=== PATIENT | female | born 1935 | race Caucasian/White ===

== ENCOUNTER 2017-10-25 18:38 | Inpatient (IN) | payer MEDICARE ==
[2017-10-25] MEDS: IV NORMAL SALINE 1000ML BAG 1,000 ML IV ×2 (20:31→23:59)
[2017-10-25 20:47] LABS: BASO % 0 % (0-3); EOS % 0 % (0-3); HEMATOCRIT 36.1 % (36.0-47.0); HEMOGLOBIN 12.2 g/dL (12.0-15.5); LYMPH # 0.7 x10^3/uL (1.0-4.8); LYMPH % 8 % (24-48); MEAN CORPUSCULAR HEMOGLOBIN 30 pg (25-35); MEAN CORPUSCULAR HGB CONC 34 g/dL (31-37); MEAN CORPUSCULAR VOLUME 89 fL (79-100); MONO # 0.4 x10^3/uL (0.0-1.1); MONO % 5 % (0-9); NEUT # 7.1 x10^3uL (1.8-7.7); NEUT % 87 % (31-73); PLATELET COUNT 450 x10^3/uL (140-400); RED BLOOD COUNT 4.04 x10^6/uL (3.50-5.40); RED CELL DISTRIBUTION WIDTH 13.5 % (11.5-14.5); WHITE BLOOD COUNT 8.1 x10^3/uL (4.0-11.0)
[2017-10-25 21:03] LABS: ANION GAP 15 (6-14); BLOOD UREA NITROGEN 102 mg/dL (7-20); BUN/CREATININE RATIO 30 (6-20); CALCIUM 10.3 mg/dL (8.5-10.1); CARBON DIOXIDE 15 mmol/L (21-32); CHLORIDE 96 mmol/L (98-107); CREATININE 3.4 mg/dL (0.6-1.0); GFR 12.9; GLUCOSE 165 mg/dL (70-99); POTASSIUM 5.7 mmol/L (3.5-5.1); SODIUM 126 mmol/L (136-145)
[2017-10-25 21:05] LABS: ADD MAN DIFF? YES
[2017-10-25 21:06] LABS: LACTIC ACID 2.3 mmol/L (0.4-2.0)
[2017-10-25 21:10] LABS: NT-PRO BNP 2060 pg/mL (0-449)
[2017-10-25 21:12] LABS: FREE T4 0.72 ng/dL (0.76-1.46)
[2017-10-25 21:12] LABS: THYROID STIM HORMONE (TSH) 2.183 uIU/mL (0.358-3.74)
[2017-10-25 21:13] LABS: TROPONINI < 0.017 ng/mL (0.000-0.055)
[2017-10-25 21:13] LABS: ALBUMIN 3.2 g/dL (3.4-5.0); ALBUMIN/GLOBULIN RATIO 0.6 (1.0-1.7); ALK PHOS 95 U/L (46-116); ALT (SGPT) 30 U/L (14-59); AST (SGOT) 12 U/L (15-37); MAGNESIUM 1.8 mg/dL (1.8-2.4); TOTAL BILIRUBIN 0.4 mg/dL (0.2-1.0); TOTAL PROTEIN 8.3 g/dL (6.4-8.2)
[2017-10-25 22:12] LABS: % BANDS 3 % (0-9); % LYMPHS 11 % (24-48); % METAS 1 % (0-0); % SEGS 85 % (35-66); PLT ESTIMATE ADEQUATE (ADEQUATE)
[2017-10-25 22:14] LABS: BILIRUBIN,URINE NEGATIVE (NEG); CLARITY,URINE TURBID; COLOR,URINE YELLOW; GLUCOSE,URINE NEGATIVE (NEG); NITRITE,URINE NEGATIVE (NEG); PH,URINE 5.5; PROTEIN,URINE 30 mg/dL (NEG-TRACE); UROBILINOGEN,URINE 0.2 mg/dL (0.2 mg/dL)
[2017-10-25] MEDS: cefTRIAXone IV Push 1 GM VIAL. IVP (22:25)
[2017-10-25 22:32] LABS: BACTERIA,URINE FEW /HPF (0-FEW); RBC,URINE 0 /HPF (0-2); SQUAMOUS EPITHELIAL CELL,UR OCC /LPF; WBC,URINE TNTC /HPF (0-4)
[2017-10-26 05:52] LABS: ADD MAN DIFF? NO
[2017-10-26 05:56] LABS: BASO % 0 % (0-3); EOS % 0 % (0-3); HEMATOCRIT 32.4 % (36.0-47.0); HEMOGLOBIN 11.2 g/dL (12.0-15.5); LYMPH # 1.6 x10^3/uL (1.0-4.8); LYMPH % 17 % (24-48); MEAN CORPUSCULAR HEMOGLOBIN 31 pg (25-35); MEAN CORPUSCULAR HGB CONC 35 g/dL (31-37); MEAN CORPUSCULAR VOLUME 89 fL (79-100); MONO % 11 % (0-9); NEUT # 6.8 x10^3uL (1.8-7.7); NEUT % 72 % (31-73); PLATELET COUNT 370 x10^3/uL (140-400); RED BLOOD COUNT 3.65 x10^6/uL (3.50-5.40); RED CELL DISTRIBUTION WIDTH 13.8 % (11.5-14.5); WHITE BLOOD COUNT 9.5 x10^3/uL (4.0-11.0)
[2017-10-26 06:18] LABS: ANION GAP 13 (6-14); BLOOD UREA NITROGEN 92 mg/dL (7-20); BUN/CREATININE RATIO 34 (6-20); CALCIUM 9.8 mg/dL (8.5-10.1); CARBON DIOXIDE 15 mmol/L (21-32); CHLORIDE 104 mmol/L (98-107); CREATININE 2.7 mg/dL (0.6-1.0); GFR 16.9; GLUCOSE 95 mg/dL (70-99); POTASSIUM 5.3 mmol/L (3.5-5.1); SODIUM 132 mmol/L (136-145)
[2017-10-26 06:23] LABS: ALBUMIN 2.9 g/dL (3.4-5.0); ALBUMIN/GLOBULIN RATIO 0.6 (1.0-1.7); ALK PHOS 84 U/L (46-116); ALT (SGPT) 27 U/L (14-59); AST (SGOT) 16 U/L (15-37); TOTAL BILIRUBIN 0.3 mg/dL (0.2-1.0); TOTAL PROTEIN 7.4 g/dL (6.4-8.2)
[2017-10-26] MEDS: IV NORMAL SALINE 1000ML BAG 1,000 ML IV ×3 (08:50→17:29)
[2017-10-26] MEDS: HEPARIN PF for SUB-Q USE 5,000 UNIT/0.5 ML VIAL. SQ ×2 (08:52→21:29)
[2017-10-26] MEDS: LACTOBACILLUS RHAMNOSUS GG 1 CAPSULE. PO (21:23)
[2017-10-26] MEDS: TAMSULOSIN 0.4 MG CAP.ER.24H. PO (21:23)
[2017-10-26] MEDS: cefTRIAXone IV Push 1 GM VIAL. IVP (23:08)
[2017-10-27] MEDS: HYDROcodone/APAP 5/325MG 1 TAB TABLET PO (03:42)
[2017-10-27] MEDS: LACTOBACILLUS RHAMNOSUS GG 1 CAPSULE. PO ×2 (08:54→21:57)
[2017-10-27] MEDS: HEPARIN PF for SUB-Q USE 5,000 UNIT/0.5 ML VIAL. SQ ×2 (08:58→22:08)
[2017-10-27] MEDS: TAMSULOSIN 0.4 MG CAP.ER.24H. PO (21:57)
[2017-10-27] MEDS: cefTRIAXone IV Push 1 GM VIAL. IVP (23:04)
[2017-10-28 06:21] LABS: ADD MAN DIFF? NO
[2017-10-28 06:44] LABS: ANION GAP 13 (6-14); BLOOD UREA NITROGEN 51 mg/dL (7-20); CALCIUM 10.1 mg/dL (8.5-10.1); CARBON DIOXIDE 18 mmol/L (21-32); CHLORIDE 112 mmol/L (98-107); CREATININE 1.8 mg/dL (0.6-1.0); GFR 26.9; GLUCOSE 102 mg/dL (70-99); POTASSIUM 4.7 mmol/L (3.5-5.1); SODIUM 143 mmol/L (136-145)
[2017-10-28 07:00] LABS: LACTIC ACID 0.8 mmol/L (0.4-2.0)
[2017-10-28 07:10] LABS: BASO % 0 % (0-3); EOS # 0.1 x10^3/uL (0.0-0.7); EOS % 1 % (0-3); HEMATOCRIT 31.1 % (36.0-47.0); HEMOGLOBIN 10.6 g/dL (12.0-15.5); LYMPH % 27 % (24-48); MEAN CORPUSCULAR HEMOGLOBIN 31 pg (25-35); MEAN CORPUSCULAR HGB CONC 34 g/dL (31-37); MEAN CORPUSCULAR VOLUME 89 fL (79-100); MONO # 0.7 x10^3/uL (0.0-1.1); MONO % 9 % (0-9); NEUT # 4.6 x10^3uL (1.8-7.7); NEUT % 63 % (31-73); PLATELET COUNT 272 x10^3/uL (140-400); RED BLOOD COUNT 3.48 x10^6/uL (3.50-5.40); RED CELL DISTRIBUTION WIDTH 14.3 % (11.5-14.5); WHITE BLOOD COUNT 7.3 x10^3/uL (4.0-11.0)
[2017-10-28] MEDS: LACTOBACILLUS RHAMNOSUS GG 1 CAPSULE. PO ×2 (08:44→21:38)
[2017-10-28] MEDS: HEPARIN PF for SUB-Q USE 5,000 UNIT/0.5 ML VIAL. SQ ×2 (08:52→21:42)
[2017-10-28] MEDS: TAMSULOSIN 0.4 MG CAP.ER.24H. PO (21:38)
[2017-10-28] MEDS: cefTRIAXone IV Push 1 GM VIAL. IVP (22:53)
[2017-10-28] MEDS: HYDROcodone/APAP 5/325MG 1 TAB TABLET PO (22:59)
[2017-10-29 05:06] LABS: ADD MAN DIFF? NO
[2017-10-29 05:25] LABS: BASO % 0 % (0-3); EOS # 0.1 x10^3/uL (0.0-0.7); EOS % 2 % (0-3); HEMATOCRIT 30.6 % (36.0-47.0); HEMOGLOBIN 10.3 g/dL (12.0-15.5); LYMPH # 2.3 x10^3/uL (1.0-4.8); LYMPH % 35 % (24-48); MEAN CORPUSCULAR HEMOGLOBIN 30 pg (25-35); MEAN CORPUSCULAR HGB CONC 34 g/dL (31-37); MEAN CORPUSCULAR VOLUME 90 fL (79-100); MONO # 0.6 x10^3/uL (0.0-1.1); MONO % 9 % (0-9); NEUT # 3.5 x10^3uL (1.8-7.7); NEUT % 53 % (31-73); PLATELET COUNT 243 x10^3/uL (140-400); RED BLOOD COUNT 3.41 x10^6/uL (3.50-5.40); RED CELL DISTRIBUTION WIDTH 14.3 % (11.5-14.5); WHITE BLOOD COUNT 6.6 x10^3/uL (4.0-11.0)
[2017-10-29 05:56] LABS: ALBUMIN 2.7 g/dL (3.4-5.0); ALBUMIN/GLOBULIN RATIO 0.7 (1.0-1.7); ALK PHOS 65 U/L (46-116); ALT (SGPT) 23 U/L (14-59); ANION GAP 14 (6-14); AST (SGOT) 10 U/L (15-37); BLOOD UREA NITROGEN 44 mg/dL (7-20); BUN/CREATININE RATIO 26 (6-20); CARBON DIOXIDE 17 mmol/L (21-32); CHLORIDE 109 mmol/L (98-107); CREATININE 1.7 mg/dL (0.6-1.0); GFR 28.8; GLUCOSE 102 mg/dL (70-99); POTASSIUM 4.1 mmol/L (3.5-5.1); SODIUM 140 mmol/L (136-145); TOTAL BILIRUBIN 0.4 mg/dL (0.2-1.0); TOTAL PROTEIN 6.7 g/dL (6.4-8.2)
[2017-10-29 07:18] LABS: SEDIMENTATION RATE 53 (0-25)
[2017-10-29] MEDS: LACTOBACILLUS RHAMNOSUS GG 1 CAPSULE. PO ×2 (10:26→20:53)
[2017-10-29] MEDS: HEPARIN PF for SUB-Q USE 5,000 UNIT/0.5 ML VIAL. SQ ×2 (10:26→20:54)
[2017-10-29] MEDS: TAMSULOSIN 0.4 MG CAP.ER.24H. PO (20:53)
[2017-10-29] MEDS: HYDROcodone/APAP 5/325MG 1 TAB TABLET PO (20:56)
[2017-10-29] MEDS: cefTRIAXone IV Push 1 GM VIAL. IVP (22:26)
[2017-10-30 04:38] LABS: ADD MAN DIFF? NO
[2017-10-30 04:45] LABS: BASO % 0 % (0-3); EOS # 0.2 x10^3/uL (0.0-0.7); EOS % 3 % (0-3); HEMATOCRIT 29.6 % (36.0-47.0); LYMPH # 2.2 x10^3/uL (1.0-4.8); LYMPH % 31 % (24-48); MEAN CORPUSCULAR HEMOGLOBIN 30 pg (25-35); MEAN CORPUSCULAR HGB CONC 34 g/dL (31-37); MEAN CORPUSCULAR VOLUME 90 fL (79-100); MONO # 0.7 x10^3/uL (0.0-1.1); MONO % 9 % (0-9); NEUT # 4.1 x10^3uL (1.8-7.7); NEUT % 57 % (31-73); PLATELET COUNT 227 x10^3/uL (140-400); RED BLOOD COUNT 3.31 x10^6/uL (3.50-5.40); RED CELL DISTRIBUTION WIDTH 14.2 % (11.5-14.5); WHITE BLOOD COUNT 7.2 x10^3/uL (4.0-11.0)
[2017-10-30 05:27] LABS: ALBUMIN 2.7 g/dL (3.4-5.0); ALBUMIN/GLOBULIN RATIO 0.6 (1.0-1.7); ALK PHOS 62 U/L (46-116); ALT (SGPT) 24 U/L (14-59); ANION GAP 13 (6-14); AST (SGOT) 13 U/L (15-37); BLOOD UREA NITROGEN 39 mg/dL (7-20); BUN/CREATININE RATIO 23 (6-20); CARBON DIOXIDE 17 mmol/L (21-32); CHLORIDE 108 mmol/L (98-107); CREATININE 1.7 mg/dL (0.6-1.0); GFR 28.8; GLUCOSE 88 mg/dL (70-99); SODIUM 138 mmol/L (136-145); TOTAL BILIRUBIN 0.3 mg/dL (0.2-1.0)
[2017-10-30] MEDS: LACTOBACILLUS RHAMNOSUS GG 1 CAPSULE. PO ×2 (09:36→21:08)
[2017-10-30] MEDS: HEPARIN PF for SUB-Q USE 5,000 UNIT/0.5 ML VIAL. SQ ×2 (09:42→21:13)
[2017-10-30] MEDS: SENNOSIDES/DOCUSATE 8.6/50MG TABLET. PO (10:31)
[2017-10-30] MEDS: HYDROcodone/APAP 5/325MG 1 TAB TABLET PO (21:08)
[2017-10-30] MEDS: TAMSULOSIN 0.4 MG CAP.ER.24H. PO (21:08)
[2017-10-30] MEDS: cefTRIAXone IV Push 1 GM VIAL. IVP (23:19)
[2017-10-31 07:05] LABS: ADD MAN DIFF? NO
[2017-10-31 07:17] LABS: BASO # 0.1 x10^3/uL (0.0-0.2); BASO % 1 % (0-3); EOS # 0.2 x10^3/uL (0.0-0.7); EOS % 4 % (0-3); HEMATOCRIT 29.3 % (36.0-47.0); LYMPH # 2.3 x10^3/uL (1.0-4.8); LYMPH % 43 % (24-48); MEAN CORPUSCULAR HEMOGLOBIN 31 pg (25-35); MEAN CORPUSCULAR HGB CONC 34 g/dL (31-37); MEAN CORPUSCULAR VOLUME 91 fL (79-100); MONO # 0.5 x10^3/uL (0.0-1.1); MONO % 9 % (0-9); NEUT # 2.3 x10^3uL (1.8-7.7); NEUT % 44 % (31-73); PLATELET COUNT 206 x10^3/uL (140-400); RED BLOOD COUNT 3.21 x10^6/uL (3.50-5.40); RED CELL DISTRIBUTION WIDTH 14.6 % (11.5-14.5); WHITE BLOOD COUNT 5.4 x10^3/uL (4.0-11.0)
[2017-10-31 07:42] LABS: ANION GAP 12 (6-14); BLOOD UREA NITROGEN 38 mg/dL (7-20); CALCIUM 9.5 mg/dL (8.5-10.1); CARBON DIOXIDE 19 mmol/L (21-32); CHLORIDE 107 mmol/L (98-107); CREATININE 1.9 mg/dL (0.6-1.0); GFR 25.3; GLUCOSE 80 mg/dL (70-99); POTASSIUM 4.2 mmol/L (3.5-5.1); SODIUM 138 mmol/L (136-145)
[2017-10-31] MEDS: LACTOBACILLUS RHAMNOSUS GG 1 CAPSULE. PO ×2 (09:53→20:17)
[2017-10-31] MEDS: HYDROcodone/APAP 5/325MG 1 TAB TABLET PO (09:54)
[2017-10-31] MEDS: HEPARIN PF for SUB-Q USE 5,000 UNIT/0.5 ML VIAL. SQ ×2 (09:57→20:21)
[2017-10-31] MEDS: TAMSULOSIN 0.4 MG CAP.ER.24H. PO (20:17)
[2017-11-01 05:04] LABS: ADD MAN DIFF? NO
[2017-11-01 05:13] LABS: BASO # 0.1 x10^3/uL (0.0-0.2); BASO % 1 % (0-3); EOS # 0.2 x10^3/uL (0.0-0.7); EOS % 3 % (0-3); HEMATOCRIT 29.5 % (36.0-47.0); HEMOGLOBIN 10.1 g/dL (12.0-15.5); LYMPH % 36 % (24-48); MEAN CORPUSCULAR HEMOGLOBIN 31 pg (25-35); MEAN CORPUSCULAR HGB CONC 34 g/dL (31-37); MEAN CORPUSCULAR VOLUME 91 fL (79-100); MONO # 0.5 x10^3/uL (0.0-1.1); MONO % 8 % (0-9); NEUT # 2.9 x10^3uL (1.8-7.7); NEUT % 52 % (31-73); PLATELET COUNT 197 x10^3/uL (140-400); RED BLOOD COUNT 3.26 x10^6/uL (3.50-5.40); RED CELL DISTRIBUTION WIDTH 14.9 % (11.5-14.5); WHITE BLOOD COUNT 5.7 x10^3/uL (4.0-11.0)
[2017-11-01 05:25] LABS: ANION GAP 11 (6-14); BLOOD UREA NITROGEN 36 mg/dL (7-20); CALCIUM 10.1 mg/dL (8.5-10.1); CARBON DIOXIDE 18 mmol/L (21-32); CHLORIDE 108 mmol/L (98-107); CREATININE 1.7 mg/dL (0.6-1.0); GFR 28.8; GLUCOSE 84 mg/dL (70-99); MAGNESIUM 1.6 mg/dL (1.8-2.4); POTASSIUM 4.1 mmol/L (3.5-5.1); SODIUM 137 mmol/L (136-145)
[2017-11-01] MEDS: LACTOBACILLUS RHAMNOSUS GG 1 CAPSULE. PO ×2 (08:15→20:53)
[2017-11-01] MEDS: HEPARIN PF for SUB-Q USE 5,000 UNIT/0.5 ML VIAL. SQ ×2 (08:15→20:53)
[2017-11-01] MEDS: HYDROcodone/APAP 5/325MG 1 TAB TABLET PO ×2 (08:19→21:04)
[2017-11-01] MEDS ORDERED: MORPHINE SULFATE 4 MG/ML DISP.SYRIN. IV (13:00)
[2017-11-01] MEDS ORDERED: ACETAMINOPHEN 325 MG TABLET. PO (13:00)
[2017-11-01] MEDS ORDERED: ONDANSETRON PF 4 MG/2 ML VIAL. IV (13:00)
[2017-11-01] MEDS ORDERED: DOCUSATE SODIUM 100 MG CAPSULE. PO (13:00)
[2017-11-01] MEDS ORDERED: hydrALAZINE 20 MG/ML VIAL. IVP (13:00)
[2017-11-01] MEDS: TAMSULOSIN 0.4 MG CAP.ER.24H. PO (20:53)
[2017-11-02 05:31] LABS: ADD MAN DIFF? NO
[2017-11-02] MEDS: SENNOSIDES/DOCUSATE 8.6/50MG TABLET. PO (05:46)
[2017-11-02 05:50] LABS: BASO % 1 % (0-3); EOS # 0.2 x10^3/uL (0.0-0.7); EOS % 3 % (0-3); HEMATOCRIT 29.6 % (36.0-47.0); LYMPH % 37 % (24-48); MEAN CORPUSCULAR HEMOGLOBIN 31 pg (25-35); MEAN CORPUSCULAR HGB CONC 34 g/dL (31-37); MEAN CORPUSCULAR VOLUME 90 fL (79-100); MONO # 0.5 x10^3/uL (0.0-1.1); MONO % 9 % (0-9); NEUT # 2.6 x10^3uL (1.8-7.7); NEUT % 50 % (31-73); PLATELET COUNT 180 x10^3/uL (140-400); RED BLOOD COUNT 3.27 x10^6/uL (3.50-5.40); RED CELL DISTRIBUTION WIDTH 14.9 % (11.5-14.5); WHITE BLOOD COUNT 5.3 x10^3/uL (4.0-11.0)
[2017-11-02 06:06] LABS: ANION GAP 12 (6-14); BLOOD UREA NITROGEN 30 mg/dL (7-20); CALCIUM 10.3 mg/dL (8.5-10.1); CARBON DIOXIDE 19 mmol/L (21-32); CHLORIDE 107 mmol/L (98-107); CREATININE 1.6 mg/dL (0.6-1.0); GFR 30.9; GLUCOSE 75 mg/dL (70-99); POTASSIUM 4.1 mmol/L (3.5-5.1); SODIUM 138 mmol/L (136-145)
[2017-11-02] MEDS ORDERED: LIDOCAINE 1% PF 2 ML VIAL. ID (07:00)
[2017-11-02] MEDS ORDERED: PROCHLORPERAZINE 10 MG/2 ML VIAL. IV (07:00)
[2017-11-02] MEDS ORDERED: ONDANSETRON PF 4 MG/2 ML VIAL. IV (07:00)
[2017-11-02] MEDS ORDERED: fentaNYL PF VIAL 100 MCG/2 ML VIAL IV (07:00)
[2017-11-02] MEDS ORDERED: MORPHINE SULFATE 4 MG/ML DISP.SYRIN. IV (07:00)
[2017-11-02] MEDS: HEPARIN PF for SUB-Q USE 5,000 UNIT/0.5 ML VIAL. SQ ×2 (07:24→20:46)
[2017-11-02] MEDS: LACTOBACILLUS RHAMNOSUS GG 1 CAPSULE. PO ×2 (09:00→20:46)
[2017-11-02] MEDS ORDERED: LIDOCAINE 2% JELLY 6ML IN APPLICATOR. (11:43)
[2017-11-02] MEDS ORDERED: PROPOFOL 20 ML IV (12:58)
[2017-11-02] MEDS ORDERED: DEXAMETHASONE SOD PHOS 20 MG/5 ML VIAL. (12:58)
[2017-11-02] MEDS ORDERED: ONDANSETRON PF 4 MG/2 ML VIAL. (12:58)
[2017-11-02] MEDS ORDERED: LIDOCAINE 2% PF Vial for OR 5 ML VIAL. (12:58)
[2017-11-02] MEDS: IV RINGERS,LACTATED 1000ML 1,000 ML IV (13:18)
[2017-11-02] MEDS ORDERED: ePHEDrine PF IN SALINE 50 MG/5 ML DISP.SYRIN IV (14:22)
[2017-11-02] MEDS ORDERED: fentaNYL PF VIAL 100 MCG/2 ML VIAL ×2 (14:30→15:31)
[2017-11-02] MEDS: METHYLENE BLUE 1% 10 ML VIAL. (14:48)
[2017-11-02] MEDS: IOHEXOL 300 MG/ML 100ML VIAL. (14:55)
[2017-11-02] MEDS ORDERED: SEVOFLURANE 61 TO 120 MINUTES. IH (15:06)
[2017-11-02 15:29] LABS: POC GLUCOSE 114 mg/dL (70-99)
[2017-11-02] MEDS: fentaNYL PF VIAL 100 MCG/2 ML VIAL IV (15:36)
[2017-11-02] MEDS: IV NORMAL SALINE 1000ML BAG 1,000 ML IV (16:47)
[2017-11-02 17:38] LABS: INR 1.2 (0.8-1.1); PARTIAL THROMBOPLASTIN TIME 32 SEC (24-38)
[2017-11-02] MEDS: traMADol 50 MG TABLET PO (17:38)
[2017-11-02] MEDS: TAMSULOSIN 0.4 MG CAP.ER.24H. PO (20:46)
[2017-11-02] MEDS: HYDROcodone/APAP 5/325MG 1 TAB TABLET PO (20:46)
[2017-11-03 04:47] LABS: ADD MAN DIFF? NO
[2017-11-03 04:54] LABS: BASO % 0 % (0-3); EOS % 0 % (0-3); HEMATOCRIT 30.1 % (36.0-47.0); HEMOGLOBIN 10.1 g/dL (12.0-15.5); LYMPH # 0.8 x10^3/uL (1.0-4.8); LYMPH % 13 % (24-48); MEAN CORPUSCULAR HEMOGLOBIN 31 pg (25-35); MEAN CORPUSCULAR HGB CONC 34 g/dL (31-37); MEAN CORPUSCULAR VOLUME 91 fL (79-100); MONO # 0.2 x10^3/uL (0.0-1.1); MONO % 3 % (0-9); NEUT # 4.9 x10^3uL (1.8-7.7); NEUT % 84 % (31-73); PLATELET COUNT 173 x10^3/uL (140-400); RED CELL DISTRIBUTION WIDTH 14.8 % (11.5-14.5); WHITE BLOOD COUNT 5.8 x10^3/uL (4.0-11.0)
[2017-11-03] MEDS: IV NORMAL SALINE 1000ML BAG 1,000 ML IV ×2 (05:03→16:00)
[2017-11-03 05:22] LABS: ANION GAP 14 (6-14); BLOOD UREA NITROGEN 28 mg/dL (7-20); CARBON DIOXIDE 18 mmol/L (21-32); CHLORIDE 106 mmol/L (98-107); CREATININE 1.7 mg/dL (0.6-1.0); GFR 28.8; GLUCOSE 103 mg/dL (70-99); SODIUM 138 mmol/L (136-145)
[2017-11-03] MEDS: LACTOBACILLUS RHAMNOSUS GG 1 CAPSULE. PO ×2 (07:44→21:00)
[2017-11-03] MEDS: HEPARIN PF for SUB-Q USE 5,000 UNIT/0.5 ML VIAL. SQ ×2 (07:44→21:05)
[2017-11-03] MEDS ORDERED: MIDAZOLAM HCL/PF 2 MG/2 ML VIAL. (09:21)
[2017-11-03] MEDS ORDERED: fentaNYL PF VIAL 100 MCG/2 ML VIAL (09:21)
[2017-11-03] MEDS ORDERED: LIDOCAINE WITH 8.4% SOD BICARB 3 ML DISP.SYRIN. ×2 (09:23→09:31)
[2017-11-03] MEDS ORDERED: IOHEXOL 300 MG/ML 100ML VIAL. (09:23)
[2017-11-03] MEDS: IOHEXOL 300 MG/ML 100ML VIAL. IART (10:11)
[2017-11-03] MEDS: fentaNYL PF VIAL 100 MCG/2 ML VIAL IV (10:17)
[2017-11-03] MEDS: LIDOCAINE WITH 8.4% SOD BICARB 3 ML DISP.SYRIN. IJ (10:17)
[2017-11-03] MEDS: MIDAZOLAM HCL/PF 2 MG/2 ML VIAL. IV (10:18)
[2017-11-03] MEDS ORDERED: MORPHINE SULFATE 2 MG/ML DISP.SYRIN. IV (15:29)
[2017-11-03] MEDS: TAMSULOSIN 0.4 MG CAP.ER.24H. PO (21:00)
[2017-11-03] MEDS: HYDROcodone/APAP 5/325MG 1 TAB TABLET PO (23:16)
[2017-11-04] MEDS: IV NORMAL SALINE 1000ML BAG 1,000 ML IV (05:54)
[2017-11-04] MEDS: HYDROcodone/APAP 5/325MG 1 TAB TABLET PO (05:59)
[2017-11-04] MEDS: LACTOBACILLUS RHAMNOSUS GG 1 CAPSULE. PO (08:31)
[2017-11-04] MEDS: HEPARIN PF for SUB-Q USE 5,000 UNIT/0.5 ML VIAL. SQ (08:33)
[2017-11-04] MEDS: SENNOSIDES/DOCUSATE 8.6/50MG TABLET. PO (08:45)
[2017-11-04 10:11] LABS: ANION GAP 9 (6-14); BLOOD UREA NITROGEN 26 mg/dL (7-20); BUN/CREATININE RATIO 16 (6-20); CARBON DIOXIDE 22 mmol/L (21-32); CHLORIDE 111 mmol/L (98-107); CREATININE 1.6 mg/dL (0.6-1.0); GFR 30.9; GLUCOSE 76 mg/dL (70-99); POTASSIUM 4.1 mmol/L (3.5-5.1); SODIUM 142 mmol/L (136-145)
[2017-11-04 10:16] LABS: ALBUMIN 2.3 g/dL (3.4-5.0); ALBUMIN/GLOBULIN RATIO 0.7 (1.0-1.7); ALK PHOS 48 U/L (46-116); ALT (SGPT) 13 U/L (14-59); AST (SGOT) 11 U/L (15-37); TOTAL BILIRUBIN 0.3 mg/dL (0.2-1.0); TOTAL PROTEIN 5.4 g/dL (6.4-8.2)
== END 2017-11-04 17:10 | disposition home health service (06) | DRG 682 ==
LOC: ER 18:38 → 5 SOUTH 21:50
PROC: BT1F1ZZ Fluoroscopy of Left Kidney, Ureter and Bladder using Low Osmolar Contrast (ICD-10-PCS; principal; 2017-11-02 14:00)
PROC: 0T778DZ Dilation of Left Ureter with Intraluminal Device, Via Natural or Artificial Opening Endoscopic (ICD-10-PCS; 2017-11-02 14:00)
DX: N17.0 Acute kidney failure with tubular necrosis (principal); G93.41 Metabolic encephalopathy; E87.1 Hypo-osmolality and hyponatremia; E87.2 Acidosis; N13.2 Hydronephrosis with renal and ureteral calculous obstruction; E03.9 Hypothyroidism, unspecified; E78.00 Pure hypercholesterolemia, unspecified; E78.5 Hyperlipidemia, unspecified; E86.0 Dehydration; E87.5 Hyperkalemia; I12.9 Hypertensive chronic kidney disease with stage 1 through stage 4 chronic kidney disease, or unspecified chronic kidney disease; K21.9 Gastro-esophageal reflux disease without esophagitis; K57.90 Diverticulosis of intestine, part unspecified, without perforation or abscess without bleeding; M48.061 Spinal stenosis, lumbar region without neurogenic claudication; M51.36 Other intervertebral disc degeneration, lumbar region; N18.3 Chronic kidney disease, stage 3 (moderate); N21.0 Calculus in bladder; N30.91 Cystitis, unspecified with hematuria; M19.90 Unspecified osteoarthritis, unspecified site; E83.52 Hypercalcemia; Q63.2 Ectopic kidney; Z87.442 Personal history of urinary calculi; Z87.891 Personal history of nicotine dependence
CPT/HCPCS: 36415; 50432; 71045; 74176; 76700; 76937; 80048; 80053; 81001; 82962; 83605; 83735; 83880; 84439; 84443; 84484; 85007; 85025; 85610; 85651; 85730; 87086; 87186; 93005; 96360; 97110-GO; 97116-GP; 97162-GP; 97166-GO; 97530-GP; 97535-GO; 99152; 99153; 99285; 99285-25; C1769; C1892; C1894; J0690; J0696; J1100; J2250; J2405; J2704; J3010; J7030; J7120; Q9967; Q9968

== ENCOUNTER 2017-12-14 07:17 | Outpatient (CLI) | payer MEDICARE ==
[2017-12-14 07:47] LABS: ADD MAN DIFF? NO
[2017-12-14 07:50] LABS: BASO % 0 % (0-3); EOS % 1 % (0-3); HEMATOCRIT 33.7 % (36.0-47.0); HEMOGLOBIN 11.1 g/dL (12.0-15.5); LYMPH # 1.5 x10^3/uL (1.0-4.8); LYMPH % 26 % (24-48); MEAN CORPUSCULAR HEMOGLOBIN 30 pg (25-35); MEAN CORPUSCULAR HGB CONC 33 g/dL (31-37); MEAN CORPUSCULAR VOLUME 89 fL (79-100); MONO # 0.5 x10^3/uL (0.0-1.1); MONO % 9 % (0-9); NEUT # 3.8 x10^3uL (1.8-7.7); NEUT % 64 % (31-73); PLATELET COUNT 264 x10^3/uL (140-400); RED BLOOD COUNT 3.78 x10^6/uL (3.50-5.40); RED CELL DISTRIBUTION WIDTH 15.1 % (11.5-14.5); WHITE BLOOD COUNT 5.9 x10^3/uL (4.0-11.0)
[2017-12-14 08:00] LABS: INR 1.2 (0.8-1.1); PARTIAL THROMBOPLASTIN TIME 32 SEC (24-38); PROTHROMBIN TIME PATIENT 14.9 SEC (11.7-14.0)
[2017-12-14 08:03] LABS: ANION GAP 15 (6-14); BLOOD UREA NITROGEN 23 mg/dL (7-20); CALCIUM 10.3 mg/dL (8.5-10.1); CARBON DIOXIDE 23 mmol/L (21-32); CHLORIDE 103 mmol/L (98-107); CREATININE 2.2 mg/dL (0.6-1.0); GFR 21.4; GLUCOSE 114 mg/dL (70-99); POTASSIUM 3.9 mmol/L (3.5-5.1); SODIUM 141 mmol/L (136-145)
[2017-12-14] MEDS ORDERED: IOHEXOL 300 MG/ML 100ML VIAL. (08:05)
[2017-12-14] MEDS ORDERED: LIDOCAINE WITH 8.4% SOD BICARB 3 ML DISP.SYRIN. (08:05)
[2017-12-14] MEDS ORDERED: MIDAZOLAM HCL/PF 2 MG/2 ML VIAL. (08:27)
[2017-12-14] MEDS ORDERED: fentaNYL PF VIAL 100 MCG/2 ML VIAL (08:28)
[2017-12-14] MEDS: MIDAZOLAM HCL/PF 2 MG/2 ML VIAL. IV (08:30)
[2017-12-14] MEDS: fentaNYL PF VIAL 100 MCG/2 ML VIAL IV (08:30)
[2017-12-14] MEDS: LIDOCAINE WITH 8.4% SOD BICARB 3 ML DISP.SYRIN. IJ (08:30)
[2017-12-14] MEDS: IOHEXOL 300 MG/ML 100ML VIAL. IART (08:30)
== END 2017-12-14 12:00 | disposition home or self-care (01) ==
LOC: INTRAD 07:17
DX: Z46.6 Encounter for fitting and adjustment of urinary device (principal); N20.1 Calculus of ureter; N13.8 Other obstructive and reflux uropathy; K21.9 Gastro-esophageal reflux disease without esophagitis; E78.00 Pure hypercholesterolemia, unspecified; I12.9 Hypertensive chronic kidney disease with stage 1 through stage 4 chronic kidney disease, or unspecified chronic kidney disease; E11.22 Type 2 diabetes mellitus with diabetic chronic kidney disease; N18.3 Chronic kidney disease, stage 3 (moderate); M19.90 Unspecified osteoarthritis, unspecified site; E03.9 Hypothyroidism, unspecified; Z87.442 Personal history of urinary calculi; Z87.891 Personal history of nicotine dependence; Z79.899 Other long term (current) drug therapy; Z79.01 Long term (current) use of anticoagulants; Z79.84 Long term (current) use of oral hypoglycemic drugs
CPT/HCPCS: 36415; 50693; 80048; 85025; 85610; 85730; 99152; 99153; C1713; C1729; C1769; C1894; J0690; J2250; J3010; Q9967

== ENCOUNTER 2018-02-01 07:33 | Inpatient (IN) | payer MEDICARE ==
[~2018-02-01] VITALS: Ht 160 cm; Wt 58.1 kg
[~2018-02-01 07:33] MED LIST: DOXY100T9 PO; LEVO100T5 PO; LISI-130 PO; LOVA40TA2 PO; OMEP40CA5 PO; PRED20TA PO; TRAM50TA PO
[2018-02-01] MEDS ORDERED: IV NORMAL SALINE 1000ML BAG 1,000 ML IV ONE ×2 (08:00→09:45)
[2018-02-01 08:24] LABS: BASO # 0.1 x10^3/uL (0.0-0.2); BASO % 0 % (0-3); EOS % 0 % (0-3); LYMPH # 1.6 x10^3/uL (1.0-4.8); LYMPH % 9 % (24-48); MEAN CORPUSCULAR HEMOGLOBIN 29 pg (25-35); MEAN CORPUSCULAR HGB CONC 33 g/dL (31-37); MEAN CORPUSCULAR VOLUME 87 fL (79-100); MONO # 0.8 x10^3/uL (0.0-1.1); MONO % 4 % (0-9); NEUT # 16.1 x10^3uL (1.8-7.7); NEUT % 87 % (31-73); PLATELET COUNT 238 x10^3/uL (140-400); RED CELL DISTRIBUTION WIDTH 17.3 % (11.5-14.5); WHITE BLOOD COUNT 18.6 x10^3/uL (4.0-11.0)
--- NOTE | 2018-02-01 08:30 | RAD ---
Portable chest, 02/01/2018: HISTORY: Fever, altered mental status Comparison is made to a study from 10/25/2017. The heart size and pulmonary vascularity are normal. There is calcific plaquing of the aorta. No pulmonary infiltrate is seen. There is minimal basilar scarring. There is no evidence of pleural fluid. IMPRESSION: No acute cardiopulmonary abnormality is detected. Electronically signed by: Jhonny Monterroso MD (02/01/2018 8:27 AM) [facility]
[2018-02-01 08:36] LABS: PROTHROMBIN TIME PATIENT 14.4 SEC (11.7-14.0)
[2018-02-01 08:45] LABS: CREATININE 5.2 mg/dL (0.6-1.0); GFR 7.9; POTASSIUM 3.8 mmol/L (3.5-5.1)
--- NOTE | 2018-02-01 08:50 | RAD ---
CT ABDOMEN PELVIS WO CONTRAST Indication: Nephrolithiasis. Back pain. Altered mental status. Evaluate stone location. Stent. Exposure: One or more of the following individualized dose reduction techniques were utilized for this examination: 1. Automated exposure control 2. Adjustment of the mA and/or kV according to patient size 3. Use of iterative reconstruction technique. Comparison: October 26, 2017 Contrast: No intravenous contrast given. No oral contrast per request. Evaluation of solid viscera, bowel and vasculature is compromised by the noncontrast technique. Lower thorax: Coronary artery calcifications. Mild pericardial fluid or thickening appears similar. Mild markings scattered through both lung bases are prior study, likely mild atelectasis. No dense consolidation small subpleural nodule, series 2, image 18, measures 5 mm in size, appears similar to the prior exam. Liver: Evaluation is compromised by artifact due to the patient's arms. No definite abnormality. Spleen: Unremarkable Pancreas: Unremarkable Adrenals: Left adrenal gland is slightly thickened or nodular, unchanged. No discrete mass. Kidneys: Left kidney is again seen to be atrophic. Urinary tracts: Previously seen left hydronephrosis has improved. There is air within the left renal collecting system, may be due to the patient's stent or recent small calculus identified left renal pelvis, measures 2 mm. Mild variable dilatation or wall thickening of the left ureter with mild surrounding stranding. No evidence of left ureteric calculus. No evidence of right hydronephrosis, or right renal or ureteric calculus. Gallbladder: No calcified stone Aorta: Densely calcified, ectatic and tortuous. Dense calcifications at the the superior mesenteric mesenteric artery and celiac trunk. Lymph nodes: No significant enlargement GI tract: Stomach is distended, mostly with fluid density. No bowel obstruction. Colonic diverticulosis without evidence of acute colitis. Appendix is normal. Reproductive organs:No evidence of mass. Urinary bladder: Numerous small calcifications or calculi along its dependent aspect. Moderate air, presumably due to recent instrumentation. There may be mild wall thickening. Peritoneum: No evidence of pneumoperitoneum. No free fluid. Abdominal wall: Unremarkable Spine: Degenerative spondylosis. Appearance and alignment appear similar to previous exam. Bones: No acute displaced fracture is identified. IMPRESSION: 1. Left hydronephrosis has resolved. Only a small 2 mm calculus now identified within the left renal pelvis. Air within the left ureter and collecting system, and urinary bladder, likely due to recent instrumentation. Mild stranding in the fat around the left ureter, likely the result of recent instrumentation or mild ureteritis. 2. Previously seen right hydronephrosis has resolved. 3. Multiple, at least 6, small calculi are identified within the urinary bladder measuring up to 3 mm in size. 4. Small 5 mm subpleural nodule in the right lung base is stable. 5. Mild nodular or irregular thickening of the left adrenal gland is stable. Electronically signed by: Rolo Keller MD (02/01/2018 8:47 AM) [facility]
[2018-02-01 08:52] LABS: ALBUMIN 3.9 g/dL (3.4-5.0); ALBUMIN/GLOBULIN RATIO 0.8 (1.0-1.7); TOTAL BILIRUBIN 0.5 mg/dL (0.2-1.0); TOTAL PROTEIN 8.8 g/dL (6.4-8.2)
--- NOTE | 2018-02-01 09:20 | RAD ---
CT of the head without contrast, 02/01/2018: HISTORY: Altered mental status There is moderate cerebral atrophy. The ventricles are within normal limits in size. There is no shift of the midline structures. There is no evidence of acute intracranial hemorrhage or mass effect. IMPRESSION: No acute intracranial abnormality is detected. Electronically signed by: Jhonny Monterroso MD (02/01/2018 9:17 AM) [facility]
[2018-02-01 09:35] LABS: BILIRUBIN,URINE MODERATE (NEG); CLARITY,URINE TURBID; COLOR,URINE AMBER; NITRITE,URINE NEGATIVE (NEG); PH,URINE 5.5; PROTEIN,URINE 100 mg/dL (NEG-TRACE); UROBILINOGEN,URINE 0.2 mg/dL (0.2 mg/dL)
[2018-02-01 09:43] LABS: BACTERIA,URINE MANY /HPF (0-FEW); RBC,URINE 20-40 /HPF (0-2); SQUAMOUS EPITHELIAL CELL,UR MANY /LPF; WBC,URINE TNTC /HPF (0-4)
[2018-02-01] MEDS ORDERED: VANCOMYCIN PER PHARMACY MC PRN (09:45)
[2018-02-01] MEDS ORDERED: VANCOMYCIN 1.75 GM in IV NORMAL SALINE 500ML BAG 500 ML IV ONE (10:00)
--- NOTE | 2018-02-01 10:20 | PHYS DOC ---
Past Medical History Past Medical History: GERD, High Cholesterol, Hypertension, Hypothyroid Past Surgical History: No Surgical History Alcohol Use: None Drug Use: None Adult General Chief Complaint Chief Complaint: ALTERED MENTAL STATUS HPI HPI Patient is a 83 year old female presenting with altered mental status is at 5 days of gradual decline not eating as much weaker than normal today she slumped over in the chair daughter thought she was having a stroke and she seemed to perk up however she's been vomiting a lot and just not feeling well. She does have a history of a urinary tract infection as well as a ureteral stent placement. Ureteral stent was removed several weeks ago she just had antibiotics prescribed for her for UTI but she has been unable to take them because she has been vomiting Review of Systems Review of Systems Limited by altered mental status Current Medications Current Medications Current Medications Medications (Trade) Dose Ordered Sig/Juliocesar Start Time Stop Time Status Last Admin Dose Admin Ceftriaxone Sodium 50 ml @ 100 mls/hr 1X ONCE 02/01/18 08:00 02/01/18 08:29 DC 02/01/18 09:35 100 MLS/HR Sodium Chloride 1,000 ml @ 1,000 mls/hr 1X ONCE 02/01/18 09:45 02/01/18 10:44 Vancomycin HCl (Vanco Per Pharmacy) 1 each PRN DAILY PRN 02/01/18 09:45 UNV Vancomycin HCl 1.75 gm/Sodium Chloride 500 ml @ 250 mls/hr 1X ONCE 02/01/18 10:00 02/01/18 11:59 Allergies Allergies Allergies Coded Allergies Type Severity Reaction Last Updated Verified No Known Drug Allergies 11/02/17 No Physical Exam Physical Exam Constitutional: Well developed, well nourished, mild distress HENT: Normocephalic, atraumatic, bilateral external ears normal, oropharynx moist, no oral exudates, nose normal. [] Eyes: PERRLA, EOMI, conjunctiva normal, no discharge. [] Neck: Normal range of motion, no tenderness, supple, no stridor. [] Cardiovascular:Heart rate regular rhythm, no murmur [] Lungs & Thorax: Bilateral breath sounds clear to auscultation [] Abdomen: Bowel sounds normal, soft, no tenderness, no masses, no pulsatile masses. [] Skin: Warm, dry, no erythema, no rash. [] Back: No tenderness, no CVA tenderness. [] Extremities: No tenderness, no cyanosis, no clubbing, ROM intact, no edema. [] Neurologic: Alert and oriented X 2, sleepy but arousable and does follow commands., normal motor function, normal sensory function, no focal deficits noted. [] Psychologic: Affect normal, judgement normal, mood normal. [] Current Patient Data Vital Signs Vital Signs Date Time Temp Pulse Resp B/P (MAP) Pulse Ox O2 Delivery O2 Flow Rate FiO2 02/01/18 09:31 90 20 96 02/01/18 07:48 122/63 (82) Room Air Lab Values Laboratory Tests Test 02/01/18 08:10 02/01/18 09:25 White Blood Count 18.6 x10^3/uL (4.0-11.0) H Red Blood Count 5.20 x10^6/uL (3.50-5.40) Hemoglobin 15.0 g/dL (12.0-15.5) Hematocrit 45.0 % (36.0-47.0) Mean Corpuscular Volume 87 fL (79-100) Mean Corpuscular Hemoglobin 29 pg (25-35) Mean Corpuscular Hemoglobin Concent 33 g/dL (31-37) Red Cell Distribution Width 17.3 % (11.5-14.5) H Platelet Count 238 x10^3/uL (140-400) Neutrophils (%) (Auto) 87 % (31-73) H Lymphocytes (%) (Auto) 9 % (24-48) L Monocytes (%) (Auto) 4 % (0-9) Eosinophils (%) (Auto) 0 % (0-3) Basophils (%) (Auto) 0 % (0-3) Neutrophils # (Auto) 16.1 x10^3uL (1.8-7.7) H Lymphocytes # (Auto) 1.6 x10^3/uL (1.0-4.8) Monocytes # (Auto) 0.8 x10^3/uL (0.0-1.1) Eosinophils # (Auto) 0.0 x10^3/uL (0.0-0.7) Basophils # (Auto) 0.1 x10^3/uL (0.0-0.2) Platelet Estimate Pending Prothrombin Time 14.4 SEC (11.7-14.0) H Prothrombin Time INR 1.2 (0.8-1.1) H Sodium Level 134 mmol/L (136-145) L Potassium Level 3.8 mmol/L (3.5-5.1) Chloride Level 94 mmol/L (98-107) L Carbon Dioxide Level 23 mmol/L (21-32) Anion Gap 17 (6-14) H Blood Urea Nitrogen 74 mg/dL (7-20) H Creatinine 5.2 mg/dL (0.6-1.0) H Estimated GFR (Cockcroft-Gault) 7.9 BUN/Creatinine Ratio 14 (6-20) Glucose Level 213 mg/dL (70-99) H Lactic Acid Level 3.3 mmol/L (0.4-2.0) H Calcium Level 12.0 mg/dL (8.5-10.1) *H Total Bilirubin 0.5 mg/dL (0.2-1.0) Aspartate Amino Transferase (AST) 15 U/L (15-37) Alanine Aminotransferase (ALT) 14 U/L (14-59) Alkaline Phosphatase 75 U/L (46-116) Troponin I Quantitative < 0.017 ng/mL (0.000-0.055) Total Protein 8.8 g/dL (6.4-8.2) H Albumin 3.9 g/dL (3.4-5.0) Albumin/Globulin Ratio 0.8 (1.0-1.7) L Ethyl Alcohol Level < 10 mg/dL (0-10) Urine Collection Type U cath Urine Color Estefania Urine Clarity Turbid Urine pH 5.5 Urine Specific [place] 1.015 Urine Protein 100 mg/dL (NEG-TRACE) Urine Glucose (UA) 100 mg/dL (NEG) Urine Ketones (Stick) Trace mg/dL (NEG) Urine Blood Large (NEG) Urine Nitrite Negative (NEG) Urine Bilirubin Moderate (NEG) Urine Urobilinogen Dipstick 0.2 mg/dL (0.2 mg/dL) Urine Leukocyte Esterase Large (NEG) Urine RBC 20-40 /HPF (0-2) Urine WBC Tntc /HPF (0-4) Urine Squamous Epithelial Cells Many /LPF Urine Bacteria Many /HPF (0-FEW) Urine Mucus Marked /LPF Laboratory Tests 02/01/18 08:10 Laboratory Tests 02/01/18 08:10 EKG EKG [] Interpretation Time: EKG does show a rate of 122 it is probably sinus tach it is somewhat irregular but the baseline is poor. There are ST depressions laterally concerning for ischemia Radiology/Procedures Radiology/Procedures [] Impressions: 1. Left hydronephrosis has resolved. Only a small 2 mm calculus now identified within the left renal pelvis. Air within the left ureter and collecting system, and urinary bladder, likely due to recent instrumentation. Mild stranding in the fat around the left ureter, likely the result of recent instrumentation or mild ureteritis. 2. Previously seen right hydronephrosis has resolved. 3. Multiple, at least 6, small calculi are identified within the urinary bladder measuring up to 3 mm in size. 4. Small 5 mm subpleural nodule in the right lung base is stable. 5. Mild nodular or irregular thickening of the left adrenal gland is stable. Electronically signed by: Rolo Keller MD (02/01/2018 8:47 AM) [facility] Comparison is made to a study from 10/25/2017. The heart size and pulmonary vascularity are normal. There is calcific plaquing of the aorta. No pulmonary infiltrate is seen. There is minimal basilar scarring. There is no evidence of pleural fluid. IMPRESSION: No acute cardiopulmonary abnormality is detected. Electronically signed by: Jhonny Monterroso MD (02/01/2018 8:27 AM) [facility] DICTATED and SIGNED BY: JHONNY MONTERROSO MD DATE: 02/01/18 0826 Course & Med Decision Making Course & Med Decision Making Pertinent Labs and Imaging studies reviewed. (See chart for details) 83-year-old female presenting with altered mental status found to have UTI as well as renal failure noted the abnormal EKG this is likely strain in the setting of sepsis lactic acid was elevated but troponin was negative the patient will have IV fluids and I have ordered for repeat lactic acid later. Initially give ceftriaxone and then once I saw the urine culture result from that on vancomycin due to enterococcus Head CT was done due to the initial history that the patient slumped over in the chair however this was negative acute patient had a nonfocal neuro exam. Abdominal pelvis CT was done due to the recent ureteral stent manipulation but it was negative acute noted the multiple findings as above. There is no obstructing stone. Admit to Dr. MARCI Coughlin Disclaimer Madyson Disclaimer This electronic medical record was generated, in whole or in part, using a voice recognition dictation system. Departure Departure Impression: Primary Impression: Urinary tract infection Disposition: ADMITTED INPATIENT Admitting Physician: Xie. Conway Condition: STABLE Referrals: IMTIAZ LIEBERMAN MD (PCP) MALU HANDY MD Feb 01, 2018 10:20
[2018-02-01 10:45] LABS: % BANDS 14 % (0-9); % LYMPHS 6 % (24-48); % MONOS 5 % (0-10); % SEGS 75 % (35-66); PLT ESTIMATE ADEQUATE (ADEQUATE)
[2018-02-01 10:46] LABS: ANISOCYTOSIS SLIGHT; OVALOCYTES FEW
--- NOTE | 2018-02-01 11:24 | EKG ---
[facility] [address] [place] [address] Test Date: 2018-02-01 Test Time: 08:45:08 Pat Name: CÉSAR MERA Department: Room: 556 1 Gender: F [employer]: : [id number] Requested By: MALU HANDY Order Number: [id number] Reading MD: Dc Álvarez MD Measurements Intervals [place] Rate: 122 P: PA: QRS: -41 QRSD: 84 T: 106 QT: 300 QTc: 429 Interpretive Statements SUSPECT GLOBAL ISCHEMIA SINUS RHYTHM WITH PAC'S Electronically Signed On 02-02-2018 8:54:17 CDT by Dc Álvarez MD
--- NOTE | 2018-02-01 14:29 | PDOC1 ---
History and Physical Date of Admission Date of Admission 02/01/18 Identification/Chief Complaint Chief Complaint fever, weakness Source Source: Chart review, Patient History of Present Illness History of Present Illness HPI HPI Patient is a 83 year old female presenting with altered mental status is at 5 days of gradual decline. pt is very chilly when seen in ER, not willing to talk to me for details. most history got from ERP and nurse. pt had a kidney stent which was removed 5ds ago, was prescribed abx but only took 1 time. She has been feeling generalized weakness, low po intake, fever, chills. N/V. in ER, was found high wbc, dirty UA, tachycardia, JESSICA. CT : 1. Left hydronephrosis has resolved. Only a small 2 mm calculus now identified within the left renal pelvis. Air within the left ureter and collecting system, and urinary bladder, likely due to recent instrumentation. Mild stranding in the fat around the left ureter, likely the result of recent instrumentation or mild ureteritis. 2. Previously seen right hydronephrosis has resolved. 3. Multiple, at least 6, small calculi are identified within the urinary bladder measuring up to 3 mm in size. 4. Small 5 mm subpleural nodule in the right lung base is stable. 5. Mild nodular or irregular thickening of the left adrenal gland is stable. Past Medical History Cardiovascular: HTN, Hyperlipidemia Pulmonary: No pertinent hx Renal/: Other Endocrine: Hypothyroidism Past Surgical History Past Surgical History: No pertinent history Family History Family History: Hypertension Social History Smoke: No ALCOHOL: none Drugs: None Current Problem List Problem List Problems Medical Problems: (1) Urinary tract infection Status: Acute Current Medications Current Medications Current Medications Medications (Trade) Dose Ordered Sig/Juliocesar Start Time Stop Time Status Last Admin Dose Admin Ceftriaxone Sodium 50 ml @ 100 mls/hr 1X ONCE 02/01/18 08:00 02/01/18 08:29 DC 02/01/18 09:35 100 MLS/HR Sodium Chloride 1,000 ml @ 1,000 mls/hr 1X ONCE 02/01/18 09:45 02/01/18 10:44 DC 02/01/18 10:21 1,000 MLS/HR Vancomycin HCl (Vanco Per Pharmacy) 1 each PRN DAILY PRN 02/01/18 09:45 Vancomycin HCl 1.75 gm/Sodium Chloride 500 ml @ 250 mls/hr 1X ONCE 02/01/18 10:00 02/01/18 11:59 DC 02/01/18 10:21 250 MLS/HR Allergies Allergies Allergies Coded Allergies Type Severity Reaction Last Updated Verified No Known Drug Allergies 11/02/17 No ROS Review of System CONSTITUTIONAL: No fever or chills EYES: No recent changes SKIN: No rash or itching CARDIOVASCULAR: No chest pain, syncope, palpitations, or edema RESPIRATORY: No SOB or cough GASTROINTESTINAL: No nausea, vomiting or abdominal pain NEUROLOGICAL: No headaches or weakness ENDOCRINE: No cold or heat intolerance GENITOURINARY: No urgency or frequency of urination MUSCULOSKELETAL: No back pain or joint pain LYMPHATICS: No enlarged lymph nodes PSYCHIATRIC: No anxiety or depression Physical Exam Physical Exam GEN.: No apparent distress. Alert and oriented. HEENT: Head is normocephalic, atraumatic NECK: Supple. LUNGS: Clear to auscultation. HEART: RRR, S1, S2 present. Peripheral pulses intact ABDOMEN: Soft, nontender. Positive bowel sounds. EXTREMITIES: Without any cyanosis. NEUROLOGIC: Normal speech, normal tone PSYCHIATRIC: Normal affect, normal mood. SKIN: No ulcerations Vitals Vitals Vital Signs Date Time Temp Pulse Resp B/P (MAP) Pulse Ox O2 Delivery O2 Flow Rate FiO2 02/01/18 11:10 82 20 97 02/01/18 07:48 122/63 (82) Room Air Labs Labs Laboratory Tests Test 02/01/18 08:10 02/01/18 09:25 02/01/18 12:20 White Blood Count 18.6 x10^3/uL (4.0-11.0) Red Blood Count 5.20 x10^6/uL (3.50-5.40) Hemoglobin 15.0 g/dL (12.0-15.5) Hematocrit 45.0 % (36.0-47.0) Mean Corpuscular Volume 87 fL (79-100) Mean Corpuscular Hemoglobin 29 pg (25-35) Mean Corpuscular Hemoglobin Concent 33 g/dL (31-37) Red Cell Distribution Width 17.3 % (11.5-14.5) Platelet Count 238 x10^3/uL (140-400) Neutrophils (%) (Auto) 87 % (31-73) Lymphocytes (%) (Auto) 9 % (24-48) Monocytes (%) (Auto) 4 % (0-9) Eosinophils (%) (Auto) 0 % (0-3) Basophils (%) (Auto) 0 % (0-3) Neutrophils # (Auto) 16.1 x10^3uL (1.8-7.7) Lymphocytes # (Auto) 1.6 x10^3/uL (1.0-4.8) Monocytes # (Auto) 0.8 x10^3/uL (0.0-1.1) Eosinophils # (Auto) 0.0 x10^3/uL (0.0-0.7) Basophils # (Auto) 0.1 x10^3/uL (0.0-0.2) Segmented Neutrophils % 75 % (35-66) Band Neutrophils % 14 % (0-9) Lymphocytes % 6 % (24-48) Monocytes % 5 % (0-10) Platelet Estimate Adequate (ADEQUATE) Large Platelets Few Anisocytosis Slight Ovalocytes Few Prothrombin Time 14.4 SEC (11.7-14.0) Prothromb Time International Ratio 1.2 (0.8-1.1) Sodium Level 134 mmol/L (136-145) Potassium Level 3.8 mmol/L (3.5-5.1) Chloride Level 94 mmol/L (98-107) Carbon Dioxide Level 23 mmol/L (21-32) Anion Gap 17 (6-14) Blood Urea Nitrogen 74 mg/dL (7-20) Creatinine 5.2 mg/dL (0.6-1.0) Estimated GFR (Cockcroft-Gault) 7.9 BUN/Creatinine Ratio 14 (6-20) Glucose Level 213 mg/dL (70-99) Lactic Acid Level 3.3 mmol/L (0.4-2.0) 1.1 mmol/L (0.4-2.0) Calcium Level 12.0 mg/dL (8.5-10.1) Total Bilirubin 0.5 mg/dL (0.2-1.0) Aspartate Amino Transf (AST/SGOT) 15 U/L (15-37) Alanine Aminotransferase (ALT/SGPT) 14 U/L (14-59) Alkaline Phosphatase 75 U/L (46-116) Troponin I Quantitative < 0.017 ng/mL (0.000-0.055) Total Protein 8.8 g/dL (6.4-8.2) Albumin 3.9 g/dL (3.4-5.0) Albumin/Globulin Ratio 0.8 (1.0-1.7) Ethyl Alcohol Level < 10 mg/dL (0-10) Urine Collection Type U cath Urine Color Estefania Urine Clarity Turbid Urine pH 5.5 Urine Specific [place] 1.015 Urine Protein 100 mg/dL (NEG-TRACE) Urine Glucose (UA) 100 mg/dL (NEG) Urine Ketones (Stick) Trace mg/dL (NEG) Urine Blood Large (NEG) Urine Nitrite Negative (NEG) Urine Bilirubin Moderate (NEG) Urine Urobilinogen Dipstick 0.2 mg/dL (0.2 mg/dL) Urine Leukocyte Esterase Large (NEG) Urine RBC 20-40 /HPF (0-2) Urine WBC Tntc /HPF (0-4) Urine Squamous Epithelial Cells Many /LPF Urine Bacteria Many /HPF (0-FEW) Urine Mucus Marked /LPF Laboratory Tests Test 02/01/18 08:10 02/01/18 09:25 02/01/18 12:20 White Blood Count 18.6 x10^3/uL (4.0-11.0) Red Blood Count 5.20 x10^6/uL (3.50-5.40) Hemoglobin 15.0 g/dL (12.0-15.5) Hematocrit 45.0 % (36.0-47.0) Mean Corpuscular Volume 87 fL (79-100) Mean Corpuscular Hemoglobin 29 pg (25-35) Mean Corpuscular Hemoglobin Concent 33 g/dL (31-37) Red Cell Distribution Width 17.3 % (11.5-14.5) Platelet Count 238 x10^3/uL (140-400) Neutrophils (%) (Auto) 87 % (31-73) Lymphocytes (%) (Auto) 9 % (24-48) Monocytes (%) (Auto) 4 % (0-9) Eosinophils (%) (Auto) 0 % (0-3) Basophils (%) (Auto) 0 % (0-3) Neutrophils # (Auto) 16.1 x10^3uL (1.8-7.7) Lymphocytes # (Auto) 1.6 x10^3/uL (1.0-4.8) Monocytes # (Auto) 0.8 x10^3/uL (0.0-1.1) Eosinophils # (Auto) 0.0 x10^3/uL (0.0-0.7) Basophils # (Auto) 0.1 x10^3/uL (0.0-0.2) Segmented Neutrophils % 75 % (35-66) Band Neutrophils % 14 % (0-9) Lymphocytes % 6 % (24-48) Monocytes % 5 % (0-10) Platelet Estimate Adequate (ADEQUATE) Large Platelets Few Anisocytosis Slight Ovalocytes Few Prothrombin Time 14.4 SEC (11.7-14.0) Prothromb Time International Ratio 1.2 (0.8-1.1) Sodium Level 134 mmol/L (136-145) Potassium Level 3.8 mmol/L (3.5-5.1) Chloride Level 94 mmol/L (98-107) Carbon Dioxide Level 23 mmol/L (21-32) Anion Gap 17 (6-14) Blood Urea Nitrogen 74 mg/dL (7-20) Creatinine 5.2 mg/dL (0.6-1.0) Estimated GFR (Cockcroft-Gault) 7.9 BUN/Creatinine Ratio 14 (6-20) Glucose Level 213 mg/dL (70-99) Lactic Acid Level 3.3 mmol/L (0.4-2.0) 1.1 mmol/L (0.4-2.0) Calcium Level 12.0 mg/dL (8.5-10.1) Total Bilirubin 0.5 mg/dL (0.2-1.0) Aspartate Amino Transf (AST/SGOT) 15 U/L (15-37) Alanine Aminotransferase (ALT/SGPT) 14 U/L (14-59) Alkaline Phosphatase 75 U/L (46-116) Troponin I Quantitative < 0.017 ng/mL (0.000-0.055) Total Protein 8.8 g/dL (6.4-8.2) Albumin 3.9 g/dL (3.4-5.0) Albumin/Globulin Ratio 0.8 (1.0-1.7) Ethyl Alcohol Level < 10 mg/dL (0-10) Urine Collection Type U cath Urine Color Estefania Urine Clarity Turbid Urine pH 5.5 Urine Specific [place] 1.015 Urine Protein 100 mg/dL (NEG-TRACE) Urine Glucose (UA) 100 mg/dL (NEG) Urine Ketones (Stick) Trace mg/dL (NEG) Urine Blood Large (NEG) Urine Nitrite Negative (NEG) Urine Bilirubin Moderate (NEG) Urine Urobilinogen Dipstick 0.2 mg/dL (0.2 mg/dL) Urine Leukocyte Esterase Large (NEG) Urine RBC 20-40 /HPF (0-2) Urine WBC Tntc /HPF (0-4) Urine Squamous Epithelial Cells Many /LPF Urine Bacteria Many /HPF (0-FEW) Urine Mucus Marked /LPF VTE Prophylaxis Ordered VTE Prophylaxis Devices: Yes VTE Pharmacological Prophylaxi: Yes Assessment/Plan Assessment/Plan UTI sepsis JESSICA, vasomotor likely htn hld gerd hypothyroidism recent kidney stent removal plan: renal, ID consult add carla corbin, fu with ucx, bcx got 2L ivf bolus in ER, cont iv NS 100cc/h hold lisinopril not sure why on prednisone, will double check with pt, cont home meds for now renal diet labs daily gi, dvt ppx PTOT JOSE COVARRUBIAS MD Feb 01, 2018 14:29
[2018-02-01] MEDS ORDERED: MORPHINE SULFATE 2 MG/ML VIAL. IV PRN (14:30)
[2018-02-01] MEDS ORDERED: ACETAMINOPHEN 325 MG TABLET. PO PRN (14:30)
[2018-02-01] MEDS ORDERED: DOCUSATE SODIUM 100 MG CAPSULE. PO PRN (14:30)
[2018-02-01] MEDS ORDERED: PIP/TAZO PER PHARMACY MC PRN (14:30)
[2018-02-01] MEDS ORDERED: traMADol 50 MG TABLET PO PRN (14:30)
[2018-02-01 15:00] VITALS: BP 124/64
[2018-02-01] MEDS: IV NORMAL SALINE 1000ML BAG 1,000 ML IV SCH (15:44)
[2018-02-01] MEDS: PANTOPRAZOLE 40 MG TABLET.DR. PO SCH (15:45)
[2018-02-01] MEDS: PIPERACILLIN/TAZOBACTAM 2.25 GM in IV NORMAL SALINE 50ML 50 ML IV SCH ×2 (15:45→21:10)
[2018-02-01] MEDS: predniSONE 10 MG TABLET PO SCH (15:45)
[2018-02-01] MEDS: LEVOTHYROXINE 100 MCG TABLET PO SCH (15:45)
--- NOTE | 2018-02-01 16:04 | PDOC2 ---
CONSULT Date of Consult Date of Consult DATE: 02/01/18 TIME: 15:55 Reason for Consult Reason for Consult: JESSICA Source Source: Chart review History of Present Illness Reason for Visit: Patient is a 83 year old female presenting with altered mental status is at 5 days of gradual decline. Unable to obtain details from pt . Hx Obtained from Chart review She had a kidney stent was removed 5ds ago, was prescribed abx but only took 1 time. She has been feeling generalized weakness, low po intake, fever, chills. N/V. Grand-daughter at bedside- reports that last Hospitalization stent was placed but no follow up made for Removal of stent. Pt went to [facility] recently for Stent removal as she developed infection She has been Urinating at home but Poor PO intake in ER, was found high wbc, UA cw UTI , tachycardia, JESSICA. Recd IV fluids Past Medical History Cardiovascular: HTN, Hyperlipidemia Pulmonary: No pertinent hx Musculoskeletal: Osteoarthritis Renal/: Other Endocrine: Hypothyroidism Past Surgical History Past Surgical History: No pertinent history Family History Family History: Hypertension Social History No ALCOHOL: none Drugs: None Current Problem List Problem List Problems Medical Problems: (1) Urinary tract infection Status: Acute Current Medications Current Medications Current Medications Sodium Chloride 1,000 ml @ 1,000 mls/hr 1X ONCE IV Last administered on at 09:35; Start 02/01/18 at 08:00; Stop 02/01/18 at 08:59; Status DC Ceftriaxone Sodium 50 ml @ 100 mls/hr 1X ONCE IV Last administered on at 09:35; Start 02/01/18 at 08:00; Stop 02/01/18 at 08:29; Status DC Vancomycin HCl (Vanco Per Pharmacy) 1 each PRN DAILY PRN MC SEE COMMENTS Last administered on 02/01/18at 15:33; Start 02/01/18 at 09:45 Sodium Chloride 1,000 ml @ 1,000 mls/hr 1X ONCE IV Last administered on at 10:21; Start 02/01/18 at 09:45; Stop 02/01/18 at 10:44; Status DC Vancomycin HCl 1.75 gm/Sodium Chloride 500 ml @ 250 mls/hr 1X ONCE IV Last administered on 02/01/18at 10:21; Start 02/01/18 at 10:00; Stop 02/01/18 at 11:59; Status DC Levothyroxine Sodium (Synthroid) 100 mcg DAILY07 PO Last administered on at 15:45; Start 02/01/18 at 15:00 Prednisone (Prednisone) 10 mg DAILY PO Last administered on 02/01/18at 15:45; Start 02/01/18 at 15:00 Atorvastatin Calcium (Lipitor) 10 mg QHS PO ; Start 02/01/18 at 21:00 Pantoprazole Sodium (Protonix) 40 mg DAILYAC PO Last administered on 02/01/18at 15:45; Start 02/01/18 at 15:00 Acetaminophen (Tylenol) 650 mg PRN Q6HRS PRN PO FEVER/HEADACHE; Start 02/01/18 at 14:30 Ondansetron HCl (Zofran) 4 mg PRN Q6HRS PRN IV NAUSEA/VOMITING 1ST CHOICE; Start 02/01/18 at 14:30 Morphine Sulfate (Morphine Sulfate) 2 mg PRN Q2HR PRN IV MODERATE TO SEVERE PAIN; Start 02/01/18 at 14:30 Tramadol HCl (Ultram) 50 mg PRN Q6HRS PRN PO MILD TO MODERATE PAIN; Start at 14:30 Docusate Sodium (Colace) 100 mg PRN DAILY PRN PO HARD STOOLS; Start 02/01/18 at 14:30 Piperacillin Sod/ Tazobactam Sod 3.375 gm/Sodium Chloride 50 ml @ 100 mls/hr Q6HRS IV ; Start 02/01/18 at 18:00; Status UNV Piperacillin Sod/ Tazobactam Sod (Zosyn Per Pharmacy) 1 each PRN DAILY PRN MC SEE COMMENTS; Start 02/01/18 at 14:30 Sodium Chloride 1,000 ml @ 100 mls/hr Q10H IV Last administered on 02/01/18at 15 :44; Start 02/01/18 at 14:30 Heparin Sodium (Porcine) (Heparin Sq) 5,000 unit Q8HRS SQ ; Start 02/01/18 at 22: 00 Piperacillin Sod/ Tazobactam Sod 2.25 gm/Sodium Chloride 50 ml @ 100 mls/hr Q8HRS IV Last administered on 02/01/18at 15:45; Start 02/01/18 at 15:00 Lactobacillus Rhamnosus (Culturelle) 1 cap BID PO ; Start 02/01/18 at 21:00 Active Scripts Active Reported Omeprazole 40 Mg Capsule. 1 Cap PO DAILY Prednisone 20 Mg Tablet 10 Mg PO DAILY Lisinopril 40 Mg Tablet 1 Tab PO DAILY Levothyroxine Sodium 100 Mcg Tablet 1 Tab PO DAILY Lovastatin 40 Mg Tablet 40 Mg PO HS Tramadol Hcl 50 Mg Tablet 50 Mg PO PRN Q6-8HRS PRN Allergies Allergies: Coded Allergies: No Known Drug Allergies (Unverified , 11/02/17) ROS Review of System As per HPI Physical Exam Physical Exam GEN.: No distress. HEENT: OM Dry NECK: Supple. LUNGS: Clear to auscultation. HEART: RRR, S1, S2 present. ABDOMEN: Soft, nontender. Positive bowel sounds. EXTREMITIES: Without any cyanosis. 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 Baseline) Lt hydronephrosis - september 2017 Consulted Uro due to left hydro - s/p stent left renal pelvis US in september - Bilateral pelviectasis. Question large echogenic calculus in the left renal pelvis. Hypercalcemia- Likely due to dehydration UTI/Sepsis- as per primary Discussed with Grand daughter at bedside Labs Labs Laboratory Tests Test 02/01/18 08:10 02/01/18 09:25 02/01/18 12:20 White Blood Count 18.6 x10^3/uL (4.0-11.0) Red Blood Count 5.20 x10^6/uL (3.50-5.40) Hemoglobin 15.0 g/dL (12.0-15.5) Hematocrit 45.0 % (36.0-47.0) Mean Corpuscular Volume 87 fL (79-100) Mean Corpuscular Hemoglobin 29 pg (25-35) Mean Corpuscular Hemoglobin Concent 33 g/dL (31-37) Red Cell Distribution Width 17.3 % (11.5-14.5) Platelet Count 238 x10^3/uL (140-400) Neutrophils (%) (Auto) 87 % (31-73) Lymphocytes (%) (Auto) 9 % (24-48) Monocytes (%) (Auto) 4 % (0-9) Eosinophils (%) (Auto) 0 % (0-3) Basophils (%) (Auto) 0 % (0-3) Neutrophils # (Auto) 16.1 x10^3uL (1.8-7.7) Lymphocytes # (Auto) 1.6 x10^3/uL (1.0-4.8) Monocytes # (Auto) 0.8 x10^3/uL (0.0-1.1) Eosinophils # (Auto) 0.0 x10^3/uL (0.0-0.7) Basophils # (Auto) 0.1 x10^3/uL (0.0-0.2) Segmented Neutrophils % 75 % (35-66) Band Neutrophils % 14 % (0-9) Lymphocytes % 6 % (24-48) Monocytes % 5 % (0-10) Platelet Estimate Adequate (ADEQUATE) Large Platelets Few Anisocytosis Slight Ovalocytes Few Prothrombin Time 14.4 SEC (11.7-14.0) Prothromb Time International Ratio 1.2 (0.8-1.1) Sodium Level 134 mmol/L (136-145) Potassium Level 3.8 mmol/L (3.5-5.1) Chloride Level 94 mmol/L (98-107) Carbon Dioxide Level 23 mmol/L (21-32) Anion Gap 17 (6-14) Blood Urea Nitrogen 74 mg/dL (7-20) Creatinine 5.2 mg/dL (0.6-1.0) Estimated GFR (Cockcroft-Gault) 7.9 BUN/Creatinine Ratio 14 (6-20) Glucose Level 213 mg/dL (70-99) Lactic Acid Level 3.3 mmol/L (0.4-2.0) 1.1 mmol/L (0.4-2.0) Calcium Level 12.0 mg/dL (8.5-10.1) Total Bilirubin 0.5 mg/dL (0.2-1.0) Aspartate Amino Transf (AST/SGOT) 15 U/L (15-37) Alanine Aminotransferase (ALT/SGPT) 14 U/L (14-59) Alkaline Phosphatase 75 U/L (46-116) Troponin I Quantitative < 0.017 ng/mL (0.000-0.055) Total Protein 8.8 g/dL (6.4-8.2) Albumin 3.9 g/dL (3.4-5.0) Albumin/Globulin Ratio 0.8 (1.0-1.7) Ethyl Alcohol Level < 10 mg/dL (0-10) Urine Collection Type U cath Urine Color Estefania Urine Clarity Turbid Urine pH 5.5 Urine Specific [place] 1.015 Urine Protein 100 mg/dL (NEG-TRACE) Urine Glucose (UA) 100 mg/dL (NEG) Urine Ketones (Stick) Trace mg/dL (NEG) Urine Blood Large (NEG) Urine Nitrite Negative (NEG) Urine Bilirubin Moderate (NEG) Urine Urobilinogen Dipstick 0.2 mg/dL (0.2 mg/dL) Urine Leukocyte Esterase Large (NEG) Urine RBC 20-40 /HPF (0-2) Urine WBC Tntc /HPF (0-4) Urine Squamous Epithelial Cells Many /LPF Urine Bacteria Many /HPF (0-FEW) Urine Mucus Marked /LPF Laboratory Tests Test 02/01/18 08:10 02/01/18 09:25 02/01/18 12:20 White Blood Count 18.6 x10^3/uL (4.0-11.0) Red Blood Count 5.20 x10^6/uL (3.50-5.40) Hemoglobin 15.0 g/dL (12.0-15.5) Hematocrit 45.0 % (36.0-47.0) Mean Corpuscular Volume 87 fL (79-100) Mean Corpuscular Hemoglobin 29 pg (25-35) Mean Corpuscular Hemoglobin Concent 33 g/dL (31-37) Red Cell Distribution Width 17.3 % (11.5-14.5) Platelet Count 238 x10^3/uL (140-400) Neutrophils (%) (Auto) 87 % (31-73) Lymphocytes (%) (Auto) 9 % (24-48) Monocytes (%) (Auto) 4 % (0-9) Eosinophils (%) (Auto) 0 % (0-3) Basophils (%) (Auto) 0 % (0-3) Neutrophils # (Auto) 16.1 x10^3uL (1.8-7.7) Lymphocytes # (Auto) 1.6 x10^3/uL (1.0-4.8) Monocytes # (Auto) 0.8 x10^3/uL (0.0-1.1) Eosinophils # (Auto) 0.0 x10^3/uL (0.0-0.7) Basophils # (Auto) 0.1 x10^3/uL (0.0-0.2) Segmented Neutrophils % 75 % (35-66) Band Neutrophils % 14 % (0-9) Lymphocytes % 6 % (24-48) Monocytes % 5 % (0-10) Platelet Estimate Adequate (ADEQUATE) Large Platelets Few Anisocytosis Slight Ovalocytes Few Prothrombin Time 14.4 SEC (11.7-14.0) Prothromb Time International Ratio 1.2 (0.8-1.1) Sodium Level 134 mmol/L (136-145) Potassium Level 3.8 mmol/L (3.5-5.1) Chloride Level 94 mmol/L (98-107) Carbon Dioxide Level 23 mmol/L (21-32) Anion Gap 17 (6-14) Blood Urea Nitrogen 74 mg/dL (7-20) Creatinine 5.2 mg/dL (0.6-1.0) Estimated GFR (Cockcroft-Gault) 7.9 BUN/Creatinine Ratio 14 (6-20) Glucose Level 213 mg/dL (70-99) Lactic Acid Level 3.3 mmol/L (0.4-2.0) 1.1 mmol/L (0.4-2.0) Calcium Level 12.0 mg/dL (8.5-10.1) Total Bilirubin 0.5 mg/dL (0.2-1.0) Aspartate Amino Transf (AST/SGOT) 15 U/L (15-37) Alanine Aminotransferase (ALT/SGPT) 14 U/L (14-59) Alkaline Phosphatase 75 U/L (46-116) Troponin I Quantitative < 0.017 ng/mL (0.000-0.055) Total Protein 8.8 g/dL (6.4-8.2) Albumin 3.9 g/dL (3.4-5.0) Albumin/Globulin Ratio 0.8 (1.0-1.7) Ethyl Alcohol Level < 10 mg/dL (0-10) Urine Collection Type U cath Urine Color Estefania Urine Clarity Turbid Urine pH 5.5 Urine Specific [place] 1.015 Urine Protein 100 mg/dL (NEG-TRACE) Urine Glucose (UA) 100 mg/dL (NEG) Urine Ketones (Stick) Trace mg/dL (NEG) Urine Blood Large (NEG) Urine Nitrite Negative (NEG) Urine Bilirubin Moderate (NEG) Urine Urobilinogen Dipstick 0.2 mg/dL (0.2 mg/dL) Urine Leukocyte Esterase Large (NEG) Urine RBC 20-40 /HPF (0-2) Urine WBC Tntc /HPF (0-4) Urine Squamous Epithelial Cells Many /LPF Urine Bacteria Many /HPF (0-FEW) Urine Mucus Marked /LPF Review All relevant outside records, renal labs, imaging studies, telemetry/EKG's were reviewed. Images Images CT scan Adrenals: Left adrenal gland is slightly thickened or nodular, unchanged. No discrete mass. Kidneys: Left kidney is again seen to be atrophic. Urinary tracts: Previously seen left hydronephrosis has improved. There is air within the left renal collecting system, may be due to the patient's stent or recent small calculus identified left renal pelvis, measures 2 mm. Mild variable dilatation or wall thickening of the left ureter with mild surrounding stranding. No evidence of left ureteric calculus. No evidence of right hydronephrosis, or right renal or ureteric calculus. ISMAEL CHISHOLM MD Feb 01, 2018 16:04
[2018-02-01] MEDS ORDERED: PIPERACILLIN/TAZOBACTAM 3.375 GM in IV NORMAL SALINE 50ML 50 ML IV SCH (18:00)
[2018-02-01 19:00] VITALS: BP 120/66
[2018-02-01] MEDS: LACTOBACILLUS RHAMNOSUS GG 1 CAPSULE. PO SCH (21:00)
[2018-02-01] MEDS: ATORVASTATIN CALCIUM 10 MG TABLET. PO SCH (21:00)
[2018-02-01] MEDS: HEPARIN PF for SUB-Q USE 5,000 UNIT/0.5 ML VIAL. SQ SCH (21:13)
[2018-02-01 23:00] VITALS: BP 132/73
[2018-02-02] MEDS: IV NORMAL SALINE 1000ML BAG 1,000 ML IV SCH ×3 (00:30→15:59)
[2018-02-02 03:00] VITALS: BP 139/85
[2018-02-02] MEDS: PIPERACILLIN/TAZOBACTAM 2.25 GM in IV NORMAL SALINE 50ML 50 ML IV SCH ×3 (05:43→21:51)
[2018-02-02] MEDS: HEPARIN PF for SUB-Q USE 5,000 UNIT/0.5 ML VIAL. SQ SCH ×3 (05:47→22:06)
[2018-02-02] MEDS: LEVOTHYROXINE 100 MCG TABLET PO SCH (05:47)
[2018-02-02 06:05] LABS: BASO % 0 % (0-3); EOS % 0 % (0-3); HEMATOCRIT 35.3 % (36.0-47.0); HEMOGLOBIN 11.7 g/dL (12.0-15.5); LYMPH # 1.2 x10^3/uL (1.0-4.8); LYMPH % 8 % (24-48); MEAN CORPUSCULAR HEMOGLOBIN 29 pg (25-35); MEAN CORPUSCULAR HGB CONC 33 g/dL (31-37); MEAN CORPUSCULAR VOLUME 88 fL (79-100); MONO # 0.7 x10^3/uL (0.0-1.1); MONO % 5 % (0-9); NEUT % 87 % (31-73); PLATELET COUNT 141 x10^3/uL (140-400); RED BLOOD COUNT 4.02 x10^6/uL (3.50-5.40); RED CELL DISTRIBUTION WIDTH 17.7 % (11.5-14.5); WHITE BLOOD COUNT 14.8 x10^3/uL (4.0-11.0)
[2018-02-02 06:19] LABS: CALCIUM 10.2 mg/dL (8.5-10.1); GFR 10.7; POTASSIUM 3.5 mmol/L (3.5-5.1)
[2018-02-02 07:20] VITALS: BP 139/82
[2018-02-02] MEDS: PANTOPRAZOLE 40 MG TABLET.DR. PO SCH (07:48)
--- NOTE | 2018-02-02 08:22 | PDOC ---
Infectious Disease Note Vital Sign Vital Signs Vital Signs Date Time Temp Pulse Resp B/P (MAP) Pulse Ox O2 Delivery O2 Flow Rate FiO2 02/02/18 03:00 98.2 83 18 139/85 (103) 98 Room Air 98.2 Labs Lab Laboratory Tests Test 02/01/18 09:25 02/01/18 12:20 02/02/18 04:05 Urine Collection Type U cath Urine Color Estefania Urine Clarity Turbid Urine pH 5.5 Urine Specific [place] 1.015 Urine Protein 100 mg/dL (NEG-TRACE) Urine Glucose (UA) 100 mg/dL (NEG) Urine Ketones (Stick) Trace mg/dL (NEG) Urine Blood Large (NEG) Urine Nitrite Negative (NEG) Urine Bilirubin Moderate (NEG) Urine Urobilinogen Dipstick 0.2 mg/dL (0.2 mg/dL) Urine Leukocyte Esterase Large (NEG) Urine RBC 20-40 /HPF (0-2) Urine WBC Tntc /HPF (0-4) Urine Squamous Epithelial Cells Many /LPF Urine Bacteria Many /HPF (0-FEW) Urine Mucus Marked /LPF Lactic Acid Level 1.1 mmol/L (0.4-2.0) White Blood Count 14.8 x10^3/uL (4.0-11.0) Red Blood Count 4.02 x10^6/uL (3.50-5.40) Hemoglobin 11.7 g/dL (12.0-15.5) Hematocrit 35.3 % (36.0-47.0) Mean Corpuscular Volume 88 fL (79-100) Mean Corpuscular Hemoglobin 29 pg (25-35) Mean Corpuscular Hemoglobin Concent 33 g/dL (31-37) Red Cell Distribution Width 17.7 % (11.5-14.5) Platelet Count 141 x10^3/uL (140-400) Neutrophils (%) (Auto) 87 % (31-73) Lymphocytes (%) (Auto) 8 % (24-48) Monocytes (%) (Auto) 5 % (0-9) Eosinophils (%) (Auto) 0 % (0-3) Basophils (%) (Auto) 0 % (0-3) Neutrophils # (Auto) 13.0 x10^3uL (1.8-7.7) Lymphocytes # (Auto) 1.2 x10^3/uL (1.0-4.8) Monocytes # (Auto) 0.7 x10^3/uL (0.0-1.1) Eosinophils # (Auto) 0.0 x10^3/uL (0.0-0.7) Basophils # (Auto) 0.0 x10^3/uL (0.0-0.2) Sodium Level 142 mmol/L (136-145) Potassium Level 3.5 mmol/L (3.5-5.1) Chloride Level 108 mmol/L (98-107) Carbon Dioxide Level 19 mmol/L (21-32) Anion Gap 15 (6-14) Blood Urea Nitrogen 67 mg/dL (7-20) Creatinine 4.0 mg/dL (0.6-1.0) Estimated GFR (Cockcroft-Gault) 10.7 Glucose Level 100 mg/dL (70-99) Calcium Level 10.2 mg/dL (8.5-10.1) Micro Microbiology 02/01/18 Blood Culture - Preliminary, Resulted NO GROWTH AFTER 1 DAY Objective Assessment ? sepsis - POA s/p rocephin/Zosyn/vanc Leukocytosis - on Prednisone JESSICA UTI h/o Enterococcus PCN sen in October 25 Constipation Plan Plan of Care Cont zosyn d/c Vanc with JESSICA Add zyvox F/u labs and cults thank you # [phone] KAHLIL JORGE MD Feb 02, 2018 08:22
[2018-02-02] MEDS: LINEZOLID 600 MG TABLET PO SCH ×2 (09:21→21:54)
[2018-02-02] MEDS: predniSONE 10 MG TABLET PO SCH (09:21)
[2018-02-02] MEDS: LACTOBACILLUS RHAMNOSUS GG 1 CAPSULE. PO SCH ×2 (09:21→21:54)
[2018-02-02 10:40] VITALS: BP 175/75
--- NOTE | 2018-02-02 11:33 | PDOC ---
PROGRESS NOTES Chief Complaint Chief Complaint pt is very chilly when seen in ER, not willing to talk to me for details. most history got from ERP and nurse. pt had a kidney stent which was removed 5ds ago, was prescribed abx but only took 1 time. She has been feeling generalized weakness, low po intake, fever, chills. N/V. in ER, was found high wbc, dirty UA, tachycardia, JESSICA. History of Present Illness History of Present Illness Assessment/Plan Assessment/Plan UTI sepsis JESSICA, vasomotor htn hld gerd hypothyroidism recent kidney stent removal left hydro - s/p stent left renal pelvis plan: renal, ID consult add vanco, zosyn, fu with ucx, bcx 2L ivf bolus in ER, cont iv NS 100cc/h hold lisinopril cont home meds for now renal diet labs daily gi, dvt ppx PTOT Vitals Vitals Vital Signs Date Time Temp Pulse Resp B/P (MAP) Pulse Ox O2 Delivery O2 Flow Rate FiO2 02/02/18 10:40 97.9 67 18 175/75 (108) 97 Room Air 97.9 Physical Exam General: Alert, Oriented X3, Cooperative, mild distress Heart: Regular rate Lungs: Clear Abdomen: Normal bowel sounds, Soft Extremities: No clubbing, No cyanosis Skin: No significant lesion Labs LABS Laboratory Tests Test 02/01/18 12:20 02/02/18 04:05 02/02/18 08:18 Lactic Acid Level 1.1 mmol/L (0.4-2.0) White Blood Count 14.8 x10^3/uL (4.0-11.0) Red Blood Count 4.02 x10^6/uL (3.50-5.40) Hemoglobin 11.7 g/dL (12.0-15.5) Hematocrit 35.3 % (36.0-47.0) Mean Corpuscular Volume 88 fL (79-100) Mean Corpuscular Hemoglobin 29 pg (25-35) Mean Corpuscular Hemoglobin Concent 33 g/dL (31-37) Red Cell Distribution Width 17.7 % (11.5-14.5) Platelet Count 141 x10^3/uL (140-400) Neutrophils (%) (Auto) 87 % (31-73) Lymphocytes (%) (Auto) 8 % (24-48) Monocytes (%) (Auto) 5 % (0-9) Eosinophils (%) (Auto) 0 % (0-3) Basophils (%) (Auto) 0 % (0-3) Neutrophils # (Auto) 13.0 x10^3uL (1.8-7.7) Lymphocytes # (Auto) 1.2 x10^3/uL (1.0-4.8) Monocytes # (Auto) 0.7 x10^3/uL (0.0-1.1) Eosinophils # (Auto) 0.0 x10^3/uL (0.0-0.7) Basophils # (Auto) 0.0 x10^3/uL (0.0-0.2) Sodium Level 142 mmol/L (136-145) Potassium Level 3.5 mmol/L (3.5-5.1) Chloride Level 108 mmol/L (98-107) Carbon Dioxide Level 19 mmol/L (21-32) Anion Gap 15 (6-14) Blood Urea Nitrogen 67 mg/dL (7-20) Creatinine 4.0 mg/dL (0.6-1.0) Estimated GFR (Cockcroft-Gault) 10.7 Glucose Level 100 mg/dL (70-99) Calcium Level 10.2 mg/dL (8.5-10.1) Glucose (Fingerstick) 99 mg/dL (70-99) Assessment and Plan Assessmemt and Plan Problems Medical Problems: (1) Urinary tract infection Status: Acute Comment Review of Relevant I have reviewed the following items harry (where applicable) has been applied. Labs Laboratory Tests Test 02/01/18 08:10 02/01/18 09:25 02/01/18 12:20 02/02/18 04:05 White Blood Count 18.6 x10^3/uL (4.0-11.0) 14.8 x10^3/uL (4.0-11.0) Red Blood Count 5.20 x10^6/uL (3.50-5.40) 4.02 x10^6/uL (3.50-5.40) Hemoglobin 15.0 g/dL (12.0-15.5) 11.7 g/dL (12.0-15.5) Hematocrit 45.0 % (36.0-47.0) 35.3 % (36.0-47.0) Mean Corpuscular Volume 87 fL (79-100) 88 fL (79-100) Mean Corpuscular Hemoglobin 29 pg (25-35) 29 pg (25-35) Mean Corpuscular Hemoglobin Concent 33 g/dL (31-37) 33 g/dL (31-37) Red Cell Distribution Width 17.3 % (11.5-14.5) 17.7 % (11.5-14.5) Platelet Count 238 x10^3/uL (140-400) 141 x10^3/uL (140-400) Neutrophils (%) (Auto) 87 % (31-73) 87 % (31-73) Lymphocytes (%) (Auto) 9 % (24-48) 8 % (24-48) Monocytes (%) (Auto) 4 % (0-9) 5 % (0-9) Eosinophils (%) (Auto) 0 % (0-3) 0 % (0-3) Basophils (%) (Auto) 0 % (0-3) 0 % (0-3) Neutrophils # (Auto) 16.1 x10^3uL (1.8-7.7) 13.0 x10^3uL (1.8-7.7) Lymphocytes # (Auto) 1.6 x10^3/uL (1.0-4.8) 1.2 x10^3/uL (1.0-4.8) Monocytes # (Auto) 0.8 x10^3/uL (0.0-1.1) 0.7 x10^3/uL (0.0-1.1) Eosinophils # (Auto) 0.0 x10^3/uL (0.0-0.7) 0.0 x10^3/uL (0.0-0.7) Basophils # (Auto) 0.1 x10^3/uL (0.0-0.2) 0.0 x10^3/uL (0.0-0.2) Segmented Neutrophils % 75 % (35-66) Band Neutrophils % 14 % (0-9) Lymphocytes % 6 % (24-48) Monocytes % 5 % (0-10) Platelet Estimate Adequate (ADEQUATE) Large Platelets Few Anisocytosis Slight Ovalocytes Few Prothrombin Time 14.4 SEC (11.7-14.0) Prothromb Time International Ratio 1.2 (0.8-1.1) Sodium Level 134 mmol/L (136-145) 142 mmol/L (136-145) Potassium Level 3.8 mmol/L (3.5-5.1) 3.5 mmol/L (3.5-5.1) Chloride Level 94 mmol/L (98-107) 108 mmol/L (98-107) Carbon Dioxide Level 23 mmol/L (21-32) 19 mmol/L (21-32) Anion Gap 17 (6-14) 15 (6-14) Blood Urea Nitrogen 74 mg/dL (7-20) 67 mg/dL (7-20) Creatinine 5.2 mg/dL (0.6-1.0) 4.0 mg/dL (0.6-1.0) Estimated GFR (Cockcroft-Gault) 7.9 10.7 BUN/Creatinine Ratio 14 (6-20) Glucose Level 213 mg/dL (70-99) 100 mg/dL (70-99) Lactic Acid Level 3.3 mmol/L (0.4-2.0) 1.1 mmol/L (0.4-2.0) Calcium Level 12.0 mg/dL (8.5-10.1) 10.2 mg/dL (8.5-10.1) Total Bilirubin 0.5 mg/dL (0.2-1.0) Aspartate Amino Transf (AST/SGOT) 15 U/L (15-37) Alanine Aminotransferase (ALT/SGPT) 14 U/L (14-59) Alkaline Phosphatase 75 U/L (46-116) Troponin I Quantitative < 0.017 ng/mL (0.000-0.055) Total Protein 8.8 g/dL (6.4-8.2) Albumin 3.9 g/dL (3.4-5.0) Albumin/Globulin Ratio 0.8 (1.0-1.7) Ethyl Alcohol Level < 10 mg/dL (0-10) Urine Collection Type U cath Urine Color Estefania Urine Clarity Turbid Urine pH 5.5 Urine Specific [place] 1.015 Urine Protein 100 mg/dL (NEG-TRACE) Urine Glucose (UA) 100 mg/dL (NEG) Urine Ketones (Stick) Trace mg/dL (NEG) Urine Blood Large (NEG) Urine Nitrite Negative (NEG) Urine Bilirubin Moderate (NEG) Urine Urobilinogen Dipstick 0.2 mg/dL (0.2 mg/dL) Urine Leukocyte Esterase Large (NEG) Urine RBC 20-40 /HPF (0-2) Urine WBC Tntc /HPF (0-4) Urine Squamous Epithelial Cells Many /LPF Urine Bacteria Many /HPF (0-FEW) Urine Mucus Marked /LPF Test 02/02/18 08:18 Glucose (Fingerstick) 99 mg/dL (70-99) Laboratory Tests Test 02/01/18 12:20 02/02/18 04:05 02/02/18 08:18 Lactic Acid Level 1.1 mmol/L (0.4-2.0) White Blood Count 14.8 x10^3/uL (4.0-11.0) Red Blood Count 4.02 x10^6/uL (3.50-5.40) Hemoglobin 11.7 g/dL (12.0-15.5) Hematocrit 35.3 % (36.0-47.0) Mean Corpuscular Volume 88 fL (79-100) Mean Corpuscular Hemoglobin 29 pg (25-35) Mean Corpuscular Hemoglobin Concent 33 g/dL (31-37) Red Cell Distribution Width 17.7 % (11.5-14.5) Platelet Count 141 x10^3/uL (140-400) Neutrophils (%) (Auto) 87 % (31-73) Lymphocytes (%) (Auto) 8 % (24-48) Monocytes (%) (Auto) 5 % (0-9) Eosinophils (%) (Auto) 0 % (0-3) Basophils (%) (Auto) 0 % (0-3) Neutrophils # (Auto) 13.0 x10^3uL (1.8-7.7) Lymphocytes # (Auto) 1.2 x10^3/uL (1.0-4.8) Monocytes # (Auto) 0.7 x10^3/uL (0.0-1.1) Eosinophils # (Auto) 0.0 x10^3/uL (0.0-0.7) Basophils # (Auto) 0.0 x10^3/uL (0.0-0.2) Sodium Level 142 mmol/L (136-145) Potassium Level 3.5 mmol/L (3.5-5.1) Chloride Level 108 mmol/L (98-107) Carbon Dioxide Level 19 mmol/L (21-32) Anion Gap 15 (6-14) Blood Urea Nitrogen 67 mg/dL (7-20) Creatinine 4.0 mg/dL (0.6-1.0) Estimated GFR (Cockcroft-Gault) 10.7 Glucose Level 100 mg/dL (70-99) Calcium Level 10.2 mg/dL (8.5-10.1) Glucose (Fingerstick) 99 mg/dL (70-99) Microbiology 02/01/18 Blood Culture - Preliminary, Resulted NO GROWTH AFTER 1 DAY Medications Current Medications Sodium Chloride 1,000 ml @ 1,000 mls/hr 1X ONCE IV Last administered on 09:35; Start 02/01/18 at 08:00; Stop 02/01/18 at 08:59; Status DC Ceftriaxone Sodium 50 ml @ 100 mls/hr 1X ONCE IV Last administered on at 09:35; Start 02/01/18 at 08:00; Stop 02/01/18 at 08:29; Status DC Vancomycin HCl (Vanco Per Pharmacy) 1 each PRN DAILY PRN MC SEE COMMENTS Last administered on 02/01/18at 15:33; Start 02/01/18 at 09:45; Stop 02/02/18 at 08:23; Status DC Sodium Chloride 1,000 ml @ 1,000 mls/hr 1X ONCE IV Last administered on at 10:21; Start 02/01/18 at 09:45; Stop 02/01/18 at 10:44; Status DC Vancomycin HCl 1.75 gm/Sodium Chloride 500 ml @ 250 mls/hr 1X ONCE IV Last administered on 02/01/18at 10:21; Start 02/01/18 at 10:00; Stop 02/01/18 at 11:59; Status DC Levothyroxine Sodium (Synthroid) 100 mcg DAILY07 PO Last administered on at 05:47; Start 02/01/18 at 15:00 Prednisone (Prednisone) 10 mg DAILY PO Last administered on 02/02/18at 09:21; Start 02/01/18 at 15:00 Atorvastatin Calcium (Lipitor) 10 mg QHS PO ; Start 02/01/18 at 21:00 Pantoprazole Sodium (Protonix) 40 mg DAILYAC PO Last administered on 02/02/18at 07:48; Start 02/01/18 at 15:00 Acetaminophen (Tylenol) 650 mg PRN Q6HRS PRN PO FEVER/HEADACHE; Start 02/01/18 at 14:30 Ondansetron HCl (Zofran) 4 mg PRN Q6HRS PRN IV NAUSEA/VOMITING 1ST CHOICE; Start 02/01/18 at 14:30 Morphine Sulfate (Morphine Sulfate) 2 mg PRN Q2HR PRN IV MODERATE TO SEVERE PAIN; Start 02/01/18 at 14:30 Tramadol HCl (Ultram) 50 mg PRN Q6HRS PRN PO MILD TO MODERATE PAIN; Start at 14:30; Stop 02/02/18 at 08:23; Status DC Docusate Sodium (Colace) 100 mg PRN DAILY PRN PO HARD STOOLS; Start 02/01/18 at 14:30 Piperacillin Sod/ Tazobactam Sod 3.375 gm/Sodium Chloride 50 ml @ 100 mls/hr Q6HRS IV ; Start 02/01/18 at 18:00; Status UNV Piperacillin Sod/ Tazobactam Sod (Zosyn Per Pharmacy) 1 each PRN DAILY PRN MC SEE COMMENTS; Start 02/01/18 at 14:30 Sodium Chloride 1,000 ml @ 100 mls/hr Q10H IV Last administered on 02/02/18at 05 :43; Start 02/01/18 at 14:30 Heparin Sodium (Porcine) (Heparin Sq) 5,000 unit Q8HRS SQ Last administered on 02/02/18at 05:47; Start 02/01/18 at 22:00 Piperacillin Sod/ Tazobactam Sod 2.25 gm/Sodium Chloride 50 ml @ 100 mls/hr Q8HRS IV Last administered on 02/02/18at 05:43; Start 02/01/18 at 15:00 Lactobacillus Rhamnosus (Culturelle) 1 cap BID PO Last administered on at 09:21; Start 02/01/18 at 21:00 Linezolid (Zyvox) 600 mg BID PO Last administered on 02/02/18at 09:21; Start 02/02 at 09:00 Active Scripts Active Reported Omeprazole 40 Mg Capsule.dr 1 Cap PO DAILY Prednisone 20 Mg Tablet 10 Mg PO DAILY Lisinopril 40 Mg Tablet 1 Tab PO DAILY Levothyroxine Sodium 100 Mcg Tablet 1 Tab PO DAILY Lovastatin 40 Mg Tablet 40 Mg PO HS Tramadol Hcl 50 Mg Tablet 50 Mg PO PRN Q6-8HRS PRN Vitals/I & O Vital Sign - Last 24 Hours 02/01/18 02/01/18 02/01/18 02/02/18 15:00 19:00 23:00 03:00 Temp 98.3 97.9 98.5 98.2 98.3 97.9 98.5 98.2 Pulse 72 79 76 83 Resp B/P (MAP) 124/64 (84) 120/66 (84) 132/73 (92) 139/85 (103) Pulse Ox 93 95 93 98 O2 Delivery Room Air Room Air 02/02/18 02/02/18 07:20 10:40 Temp 98.4 97.9 98.4 97.9 Pulse 67 67 Resp B/P (MAP) 139/82 (101) 175/75 (108) Pulse Ox 94 97 O2 Delivery Room Air Room Air Intake and Output 02/01/18 02/01/18 02/02/18 15:00 23:00 07:00 Intake Total 1050 ml 100 ml Output Total 0 ml Balance 1050 ml 100 ml Nutrition Consultation Dietary Evaluation: Recommendations by RD: Increase Calorie Intake, Protein supplementation Comments: Offer Nepro supplements Expected Outcomes/Goals: to meet > 50% est nutr needs Malnutrition Findings: Body Fat Depletion (Non Severe: Mild Depletion Weight Status: Appropriate ANDREWS MARLOW MD Feb 02, 2018 11:32
[2018-02-02 14:35] VITALS: BP 164/77
--- NOTE | 2018-02-02 14:52 | PDOC ---
SUBJECTIVE ROS Pt reports she is feeling better , states has good UOP, she is Incontinent Daughter feels she is not eating well OBJECTIVE Vital Signs Vital Signs Date Time Temp Pulse Resp B/P (MAP) Pulse Ox O2 Delivery O2 Flow Rate FiO2 02/02/18 14:35 98.1 66 18 164/77 (106) 92 Room Air 98.1 I & 0 Intake and Output 02/02/18 07:00 Intake Total 1150 ml Output Total 0 ml Balance 1150 ml Intake Oral 100 ml IV Total 1050 ml Output Urine Total 0 ml # Voids 3 PHYSICAL EXAM Physical Exam GEN.: No distress. HEENT: OM Dry NECK: Supple. LUNGS: Clear to auscultation. HEART: RRR, S1, S2 present. ABDOMEN: Soft, nontender. Positive bowel sounds. EXTREMITIES: Without any cyanosis. 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 Baseline) Lt hydronephrosis - september 2017 Consulted Uro due to left hydro - s/p stent left renal pelvis US in september - Bilateral pelviectasis. Question large echogenic calculus in the left renal pelvis. Hypercalcemia- Likely due to dehydration Improved UTI/Sepsis- as per primary Discussed with Pt and daughter at bedside COMMENT/RELEVANT DATA Meds Current Medications Medications (Trade) Dose Ordered Sig/Juliocesar Start Time Stop Time Status Last Admin Dose Admin Acetaminophen (Tylenol) 650 mg PRN Q6HRS PRN 02/01/18 14:30 Atorvastatin Calcium (Lipitor) 10 mg QHS 02/01/18 21:00 Ceftriaxone Sodium 50 ml @ 100 mls/hr 1X ONCE 02/01/18 08:00 02/01/18 08:29 DC 02/01/18 09:35 100 MLS/HR Docusate Sodium (Colace) 100 mg PRN DAILY PRN 02/01/18 14:30 Heparin Sodium (Porcine) (Heparin Sq) 5,000 unit Q8HRS 02/01/18 22:00 02/02/18 13:51 5,000 UNIT Lactobacillus Rhamnosus (Culturelle) 1 cap BID 02/01/18 21:00 9/6/18 09:21 1 CAP Levothyroxine Sodium (Synthroid) 100 mcg DAILY07 02/01/18 15:00 02/02/18 05:47 100 MCG Linezolid (Zyvox) 600 mg BID 02/02/18 09:00 02/02/18 09:21 600 MG Morphine Sulfate (Morphine Sulfate) 2 mg PRN Q2HR PRN 02/01/18 14:30 Ondansetron HCl (Zofran) 4 mg PRN Q6HRS PRN 02/01/18 14:30 Pantoprazole Sodium (Protonix) 40 mg DAILYAC 02/01/18 15:00 02/02/18 07:48 40 MG Piperacillin Sod/ Tazobactam Sod (Zosyn Per Pharmacy) 1 each PRN DAILY PRN 02/01/18 14:30 Piperacillin Sod/ Tazobactam Sod 2.25 gm/Sodium Chloride 50 ml @ 100 mls/hr Q8HRS 02/01/18 15:00 02/02/18 13:50 100 MLS/HR Piperacillin Sod/ Tazobactam Sod 3.375 gm/Sodium Chloride 50 ml @ 100 mls/hr Q6HRS 02/01/18 18:00 UNV Prednisone (Prednisone) 10 mg DAILY 02/01/18 15:00 02/02/18 09:21 10 MG Sodium Chloride 1,000 ml @ 100 mls/hr Q10H 02/01/18 14:30 02/02/18 05:43 100 MLS/HR Tramadol HCl (Ultram) 50 mg PRN Q6HRS PRN 02/01/18 14:30 02/02/18 08:23 DC Vancomycin HCl (Vanco Per Pharmacy) 1 each PRN DAILY PRN 02/01/18 09:45 02/02/18 08:23 DC 02/01/18 15:33 1 EACH Vancomycin HCl 1.75 gm/Sodium Chloride 500 ml @ 250 mls/hr 1X ONCE 02/01/18 10:00 02/01/18 11:59 DC 02/01/18 10:21 250 MLS/HR Lab Laboratory Tests Test 02/02/18 04:05 02/02/18 08:18 White Blood Count 14.8 x10^3/uL (4.0-11.0) Red Blood Count 4.02 x10^6/uL (3.50-5.40) Hemoglobin 11.7 g/dL (12.0-15.5) Hematocrit 35.3 % (36.0-47.0) Mean Corpuscular Volume 88 fL (79-100) Mean Corpuscular Hemoglobin 29 pg (25-35) Mean Corpuscular Hemoglobin Concent 33 g/dL (31-37) Red Cell Distribution Width 17.7 % (11.5-14.5) Platelet Count 141 x10^3/uL (140-400) Neutrophils (%) (Auto) 87 % (31-73) Lymphocytes (%) (Auto) 8 % (24-48) Monocytes (%) (Auto) 5 % (0-9) Eosinophils (%) (Auto) 0 % (0-3) Basophils (%) (Auto) 0 % (0-3) Neutrophils # (Auto) 13.0 x10^3uL (1.8-7.7) Lymphocytes # (Auto) 1.2 x10^3/uL (1.0-4.8) Monocytes # (Auto) 0.7 x10^3/uL (0.0-1.1) Eosinophils # (Auto) 0.0 x10^3/uL (0.0-0.7) Basophils # (Auto) 0.0 x10^3/uL (0.0-0.2) Sodium Level 142 mmol/L (136-145) Potassium Level 3.5 mmol/L (3.5-5.1) Chloride Level 108 mmol/L (98-107) Carbon Dioxide Level 19 mmol/L (21-32) Anion Gap 15 (6-14) Blood Urea Nitrogen 67 mg/dL (7-20) Creatinine 4.0 mg/dL (0.6-1.0) Estimated GFR (Cockcroft-Gault) 10.7 Glucose Level 100 mg/dL (70-99) Calcium Level 10.2 mg/dL (8.5-10.1) Glucose (Fingerstick) 99 mg/dL (70-99) Results All relevant outside records, renal labs, imaging studies, telemetry/EKG's were reviewed. ISMAEL CHISHOLM MD Feb 02, 2018 14:52
[2018-02-02 19:00] VITALS: BP 137/70
--- NOTE | 2018-02-02 20:56 | CONS ---
DATE OF CONSULTATION: 02/02/2018 LOCATION: The patient's room is 556. REQUESTING PHYSICIAN: Dr. Pierson. REASON FOR CONSULTATION: Sepsis. HISTORY OF PRESENT ILLNESS: The patient is a pleasant 83-year-old female; however, she is not a very good historian. She has a complicated history of left hydronephrosis and nephrolithiasis and stones and dilated renal pelvis and underwent a percutaneous nephrostomy tube placement as well as stents back in October and on 12/14/2017, she had replacement of the left nephrostomy, but at some point, she had had her nephrostomies removed and had stents placed and according to one note, she had a kidney stent that was removed about 6 days ago, but an another note states that it was removed several weeks ago. Either way, she developed decline in mental status and decreased oral intake, and was brought to the Emergency Room on 02/01/2018. Had a white count of 18.6 and was found to have a creatinine of 5.2 with a previous creatinine of 2.2. Urine was concerning for potential urinary tract infection, although she had many squamous epithelial cells. Chest x-ray was obtained, showed no acute cardiopulmonary abnormality. Abdomen CT and pelvis showed left hydronephrosis has resolved, right hydronephrosis had resolved, 6 small calculi in the urinary bladder. CT scan of her head showed no acute intracranial problems. She was placed on vancomycin and Zosyn, and cultures were obtained. Currently, the patient is sitting upright in bed. She is complaining of some constipation and some abdominal discomfort. Still has decreased appetite. No gross fevers or chills or sweats, but she feels weak, although better than when she came in. No gross shortness of air. Denies any problems passing her urine. PAST MEDICAL HISTORY: Positive for previous urinary tract infection with penicillin-sensitive Enterococcus back in September 2017. She has a history of chronic kidney disease, hypertension, hyperlipidemia, osteoarthritis, hypothyroidism, hydronephrosis with obstructive uropathy. PAST SURGICAL HISTORY: Positive for the nephrostomy tubes as mentioned previously. REVIEW OF SYSTEMS: Otherwise negative. ALLERGIES: No known drug allergies. SOCIAL HISTORY: No tobacco, no alcohol. FAMILY HISTORY: Positive for hyperlipidemia. CURRENT MEDICATIONS: Included vancomycin, Zosyn, Lipitor, Colace, heparin, Lactobacillus, Synthroid, Protonix, prednisone and Ultram. PHYSICAL EXAMINATION: VITAL SIGNS: She has been afebrile since arrival. Current temperature is 98.4, pulse 67, respiratory rate 18, blood pressure 129/82, satting 94% on room air. CONSTITUTIONAL: She is alert. She is cooperative. She does appear to be a little weak, but she is in no acute distress. SKIN: Normal conjunctivae. HEENT: Oral cavity, pharynx had some Glucerna in it, but there are no gross lesions that I can see. NECK: Supple, no JVD. LUNGS: Clear to auscultation. HEART: S1, S2. ABDOMEN: Mildly distended, there is no guarding, there is no rebound. There is a little anterior lower discomfort. EXTREMITIES: No clubbing, cyanosis or gross edema. SKIN: Warm to touch without generalized signs of rash. NEUROLOGIC: She is pleasant, but tired. LABORATORY DATA: White count 14.8, hemoglobin 11.7, platelets 141, neutrophils of 87. She had 14% bands on arrival. Creatinine was 5.2, today is 4, glucose of 100. She had normal troponins, normal liver function study tests. Urinalysis again concerning for urinary tract infection. Cultures are pending. Blood cultures are pending. IMPRESSION: 1. Questionable sepsis present on admission, status post dose of Rocephin, Zosyn and vancomycin. 2. Leukocytosis, but currently on prednisone. 3. Acute kidney injury. 4. History of urinary tract infection with Enterococcus, penicillin sensitive back in September. 5. Constipation. RECOMMENDATIONS: We will continue the Zosyn, discontinue the vancomycin with acute kidney injury. We will add Zyvox. Follow up labs and cultures. Thank you for allowing me to participate in the patient's care. Should you have any further questions, please do not hesitate to contact me. KAHLIL JORGE MD DR: GILLES/jesus JOB#: [id number] / [id number]
[2018-02-02] MEDS: ATORVASTATIN CALCIUM 10 MG TABLET. PO SCH (21:54)
[2018-02-02 23:00] VITALS: BP 165/68
[2018-02-03] VITALS (7 sets, daily range): BP systolic 123–177; BP diastolic 42–78
[2018-02-03] MEDS: IV NORMAL SALINE 1000ML BAG 1,000 ML IV SCH (03:08)
[2018-02-03] MEDS: PIPERACILLIN/TAZOBACTAM 2.25 GM in IV NORMAL SALINE 50ML 50 ML IV SCH ×3 (05:50→21:21)
[2018-02-03] MEDS: LEVOTHYROXINE 100 MCG TABLET PO SCH (05:52)
[2018-02-03] MEDS: HEPARIN PF for SUB-Q USE 5,000 UNIT/0.5 ML VIAL. SQ SCH ×3 (05:59→21:22)
[2018-02-03 06:29] LABS: BASO % 0 % (0-3); EOS % 0 % (0-3); HEMATOCRIT 30.5 % (36.0-47.0); HEMOGLOBIN 10.1 g/dL (12.0-15.5); LYMPH # 1.2 x10^3/uL (1.0-4.8); LYMPH % 10 % (24-48); MEAN CORPUSCULAR HEMOGLOBIN 29 pg (25-35); MEAN CORPUSCULAR HGB CONC 33 g/dL (31-37); MEAN CORPUSCULAR VOLUME 87 fL (79-100); MONO # 0.6 x10^3/uL (0.0-1.1); MONO % 5 % (0-9); NEUT # 10.5 x10^3uL (1.8-7.7); NEUT % 86 % (31-73); PLATELET COUNT 114 x10^3/uL (140-400); RED BLOOD COUNT 3.52 x10^6/uL (3.50-5.40); RED CELL DISTRIBUTION WIDTH 17.2 % (11.5-14.5); WHITE BLOOD COUNT 12.3 x10^3/uL (4.0-11.0)
[2018-02-03 07:02] LABS: CALCIUM 9.7 mg/dL (8.5-10.1); CREATININE 2.6 mg/dL (0.6-1.0); GFR 17.6; POTASSIUM 3.1 mmol/L (3.5-5.1)
[2018-02-03] MEDS: PANTOPRAZOLE 40 MG TABLET.DR. PO SCH (09:16)
[2018-02-03] MEDS: predniSONE 10 MG TABLET PO SCH (09:16)
[2018-02-03] MEDS: LINEZOLID 600 MG TABLET PO SCH ×2 (09:16→21:21)
[2018-02-03] MEDS: LACTOBACILLUS RHAMNOSUS GG 1 CAPSULE. PO SCH ×2 (09:16→21:21)
--- NOTE | 2018-02-03 09:28 | PDOC ---
Infectious Disease Note Subjective Subjective Feels better. Still not much of appetite No F/C/S/N/V/SOA/Rash Feels constipated ROS ROS o/w neg Vital Sign Vital Signs Vital Signs Date Time Temp Pulse Resp B/P (MAP) Pulse Ox O2 Delivery O2 Flow Rate FiO2 02/03/18 07:00 98.1 55 16 160/68 (98) 97 Room Air 98.1 Physical Exam PHYSICAL EXAM CONSTITUTIONAL: She is alert. She is cooperative. She does appear better and in no acute distress. SKIN: Normal conjunctivae. HEENT: Oral cavity, pharynx - there are no gross lesions that I can see. NECK: Supple, no JVD. LUNGS: Clear to auscultation. HEART: S1, S2. ABDOMEN: Mildly distended, there is no guarding, there is no rebound. EXTREMITIES: No clubbing, cyanosis or gross edema. SKIN: Warm to touch without generalized signs of rash. NEUROLOGIC: She is pleasant, but tired. Labs Lab Laboratory Tests Test 02/03/18 05:30 White Blood Count 12.3 x10^3/uL (4.0-11.0) Red Blood Count 3.52 x10^6/uL (3.50-5.40) Hemoglobin 10.1 g/dL (12.0-15.5) Hematocrit 30.5 % (36.0-47.0) Mean Corpuscular Volume 87 fL (79-100) Mean Corpuscular Hemoglobin 29 pg (25-35) Mean Corpuscular Hemoglobin Concent 33 g/dL (31-37) Red Cell Distribution Width 17.2 % (11.5-14.5) Platelet Count 114 x10^3/uL (140-400) Neutrophils (%) (Auto) 86 % (31-73) Lymphocytes (%) (Auto) 10 % (24-48) Monocytes (%) (Auto) 5 % (0-9) Eosinophils (%) (Auto) 0 % (0-3) Basophils (%) (Auto) 0 % (0-3) Neutrophils # (Auto) 10.5 x10^3uL (1.8-7.7) Lymphocytes # (Auto) 1.2 x10^3/uL (1.0-4.8) Monocytes # (Auto) 0.6 x10^3/uL (0.0-1.1) Eosinophils # (Auto) 0.0 x10^3/uL (0.0-0.7) Basophils # (Auto) 0.0 x10^3/uL (0.0-0.2) Sodium Level 147 mmol/L (136-145) Potassium Level 3.1 mmol/L (3.5-5.1) Chloride Level 112 mmol/L (98-107) Carbon Dioxide Level 18 mmol/L (21-32) Anion Gap 17 (6-14) Blood Urea Nitrogen 45 mg/dL (7-20) Creatinine 2.6 mg/dL (0.6-1.0) Estimated GFR (Cockcroft-Gault) 17.6 Glucose Level 96 mg/dL (70-99) Calcium Level 9.7 mg/dL (8.5-10.1) Micro Microbiology 02/01/18 Blood Culture - Preliminary, Resulted NO GROWTH AFTER 1 DAY Objective Assessment ? sepsis - POA s/p rocephin times one/Zosyn/vanc now off Vanc and on Zyvox - better Leukocytosis - on Prednisone JESSICA - better UTI h/o Enterococcus PCN sen in October 25 Constipation Plan Plan of Care Cont zosyn/zyvox F/u labs and cults KAHLIL JORGE MD Feb 03, 2018 09:28
[2018-02-03] MEDS: ONDANSETRON PF 4 MG/2 ML VIAL. IV PRN (09:30)
[2018-02-03] MEDS ORDERED: POTASSIUM CHLORIDE 20 MEQ TABLET.ER. PO ONE (10:00)
--- NOTE | 2018-02-03 10:17 | PDOC ---
SUBJECTIVE ROS Pt reports she is feeling better she is Incontinent Not eating as per RN, Mild nausea this am OBJECTIVE Vital Signs Vital Signs Date Time Temp Pulse Resp B/P (MAP) Pulse Ox O2 Delivery O2 Flow Rate FiO2 02/03/18 07:00 98.1 55 16 160/68 (98) 97 Room Air 98.1 I & 0 Intake and Output 02/03/18 07:00 Intake Total 1110 ml Balance 1110 ml Intake Oral 60 ml IV Total 1050 ml # Voids 9 PHYSICAL EXAM Physical Exam GEN.: No distress. HEENT: OM Dry NECK: Supple. LUNGS: Clear to auscultation. HEART: RRR, S1, S2 present. ABDOMEN: Soft, nontender. Positive bowel sounds. EXTREMITIES: Without any cyanosis. 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 Baseline) Lt hydronephrosis - september 2017 Consulted Uro due to left hydro - s/p stent left renal pelvis US in september - Bilateral pelviectasis. Question large echogenic calculus in the left renal pelvis. Hypercalcemia- Likely due to dehydration Improved UTI/Sepsis- as per primary Discussed with Pt and RN COMMENT/RELEVANT DATA Meds Current Medications Medications (Trade) Dose Ordered Sig/Juliocesar Start Time Stop Time Status Last Admin Dose Admin Acetaminophen (Tylenol) 650 mg PRN Q6HRS PRN 02/01/18 14:30 Atorvastatin Calcium (Lipitor) 10 mg QHS 02/01/18 21:00 02/02/18 21:54 10 MG Ceftriaxone Sodium 50 ml @ 100 mls/hr 1X ONCE 02/01/18 08:00 02/01/18 08:29 DC 02/01/18 09:35 100 MLS/HR Docusate Sodium (Colace) 100 mg PRN DAILY PRN 02/01/18 14:30 Heparin Sodium (Porcine) (Heparin Sq) 5,000 unit Q8HRS 02/01/18 22:00 02/03/18 05:59 5,000 UNIT Lactobacillus Rhamnosus (Culturelle) 1 cap BID 02/01/18 21:00 02/03/18 09:16 1 CAP Levothyroxine Sodium (Synthroid) 100 mcg DAILY07 02/01/18 15:00 02/03/18 05:52 100 MCG Linezolid (Zyvox) 600 mg BID 02/02/18 09:00 02/03/18 09:16 600 MG Morphine Sulfate (Morphine Sulfate) 2 mg PRN Q2HR PRN 02/01/18 14:30 Ondansetron HCl (Zofran) 4 mg PRN Q6HRS PRN 02/01/18 14:30 02/03/18 09:30 4 MG Pantoprazole Sodium (Protonix) 40 mg DAILYAC 02/01/18 15:00 02/03/18 09:16 40 MG Piperacillin Sod/ Tazobactam Sod (Zosyn Per Pharmacy) 1 each PRN DAILY PRN 02/01/18 14:30 Piperacillin Sod/ Tazobactam Sod 2.25 gm/Sodium Chloride 50 ml @ 100 mls/hr Q8HRS 02/01/18 15:00 02/03/18 05:50 100 MLS/HR Piperacillin Sod/ Tazobactam Sod 3.375 gm/Sodium Chloride 50 ml @ 100 mls/hr Q6HRS 02/01/18 18:00 UNV Potassium Chloride (Klor-Con) 40 meq 1X ONCE 02/03/18 10:00 02/03/18 10:01 Prednisone (Prednisone) 10 mg DAILY 02/01/18 15:00 02/03/18 09:16 10 MG Sodium Chloride 1,000 ml @ 100 mls/hr Q10H 02/01/18 14:30 02/03/18 03:08 100 MLS/HR Tramadol HCl (Ultram) 50 mg PRN Q6HRS PRN 02/01/18 14:30 02/02/18 08:23 DC Vancomycin HCl (Vanco Per Pharmacy) 1 each PRN DAILY PRN 02/01/18 09:45 02/02/18 08:23 DC 02/01/18 15:33 1 EACH Vancomycin HCl 1.75 gm/Sodium Chloride 500 ml @ 250 mls/hr 1X ONCE 02/01/18 10:00 02/01/18 11:59 DC 02/01/18 10:21 250 MLS/HR Lab Laboratory Tests Test 02/03/18 05:30 White Blood Count 12.3 x10^3/uL (4.0-11.0) Red Blood Count 3.52 x10^6/uL (3.50-5.40) Hemoglobin 10.1 g/dL (12.0-15.5) Hematocrit 30.5 % (36.0-47.0) Mean Corpuscular Volume 87 fL (79-100) Mean Corpuscular Hemoglobin 29 pg (25-35) Mean Corpuscular Hemoglobin Concent 33 g/dL (31-37) Red Cell Distribution Width 17.2 % (11.5-14.5) Platelet Count 114 x10^3/uL (140-400) Neutrophils (%) (Auto) 86 % (31-73) Lymphocytes (%) (Auto) 10 % (24-48) Monocytes (%) (Auto) 5 % (0-9) Eosinophils (%) (Auto) 0 % (0-3) Basophils (%) (Auto) 0 % (0-3) Neutrophils # (Auto) 10.5 x10^3uL (1.8-7.7) Lymphocytes # (Auto) 1.2 x10^3/uL (1.0-4.8) Monocytes # (Auto) 0.6 x10^3/uL (0.0-1.1) Eosinophils # (Auto) 0.0 x10^3/uL (0.0-0.7) Basophils # (Auto) 0.0 x10^3/uL (0.0-0.2) Sodium Level 147 mmol/L (136-145) Potassium Level 3.1 mmol/L (3.5-5.1) Chloride Level 112 mmol/L (98-107) Carbon Dioxide Level 18 mmol/L (21-32) Anion Gap 17 (6-14) Blood Urea Nitrogen 45 mg/dL (7-20) Creatinine 2.6 mg/dL (0.6-1.0) Estimated GFR (Cockcroft-Gault) 17.6 Glucose Level 96 mg/dL (70-99) Calcium Level 9.7 mg/dL (8.5-10.1) Results All relevant outside records, renal labs, imaging studies, telemetry/EKG's were reviewed. ISMAEL CHISHOLM MD Feb 03, 2018 10:17
--- NOTE | 2018-02-03 12:09 | PDOC ---
PROGRESS NOTES Chief Complaint Chief Complaint UTI sepsis JESSICA, vasomotor, ATN htn hld gerd hypothyroidism h/o left hydro - s/p stent left renal pelvis and removal hypokalemia plan: renal, ID consulted cont zyvox and zosyn, fu with ucx, bcx switch IVF to k + d5+ 1/2 NS 100cc/h hold lisinopril cont home meds for now renal diet labs daily gi, dvt ppx replete k PTOT not sure why pt is on prednisone, pt has no idea, will try to talk to family, cont for now chronic low po intake History of Present Illness History of Present Illness ROS: no fever, chills, sob or chest pain feels ok, but very weak, chronic low po intake cr 2.6 from 5 Vitals Vitals Vital Signs Date Time Temp Pulse Resp B/P (MAP) Pulse Ox O2 Delivery O2 Flow Rate FiO2 02/03/18 11:00 97.7 63 16 146/78 (100) 96 Room Air 97.7 Physical Exam Physical Exam CONSTITUTIONAL: She is alert. She is cooperative. She does appear better and in no acute distress. SKIN: Normal conjunctivae. HEENT: Oral cavity, pharynx - there are no gross lesions that I can see. NECK: Supple, no JVD. LUNGS: Clear to auscultation. HEART: S1, S2. ABDOMEN: Mildly distended, there is no guarding, there is no rebound. EXTREMITIES: No clubbing, cyanosis or gross edema. SKIN: Warm to touch without generalized signs of rash. NEUROLOGIC: She is pleasant, but tired. General: Alert, Oriented X3, Cooperative, mild distress Heart: Regular rate Lungs: Clear Abdomen: Normal bowel sounds, Soft Extremities: No clubbing, No cyanosis Skin: No significant lesion Labs LABS Laboratory Tests Test 02/03/18 05:30 White Blood Count 12.3 x10^3/uL (4.0-11.0) Red Blood Count 3.52 x10^6/uL (3.50-5.40) Hemoglobin 10.1 g/dL (12.0-15.5) Hematocrit 30.5 % (36.0-47.0) Mean Corpuscular Volume 87 fL (79-100) Mean Corpuscular Hemoglobin 29 pg (25-35) Mean Corpuscular Hemoglobin Concent 33 g/dL (31-37) Red Cell Distribution Width 17.2 % (11.5-14.5) Platelet Count 114 x10^3/uL (140-400) Neutrophils (%) (Auto) 86 % (31-73) Lymphocytes (%) (Auto) 10 % (24-48) Monocytes (%) (Auto) 5 % (0-9) Eosinophils (%) (Auto) 0 % (0-3) Basophils (%) (Auto) 0 % (0-3) Neutrophils # (Auto) 10.5 x10^3uL (1.8-7.7) Lymphocytes # (Auto) 1.2 x10^3/uL (1.0-4.8) Monocytes # (Auto) 0.6 x10^3/uL (0.0-1.1) Eosinophils # (Auto) 0.0 x10^3/uL (0.0-0.7) Basophils # (Auto) 0.0 x10^3/uL (0.0-0.2) Sodium Level 147 mmol/L (136-145) Potassium Level 3.1 mmol/L (3.5-5.1) Chloride Level 112 mmol/L (98-107) Carbon Dioxide Level 18 mmol/L (21-32) Anion Gap 17 (6-14) Blood Urea Nitrogen 45 mg/dL (7-20) Creatinine 2.6 mg/dL (0.6-1.0) Estimated GFR (Cockcroft-Gault) 17.6 Glucose Level 96 mg/dL (70-99) Calcium Level 9.7 mg/dL (8.5-10.1) Assessment and Plan Assessmemt and Plan Problems Medical Problems: (1) Urinary tract infection Status: Acute Comment Review of Relevant I have reviewed the following items harry (where applicable) has been applied. Labs Laboratory Tests Test 02/01/18 12:20 02/02/18 04:05 02/02/18 08:18 02/03/18 05:30 Lactic Acid Level 1.1 mmol/L (0.4-2.0) White Blood Count 14.8 x10^3/uL (4.0-11.0) 12.3 x10^3/uL (4.0-11.0) Red Blood Count 4.02 x10^6/uL (3.50-5.40) 3.52 x10^6/uL (3.50-5.40) Hemoglobin 11.7 g/dL (12.0-15.5) 10.1 g/dL (12.0-15.5) Hematocrit 35.3 % (36.0-47.0) 30.5 % (36.0-47.0) Mean Corpuscular Volume 88 fL (79-100) 87 fL (79-100) Mean Corpuscular Hemoglobin 29 pg (25-35) 29 pg (25-35) Mean Corpuscular Hemoglobin Concent 33 g/dL (31-37) 33 g/dL (31-37) Red Cell Distribution Width 17.7 % (11.5-14.5) 17.2 % (11.5-14.5) Platelet Count 141 x10^3/uL (140-400) 114 x10^3/uL (140-400) Neutrophils (%) (Auto) 87 % (31-73) 86 % (31-73) Lymphocytes (%) (Auto) 8 % (24-48) 10 % (24-48) Monocytes (%) (Auto) 5 % (0-9) 5 % (0-9) Eosinophils (%) (Auto) 0 % (0-3) 0 % (0-3) Basophils (%) (Auto) 0 % (0-3) 0 % (0-3) Neutrophils # (Auto) 13.0 x10^3uL (1.8-7.7) 10.5 x10^3uL (1.8-7.7) Lymphocytes # (Auto) 1.2 x10^3/uL (1.0-4.8) 1.2 x10^3/uL (1.0-4.8) Monocytes # (Auto) 0.7 x10^3/uL (0.0-1.1) 0.6 x10^3/uL (0.0-1.1) Eosinophils # (Auto) 0.0 x10^3/uL (0.0-0.7) 0.0 x10^3/uL (0.0-0.7) Basophils # (Auto) 0.0 x10^3/uL (0.0-0.2) 0.0 x10^3/uL (0.0-0.2) Sodium Level 142 mmol/L (136-145) 147 mmol/L (136-145) Potassium Level 3.5 mmol/L (3.5-5.1) 3.1 mmol/L (3.5-5.1) Chloride Level 108 mmol/L (98-107) 112 mmol/L (98-107) Carbon Dioxide Level 19 mmol/L (21-32) 18 mmol/L (21-32) Anion Gap 15 (6-14) 17 (6-14) Blood Urea Nitrogen 67 mg/dL (7-20) 45 mg/dL (7-20) Creatinine 4.0 mg/dL (0.6-1.0) 2.6 mg/dL (0.6-1.0) Estimated GFR (Cockcroft-Gault) 10.7 17.6 Glucose Level 100 mg/dL (70-99) 96 mg/dL (70-99) Calcium Level 10.2 mg/dL (8.5-10.1) 9.7 mg/dL (8.5-10.1) Glucose (Fingerstick) 99 mg/dL (70-99) Laboratory Tests Test 02/03/18 05:30 White Blood Count 12.3 x10^3/uL (4.0-11.0) Red Blood Count 3.52 x10^6/uL (3.50-5.40) Hemoglobin 10.1 g/dL (12.0-15.5) Hematocrit 30.5 % (36.0-47.0) Mean Corpuscular Volume 87 fL (79-100) Mean Corpuscular Hemoglobin 29 pg (25-35) Mean Corpuscular Hemoglobin Concent 33 g/dL (31-37) Red Cell Distribution Width 17.2 % (11.5-14.5) Platelet Count 114 x10^3/uL (140-400) Neutrophils (%) (Auto) 86 % (31-73) Lymphocytes (%) (Auto) 10 % (24-48) Monocytes (%) (Auto) 5 % (0-9) Eosinophils (%) (Auto) 0 % (0-3) Basophils (%) (Auto) 0 % (0-3) Neutrophils # (Auto) 10.5 x10^3uL (1.8-7.7) Lymphocytes # (Auto) 1.2 x10^3/uL (1.0-4.8) Monocytes # (Auto) 0.6 x10^3/uL (0.0-1.1) Eosinophils # (Auto) 0.0 x10^3/uL (0.0-0.7) Basophils # (Auto) 0.0 x10^3/uL (0.0-0.2) Sodium Level 147 mmol/L (136-145) Potassium Level 3.1 mmol/L (3.5-5.1) Chloride Level 112 mmol/L (98-107) Carbon Dioxide Level 18 mmol/L (21-32) Anion Gap 17 (6-14) Blood Urea Nitrogen 45 mg/dL (7-20) Creatinine 2.6 mg/dL (0.6-1.0) Estimated GFR (Cockcroft-Gault) 17.6 Glucose Level 96 mg/dL (70-99) Calcium Level 9.7 mg/dL (8.5-10.1) Microbiology 02/01/18 Blood Culture - Preliminary, Resulted NO GROWTH AFTER 2 DAYS Medications Current Medications Sodium Chloride 1,000 ml @ 1,000 mls/hr 1X ONCE IV Last administered on at 09:35; Start 02/01/18 at 08:00; Stop 02/01/18 at 08:59; Status DC Ceftriaxone Sodium 50 ml @ 100 mls/hr 1X ONCE IV Last administered on at 09:35; Start 02/01/18 at 08:00; Stop 02/01/18 at 08:29; Status DC Vancomycin HCl (Vanco Per Pharmacy) 1 each PRN DAILY PRN MC SEE COMMENTS Last administered on 02/01/18at 15:33; Start 02/01/18 at 09:45; Stop 02/02/18 at 08:23; Status DC Sodium Chloride 1,000 ml @ 1,000 mls/hr 1X ONCE IV Last administered on at 10:21; Start 02/01/18 at 09:45; Stop 02/01/18 at 10:44; Status DC Vancomycin HCl 1.75 gm/Sodium Chloride 500 ml @ 250 mls/hr 1X ONCE IV Last administered on 02/01/18at 10:21; Start 02/01/18 at 10:00; Stop 02/01/18 at 11:59; Status DC Levothyroxine Sodium (Synthroid) 100 mcg DAILY07 PO Last administered on at 05:52; Start 02/01/18 at 15:00 Prednisone (Prednisone) 10 mg DAILY PO Last administered on 02/03/18at 09:16; Start 02/01/18 at 15:00 Atorvastatin Calcium (Lipitor) 10 mg QHS PO Last administered on 02/02/18at 21:54 ; Start 02/01/18 at 21:00 Pantoprazole Sodium (Protonix) 40 mg DAILYAC PO Last administered on 02/03/18at 09:16; Start 02/01/18 at 15:00 Acetaminophen (Tylenol) 650 mg PRN Q6HRS PRN PO FEVER/HEADACHE; Start 02/01/18 at 14:30 Ondansetron HCl (Zofran) 4 mg PRN Q6HRS PRN IV NAUSEA/VOMITING 1ST CHOICE Last administered on 02/03/18at 09:30; Start 02/01/18 at 14:30 Morphine Sulfate (Morphine Sulfate) 2 mg PRN Q2HR PRN IV MODERATE TO SEVERE PAIN; Start 02/01/18 at 14:30 Tramadol HCl (Ultram) 50 mg PRN Q6HRS PRN PO MILD TO MODERATE PAIN; Start at 14:30; Stop 02/02/18 at 08:23; Status DC Docusate Sodium (Colace) 100 mg PRN DAILY PRN PO HARD STOOLS; Start 02/01/18 at 14:30 Piperacillin Sod/ Tazobactam Sod 3.375 gm/Sodium Chloride 50 ml @ 100 mls/hr Q6HRS IV ; Start 02/01/18 at 18:00; Status UNV Piperacillin Sod/ Tazobactam Sod (Zosyn Per Pharmacy) 1 each PRN DAILY PRN MC SEE COMMENTS; Start 02/01/18 at 14:30 Sodium Chloride 1,000 ml @ 100 mls/hr Q10H IV Last administered on 02/03/18at 03 :08; Start 02/01/18 at 14:30; Stop 02/03/18 at 10:15; Status DC Heparin Sodium (Porcine) (Heparin Sq) 5,000 unit Q8HRS SQ Last administered on 02/03/18at 05:59; Start 02/01/18 at 22:00 Piperacillin Sod/ Tazobactam Sod 2.25 gm/Sodium Chloride 50 ml @ 100 mls/hr Q8HRS IV Last administered on 02/03/18at 05:50; Start 02/01/18 at 15:00 Lactobacillus Rhamnosus (Culturelle) 1 cap BID PO Last administered on at 09:16; Start 02/01/18 at 21:00 Linezolid (Zyvox) 600 mg BID PO Last administered on 02/03/18at 09:16; Start 02/02 at 09:00 Potassium Chloride (Klor-Con) 40 meq 1X ONCE PO ; Start 02/03/18 at 10:00; Stop 02/03/18 at 10:37; Status DC Potassium Chloride/Dextrose/ Sod Cl 1,000 ml @ 100 mls/hr Q10H IV ; Start at 10:15 Active Scripts Active Reported Omeprazole 40 Mg Capsule.dr 1 Cap PO DAILY Prednisone 20 Mg Tablet 10 Mg PO DAILY Lisinopril 40 Mg Tablet 1 Tab PO DAILY Levothyroxine Sodium 100 Mcg Tablet 1 Tab PO DAILY Lovastatin 40 Mg Tablet 40 Mg PO HS Tramadol Hcl 50 Mg Tablet 50 Mg PO PRN Q6-8HRS PRN Vitals/I & O Vital Sign - Last 24 Hours 02/02/18 02/02/18 02/02/18 02/03/18 14:35 19:00 23:00 03:00 Temp 98.1 98.3 98.1 98.1 98.1 98.3 98.1 98.1 Pulse 66 56 65 61 Resp 18 18 18 18 B/P (MAP) 164/77 (106) 137/70 (92) 165/68 (100) 154/73 (100) Pulse Ox 92 95 94 97 O2 Delivery Room Air 02/03/18 02/03/18 07:00 11:00 Temp 98.1 97.7 98.1 97.7 Pulse 55 63 Resp 16 16 B/P (MAP) 160/68 (98) 146/78 (100) Pulse Ox 97 96 O2 Delivery Room Air Room Air Intake and Output 02/02/18 02/02/18 02/03/18 15:00 23:00 07:00 Intake Total 110 ml 1000 ml Balance 110 ml 1000 ml Nutrition Consultation Dietary Evaluation: Recommendations by RD: Increase Calorie Intake, Protein supplementation Comments: Offer Nepro supplements Expected Outcomes/Goals: to meet > 50% est nutr needs Malnutrition Findings: Body Fat Depletion (Non Severe: Mild Depletion Weight Status: Appropriate JOSE COVARRUBIAS MD Feb 03, 2018 12:09
[2018-02-03] MEDS: POTASSIUM CL 20MEQ D5-0.45NACL 1,000 ML IV SCH ×2 (12:25→21:25)
[2018-02-03] MEDS: ATORVASTATIN CALCIUM 10 MG TABLET. PO SCH (21:21)
[2018-02-04 03:59] VITALS: BP 162/74
[2018-02-04 04:56] LABS: BASO % 0 % (0-3); EOS % 0 % (0-3); HEMOGLOBIN 9.7 g/dL (12.0-15.5); LYMPH # 1.3 x10^3/uL (1.0-4.8); LYMPH % 12 % (24-48); MEAN CORPUSCULAR HEMOGLOBIN 29 pg (25-35); MEAN CORPUSCULAR HGB CONC 34 g/dL (31-37); MEAN CORPUSCULAR VOLUME 87 fL (79-100); MONO # 0.5 x10^3/uL (0.0-1.1); MONO % 4 % (0-9); NEUT # 9.4 x10^3uL (1.8-7.7); NEUT % 84 % (31-73); PLATELET COUNT 106 x10^3/uL (140-400); RED BLOOD COUNT 3.34 x10^6/uL (3.50-5.40); RED CELL DISTRIBUTION WIDTH 17.5 % (11.5-14.5); WHITE BLOOD COUNT 11.2 x10^3/uL (4.0-11.0)
[2018-02-04 05:05] LABS: CALCIUM 9.7 mg/dL (8.5-10.1); GFR 23.8; POTASSIUM 3.2 mmol/L (3.5-5.1)
[2018-02-04] MEDS: PIPERACILLIN/TAZOBACTAM 2.25 GM in IV NORMAL SALINE 50ML 50 ML IV SCH ×3 (05:50→21:11)
[2018-02-04] MEDS: POTASSIUM CL 20MEQ D5-0.45NACL 1,000 ML IV SCH ×3 (05:51→21:11)
[2018-02-04] MEDS: LEVOTHYROXINE 100 MCG TABLET PO SCH (05:52)
[2018-02-04] MEDS: HEPARIN PF for SUB-Q USE 5,000 UNIT/0.5 ML VIAL. SQ SCH ×3 (05:55→21:17)
[2018-02-04 07:43] VITALS: BP 159/66
--- NOTE | 2018-02-04 08:01 | PDOC ---
Infectious Disease Note Subjective Subjective Feels better. Appetite is better No F/C/S/N/V/SOA/Rash Feels constipated ROS ROS o/w neg Vital Sign Vital Signs Vital Signs Date Time Temp Pulse Resp B/P (MAP) Pulse Ox O2 Delivery O2 Flow Rate FiO2 02/04/18 07:43 98.4 54 159/66 (97) 96 Room Air 98.4 02/04/18 03:59 18 02/03/18 19:59 2.0 Physical Exam PHYSICAL EXAM CONSTITUTIONAL: She is alert. She is cooperative. She does appear better and in no acute distress. SKIN: Normal conjunctivae. HEENT: Oral cavity, pharynx - there are no gross lesions that I can see. NECK: Supple, no JVD. LUNGS: Clear to auscultation. HEART: S1, S2. ABDOMEN: Mildly distended, there is no guarding, there is no rebound. EXTREMITIES: No clubbing, cyanosis or gross edema. SKIN: Warm to touch without generalized signs of rash. NEUROLOGIC: She is pleasant, but tired. Labs Lab Laboratory Tests Test 02/04/18 03:45 White Blood Count 11.2 x10^3/uL (4.0-11.0) Red Blood Count 3.34 x10^6/uL (3.50-5.40) Hemoglobin 9.7 g/dL (12.0-15.5) Hematocrit 29.0 % (36.0-47.0) Mean Corpuscular Volume 87 fL (79-100) Mean Corpuscular Hemoglobin 29 pg (25-35) Mean Corpuscular Hemoglobin Concent 34 g/dL (31-37) Red Cell Distribution Width 17.5 % (11.5-14.5) Platelet Count 106 x10^3/uL (140-400) Neutrophils (%) (Auto) 84 % (31-73) Lymphocytes (%) (Auto) 12 % (24-48) Monocytes (%) (Auto) 4 % (0-9) Eosinophils (%) (Auto) 0 % (0-3) Basophils (%) (Auto) 0 % (0-3) Neutrophils # (Auto) 9.4 x10^3uL (1.8-7.7) Lymphocytes # (Auto) 1.3 x10^3/uL (1.0-4.8) Monocytes # (Auto) 0.5 x10^3/uL (0.0-1.1) Eosinophils # (Auto) 0.0 x10^3/uL (0.0-0.7) Basophils # (Auto) 0.0 x10^3/uL (0.0-0.2) Sodium Level 143 mmol/L (136-145) Potassium Level 3.2 mmol/L (3.5-5.1) Chloride Level 111 mmol/L (98-107) Carbon Dioxide Level 21 mmol/L (21-32) Anion Gap 11 (6-14) Blood Urea Nitrogen 30 mg/dL (7-20) Creatinine 2.0 mg/dL (0.6-1.0) Estimated GFR (Cockcroft-Gault) 23.8 Glucose Level 175 mg/dL (70-99) Calcium Level 9.7 mg/dL (8.5-10.1) Micro Microbiology 02/01/18 Blood Culture - Preliminary, Resulted NO GROWTH AFTER 1 DAY Objective Assessment ? sepsis - POA s/p rocephin times one/Zosyn/vanc now off Vanc and on Zyvox - better Leukocytosis - on Prednisone JESSICA - better UTI h/o Enterococcus PCN sen in October 25 Constipation Plan Plan of Care Cont zosyn/zyvox F/u labs and cults KAHLIL JORGE MD Feb 04, 2018 08:01
[2018-02-04] MEDS: PANTOPRAZOLE 40 MG TABLET.DR. PO SCH (08:02)
[2018-02-04] MEDS: predniSONE 10 MG TABLET PO SCH (08:02)
[2018-02-04] MEDS: LINEZOLID 600 MG TABLET PO SCH ×2 (08:02→21:12)
[2018-02-04] MEDS: LACTOBACILLUS RHAMNOSUS GG 1 CAPSULE. PO SCH ×2 (08:02→21:12)
--- NOTE | 2018-02-04 10:23 | PDOC ---
Renal-Progress Notes Subjective Notes Notes NONE History of Present Illness Hx of present illness BETTER Vitals Vitals Vital Signs Date Time Temp Pulse Resp B/P (MAP) Pulse Ox O2 Delivery O2 Flow Rate FiO2 02/04/18 08:00 Room Air 02/04/18 07:43 98.4 54 159/66 (97) 96 98.4 02/04/18 03:59 18 02/03/18 19:59 2.0 Weight Weight [ ] I.O. Intake and Output Intake and Output 02/04/18 07:00 Intake Total 1270 ml Balance 1270 ml Intake Oral 420 ml IV Total 850 ml # Voids 7 # Bowel Movements 2 Labs Labs Laboratory Tests Test 02/04/18 03:45 White Blood Count 11.2 x10^3/uL (4.0-11.0) Red Blood Count 3.34 x10^6/uL (3.50-5.40) Hemoglobin 9.7 g/dL (12.0-15.5) Hematocrit 29.0 % (36.0-47.0) Mean Corpuscular Volume 87 fL (79-100) Mean Corpuscular Hemoglobin 29 pg (25-35) Mean Corpuscular Hemoglobin Concent 34 g/dL (31-37) Red Cell Distribution Width 17.5 % (11.5-14.5) Platelet Count 106 x10^3/uL (140-400) Neutrophils (%) (Auto) 84 % (31-73) Lymphocytes (%) (Auto) 12 % (24-48) Monocytes (%) (Auto) 4 % (0-9) Eosinophils (%) (Auto) 0 % (0-3) Basophils (%) (Auto) 0 % (0-3) Neutrophils # (Auto) 9.4 x10^3uL (1.8-7.7) Lymphocytes # (Auto) 1.3 x10^3/uL (1.0-4.8) Monocytes # (Auto) 0.5 x10^3/uL (0.0-1.1) Eosinophils # (Auto) 0.0 x10^3/uL (0.0-0.7) Basophils # (Auto) 0.0 x10^3/uL (0.0-0.2) Sodium Level 143 mmol/L (136-145) Potassium Level 3.2 mmol/L (3.5-5.1) Chloride Level 111 mmol/L (98-107) Carbon Dioxide Level 21 mmol/L (21-32) Anion Gap 11 (6-14) Blood Urea Nitrogen 30 mg/dL (7-20) Creatinine 2.0 mg/dL (0.6-1.0) Estimated GFR (Cockcroft-Gault) 23.8 Glucose Level 175 mg/dL (70-99) Calcium Level 9.7 mg/dL (8.5-10.1) Micro Micro Microbiology 02/01/18 Blood Culture - Preliminary, Resulted NO GROWTH AFTER 3 DAYS 02/01/18 Urine Culture - Preliminary, Resulted 02/01/18 Urine Culture Result 1 (BERNABE) - Preliminary, Resulted Review of Systems Constitutional: yes: no symptom reported Ears/Nose/Throat: Yes: no symptom reported Eyes: Yes: no symptom reported Cardiovascular: Yes no symptom reported Gastrointestional: Yes: no symptom reported Genitourinary: Yes: no symptom reported Musculoskeletal: Yes: no symptom reported Skin: Yes no symptom reported Psychiatric/Neurological: Yes: no symptom reported Endocrine: Yes: no symptom reported Hematologic/Lymphatic: Yes: no symptom reported Physical Exam General Appearance: no apparent distress Respiratory: bilateral CTA Heart: S1S2, RRR Abdomen: soft, bowel sounds present Genitourinary: bladder flat Extremities: pulses present, atrophy Neurology: alert Assessment Assessment IMP JESSICA-BETTER WITH CR DOWN FROM 5.2 TO 2.0 CKD STAGE 3 WITH CR IN THE 1.6-2.0 RANGE HYPERCALCEMIA-RESOLVED DEHYDRATION LOW K PLAN CONT WITH IVF'S WITH K SUPPLEMENTS LABS IN AM WILL FOLLOW MELECIO VENTURA MD Feb 04, 2018 10:22
[2018-02-04] MEDS: POTASSIUM CHLORIDE 20 MEQ TABLET.ER. PO ONE ×2 (11:00→11:39)
[2018-02-04 11:54] VITALS: BP 162/76
--- NOTE | 2018-02-04 13:16 | PDOC ---
PROGRESS NOTES Chief Complaint Chief Complaint UTI sepsis JESSICA, vasomotor, ATN htn hld gerd hypothyroidism h/o left hydro - s/p stent left renal pelvis and removal hypokalemia generalized weakness failure to thrive plan: renal, ID consulted cont zyvox and zosyn, fu with ucx, bcx switch IVF to k + d5+ 1/2 NS 100cc/h hold lisinopril cont home meds for now renal diet labs daily gi, dvt ppx replete k PTOT not sure why pt is on prednisone, pt has no idea, will try to talk to family, cont for now chronic low po intake, encourage pt to eat SW for snf History of Present Illness History of Present Illness ROS: no fever, chills, sob or chest pain feels ok, but very weak, in bed always chronic low po intake cr 2.0 from 5 Vitals Vitals Vital Signs Date Time Temp Pulse Resp B/P (MAP) Pulse Ox O2 Delivery O2 Flow Rate FiO2 02/04/18 11:54 98.1 55 18 162/76 (104) 94 Room Air 98.1 02/03/18 19:59 2.0 Physical Exam Physical Exam CONSTITUTIONAL: She is alert. She is cooperative. She does appear better and in no acute distress. SKIN: Normal conjunctivae. HEENT: Oral cavity, pharynx - there are no gross lesions that I can see. NECK: Supple, no JVD. LUNGS: Clear to auscultation. HEART: S1, S2. ABDOMEN: Mildly distended, there is no guarding, there is no rebound. EXTREMITIES: No clubbing, cyanosis or gross edema. SKIN: Warm to touch without generalized signs of rash. NEUROLOGIC: She is pleasant, but tired. General: Alert, Oriented X3, Cooperative, mild distress Heart: Regular rate Lungs: Clear Abdomen: Normal bowel sounds, Soft Extremities: No clubbing, No cyanosis Skin: No significant lesion Labs LABS Laboratory Tests Test 02/04/18 03:45 White Blood Count 11.2 x10^3/uL (4.0-11.0) Red Blood Count 3.34 x10^6/uL (3.50-5.40) Hemoglobin 9.7 g/dL (12.0-15.5) Hematocrit 29.0 % (36.0-47.0) Mean Corpuscular Volume 87 fL (79-100) Mean Corpuscular Hemoglobin 29 pg (25-35) Mean Corpuscular Hemoglobin Concent 34 g/dL (31-37) Red Cell Distribution Width 17.5 % (11.5-14.5) Platelet Count 106 x10^3/uL (140-400) Neutrophils (%) (Auto) 84 % (31-73) Lymphocytes (%) (Auto) 12 % (24-48) Monocytes (%) (Auto) 4 % (0-9) Eosinophils (%) (Auto) 0 % (0-3) Basophils (%) (Auto) 0 % (0-3) Neutrophils # (Auto) 9.4 x10^3uL (1.8-7.7) Lymphocytes # (Auto) 1.3 x10^3/uL (1.0-4.8) Monocytes # (Auto) 0.5 x10^3/uL (0.0-1.1) Eosinophils # (Auto) 0.0 x10^3/uL (0.0-0.7) Basophils # (Auto) 0.0 x10^3/uL (0.0-0.2) Sodium Level 143 mmol/L (136-145) Potassium Level 3.2 mmol/L (3.5-5.1) Chloride Level 111 mmol/L (98-107) Carbon Dioxide Level 21 mmol/L (21-32) Anion Gap 11 (6-14) Blood Urea Nitrogen 30 mg/dL (7-20) Creatinine 2.0 mg/dL (0.6-1.0) Estimated GFR (Cockcroft-Gault) 23.8 Glucose Level 175 mg/dL (70-99) Calcium Level 9.7 mg/dL (8.5-10.1) Assessment and Plan Assessmemt and Plan Problems Medical Problems: (1) Urinary tract infection Status: Acute Comment Review of Relevant I have reviewed the following items harry (where applicable) has been applied. Labs Laboratory Tests Test 02/03/18 05:30 02/04/18 03:45 White Blood Count 12.3 x10^3/uL (4.0-11.0) 11.2 x10^3/uL (4.0-11.0) Red Blood Count 3.52 x10^6/uL (3.50-5.40) 3.34 x10^6/uL (3.50-5.40) Hemoglobin 10.1 g/dL (12.0-15.5) 9.7 g/dL (12.0-15.5) Hematocrit 30.5 % (36.0-47.0) 29.0 % (36.0-47.0) Mean Corpuscular Volume 87 fL (79-100) 87 fL (79-100) Mean Corpuscular Hemoglobin 29 pg (25-35) 29 pg (25-35) Mean Corpuscular Hemoglobin Concent 33 g/dL (31-37) 34 g/dL (31-37) Red Cell Distribution Width 17.2 % (11.5-14.5) 17.5 % (11.5-14.5) Platelet Count 114 x10^3/uL (140-400) 106 x10^3/uL (140-400) Neutrophils (%) (Auto) 86 % (31-73) 84 % (31-73) Lymphocytes (%) (Auto) 10 % (24-48) 12 % (24-48) Monocytes (%) (Auto) 5 % (0-9) 4 % (0-9) Eosinophils (%) (Auto) 0 % (0-3) 0 % (0-3) Basophils (%) (Auto) 0 % (0-3) 0 % (0-3) Neutrophils # (Auto) 10.5 x10^3uL (1.8-7.7) 9.4 x10^3uL (1.8-7.7) Lymphocytes # (Auto) 1.2 x10^3/uL (1.0-4.8) 1.3 x10^3/uL (1.0-4.8) Monocytes # (Auto) 0.6 x10^3/uL (0.0-1.1) 0.5 x10^3/uL (0.0-1.1) Eosinophils # (Auto) 0.0 x10^3/uL (0.0-0.7) 0.0 x10^3/uL (0.0-0.7) Basophils # (Auto) 0.0 x10^3/uL (0.0-0.2) 0.0 x10^3/uL (0.0-0.2) Sodium Level 147 mmol/L (136-145) 143 mmol/L (136-145) Potassium Level 3.1 mmol/L (3.5-5.1) 3.2 mmol/L (3.5-5.1) Chloride Level 112 mmol/L (98-107) 111 mmol/L (98-107) Carbon Dioxide Level 18 mmol/L (21-32) 21 mmol/L (21-32) Anion Gap 17 (6-14) 11 (6-14) Blood Urea Nitrogen 45 mg/dL (7-20) 30 mg/dL (7-20) Creatinine 2.6 mg/dL (0.6-1.0) 2.0 mg/dL (0.6-1.0) Estimated GFR (Cockcroft-Gault) 17.6 23.8 Glucose Level 96 mg/dL (70-99) 175 mg/dL (70-99) Calcium Level 9.7 mg/dL (8.5-10.1) 9.7 mg/dL (8.5-10.1) Laboratory Tests Test 02/04/18 03:45 White Blood Count 11.2 x10^3/uL (4.0-11.0) Red Blood Count 3.34 x10^6/uL (3.50-5.40) Hemoglobin 9.7 g/dL (12.0-15.5) Hematocrit 29.0 % (36.0-47.0) Mean Corpuscular Volume 87 fL (79-100) Mean Corpuscular Hemoglobin 29 pg (25-35) Mean Corpuscular Hemoglobin Concent 34 g/dL (31-37) Red Cell Distribution Width 17.5 % (11.5-14.5) Platelet Count 106 x10^3/uL (140-400) Neutrophils (%) (Auto) 84 % (31-73) Lymphocytes (%) (Auto) 12 % (24-48) Monocytes (%) (Auto) 4 % (0-9) Eosinophils (%) (Auto) 0 % (0-3) Basophils (%) (Auto) 0 % (0-3) Neutrophils # (Auto) 9.4 x10^3uL (1.8-7.7) Lymphocytes # (Auto) 1.3 x10^3/uL (1.0-4.8) Monocytes # (Auto) 0.5 x10^3/uL (0.0-1.1) Eosinophils # (Auto) 0.0 x10^3/uL (0.0-0.7) Basophils # (Auto) 0.0 x10^3/uL (0.0-0.2) Sodium Level 143 mmol/L (136-145) Potassium Level 3.2 mmol/L (3.5-5.1) Chloride Level 111 mmol/L (98-107) Carbon Dioxide Level 21 mmol/L (21-32) Anion Gap 11 (6-14) Blood Urea Nitrogen 30 mg/dL (7-20) Creatinine 2.0 mg/dL (0.6-1.0) Estimated GFR (Cockcroft-Gault) 23.8 Glucose Level 175 mg/dL (70-99) Calcium Level 9.7 mg/dL (8.5-10.1) Microbiology 02/01/18 Blood Culture - Preliminary, Resulted NO GROWTH AFTER 3 DAYS 02/01/18 Urine Culture - Preliminary, Resulted 02/01/18 Urine Culture Result 1 (BERNABE) - Preliminary, Resulted Medications Current Medications Sodium Chloride 1,000 ml @ 1,000 mls/hr 1X ONCE IV Last administered on at 09:35; Start 02/01/18 at 08:00; Stop 02/01/18 at 08:59; Status DC Ceftriaxone Sodium 50 ml @ 100 mls/hr 1X ONCE IV Last administered on at 09:35; Start 02/01/18 at 08:00; Stop 02/01/18 at 08:29; Status DC Vancomycin HCl (Vanco Per Pharmacy) 1 each PRN DAILY PRN MC SEE COMMENTS Last administered on 02/01/18at 15:33; Start 02/01/18 at 09:45; Stop 02/02/18 at 08:23; Status DC Sodium Chloride 1,000 ml @ 1,000 mls/hr 1X ONCE IV Last administered on at 10:21; Start 02/01/18 at 09:45; Stop 02/01/18 at 10:44; Status DC Vancomycin HCl 1.75 gm/Sodium Chloride 500 ml @ 250 mls/hr 1X ONCE IV Last administered on 02/01/18at 10:21; Start 02/01/18 at 10:00; Stop 02/01/18 at 11:59; Status DC Levothyroxine Sodium (Synthroid) 100 mcg DAILY07 PO Last administered on 05:52; Start 02/01/18 at 15:00 Prednisone (Prednisone) 10 mg DAILY PO Last administered on 02/04/18 08:02; Start 02/01/18 at 15:00 Atorvastatin Calcium (Lipitor) 10 mg QHS PO Last administered on 02/03/18at 21:21 ; Start 02/01/18 at 21:00 Pantoprazole Sodium (Protonix) 40 mg DAILYAC PO Last administered on 02/04/18 08:02; Start 02/01/18 at 15:00 Acetaminophen (Tylenol) 650 mg PRN Q6HRS PRN PO FEVER/HEADACHE; Start 02/01/18 at 14:30 Ondansetron HCl (Zofran) 4 mg PRN Q6HRS PRN IV NAUSEA/VOMITING 1ST CHOICE Last administered on 02/03/18at 09:30; Start 02/01/18 at 14:30 Morphine Sulfate (Morphine Sulfate) 2 mg PRN Q2HR PRN IV MODERATE TO SEVERE PAIN; Start 02/01/18 at 14:30 Tramadol HCl (Ultram) 50 mg PRN Q6HRS PRN PO MILD TO MODERATE PAIN; Start at 14:30; Stop 02/02/18 at 08:23; Status DC Docusate Sodium (Colace) 100 mg PRN DAILY PRN PO HARD STOOLS; Start 02/01/18 at 14:30 Piperacillin Sod/ Tazobactam Sod 3.375 gm/Sodium Chloride 50 ml @ 100 mls/hr Q6HRS IV ; Start 02/01/18 at 18:00; Status UNV Piperacillin Sod/ Tazobactam Sod (Zosyn Per Pharmacy) 1 each PRN DAILY PRN MC SEE COMMENTS; Start 02/01/18 at 14:30 Sodium Chloride 1,000 ml @ 100 mls/hr Q10H IV Last administered on 02/03/18at 03 :08; Start 02/01/18 at 14:30; Stop 02/03/18 at 10:15; Status DC Heparin Sodium (Porcine) (Heparin Sq) 5,000 unit Q8HRS SQ Last administered on 02/04/18 05:55; Start 02/01/18 at 22:00 Piperacillin Sod/ Tazobactam Sod 2.25 gm/Sodium Chloride 50 ml @ 100 mls/hr Q8HRS IV Last administered on 02/04/18at 05:50; Start 02/01/18 at 15:00 Lactobacillus Rhamnosus (Culturelle) 1 cap BID PO Last administered on at 08:02; Start 02/01/18 at 21:00 Linezolid (Zyvox) 600 mg BID PO Last administered on 02/04/18at 08:02; Start 02/02 at 09:00 Potassium Chloride (Klor-Con) 40 meq 1X ONCE PO Last administered on 02/03/18at 12:24; Start 02/03/18 at 10:00; Stop 02/03/18 at 10:37; Status DC Potassium Chloride/Dextrose/ Sod Cl 1,000 ml @ 100 mls/hr Q10H IV Last administered on 02/04/18at 05:51; Start 02/03/18 at 10:15 Potassium Chloride (Klor-Con) 40 meq 1X ONCE PO Last administered on 02/04/18at 11:39; Start 02/04/18 at 11:00; Stop 02/04/18 at 11:01; Status DC Active Scripts Active Reported Omeprazole 40 Mg Capsule.dr 1 Cap PO DAILY Prednisone 20 Mg Tablet 10 Mg PO DAILY Lisinopril 40 Mg Tablet 1 Tab PO DAILY Levothyroxine Sodium 100 Mcg Tablet 1 Tab PO DAILY Lovastatin 40 Mg Tablet 40 Mg PO HS Tramadol Hcl 50 Mg Tablet 50 Mg PO PRN Q6-8HRS PRN Vitals/I & O Vital Sign - Last 24 Hours 02/03/18 02/03/18 02/03/18 02/03/18 15:00 19:19 19:59 23:06 Temp 97.8 97.9 97.9 99.1 97.8 97.9 97.9 99.1 Pulse 62 66 55 65 Resp 16 18 17 17 B/P (MAP) 177/78 (111) 145/66 (92) 123/42 (69) 143/63 (89) Pulse Ox 96 95 97 94 O2 Delivery Room Air Room Air Nasal Cannula Room Air O2 Flow Rate 2.0 02/04/18 02/04/18 02/04/18 9/8/18 03:59 07:43 08:00 11:54 Temp 97.5 98.4 98.1 97.5 98.4 98.1 Pulse 59 54 55 Resp 18 18 B/P (MAP) 162/74 (103) 159/66 (97) 162/76 (104) Pulse Ox 95 96 94 O2 Delivery Room Air Room Air Room Air Room Air Intake and Output 02/03/18 02/03/18 02/04/18 15:00 23:00 07:00 Intake Total 700 ml 520 ml 50 ml Balance 700 ml 520 ml 50 ml Nutrition Consultation Dietary Evaluation: Recommendations by RD: Increase Calorie Intake, Protein supplementation Comments: Offer Nepro supplements Expected Outcomes/Goals: to meet > 50% est nutr needs Malnutrition Findings: Body Fat Depletion (Non Severe: Mild Depletion Weight Status: Appropriate JOSE COVARRUBIAS MD Feb 04, 2018 13:16
[2018-02-04 15:50] VITALS: BP 146/72
[2018-02-04 19:59] VITALS: BP 149/72
[2018-02-04] MEDS: ATORVASTATIN CALCIUM 10 MG TABLET. PO SCH (21:12)
[2018-02-04 23:25] VITALS: BP 170/81
[2018-02-05 03:59] VITALS: BP 137/74
[2018-02-05 05:02] LABS: BASO % 0 % (0-3); EOS % 0 % (0-3); HEMOGLOBIN 9.1 g/dL (12.0-15.5); LYMPH # 1.6 x10^3/uL (1.0-4.8); LYMPH % 20 % (24-48); MEAN CORPUSCULAR HEMOGLOBIN 29 pg (25-35); MEAN CORPUSCULAR HGB CONC 34 g/dL (31-37); MEAN CORPUSCULAR VOLUME 87 fL (79-100); MONO # 0.3 x10^3/uL (0.0-1.1); MONO % 4 % (0-9); NEUT # 6.2 x10^3uL (1.8-7.7); NEUT % 76 % (31-73); PLATELET COUNT 91 x10^3/uL (140-400); RED BLOOD COUNT 3.11 x10^6/uL (3.50-5.40); WHITE BLOOD COUNT 8.2 x10^3/uL (4.0-11.0)
[2018-02-05 05:32] LABS: CALCIUM 8.6 mg/dL (8.5-10.1); CREATININE 1.7 mg/dL (0.6-1.0); GFR 28.7; POTASSIUM 3.4 mmol/L (3.5-5.1)
[2018-02-05 05:40] LABS: PHOSPHORUS 0.9 mg/dL (2.6-4.7)
[2018-02-05] MEDS: LEVOTHYROXINE 100 MCG TABLET PO SCH (06:04)
[2018-02-05] MEDS: PIPERACILLIN/TAZOBACTAM 2.25 GM in IV NORMAL SALINE 50ML 50 ML IV SCH ×3 (06:04→20:59)
[2018-02-05] MEDS: HEPARIN PF for SUB-Q USE 5,000 UNIT/0.5 ML VIAL. SQ SCH ×3 (06:10→21:03)
[2018-02-05 07:00] VITALS: BP 170/71
[2018-02-05] MEDS: PANTOPRAZOLE 40 MG TABLET.DR. PO SCH ×2 (07:30→08:15)
[2018-02-05] MEDS: LACTOBACILLUS RHAMNOSUS GG 1 CAPSULE. PO SCH ×3 (08:15→20:59)
[2018-02-05] MEDS: LINEZOLID 600 MG TABLET PO SCH (08:15)
[2018-02-05] MEDS: predniSONE 10 MG TABLET PO SCH (09:00)
--- NOTE | 2018-02-05 10:58 | PDOC ---
Renal-Progress Notes Subjective Notes Notes NONE History of Present Illness Hx of present illness STABLE Vitals Vitals Vital Signs Date Time Temp Pulse Resp B/P (MAP) Pulse Ox O2 Delivery O2 Flow Rate FiO2 02/05/18 07:57 Room Air 02/05/18 07:00 99.0 51 18 170/71 (104) 95 99.0 Weight Weight [ ] I.O. Intake and Output Intake and Output 02/05/18 07:00 Intake Total 1420 ml Balance 1420 ml Intake Oral 120 ml IV Total 1300 ml # Voids 5 # Bowel Movements 1 Labs Labs Laboratory Tests Test 02/05/18 04:10 White Blood Count 8.2 x10^3/uL (4.0-11.0) Red Blood Count 3.11 x10^6/uL (3.50-5.40) Hemoglobin 9.1 g/dL (12.0-15.5) Hematocrit 27.0 % (36.0-47.0) Mean Corpuscular Volume 87 fL (79-100) Mean Corpuscular Hemoglobin 29 pg (25-35) Mean Corpuscular Hemoglobin Concent 34 g/dL (31-37) Red Cell Distribution Width 17.0 % (11.5-14.5) Platelet Count 91 x10^3/uL (140-400) Neutrophils (%) (Auto) 76 % (31-73) Lymphocytes (%) (Auto) 20 % (24-48) Monocytes (%) (Auto) 4 % (0-9) Eosinophils (%) (Auto) 0 % (0-3) Basophils (%) (Auto) 0 % (0-3) Neutrophils # (Auto) 6.2 x10^3uL (1.8-7.7) Lymphocytes # (Auto) 1.6 x10^3/uL (1.0-4.8) Monocytes # (Auto) 0.3 x10^3/uL (0.0-1.1) Eosinophils # (Auto) 0.0 x10^3/uL (0.0-0.7) Basophils # (Auto) 0.0 x10^3/uL (0.0-0.2) Sodium Level 141 mmol/L (136-145) Potassium Level 3.4 mmol/L (3.5-5.1) Chloride Level 109 mmol/L (98-107) Carbon Dioxide Level 19 mmol/L (21-32) Anion Gap 13 (6-14) Blood Urea Nitrogen 19 mg/dL (7-20) Creatinine 1.7 mg/dL (0.6-1.0) Estimated GFR (Cockcroft-Gault) 28.7 Glucose Level 111 mg/dL (70-99) Calcium Level 8.6 mg/dL (8.5-10.1) Phosphorus Level 0.9 mg/dL (2.6-4.7) Magnesium Level 1.0 mg/dL (1.8-2.4) Micro Micro Microbiology 02/01/18 Blood Culture - Preliminary, Resulted NO GROWTH AFTER 4 DAYS 02/01/18 Urine Culture - Final, Complete 02/01/18 Urine Culture Result 1 (BERNABE) - Final, Complete 02/01/18 Antimicrobic Susceptibility - Final, Complete Review of Systems Constitutional: yes: no symptom reported Ears/Nose/Throat: Yes: no symptom reported Eyes: Yes: no symptom reported Cardiovascular: Yes no symptom reported Gastrointestional: Yes: no symptom reported Genitourinary: Yes: no symptom reported Musculoskeletal: Yes: no symptom reported Skin: Yes no symptom reported Psychiatric/Neurological: Yes: no symptom reported Endocrine: Yes: no symptom reported Hematologic/Lymphatic: Yes: no symptom reported Physical Exam General Appearance: no apparent distress Respiratory: bilateral CTA Heart: S1S2, RRR Abdomen: soft, bowel sounds present Genitourinary: bladder flat Extremities: pulses present, atrophy Neurology: alert Assessment Assessment IMP JESSICA-BETTER WITH CR DOWN FROM 5.2 TO 2.7 CKD STAGE 3 WITH CR IN THE 1.6-2.0 RANGE HYPERCALCEMIA-RESOLVED DEHYDRATION LOW K, MG AND PO4 PLAN CONT WITH IVF'S WITH K SUPPLEMENTS REPLACE MG AND PO4 LABS IN AM WILL FOLLOW MELECIO VENTURA MD Feb 05, 2018 10:58
[2018-02-05 11:00] VITALS: BP 187/70
[2018-02-05] MEDS: POTASSIUM PHOSPHATE DIBASIC 13.6 MMOL in IV DEXTROSE 5% 100ML 100 ML IV SCH ×2 (11:13→13:40)
[2018-02-05] MEDS ORDERED: MAGNESIUM SULFATE 2GM 50 ML IV ONE (11:30)
[2018-02-05] MEDS ORDERED: POTASSIUM PHOSPHATE DIBASIC 10 MMOL in IV DEXTROSE 5% 100ML 100 ML IV SCH (11:45)
[2018-02-05] MEDS ORDERED: LABETALOL 20 MG/4 ML DISP.SYRIN. IVP PRN (11:45)
[2018-02-05] MEDS ORDERED: MAGNESIUM SULFATE 4GM 100 ML IV ONE (11:45)
--- NOTE | 2018-02-05 12:03 | PDOC ---
Infectious Disease Note Subjective Subjective Feeling alright 3 BM last 24 hours No fevers ROS ROS per HPI otherwise neg Vital Sign Vital Signs Vital Signs Date Time Temp Pulse Resp B/P (MAP) Pulse Ox O2 Delivery O2 Flow Rate FiO2 02/05/18 07:57 Room Air 02/05/18 07:00 99.0 51 18 170/71 (104) 95 99.0 Physical Exam PHYSICAL EXAM GENERAL: sleeping HEENT: Oral cavity clear LUNGS: Clear to auscultation. HEART: S1, S2. ABDOMEN: Mildly distended, soft, NT EXTREMITIES: No clubbing, cyanosis or gross edema. SKIN: Warm to touch without generalized signs of rash. NEUROLOGIC: Arouses easily to name, nods to questions appropriately PIV Labs Lab Laboratory Tests Test 02/05/18 04:10 White Blood Count 8.2 x10^3/uL (4.0-11.0) Red Blood Count 3.11 x10^6/uL (3.50-5.40) Hemoglobin 9.1 g/dL (12.0-15.5) Hematocrit 27.0 % (36.0-47.0) Mean Corpuscular Volume 87 fL (79-100) Mean Corpuscular Hemoglobin 29 pg (25-35) Mean Corpuscular Hemoglobin Concent 34 g/dL (31-37) Red Cell Distribution Width 17.0 % (11.5-14.5) Platelet Count 91 x10^3/uL (140-400) Neutrophils (%) (Auto) 76 % (31-73) Lymphocytes (%) (Auto) 20 % (24-48) Monocytes (%) (Auto) 4 % (0-9) Eosinophils (%) (Auto) 0 % (0-3) Basophils (%) (Auto) 0 % (0-3) Neutrophils # (Auto) 6.2 x10^3uL (1.8-7.7) Lymphocytes # (Auto) 1.6 x10^3/uL (1.0-4.8) Monocytes # (Auto) 0.3 x10^3/uL (0.0-1.1) Eosinophils # (Auto) 0.0 x10^3/uL (0.0-0.7) Basophils # (Auto) 0.0 x10^3/uL (0.0-0.2) Sodium Level 141 mmol/L (136-145) Potassium Level 3.4 mmol/L (3.5-5.1) Chloride Level 109 mmol/L (98-107) Carbon Dioxide Level 19 mmol/L (21-32) Anion Gap 13 (6-14) Blood Urea Nitrogen 19 mg/dL (7-20) Creatinine 1.7 mg/dL (0.6-1.0) Estimated GFR (Cockcroft-Gault) 28.7 Glucose Level 111 mg/dL (70-99) Calcium Level 8.6 mg/dL (8.5-10.1) Phosphorus Level 0.9 mg/dL (2.6-4.7) Magnesium Level 1.0 mg/dL (1.8-2.4) Micro Microbiology 02/01/18 Blood Culture - Preliminary, Resulted NO GROWTH AFTER 4 DAYS 02/01. URINE CULTURE RES 1 Final Escherichia coli Antibiotic RSLT#1 Amoxicillin/Clavulanic Acid S =8 Ampicillin R>=32 Cefepime S<=0.12 Ceftriaxone S<=0.25 Cefuroxime S =4 Ciprofloxacin R>=4 Ertapenem S<=0.12 Gentamicin S<=1 Imipenem S<=0.25 Levofloxacin R>=8 Meropenem S<=0.25 Nitrofurantoin S<=16 Piperacillin/Tazobactam S<=4 Tetracycline S<=1 Tobramycin S<=1 Trimethoprim/Sulfa S<=20 Objective Assessment ? sepsis - POA s/p Rocephin times one/Zosyn/vanc now off Vanc and on Zyvox - better Leukocytosis - on Prednisone JESSICA - better UTI with E. coli (R amp, quinolones) from 02/01 - h/o Enterococcus PCN sen in October 25 Constipation + BM x 3 Thrombocytopenia Plan Plan of Care D/c Zyvox Cont Zosyn for now Monitor platelets Supportive care D/w family Attending Co-Sign Attending Co-Sign The patient was seen and interviewed as well as examined at the bedside. The chart was reviewed. The case was discussed. Agree with the plan of care. BRITNI WALKER APRN Feb 05, 2018 12:03 KAHLIL JORGE MD Feb 05, 2018 15:01
[2018-02-05] MEDS: POTASSIUM CL 20MEQ D5-0.45NACL 1,000 ML IV SCH ×2 (12:15→21:00)
[2018-02-05] MEDS: amLODIPine BESYLATE 5 MG TABLET PO SCH (12:28)
--- NOTE | 2018-02-05 14:19 | PDOC ---
PROGRESS NOTES Chief Complaint Chief Complaint UTI sepsis JESSICA, vasomotor, ATN htn hld gerd hypothyroidism h/o left hydro - s/p stent left renal pelvis and removal hypokalemia generalized weakness failure to thrive hypomagnesemia hypophosphatemia plan: renal, ID consulted cont zyvox and zosyn, fu with ucx + Ecoli, fu with id if could narrow down abx , bcx neg so far switch IVF to k + d5+ 1/2 NS 100cc/h as per renal, replete mag, josette hold lisinopril, add amlodipine cont home meds for now renal diet labs daily gi, dvt ppx replete k PTOT not sure why pt is on prednisone, pt has no idea,, dc. chronic low po intake, encourage pt to eat, but pt just would not eat, also refuse po meds. SW for snf PAT consult , since pt always wont eat and cannot tell me why, stilL FC History of Present Illness History of Present Illness ROS: no fever, chills, sob or chest pain feels ok, but very weak, in bed always chronic low po intake cr 2.0 from 5 low mag, low k, low josette high BP pt refuse eat and po meds Vitals Vitals Vital Signs Date Time Temp Pulse Resp B/P (MAP) Pulse Ox O2 Delivery O2 Flow Rate FiO2 02/05/18 12:28 50 187/70 02/05/18 11:00 97.7 18 96 Room Air 97.7 Physical Exam Physical Exam GENERAL: sleeping HEENT: Oral cavity clear LUNGS: Clear to auscultation. HEART: S1, S2. ABDOMEN: Mildly distended, soft, NT EXTREMITIES: No clubbing, cyanosis or gross edema. SKIN: Warm to touch without generalized signs of rash. NEUROLOGIC: Arouses easily to name, nods to questions appropriately PIV General: Alert, Oriented X3, Cooperative, mild distress Heart: Regular rate Lungs: Clear Abdomen: Normal bowel sounds, Soft Extremities: No clubbing, No cyanosis Skin: No significant lesion Labs LABS Laboratory Tests Test 02/05/18 04:10 White Blood Count 8.2 x10^3/uL (4.0-11.0) Red Blood Count 3.11 x10^6/uL (3.50-5.40) Hemoglobin 9.1 g/dL (12.0-15.5) Hematocrit 27.0 % (36.0-47.0) Mean Corpuscular Volume 87 fL (79-100) Mean Corpuscular Hemoglobin 29 pg (25-35) Mean Corpuscular Hemoglobin Concent 34 g/dL (31-37) Red Cell Distribution Width 17.0 % (11.5-14.5) Platelet Count 91 x10^3/uL (140-400) Neutrophils (%) (Auto) 76 % (31-73) Lymphocytes (%) (Auto) 20 % (24-48) Monocytes (%) (Auto) 4 % (0-9) Eosinophils (%) (Auto) 0 % (0-3) Basophils (%) (Auto) 0 % (0-3) Neutrophils # (Auto) 6.2 x10^3uL (1.8-7.7) Lymphocytes # (Auto) 1.6 x10^3/uL (1.0-4.8) Monocytes # (Auto) 0.3 x10^3/uL (0.0-1.1) Eosinophils # (Auto) 0.0 x10^3/uL (0.0-0.7) Basophils # (Auto) 0.0 x10^3/uL (0.0-0.2) Sodium Level 141 mmol/L (136-145) Potassium Level 3.4 mmol/L (3.5-5.1) Chloride Level 109 mmol/L (98-107) Carbon Dioxide Level 19 mmol/L (21-32) Anion Gap 13 (6-14) Blood Urea Nitrogen 19 mg/dL (7-20) Creatinine 1.7 mg/dL (0.6-1.0) Estimated GFR (Cockcroft-Gault) 28.7 Glucose Level 111 mg/dL (70-99) Calcium Level 8.6 mg/dL (8.5-10.1) Phosphorus Level 0.9 mg/dL (2.6-4.7) Magnesium Level 1.0 mg/dL (1.8-2.4) Thyroid Stimulating Hormone (TSH) 0.613 uIU/mL (0.358-3.74) Assessment and Plan Assessmemt and Plan Problems Medical Problems: (1) Urinary tract infection Status: Acute Comment Review of Relevant I have reviewed the following items harry (where applicable) has been applied. Labs Laboratory Tests Test 02/04/18 03:45 02/05/18 04:10 White Blood Count 11.2 x10^3/uL (4.0-11.0) 8.2 x10^3/uL (4.0-11.0) Red Blood Count 3.34 x10^6/uL (3.50-5.40) 3.11 x10^6/uL (3.50-5.40) Hemoglobin 9.7 g/dL (12.0-15.5) 9.1 g/dL (12.0-15.5) Hematocrit 29.0 % (36.0-47.0) 27.0 % (36.0-47.0) Mean Corpuscular Volume 87 fL (79-100) 87 fL (79-100) Mean Corpuscular Hemoglobin 29 pg (25-35) 29 pg (25-35) Mean Corpuscular Hemoglobin Concent 34 g/dL (31-37) 34 g/dL (31-37) Red Cell Distribution Width 17.5 % (11.5-14.5) 17.0 % (11.5-14.5) Platelet Count 106 x10^3/uL (140-400) 91 x10^3/uL (140-400) Neutrophils (%) (Auto) 84 % (31-73) 76 % (31-73) Lymphocytes (%) (Auto) 12 % (24-48) 20 % (24-48) Monocytes (%) (Auto) 4 % (0-9) 4 % (0-9) Eosinophils (%) (Auto) 0 % (0-3) 0 % (0-3) Basophils (%) (Auto) 0 % (0-3) 0 % (0-3) Neutrophils # (Auto) 9.4 x10^3uL (1.8-7.7) 6.2 x10^3uL (1.8-7.7) Lymphocytes # (Auto) 1.3 x10^3/uL (1.0-4.8) 1.6 x10^3/uL (1.0-4.8) Monocytes # (Auto) 0.5 x10^3/uL (0.0-1.1) 0.3 x10^3/uL (0.0-1.1) Eosinophils # (Auto) 0.0 x10^3/uL (0.0-0.7) 0.0 x10^3/uL (0.0-0.7) Basophils # (Auto) 0.0 x10^3/uL (0.0-0.2) 0.0 x10^3/uL (0.0-0.2) Sodium Level 143 mmol/L (136-145) 141 mmol/L (136-145) Potassium Level 3.2 mmol/L (3.5-5.1) 3.4 mmol/L (3.5-5.1) Chloride Level 111 mmol/L (98-107) 109 mmol/L (98-107) Carbon Dioxide Level 21 mmol/L (21-32) 19 mmol/L (21-32) Anion Gap 11 (6-14) 13 (6-14) Blood Urea Nitrogen 30 mg/dL (7-20) 19 mg/dL (7-20) Creatinine 2.0 mg/dL (0.6-1.0) 1.7 mg/dL (0.6-1.0) Estimated GFR (Cockcroft-Gault) 23.8 28.7 Glucose Level 175 mg/dL (70-99) 111 mg/dL (70-99) Calcium Level 9.7 mg/dL (8.5-10.1) 8.6 mg/dL (8.5-10.1) Phosphorus Level 0.9 mg/dL (2.6-4.7) Magnesium Level 1.0 mg/dL (1.8-2.4) Thyroid Stimulating Hormone (TSH) 0.613 uIU/mL (0.358-3.74) Laboratory Tests Test 02/05/18 04:10 White Blood Count 8.2 x10^3/uL (4.0-11.0) Red Blood Count 3.11 x10^6/uL (3.50-5.40) Hemoglobin 9.1 g/dL (12.0-15.5) Hematocrit 27.0 % (36.0-47.0) Mean Corpuscular Volume 87 fL (79-100) Mean Corpuscular Hemoglobin 29 pg (25-35) Mean Corpuscular Hemoglobin Concent 34 g/dL (31-37) Red Cell Distribution Width 17.0 % (11.5-14.5) Platelet Count 91 x10^3/uL (140-400) Neutrophils (%) (Auto) 76 % (31-73) Lymphocytes (%) (Auto) 20 % (24-48) Monocytes (%) (Auto) 4 % (0-9) Eosinophils (%) (Auto) 0 % (0-3) Basophils (%) (Auto) 0 % (0-3) Neutrophils # (Auto) 6.2 x10^3uL (1.8-7.7) Lymphocytes # (Auto) 1.6 x10^3/uL (1.0-4.8) Monocytes # (Auto) 0.3 x10^3/uL (0.0-1.1) Eosinophils # (Auto) 0.0 x10^3/uL (0.0-0.7) Basophils # (Auto) 0.0 x10^3/uL (0.0-0.2) Sodium Level 141 mmol/L (136-145) Potassium Level 3.4 mmol/L (3.5-5.1) Chloride Level 109 mmol/L (98-107) Carbon Dioxide Level 19 mmol/L (21-32) Anion Gap 13 (6-14) Blood Urea Nitrogen 19 mg/dL (7-20) Creatinine 1.7 mg/dL (0.6-1.0) Estimated GFR (Cockcroft-Gault) 28.7 Glucose Level 111 mg/dL (70-99) Calcium Level 8.6 mg/dL (8.5-10.1) Phosphorus Level 0.9 mg/dL (2.6-4.7) Magnesium Level 1.0 mg/dL (1.8-2.4) Thyroid Stimulating Hormone (TSH) 0.613 uIU/mL (0.358-3.74) Microbiology 02/01/18 Blood Culture - Preliminary, Resulted NO GROWTH AFTER 4 DAYS 02/01/18 Urine Culture - Final, Complete 02/01/18 Urine Culture Result 1 (BERNABE) - Final, Complete 02/01/18 Antimicrobic Susceptibility - Final, Complete Medications Current Medications Sodium Chloride 1,000 ml @ 1,000 mls/hr 1X ONCE IV Last administered on at 09:35; Start 02/01/18 at 08:00; Stop 02/01/18 at 08:59; Status DC Ceftriaxone Sodium 50 ml @ 100 mls/hr 1X ONCE IV Last administered on at 09:35; Start 02/01/18 at 08:00; Stop 02/01/18 at 08:29; Status DC Vancomycin HCl (Vanco Per Pharmacy) 1 each PRN DAILY PRN MC SEE COMMENTS Last administered on 02/01/18at 15:33; Start 02/01/18 at 09:45; Stop 02/02/18 at 08:23; Status DC Sodium Chloride 1,000 ml @ 1,000 mls/hr 1X ONCE IV Last administered on at 10:21; Start 02/01/18 at 09:45; Stop 02/01/18 at 10:44; Status DC Vancomycin HCl 1.75 gm/Sodium Chloride 500 ml @ 250 mls/hr 1X ONCE IV Last administered on 02/01/18at 10:21; Start 02/01/18 at 10:00; Stop 02/01/18 at 11:59; Status DC Levothyroxine Sodium (Synthroid) 100 mcg DAILY07 PO Last administered on at 06:04; Start 02/01/18 at 15:00 Prednisone (Prednisone) 10 mg DAILY PO Last administered on 02/04/18at 08:02; Start 02/01/18 at 15:00; Stop 02/05/18 at 11:35; Status DC Atorvastatin Calcium (Lipitor) 10 mg QHS PO Last administered on 02/04/18at 21:12 ; Start 02/01/18 at 21:00 Pantoprazole Sodium (Protonix) 40 mg DAILYAC PO Last administered on 02/04/18at 08:02; Start 02/01/18 at 15:00 Acetaminophen (Tylenol) 650 mg PRN Q6HRS PRN PO FEVER/HEADACHE; Start 02/01/18 at 14:30 Ondansetron HCl (Zofran) 4 mg PRN Q6HRS PRN IV NAUSEA/VOMITING 1ST CHOICE Last administered on 02/03/18at 09:30; Start 02/01/18 at 14:30 Morphine Sulfate (Morphine Sulfate) 2 mg PRN Q2HR PRN IV MODERATE TO SEVERE PAIN; Start 02/01/18 at 14:30 Tramadol HCl (Ultram) 50 mg PRN Q6HRS PRN PO MILD TO MODERATE PAIN; Start at 14:30; Stop 02/02/18 at 08:23; Status DC Docusate Sodium (Colace) 100 mg PRN DAILY PRN PO HARD STOOLS; Start 02/01/18 at 14:30 Piperacillin Sod/ Tazobactam Sod 3.375 gm/Sodium Chloride 50 ml @ 100 mls/hr Q6HRS IV ; Start 02/01/18 at 18:00; Status UNV Piperacillin Sod/ Tazobactam Sod (Zosyn Per Pharmacy) 1 each PRN DAILY PRN MC SEE COMMENTS; Start 02/01/18 at 14:30 Sodium Chloride 1,000 ml @ 100 mls/hr Q10H IV Last administered on 02/03/18at 03 :08; Start 02/01/18 at 14:30; Stop 02/03/18 at 10:15; Status DC Heparin Sodium (Porcine) (Heparin Sq) 5,000 unit Q8HRS SQ Last administered on 02/05/18at 06:10; Start 02/01/18 at 22:00 Piperacillin Sod/ Tazobactam Sod 2.25 gm/Sodium Chloride 50 ml @ 100 mls/hr Q8HRS IV Last administered on 02/05/18at 06:04; Start 02/01/18 at 15:00 Lactobacillus Rhamnosus (Culturelle) 1 cap BID PO Last administered on at 21:12; Start 02/01/18 at 21:00 Linezolid (Zyvox) 600 mg BID PO Last administered on 02/05/18at 08:15; Start 02/02 at 09:00 Potassium Chloride (Klor-Con) 40 meq 1X ONCE PO Last administered on 02/03/18at 12:24; Start 02/03/18 at 10:00; Stop 02/03/18 at 10:37; Status DC Potassium Chloride/Dextrose/ Sod Cl 1,000 ml @ 100 mls/hr Q10H IV Last administered on 02/04/18at 21:11; Start 02/03/18 at 10:15 Potassium Chloride (Klor-Con) 40 meq 1X ONCE PO ; Start 02/04/18 at 11:00; Stop 02/04/18 at 11:01; Status DC Potassium Phosphate 13.6 mmol/Dextrose 104.5333 ml @ 52.267 m... Q2H IV Last administered on 02/05/18at 13:40; Start 02/05/18 at 11:30; Stop 02/05/18 at 15:29 Magnesium Sulfate 50 ml @ 25 mls/hr 1X ONCE IV ; Start 02/05/18 at 11:30; Stop 02/05/18 at 13:29; Status DC Magnesium Sulfate/ Dextrose 100 ml @ 25 mls/hr 1X ONCE IV ; Start 02/05/18 at 11:45; Stop 02/05/18 at 15:44; Status UNV Potassium Phosphate 10 mmol/ Dextrose 103.3333 ml @ 51.667 m... Q2H IV ; Start 02/05/18 at 11:45; Stop 02/05/18 at 15:44; Status UNV Labetalol HCl (Normodyne Iv Push) 20 mg PRN Q2HR PRN IVP HYPERTENSION, SEE COMMENTS; Start 02/05/18 at 11:45 Amlodipine Besylate (Norvasc) 5 mg DAILY PO Last administered on 02/05/18at 12:28 ; Start 02/05/18 at 12:00 Active Scripts Active Reported Omeprazole 40 Mg Capsule.dr 1 Cap PO DAILY Prednisone 20 Mg Tablet 10 Mg PO DAILY Lisinopril 40 Mg Tablet 1 Tab PO DAILY Levothyroxine Sodium 100 Mcg Tablet 1 Tab PO DAILY Lovastatin 40 Mg Tablet 40 Mg PO HS Tramadol Hcl 50 Mg Tablet 50 Mg PO PRN Q6-8HRS PRN Vitals/I & O Vital Sign - Last 24 Hours 02/04/18 02/04/18 02/04/18 02/05/18 15:50 19:59 23:25 03:59 Temp 98.1 98.1 98.2 98.1 98.1 98.1 98.2 98.1 Pulse 52 52 52 49 Resp 18 16 16 17 B/P (MAP) 146/72 (96) 149/72 (97) 170/81 (110) 137/74 (95) Pulse Ox 94 95 95 96 O2 Delivery Room Air Room Air Room Air Room Air 02/05/18 02/05/18 02/05/18 02/05/18 07:00 07:57 11:00 12:28 Temp 99.0 97.7 99.0 97.7 Pulse 51 50 50 Resp 18 18 B/P (MAP) 170/71 (104) 187/70 (109) 187/70 Pulse Ox 95 96 O2 Delivery Room Air Room Air Room Air Intake and Output 02/04/18 02/04/18 02/05/18 15:00 23:00 07:00 Intake Total 1200 ml 50 ml 170 ml Balance 1200 ml 50 ml 170 ml Nutrition Consultation Dietary Evaluation: Recommendations by RD: Increase Calorie Intake, Protein supplementation Comments: Offer Nepro supplements Expected Outcomes/Goals: to meet > 50% est nutr needs Malnutrition Findings: Body Fat Depletion (Non Severe: Mild Depletion Weight Status: Appropriate JOSE COVARRUBIAS MD Feb 05, 2018 14:19
[2018-02-05 15:00] VITALS: BP 153/61
[2018-02-05 19:00] VITALS: BP 117/58
[2018-02-05] MEDS: ATORVASTATIN CALCIUM 10 MG TABLET. PO SCH (20:59)
[2018-02-05 23:00] VITALS: BP 126/63
[2018-02-06] MEDS: PIPERACILLIN/TAZOBACTAM 2.25 GM in IV NORMAL SALINE 50ML 50 ML IV SCH ×2 (02:39→07:43)
[2018-02-06 03:00] VITALS: BP 158/68
[2018-02-06] MEDS: LEVOTHYROXINE 100 MCG TABLET PO SCH (05:32)
[2018-02-06] MEDS: HEPARIN PF for SUB-Q USE 5,000 UNIT/0.5 ML VIAL. SQ SCH ×3 (05:42→21:20)
[2018-02-06 07:00] VITALS: BP 166/72
[2018-02-06 07:03] LABS: CALCIUM 8.3 mg/dL (8.5-10.1); CREATININE 1.5 mg/dL (0.6-1.0); GFR 33.2; MAGNESIUM 1.2 mg/dL (1.8-2.4); PHOSPHORUS 1.7 mg/dL (2.6-4.7); POTASSIUM 3.4 mmol/L (3.5-5.1)
[2018-02-06] MEDS: PANTOPRAZOLE 40 MG TABLET.DR. PO SCH (07:43)
[2018-02-06] MEDS: LACTOBACILLUS RHAMNOSUS GG 1 CAPSULE. PO SCH ×2 (09:09→20:18)
[2018-02-06] MEDS: amLODIPine BESYLATE 5 MG TABLET PO SCH (09:10)
[2018-02-06] MEDS ORDERED: ACETAMINOPHEN/CODEINE 300/30MG TABLET. PO PRN (09:15)
[2018-02-06] MEDS ORDERED: ACETAMINOPHEN 500 MG TABLET PO PRN (09:15)
[2018-02-06] MEDS ORDERED: ENALAPRILAT 1.25 MG/ML VIAL. IVP PRN (09:15)
--- NOTE | 2018-02-06 09:53 | PDOC ---
Infectious Disease Note Subjective Subjective feeling ok, wants to go home, though not eating ROS ROS no n/v/d/sob Vital Sign Vital Signs Vital Signs Date Time Temp Pulse Resp B/P (MAP) Pulse Ox O2 Delivery O2 Flow Rate FiO2 02/06/18 09:10 52 166/72 02/06/18 07:00 98.0 18 97 Room Air 98.0 Physical Exam PHYSICAL EXAM GENERAL: sleeping HEENT: Oral cavity clear LUNGS: Clear to auscultation. HEART: S1, S2. ABDOMEN: Mildly distended, soft, NT EXTREMITIES: No clubbing, cyanosis or gross edema. SKIN: Warm to touch without generalized signs of rash. NEUROLOGIC: Arouses easily to name, nods to questions appropriately PIV Labs Lab Laboratory Tests Test 02/06/18 06:01 Sodium Level 139 mmol/L (136-145) Potassium Level 3.4 mmol/L (3.5-5.1) Chloride Level 107 mmol/L (98-107) Carbon Dioxide Level 19 mmol/L (21-32) Anion Gap 13 (6-14) Blood Urea Nitrogen 13 mg/dL (7-20) Creatinine 1.5 mg/dL (0.6-1.0) Estimated GFR (Cockcroft-Gault) 33.2 Glucose Level 106 mg/dL (70-99) Calcium Level 8.3 mg/dL (8.5-10.1) Phosphorus Level 1.7 mg/dL (2.6-4.7) Magnesium Level 1.2 mg/dL (1.8-2.4) Micro urine e coli bc neg Objective Assessment ? sepsis - POA Leukocytosis - on Prednisone JESSICA - better UTI with E. coli (R amp, quinolones) from 02/01 - h/o Enterococcus PCN sen in October 25 Constipation + BM x 3 Thrombocytopenia Failure to thrive Plan Plan of Care change antibiotics to po vantin pt/ot DARREN SOSA MD Feb 06, 2018 09:52
--- NOTE | 2018-02-06 10:55 | PDOC ---
Renal-Progress Notes Subjective Notes Notes NONE History of Present Illness Hx of present illness STABLE Vitals Vitals Vital Signs Date Time Temp Pulse Resp B/P (MAP) Pulse Ox O2 Delivery O2 Flow Rate FiO2 02/06/18 09:10 52 166/72 02/06/18 07:00 98.0 18 97 Room Air 98.0 Weight Weight [ ] I.O. Intake and Output Intake and Output 02/06/18 07:00 Intake Total 2600 ml Balance 2600 ml Intake Oral 100 ml IV Total 2500 ml # Voids 7 # Bowel Movements 3 Labs Labs Laboratory Tests Test 02/06/18 06:01 Sodium Level 139 mmol/L (136-145) Potassium Level 3.4 mmol/L (3.5-5.1) Chloride Level 107 mmol/L (98-107) Carbon Dioxide Level 19 mmol/L (21-32) Anion Gap 13 (6-14) Blood Urea Nitrogen 13 mg/dL (7-20) Creatinine 1.5 mg/dL (0.6-1.0) Estimated GFR (Cockcroft-Gault) 33.2 Glucose Level 106 mg/dL (70-99) Calcium Level 8.3 mg/dL (8.5-10.1) Phosphorus Level 1.7 mg/dL (2.6-4.7) Magnesium Level 1.2 mg/dL (1.8-2.4) Micro Micro Microbiology 02/01/18 Blood Culture - Final, Complete NO GROWTH AFTER 5 DAYS 02/01/18 Urine Culture - Final, Complete 02/01/18 Urine Culture Result 1 (BERNABE) - Final, Complete 02/01/18 Antimicrobic Susceptibility - Final, Complete Review of Systems Constitutional: yes: no symptom reported Ears/Nose/Throat: Yes: no symptom reported Eyes: Yes: no symptom reported Cardiovascular: Yes no symptom reported Gastrointestional: Yes: no symptom reported Genitourinary: Yes: no symptom reported Musculoskeletal: Yes: no symptom reported Skin: Yes no symptom reported Psychiatric/Neurological: Yes: no symptom reported Endocrine: Yes: no symptom reported Hematologic/Lymphatic: Yes: no symptom reported Physical Exam General Appearance: no apparent distress Respiratory: bilateral CTA Heart: S1S2, RRR Abdomen: soft, bowel sounds present Genitourinary: bladder flat Extremities: pulses present, atrophy Neurology: alert Assessment Assessment IMP JESSICA-BETTER WITH CR DOWN FROM 5.2 TO 1.5 CKD STAGE 3 WITH CR IN THE 1.6-2.0 RANGE HYPERCALCEMIA-RESOLVED DEHYDRATION LOW K, MG AND PO4 PLAN CONT WITH IVF'S WITH K SUPPLEMENTS REPLACE MG AND PO4 LABS IN AM WILL FOLLOW MELECIO VENTURA MD Feb 06, 2018 10:55
[2018-02-06 11:00] VITALS: BP 132/66
--- NOTE | 2018-02-06 11:03 | PDOC ---
PROGRESS NOTES Chief Complaint Chief Complaint UTI sepsis JESSICA, vasomotor, ATN htn hld gerd hypothyroidism h/o left hydro - s/p stent left renal pelvis and removal hypokalemia generalized weakness failure to thrive hypomagnesemia hypophosphatemia History of Present Illness History of Present Illness Poor oral intake Blood pressure on the high side Some changes on IV fluids were done yesterday over the weekend by renal Meyer still in place with adequate urine output PAT consulted by colleague Creatinine continues to improve 1.5 today from 1.7 from 4 on admit But staff/RN concerns about seemingly no gusto in life Still full code on file Plan: Avoid nephrotoxins Continue IVF Maintain Meyer Enalapril for the blood pressure excursions Palliative care consult Need to address goals of care and CODE STATUS ROS: no fever, chills, sob or chest pain feels ok, but very weak, in bed always chronic low po intake pt refuse eat and po meds Vitals Vitals Vital Signs Date Time Temp Pulse Resp B/P (MAP) Pulse Ox O2 Delivery O2 Flow Rate FiO2 02/06/18 09:10 52 166/72 02/06/18 07:00 98.0 18 97 Room Air 98.0 Physical Exam Physical Exam GENERAL: sleeping HEENT: Oral cavity clear LUNGS: Clear to auscultation. HEART: S1, S2. ABDOMEN: Mildly distended, soft, NT EXTREMITIES: No clubbing, cyanosis or gross edema. SKIN: Warm to touch without generalized signs of rash. NEUROLOGIC: Arouses easily to name, nods to questions appropriately PIV General: Alert, Oriented X3, Cooperative, mild distress Heart: Regular rate Lungs: Clear Abdomen: Normal bowel sounds, Soft Extremities: No clubbing, No cyanosis Skin: No significant lesion Labs LABS Laboratory Tests Test 02/06/18 06:01 Sodium Level 139 mmol/L (136-145) Potassium Level 3.4 mmol/L (3.5-5.1) Chloride Level 107 mmol/L (98-107) Carbon Dioxide Level 19 mmol/L (21-32) Anion Gap 13 (6-14) Blood Urea Nitrogen 13 mg/dL (7-20) Creatinine 1.5 mg/dL (0.6-1.0) Estimated GFR (Cockcroft-Gault) 33.2 Glucose Level 106 mg/dL (70-99) Calcium Level 8.3 mg/dL (8.5-10.1) Phosphorus Level 1.7 mg/dL (2.6-4.7) Magnesium Level 1.2 mg/dL (1.8-2.4) Review of Systems Review of Systems limited ROS Assessment and Plan Assessmemt and Plan Problems Medical Problems: (1) Urinary tract infection Status: Acute Comment Review of Relevant I have reviewed the following items harry (where applicable) has been applied. Labs Laboratory Tests Test 02/05/18 04:10 02/06/18 06:01 White Blood Count 8.2 x10^3/uL (4.0-11.0) Red Blood Count 3.11 x10^6/uL (3.50-5.40) Hemoglobin 9.1 g/dL (12.0-15.5) Hematocrit 27.0 % (36.0-47.0) Mean Corpuscular Volume 87 fL (79-100) Mean Corpuscular Hemoglobin 29 pg (25-35) Mean Corpuscular Hemoglobin Concent 34 g/dL (31-37) Red Cell Distribution Width 17.0 % (11.5-14.5) Platelet Count 91 x10^3/uL (140-400) Neutrophils (%) (Auto) 76 % (31-73) Lymphocytes (%) (Auto) 20 % (24-48) Monocytes (%) (Auto) 4 % (0-9) Eosinophils (%) (Auto) 0 % (0-3) Basophils (%) (Auto) 0 % (0-3) Neutrophils # (Auto) 6.2 x10^3uL (1.8-7.7) Lymphocytes # (Auto) 1.6 x10^3/uL (1.0-4.8) Monocytes # (Auto) 0.3 x10^3/uL (0.0-1.1) Eosinophils # (Auto) 0.0 x10^3/uL (0.0-0.7) Basophils # (Auto) 0.0 x10^3/uL (0.0-0.2) Sodium Level 141 mmol/L (136-145) 139 mmol/L (136-145) Potassium Level 3.4 mmol/L (3.5-5.1) 3.4 mmol/L (3.5-5.1) Chloride Level 109 mmol/L (98-107) 107 mmol/L (98-107) Carbon Dioxide Level 19 mmol/L (21-32) 19 mmol/L (21-32) Anion Gap 13 (6-14) 13 (6-14) Blood Urea Nitrogen 19 mg/dL (7-20) 13 mg/dL (7-20) Creatinine 1.7 mg/dL (0.6-1.0) 1.5 mg/dL (0.6-1.0) Estimated GFR (Cockcroft-Gault) 28.7 33.2 Glucose Level 111 mg/dL (70-99) 106 mg/dL (70-99) Calcium Level 8.6 mg/dL (8.5-10.1) 8.3 mg/dL (8.5-10.1) Phosphorus Level 0.9 mg/dL (2.6-4.7) 1.7 mg/dL (2.6-4.7) Magnesium Level 1.0 mg/dL (1.8-2.4) 1.2 mg/dL (1.8-2.4) Thyroid Stimulating Hormone (TSH) 0.613 uIU/mL (0.358-3.74) Laboratory Tests Test 02/06/18 06:01 Sodium Level 139 mmol/L (136-145) Potassium Level 3.4 mmol/L (3.5-5.1) Chloride Level 107 mmol/L (98-107) Carbon Dioxide Level 19 mmol/L (21-32) Anion Gap 13 (6-14) Blood Urea Nitrogen 13 mg/dL (7-20) Creatinine 1.5 mg/dL (0.6-1.0) Estimated GFR (Cockcroft-Gault) 33.2 Glucose Level 106 mg/dL (70-99) Calcium Level 8.3 mg/dL (8.5-10.1) Phosphorus Level 1.7 mg/dL (2.6-4.7) Magnesium Level 1.2 mg/dL (1.8-2.4) Microbiology 02/01/18 Blood Culture - Final, Complete NO GROWTH AFTER 5 DAYS 02/01/18 Urine Culture - Final, Complete 02/01/18 Urine Culture Result 1 (BERNABE) - Final, Complete 02/01/18 Antimicrobic Susceptibility - Final, Complete Medications Current Medications Sodium Chloride 1,000 ml @ 1,000 mls/hr 1X ONCE IV Last administered on 09:35; Start 02/01/18 at 08:00; Stop 02/01/18 at 08:59; Status DC Ceftriaxone Sodium 50 ml @ 100 mls/hr 1X ONCE IV Last administered on at 09:35; Start 02/01/18 at 08:00; Stop 02/01/18 at 08:29; Status DC Vancomycin HCl (Vanco Per Pharmacy) 1 each PRN DAILY PRN MC SEE COMMENTS Last administered on 02/01/18at 15:33; Start 02/01/18 at 09:45; Stop 02/02/18 at 08:23; Status DC Sodium Chloride 1,000 ml @ 1,000 mls/hr 1X ONCE IV Last administered on 10:21; Start 02/01/18 at 09:45; Stop 02/01/18 at 10:44; Status DC Vancomycin HCl 1.75 gm/Sodium Chloride 500 ml @ 250 mls/hr 1X ONCE IV Last administered on 02/01/18at 10:21; Start 02/01/18 at 10:00; Stop 02/01/18 at 11:59; Status DC Levothyroxine Sodium (Synthroid) 100 mcg DAILY07 PO Last administered on at 05:32; Start 02/01/18 at 15:00 Prednisone (Prednisone) 10 mg DAILY PO Last administered on 02/04/18 08:02; Start 02/01/18 at 15:00; Stop 02/05/18 at 11:35; Status DC Atorvastatin Calcium (Lipitor) 10 mg QHS PO Last administered on 02/05/18at 20:59 ; Start 02/01/18 at 21:00 Pantoprazole Sodium (Protonix) 40 mg DAILYAC PO Last administered on 02/06/18 07:43; Start 02/01/18 at 15:00 Acetaminophen (Tylenol) 650 mg PRN Q6HRS PRN PO FEVER/HEADACHE; Start 02/01/18 at 14:30 Ondansetron HCl (Zofran) 4 mg PRN Q6HRS PRN IV NAUSEA/VOMITING 1ST CHOICE Last administered on 02/03/18at 09:30; Start 02/01/18 at 14:30 Morphine Sulfate (Morphine Sulfate) 2 mg PRN Q2HR PRN IV MODERATE TO SEVERE PAIN; Start 02/01/18 at 14:30 Tramadol HCl (Ultram) 50 mg PRN Q6HRS PRN PO MILD TO MODERATE PAIN; Start at 14:30; Stop 02/02/18 at 08:23; Status DC Docusate Sodium (Colace) 100 mg PRN DAILY PRN PO HARD STOOLS; Start 02/01/18 at 14:30 Piperacillin Sod/ Tazobactam Sod 3.375 gm/Sodium Chloride 50 ml @ 100 mls/hr Q6HRS IV ; Start 02/01/18 at 18:00; Status UNV Piperacillin Sod/ Tazobactam Sod (Zosyn Per Pharmacy) 1 each PRN DAILY PRN MC SEE COMMENTS; Start 02/01/18 at 14:30; Stop 02/06/18 at 09:54; Status DC Sodium Chloride 1,000 ml @ 100 mls/hr Q10H IV Last administered on 02/03/18at 03 :08; Start 02/01/18 at 14:30; Stop 02/03/18 at 10:15; Status DC Heparin Sodium (Porcine) (Heparin Sq) 5,000 unit Q8HRS SQ Last administered on 02/06/18at 05:42; Start 02/01/18 at 22:00 Piperacillin Sod/ Tazobactam Sod 2.25 gm/Sodium Chloride 50 ml @ 100 mls/hr Q8HRS IV Last administered on 02/05/18at 14:36; Start 02/01/18 at 15:00; Stop 02/05 at 16:27; Status DC Lactobacillus Rhamnosus (Culturelle) 1 cap BID PO Last administered on at 09:09; Start 02/01/18 at 21:00 Linezolid (Zyvox) 600 mg BID PO Last administered on 02/05/18at 08:15; Start 02/02 at 09:00; Stop 02/05/18 at 15:01; Status DC Potassium Chloride (Klor-Con) 40 meq 1X ONCE PO Last administered on 02/03/18at 12:24; Start 02/03/18 at 10:00; Stop 02/03/18 at 10:37; Status DC Potassium Chloride/Dextrose/ Sod Cl 1,000 ml @ 100 mls/hr Q10H IV Last administered on 02/05/18at 21:00; Start 02/03/18 at 10:15 Potassium Chloride (Klor-Con) 40 meq 1X ONCE PO ; Start 02/04/18 at 11:00; Stop 02/04/18 at 11:01; Status DC Potassium Phosphate 13.6 mmol/Dextrose 104.5333 ml @ 52.267 m... Q2H IV Last administered on 02/05/18at 13:40; Start 02/05/18 at 11:30; Stop 02/05/18 at 15:29; Status DC Magnesium Sulfate 50 ml @ 25 mls/hr 1X ONCE IV Last administered on 02/05/18at 16:54; Start 02/05/18 at 11:30; Stop 02/05/18 at 13:29; Status DC Magnesium Sulfate/ Dextrose 100 ml @ 25 mls/hr 1X ONCE IV ; Start 02/05/18 at 11:45; Stop 02/05/18 at 15:44; Status UNV Potassium Phosphate 10 mmol/ Dextrose 103.3333 ml @ 51.667 m... Q2H IV ; Start 02/05/18 at 11:45; Stop 02/05/18 at 15:44; Status UNV Labetalol HCl (Normodyne Iv Push) 20 mg PRN Q2HR PRN IVP HYPERTENSION, SEE COMMENTS; Start 02/05/18 at 11:45 Amlodipine Besylate (Norvasc) 5 mg DAILY PO Last administered on 02/06/18at 09: 10; Start 02/05/18 at 12:00 Piperacillin Sod/ Tazobactam Sod 2.25 gm/Sodium Chloride 50 ml @ 100 mls/hr Q6H IV Last administered on 02/06/18at 07:43; Start 02/05/18 at 20:00; Stop 02/06 at 09:54; Status DC Enalaprilat (Vasotec Inj) 1.25 mg PRN Q6HRS PRN IVP HYPERTENSION, SEE COMMENTS ; Start 02/06/18 at 09:15 Acetaminophen (Tylenol) 500 mg PRN Q6HRS PRN PO HEADACHE/ TEMP; Start 02/06/18 at 09:15 Acetaminophen/ Codeine Phosphate (Tylenol #3) 1 tab PRN Q6HRS PRN PO PAIN MILD ; Start 02/06/18 at 09:15 Cefpodoxime Proxetil (Vantin) 100 mg BID PO ; Start 02/06/18 at 21:00 Potassium Phosphate 13.6 mmol/Dextrose 104.5333 ml @ 52.267 m... Q2H IV ; Start 02/06/18 at 11:00; Stop 02/06/18 at 14:59; Status UNV Magnesium Sulfate 50 ml @ 25 mls/hr 1X ONCE IV ; Start 02/06/18 at 11:00; Stop 02/06/18 at 12:59; Status UNV Active Scripts Active Reported Omeprazole 40 Mg Capsule.dr 1 Cap PO DAILY Prednisone 20 Mg Tablet 10 Mg PO DAILY Lisinopril 40 Mg Tablet 1 Tab PO DAILY Levothyroxine Sodium 100 Mcg Tablet 1 Tab PO DAILY Lovastatin 40 Mg Tablet 40 Mg PO HS Tramadol Hcl 50 Mg Tablet 50 Mg PO PRN Q6-8HRS PRN Vitals/I & O Vital Sign - Last 24 Hours 02/05/18 02/05/18 02/05/18 02/05/18 12:28 15:00 19:00 23:00 Temp 97.9 97.0 97.7 97.9 97.0 97.7 Pulse 50 52 53 55 Resp 18 16 18 B/P (MAP) 187/70 153/61 (91) 117/58 (77) 126/63 (84) Pulse Ox 95 95 96 O2 Delivery Room Air Room Air Room Air 02/06/18 02/06/18 02/06/18 03:00 07:00 09:10 Temp 98.0 98.0 98.0 98.0 Pulse 50 52 52 Resp 14 18 B/P (MAP) 158/68 (98) 166/72 (103) 166/72 Pulse Ox 96 97 O2 Delivery Room Air Room Air Intake and Output 02/05/18 02/05/18 02/06/18 15:00 23:00 07:00 Intake Total 1200 ml 150 ml 1250 ml Balance 1200 ml 150 ml 1250 ml Nutrition Consultation Dietary Evaluation: Recommendations by RD: Increase Calorie Intake, Protein supplementation Comments: Offer Nepro supplements Expected Outcomes/Goals: to meet > 50% est nutr needs Malnutrition Findings: Body Fat Depletion (Non Severe: Mild Depletion Weight Status: Appropriate ROBIN MUNOZ MD Feb 06, 2018 11:03
[2018-02-06] MEDS: POTASSIUM CL 20MEQ D5-0.45NACL 1,000 ML IV SCH ×2 (11:09→21:19)
[2018-02-06] MEDS ORDERED: MAGNESIUM SULFATE 2GM 50 ML IV ONE (11:30)
[2018-02-06] MEDS: POTASSIUM PHOSPHATE DIBASIC 13.6 MMOL in IV DEXTROSE 5% 100ML 100 ML IV SCH ×2 (14:14→16:11)
--- NOTE | 2018-02-06 14:53 | PDOC2 ---
PALLIATIVE CARE Palliative Care Note Palliative Care Consult requested by Dr. Pierson to address goals of care Medical Assessment per medical record.; JESSICA, UTI, Sepsis, HTN, GERD, Patient awake. Understands she has UTI. States she does not feel her thinking is very good anymore. States she has no appetite, stays in bed most of the time. She is ready to go home, Lives with daughter. Enjoys watching TV and going out for rides. Patient states she has 1 child. 5 Grandchildren. Just "doesn't feel like she has a reason to keep going" Answered "yes" to feeling depressed. Received permission to call daughter to arrange family meeting. Attempted to call daughter. Message to return call. Discussed Code Status: She would want to have more conversation about this when her daughter comes. Will continue to try to reach daughter. ANAMARIA JAMES Feb 06, 2018 14:53
[2018-02-06 15:00] VITALS: BP 123/63
[2018-02-06 19:00] VITALS: BP 137/70
[2018-02-06] MEDS: ATORVASTATIN CALCIUM 10 MG TABLET. PO SCH (20:18)
[2018-02-06] MEDS: CEFPODOXIME PROXETIL 100 MG TABLET. PO SCH (20:18)
[2018-02-06 23:00] VITALS: BP 154/71
[2018-02-07 03:00] VITALS: BP 152/68
[2018-02-07] MEDS: HEPARIN PF for SUB-Q USE 5,000 UNIT/0.5 ML VIAL. SQ SCH ×3 (06:00→22:00)
[2018-02-07 07:00] VITALS: BP 164/69
[2018-02-07 08:33] LABS: CALCIUM 8.2 mg/dL (8.5-10.1); CREATININE 1.2 mg/dL (0.6-1.0); GFR 42.9; MAGNESIUM 1.4 mg/dL (1.8-2.4); PHOSPHORUS 1.9 mg/dL (2.6-4.7); POTASSIUM 3.6 mmol/L (3.5-5.1)
[2018-02-07] MEDS: PANTOPRAZOLE 40 MG TABLET.DR. PO SCH (08:58)
[2018-02-07] MEDS: CEFPODOXIME PROXETIL 100 MG TABLET. PO SCH ×2 (08:58→21:05)
[2018-02-07] MEDS: amLODIPine BESYLATE 5 MG TABLET PO SCH (08:59)
[2018-02-07] MEDS: LACTOBACILLUS RHAMNOSUS GG 1 CAPSULE. PO SCH ×2 (08:59→21:05)
[2018-02-07] MEDS: LEVOTHYROXINE 100 MCG TABLET PO SCH (08:59)
[2018-02-07] MEDS: POTASSIUM CL 20MEQ D5-0.45NACL 1,000 ML IV SCH ×2 (09:01→18:17)
[2018-02-07] MEDS: ONDANSETRON PF 4 MG/2 ML VIAL. IV PRN (09:18)
--- NOTE | 2018-02-07 11:12 | PDOC ---
Renal-Progress Notes Subjective Notes Notes NONE History of Present Illness Hx of present illness STABLE Vitals Vitals Vital Signs Date Time Temp Pulse Resp B/P (MAP) Pulse Ox O2 Delivery O2 Flow Rate FiO2 02/07/18 08:59 60 164/69 02/07/18 07:00 98.4 20 99 Room Air 98.4 Weight Weight [ ] I.O. Intake and Output Intake and Output 02/07/18 07:00 Intake Total 1109.0666 ml Balance 1109.0666 ml Intake Oral 0 ml IV Total 1109.0666 ml # Voids 4 # Bowel Movements 5 Labs Labs Laboratory Tests Test 02/07/18 07:00 Sodium Level 137 mmol/L (136-145) Potassium Level 3.6 mmol/L (3.5-5.1) Chloride Level 103 mmol/L (98-107) Carbon Dioxide Level 22 mmol/L (21-32) Anion Gap 12 (6-14) Blood Urea Nitrogen 7 mg/dL (7-20) Creatinine 1.2 mg/dL (0.6-1.0) Estimated GFR (Cockcroft-Gault) 42.9 Glucose Level 108 mg/dL (70-99) Calcium Level 8.2 mg/dL (8.5-10.1) Phosphorus Level 1.9 mg/dL (2.6-4.7) Magnesium Level 1.4 mg/dL (1.8-2.4) Micro Micro Microbiology 02/01/18 Blood Culture - Final, Complete NO GROWTH AFTER 5 DAYS 02/01/18 Urine Culture - Final, Complete 02/01/18 Urine Culture Result 1 (BERNABE) - Final, Complete 02/01/18 Antimicrobic Susceptibility - Final, Complete Review of Systems Constitutional: yes: no symptom reported Ears/Nose/Throat: Yes: no symptom reported Eyes: Yes: no symptom reported Cardiovascular: Yes no symptom reported Gastrointestional: Yes: no symptom reported Genitourinary: Yes: no symptom reported Musculoskeletal: Yes: no symptom reported Skin: Yes no symptom reported Psychiatric/Neurological: Yes: no symptom reported Endocrine: Yes: no symptom reported Hematologic/Lymphatic: Yes: no symptom reported Physical Exam General Appearance: no apparent distress Respiratory: bilateral CTA Heart: S1S2, RRR Abdomen: soft, bowel sounds present Genitourinary: bladder flat Extremities: pulses present, atrophy Neurology: alert Assessment Assessment IMP JESSICA-RESOLVED CKD STAGE 3 WITH CR IN THE 1.6-2.0 RANGE HYPERCALCEMIA-RESOLVED DEHYDRATION LOW K, MG AND PO4 PLAN CONT WITH IVF'S WITH K SUPPLEMENTS REPLACE MG AND PO4 LABS IN AM WILL FOLLOW MELECIO VENTURA MD Feb 07, 2018 11:12
[2018-02-07] MEDS ORDERED: MAGNESIUM SULFATE 2GM 50 ML IV ONE (11:15)
[2018-02-07 11:27] VITALS: BP 116/78
--- NOTE | 2018-02-07 11:29 | PDOC ---
Infectious Disease Note Subjective Subjective feeling ok, wants to go home, ROS ROS no n/v/d/ Vital Sign Vital Signs Vital Signs Date Time Temp Pulse Resp B/P (MAP) Pulse Ox O2 Delivery O2 Flow Rate FiO2 02/07/18 08:59 60 164/69 02/07/18 07:00 98.4 20 99 Room Air 98.4 Physical Exam PHYSICAL EXAM GENERAL: sleeping HEENT: Oral cavity clear LUNGS: Clear to auscultation. HEART: S1, S2. ABDOMEN: Mildly distended, soft, NT EXTREMITIES: No clubbing, cyanosis or gross edema. SKIN: Warm to touch without generalized signs of rash. NEUROLOGIC: Arouses easily to name, nods to questions appropriately PIV Labs Lab Laboratory Tests Test 02/07/18 07:00 Sodium Level 137 mmol/L (136-145) Potassium Level 3.6 mmol/L (3.5-5.1) Chloride Level 103 mmol/L (98-107) Carbon Dioxide Level 22 mmol/L (21-32) Anion Gap 12 (6-14) Blood Urea Nitrogen 7 mg/dL (7-20) Creatinine 1.2 mg/dL (0.6-1.0) Estimated GFR (Cockcroft-Gault) 42.9 Glucose Level 108 mg/dL (70-99) Calcium Level 8.2 mg/dL (8.5-10.1) Phosphorus Level 1.9 mg/dL (2.6-4.7) Magnesium Level 1.4 mg/dL (1.8-2.4) Micro urine e coli bc neg Objective Assessment ? sepsis - POA Leukocytosis - on Prednisone JESSICA - better UTI with E. coli (R amp, quinolones) from 02/01 - h/o Enterococcus PCN sen in October 25 Constipation + BM x 3 Thrombocytopenia Failure to thrive Plan Plan of Care po adalgisatin pt/ot DARREN SOSA MD Feb 07, 2018 11:29
[2018-02-07] MEDS: POTASSIUM PHOSPHATE DIBASIC 13.6 MMOL in IV DEXTROSE 5% 100ML 100 ML IV SCH ×2 (12:17→14:42)
--- NOTE | 2018-02-07 13:04 | PDOC ---
PROGRESS NOTES Chief Complaint Chief Complaint e coli UTI sepsis JESSICA, vasomotor, ATN htn, controlled hld gerd hypothyroidism h/o left hydro - s/p stent left renal pelvis and removal hypokalemia generalized weakness failure to thrive hypomagnesemia, corrected hypophosphatemia corrected History of Present Illness History of Present Illness Nauseated today By mouth intake remains minimal Palliative I did involve yesterday, for family meeting Full code still on chart-family is getting together and thinking or addressing that Cleared from ID to go home, shifted to by mouth Vantin Urine culture out- resistant to some sensitive to some URINE CULTURE RES 1 Final Escherichia coli Greater than 100,000 colony forming units per mL Cefazolin <=4 ug/mL Cefazolin with an BERNABE <=16 predicts susceptibility to the oral agents cefaclor, cefdinir, cefpodoxime, cefprozil, cefuroxime, cephalexin, and loracarbef when used for therapy of uncomplicated urinary tract infections due to E. coli, Klebsiella pneumoniae, and Proteus mirabilis. ANTIMICROBIAL SUSCEPTIBILITY Final Comment S = Susceptible; I = Intermediate; R = Resistant P = Positive; N = Negative MICS are expressed in micrograms per mL Antibiotic RSLT#1 RSLT#2 RSLT#3 RSLT#4 Amoxicillin/Clavulanic Acid S =8 Ampicillin R>=32 Cefepime S<=0.12 Ceftriaxone S<=0.25 Cefuroxime S =4 Ciprofloxacin R>=4 Ertapenem S<=0.12 Gentamicin S<=1 Imipenem S<=0.25 Levofloxacin R>=8 Meropenem S<=0.25 Nitrofurantoin S<=16 Piperacillin/Tazobactam S<=4 Tetracycline S<=1 Tobramycin S<=1 Trimethoprim/Sulfa S<=20 Performed at: DA - [facility] [address], [place], [place] [id number] plan: By mouth Vantin on discharg Awaiting family meet to address goals of care and CODE STATUS By mouth intake remains nail Supportive meds Vitals Vitals Vital Signs Date Time Temp Pulse Resp B/P (MAP) Pulse Ox O2 Delivery O2 Flow Rate FiO2 02/07/18 11:27 99.1 67 20 116/78 (91) 97 Room Air 99.1 Physical Exam Physical Exam GENERAL: sleeping HEENT: Oral cavity clear LUNGS: Clear to auscultation. HEART: S1, S2. ABDOMEN: Mildly distended, soft, NT EXTREMITIES: No clubbing, cyanosis or gross edema. SKIN: Warm to touch without generalized signs of rash. NEUROLOGIC: Arouses easily to name, nods to questions appropriately PIV General: Alert, Oriented X3, Cooperative, mild distress Heart: Regular rate Lungs: Clear Abdomen: Normal bowel sounds, Soft Extremities: No clubbing, No cyanosis Skin: No significant lesion Labs LABS Laboratory Tests Test 02/07/18 07:00 Sodium Level 137 mmol/L (136-145) Potassium Level 3.6 mmol/L (3.5-5.1) Chloride Level 103 mmol/L (98-107) Carbon Dioxide Level 22 mmol/L (21-32) Anion Gap 12 (6-14) Blood Urea Nitrogen 7 mg/dL (7-20) Creatinine 1.2 mg/dL (0.6-1.0) Estimated GFR (Cockcroft-Gault) 42.9 Glucose Level 108 mg/dL (70-99) Calcium Level 8.2 mg/dL (8.5-10.1) Phosphorus Level 1.9 mg/dL (2.6-4.7) Magnesium Level 1.4 mg/dL (1.8-2.4) Review of Systems Review of Systems Nauseated, weak the rest of ROS 14 point negative Assessment and Plan Assessmemt and Plan Problems Medical Problems: (1) Urinary tract infection Status: Acute Comment Review of Relevant I have reviewed the following items harry (where applicable) has been applied. Labs Laboratory Tests Test 02/06/18 06:01 02/07/18 07:00 Sodium Level 139 mmol/L (136-145) 137 mmol/L (136-145) Potassium Level 3.4 mmol/L (3.5-5.1) 3.6 mmol/L (3.5-5.1) Chloride Level 107 mmol/L (98-107) 103 mmol/L (98-107) Carbon Dioxide Level 19 mmol/L (21-32) 22 mmol/L (21-32) Anion Gap 13 (6-14) 12 (6-14) Blood Urea Nitrogen 13 mg/dL (7-20) 7 mg/dL (7-20) Creatinine 1.5 mg/dL (0.6-1.0) 1.2 mg/dL (0.6-1.0) Estimated GFR (Cockcroft-Gault) 33.2 42.9 Glucose Level 106 mg/dL (70-99) 108 mg/dL (70-99) Calcium Level 8.3 mg/dL (8.5-10.1) 8.2 mg/dL (8.5-10.1) Phosphorus Level 1.7 mg/dL (2.6-4.7) 1.9 mg/dL (2.6-4.7) Magnesium Level 1.2 mg/dL (1.8-2.4) 1.4 mg/dL (1.8-2.4) Laboratory Tests Test 02/07/18 07:00 Sodium Level 137 mmol/L (136-145) Potassium Level 3.6 mmol/L (3.5-5.1) Chloride Level 103 mmol/L (98-107) Carbon Dioxide Level 22 mmol/L (21-32) Anion Gap 12 (6-14) Blood Urea Nitrogen 7 mg/dL (7-20) Creatinine 1.2 mg/dL (0.6-1.0) Estimated GFR (Cockcroft-Gault) 42.9 Glucose Level 108 mg/dL (70-99) Calcium Level 8.2 mg/dL (8.5-10.1) Phosphorus Level 1.9 mg/dL (2.6-4.7) Magnesium Level 1.4 mg/dL (1.8-2.4) Microbiology 02/01/18 Blood Culture - Final, Complete NO GROWTH AFTER 5 DAYS 02/01/18 Urine Culture - Final, Complete 02/01/18 Urine Culture Result 1 (BERNABE) - Final, Complete 02/01/18 Antimicrobic Susceptibility - Final, Complete Medications Current Medications Sodium Chloride 1,000 ml @ 1,000 mls/hr 1X ONCE IV Last administered on at 09:35; Start 02/01/18 at 08:00; Stop 02/01/18 at 08:59; Status DC Ceftriaxone Sodium 50 ml @ 100 mls/hr 1X ONCE IV Last administered on at 09:35; Start 02/01/18 at 08:00; Stop 02/01/18 at 08:29; Status DC Vancomycin HCl (Vanco Per Pharmacy) 1 each PRN DAILY PRN MC SEE COMMENTS Last administered on 02/01/18at 15:33; Start 02/01/18 at 09:45; Stop 02/02/18 at 08:23; Status DC Sodium Chloride 1,000 ml @ 1,000 mls/hr 1X ONCE IV Last administered on at 10:21; Start 02/01/18 at 09:45; Stop 02/01/18 at 10:44; Status DC Vancomycin HCl 1.75 gm/Sodium Chloride 500 ml @ 250 mls/hr 1X ONCE IV Last administered on 02/01/18at 10:21; Start 02/01/18 at 10:00; Stop 02/01/18 at 11:59; Status DC Levothyroxine Sodium (Synthroid) 100 mcg DAILY07 PO Last administered on at 08:59; Start 02/01/18 at 15:00 Prednisone (Prednisone) 10 mg DAILY PO Last administered on 02/04/18at 08:02; Start 02/01/18 at 15:00; Stop 02/05/18 at 11:35; Status DC Atorvastatin Calcium (Lipitor) 10 mg QHS PO Last administered on 02/06/18at 20: 18; Start 02/01/18 at 21:00 Pantoprazole Sodium (Protonix) 40 mg DAILYAC PO Last administered on 02/07/18at 08:58; Start 02/01/18 at 15:00 Acetaminophen (Tylenol) 650 mg PRN Q6HRS PRN PO FEVER/HEADACHE Last administered on 02/07/18at 08:58; Start 02/01/18 at 14:30 Ondansetron HCl (Zofran) 4 mg PRN Q6HRS PRN IV NAUSEA/VOMITING 1ST CHOICE Last administered on 02/07/18at 09:18; Start 02/01/18 at 14:30 Morphine Sulfate (Morphine Sulfate) 2 mg PRN Q2HR PRN IV MODERATE TO SEVERE PAIN; Start 02/01/18 at 14:30 Tramadol HCl (Ultram) 50 mg PRN Q6HRS PRN PO MILD TO MODERATE PAIN; Start at 14:30; Stop 02/02/18 at 08:23; Status DC Docusate Sodium (Colace) 100 mg PRN DAILY PRN PO HARD STOOLS; Start 02/01/18 at 14:30 Piperacillin Sod/ Tazobactam Sod 3.375 gm/Sodium Chloride 50 ml @ 100 mls/hr Q6HRS IV ; Start 02/01/18 at 18:00; Status UNV Piperacillin Sod/ Tazobactam Sod (Zosyn Per Pharmacy) 1 each PRN DAILY PRN MC SEE COMMENTS; Start 02/01/18 at 14:30; Stop 02/06/18 at 09:54; Status DC Sodium Chloride 1,000 ml @ 100 mls/hr Q10H IV Last administered on 02/03/18at 03 :08; Start 02/01/18 at 14:30; Stop 02/03/18 at 10:15; Status DC Heparin Sodium (Porcine) (Heparin Sq) 5,000 unit Q8HRS SQ Last administered on 02/06/18at 14:15; Start 02/01/18 at 22:00 Piperacillin Sod/ Tazobactam Sod 2.25 gm/Sodium Chloride 50 ml @ 100 mls/hr Q8HRS IV Last administered on 02/05/18at 14:36; Start 02/01/18 at 15:00; Stop 02/05 at 16:27; Status DC Lactobacillus Rhamnosus (Culturelle) 1 cap BID PO Last administered on at 08:59; Start 02/01/18 at 21:00 Linezolid (Zyvox) 600 mg BID PO Last administered on 02/05/18at 08:15; Start 02/02 at 09:00; Stop 02/05/18 at 15:01; Status DC Potassium Chloride (Klor-Con) 40 meq 1X ONCE PO Last administered on 02/03/18at 12:24; Start 02/03/18 at 10:00; Stop 02/03/18 at 10:37; Status DC Potassium Chloride/Dextrose/ Sod Cl 1,000 ml @ 100 mls/hr Q10H IV Last administered on 02/07/18at 09:01; Start 02/03/18 at 10:15 Potassium Chloride (Klor-Con) 40 meq 1X ONCE PO ; Start 02/04/18 at 11:00; Stop 02/04/18 at 11:01; Status DC Potassium Phosphate 13.6 mmol/Dextrose 104.5333 ml @ 52.267 m... Q2H IV Last administered on 02/05/18at 13:40; Start 02/05/18 at 11:30; Stop 02/05/18 at 15:29; Status DC Magnesium Sulfate 50 ml @ 25 mls/hr 1X ONCE IV Last administered on 02/05/18at 16:54; Start 02/05/18 at 11:30; Stop 02/05/18 at 13:29; Status DC Magnesium Sulfate/ Dextrose 100 ml @ 25 mls/hr 1X ONCE IV ; Start 02/05/18 at 11:45; Stop 02/05/18 at 15:44; Status UNV Potassium Phosphate 10 mmol/ Dextrose 103.3333 ml @ 51.667 m... Q2H IV ; Start 02/05/18 at 11:45; Stop 02/05/18 at 15:44; Status UNV Labetalol HCl (Normodyne Iv Push) 20 mg PRN Q2HR PRN IVP HYPERTENSION, SEE COMMENTS; Start 02/05/18 at 11:45 Amlodipine Besylate (Norvasc) 5 mg DAILY PO Last administered on 02/07/18at 08: 59; Start 02/05/18 at 12:00 Piperacillin Sod/ Tazobactam Sod 2.25 gm/Sodium Chloride 50 ml @ 100 mls/hr Q6H IV Last administered on 02/06/18at 07:43; Start 02/05/18 at 20:00; Stop 02/06 at 09:54; Status DC Enalaprilat (Vasotec Inj) 1.25 mg PRN Q6HRS PRN IVP HYPERTENSION, SEE COMMENTS ; Start 02/06/18 at 09:15 Acetaminophen (Tylenol) 500 mg PRN Q6HRS PRN PO HEADACHE/ TEMP; Start 02/06/18 at 09:15 Acetaminophen/ Codeine Phosphate (Tylenol #3) 1 tab PRN Q6HRS PRN PO PAIN MILD ; Start 02/06/18 at 09:15 Cefpodoxime Proxetil (Vantin) 100 mg BID PO Last administered on 02/07/18at 08: 58; Start 02/06/18 at 21:00 Potassium Phosphate 13.6 mmol/Dextrose 104.5333 ml @ 52.267 m... Q2H IV Last administered on 02/06/18at 16:11; Start 02/06/18 at 11:30; Stop 02/06/18 at 15:29 ; Status DC Magnesium Sulfate 50 ml @ 25 mls/hr 1X ONCE IV Last administered on 02/06/18at 11:36; Start 02/06/18 at 11:30; Stop 02/06/18 at 13:29; Status DC Magnesium Sulfate 50 ml @ 25 mls/hr 1X ONCE IV Last administered on 02/07/18at 12:16; Start 02/07/18 at 11:15; Stop 02/07/18 at 13:14 Potassium Phosphate 13.6 mmol/Dextrose 104.5333 ml @ 52.267 m... Q2H IV Last administered on 02/07/18at 12:17; Start 02/07/18 at 12:00; Stop 02/07/18 at 15:59 Active Scripts Active Reported Omeprazole 40 Mg Capsule. 1 Cap PO DAILY Prednisone 20 Mg Tablet 10 Mg PO DAILY Lisinopril 40 Mg Tablet 1 Tab PO DAILY Levothyroxine Sodium 100 Mcg Tablet 1 Tab PO DAILY Lovastatin 40 Mg Tablet 40 Mg PO HS Tramadol Hcl 50 Mg Tablet 50 Mg PO PRN Q6-8HRS PRN Vitals/I & O Vital Sign - Last 24 Hours 02/06/18 02/06/18 02/06/18 02/06/18 15:00 19:00 20:00 23:00 Temp 98.9 97.9 98.3 98.9 97.9 98.3 Pulse 56 63 60 Resp 18 17 15 B/P (MAP) 123/63 (83) 137/70 (92) 154/71 (98) Pulse Ox 96 97 97 O2 Delivery Room Air Room Air Room Air Room Air 02/07/18 02/07/18 02/07/18 02/07/18 03:00 07:00 08:00 08:59 Temp 97.9 98.4 97.9 98.4 Pulse 59 94 60 Resp 16 20 B/P (MAP) 152/68 (96) 164/69 (100) 164/69 Pulse Ox 96 99 O2 Delivery Room Air Room Air Room Air 02/07/18 11:27 Temp 99.1 99.1 Pulse 67 Resp 20 B/P (MAP) 116/78 (91) Pulse Ox 97 O2 Delivery Room Air Intake and Output 02/06/18 02/06/18 02/07/18 15:00 23:00 07:00 Intake Total 900 ml 209.0666 ml Balance 900 ml 209.0666 ml Nutrition Consultation Dietary Evaluation: Recommendations by RD: Increase Calorie Intake, Protein supplementation Comments: Offer Nepro supplements, continue renal diet consider PPN Expected Outcomes/Goals: to meet > 50% est nutr needs via po intake - not met, goal ongoing Malnutrition Findings: Body Fat Depletion (Non Severe: Mild Depletion Weight Status: Appropriate ROBIN MUNOZ MD Feb 07, 2018 13:03
[2018-02-07 15:00] VITALS: BP 114/48
--- NOTE | 2018-02-07 15:51 | PDOC2 ---
PALLIATIVE CARE Palliative Care Note Palliative Care Patient c/o nausea this am. Zofran given Minimal po intake. States she is not hungry. Spoke with daughter Johanna. Unable to come to family meeting today. Reviewed medical condition. UTI, poor po intake, States her mother was not eating 3 days prior to admission. Has struggled with depression in the past. Not sure if she has taken medication for it. States he mother is not always "thinking clearly" Discussed discharge plan with patient and daughter. Both in agreement that patient should come home with HH. Discussed Code Status. Daughter would like to talk with more family before making a decision. Will continue to try to assist patient and family with goals and code status. ANAMARIA JAMES Feb 07, 2018 15:51
[2018-02-07 19:00] VITALS: BP 147/65
[2018-02-07] MEDS: ATORVASTATIN CALCIUM 10 MG TABLET. PO SCH (21:05)
[2018-02-07 22:36] VITALS: BP 141/63
[2018-02-08] MEDS: POTASSIUM CL 20MEQ D5-0.45NACL 1,000 ML IV SCH ×2 (00:15→06:22)
[2018-02-08] MEDS: ONDANSETRON PF 4 MG/2 ML VIAL. IV PRN ×2 (02:15→08:17)
[2018-02-08 02:39] VITALS: BP 156/79
[2018-02-08 05:32] LABS: CREATININE 1.2 mg/dL (0.6-1.0); GFR 42.9; MAGNESIUM 1.7 mg/dL (1.8-2.4); PHOSPHORUS 3.4 mg/dL (2.6-4.7); POTASSIUM 4.1 mmol/L (3.5-5.1)
[2018-02-08] MEDS: HEPARIN PF for SUB-Q USE 5,000 UNIT/0.5 ML VIAL. SQ SCH ×2 (06:00→14:23)
[2018-02-08] MEDS: LEVOTHYROXINE 100 MCG TABLET PO SCH (06:22)
[2018-02-08 07:00] VITALS: BP 178/94
[2018-02-08] MEDS: amLODIPine BESYLATE 5 MG TABLET PO SCH (09:00)
[2018-02-08] MEDS ORDERED: CITALOPRAM 10 MG TABLET. PO SCH (09:00)
[2018-02-08 09:22] VITALS: BP 168/68
[2018-02-08] MEDS ORDERED: cloNIDine HCL 0.1 MG TABLET PO PRN (09:30)
[2018-02-08] MEDS: CEFPODOXIME PROXETIL 100 MG TABLET. PO SCH (09:57)
[2018-02-08] MEDS: LACTOBACILLUS RHAMNOSUS GG 1 CAPSULE. PO SCH (09:58)
[2018-02-08] MEDS: PANTOPRAZOLE 40 MG TABLET.DR. PO SCH (09:58)
--- NOTE | 2018-02-08 10:18 | PDOC ---
Infectious Disease Note Subjective Subjective feeling ok, wants to go home, ROS ROS did have nausea and vomited once Vital Sign Vital Signs Vital Signs Date Time Temp Pulse Resp B/P (MAP) Pulse Ox O2 Delivery O2 Flow Rate FiO2 02/08/18 09:22 168/68 (101) 02/08/18 08:54 82 02/08/18 07:50 Room Air 02/08/18 07:00 97.5 20 96 97.5 Physical Exam PHYSICAL EXAM GENERAL: sleeping HEENT: Oral cavity clear LUNGS: Clear to auscultation. HEART: S1, S2. ABDOMEN: Mildly distended, soft, NT EXTREMITIES: No clubbing, cyanosis or gross edema. SKIN: Warm to touch without generalized signs of rash. NEUROLOGIC: Arouses easily to name, nods to questions appropriately PIV Labs Lab Laboratory Tests Test 02/08/18 03:45 Sodium Level 132 mmol/L (136-145) Potassium Level 4.1 mmol/L (3.5-5.1) Chloride Level 101 mmol/L (98-107) Carbon Dioxide Level 19 mmol/L (21-32) Anion Gap 12 (6-14) Blood Urea Nitrogen 5 mg/dL (7-20) Creatinine 1.2 mg/dL (0.6-1.0) Estimated GFR (Cockcroft-Gault) 42.9 Glucose Level 102 mg/dL (70-99) Calcium Level 8.0 mg/dL (8.5-10.1) Phosphorus Level 3.4 mg/dL (2.6-4.7) Magnesium Level 1.7 mg/dL (1.8-2.4) Micro urine e coli bc neg Objective Assessment ? sepsis - POA Leukocytosis - on Prednisone JESSICA - better UTI with E. coli (R amp, quinolones) from 02/01 - h/o Enterococcus PCN sen in October 25 Constipation + BM x 3 Thrombocytopenia Failure to thrive Plan Plan of Care po lauri d/c pt/ot d/w Dr Carlos rhodes d/c DARREN SOSA MD Feb 08, 2018 10:18
[2018-02-08] MEDS ORDERED: AMLO5TAB7 PO (10:47)
[2018-02-08] MEDS ORDERED: CITA10TA8 PO (10:47)
--- NOTE | 2018-02-08 10:51 | PDOC3 ---
Discharge Summary Visit Information Date of Admission: Feb 01, 2018 Date of Discharge: Feb 08, 2018 Admitting Diagnosis Comment: e coli UTI sepsis JESSICA, vasomotor, ATN htn, controlled hld gerd hypothyroidism h/o left hydro - s/p stent left renal pelvis and removal hypokalemia generalized weakness failure to thrive hypomagnesemia, corrected hypophosphatemia corrected Final Diagnosis Problems Medical Problems: (1) Urinary tract infection Status: Acute Brief Hospital Course Allergies Allergies Coded Allergies Type Severity Reaction Last Updated Verified No Known Drug Allergies 11/02/17 No Vital Signs Vital Signs Date Time Temp Pulse Resp B/P (MAP) Pulse Ox O2 Delivery O2 Flow Rate FiO2 02/08/18 09:22 168/68 (101) 02/08/18 08:54 82 02/08/18 07:50 Room Air 02/08/18 07:00 97.5 20 96 97.5 Lab Results Laboratory Tests Test 02/07/18 07:00 02/08/18 03:45 Sodium Level 137 mmol/L (136-145) 132 mmol/L (136-145) Potassium Level 3.6 mmol/L (3.5-5.1) 4.1 mmol/L (3.5-5.1) Chloride Level 103 mmol/L (98-107) 101 mmol/L (98-107) Carbon Dioxide Level 22 mmol/L (21-32) 19 mmol/L (21-32) Anion Gap 12 (6-14) 12 (6-14) Blood Urea Nitrogen 7 mg/dL (7-20) 5 mg/dL (7-20) Creatinine 1.2 mg/dL (0.6-1.0) 1.2 mg/dL (0.6-1.0) Estimated GFR (Cockcroft-Gault) 42.9 42.9 Glucose Level 108 mg/dL (70-99) 102 mg/dL (70-99) Calcium Level 8.2 mg/dL (8.5-10.1) 8.0 mg/dL (8.5-10.1) Phosphorus Level 1.9 mg/dL (2.6-4.7) 3.4 mg/dL (2.6-4.7) Magnesium Level 1.4 mg/dL (1.8-2.4) 1.7 mg/dL (1.8-2.4) Laboratory Tests Test 02/08/18 03:45 Sodium Level 132 mmol/L (136-145) Potassium Level 4.1 mmol/L (3.5-5.1) Chloride Level 101 mmol/L (98-107) Carbon Dioxide Level 19 mmol/L (21-32) Anion Gap 12 (6-14) Blood Urea Nitrogen 5 mg/dL (7-20) Creatinine 1.2 mg/dL (0.6-1.0) Estimated GFR (Cockcroft-Gault) 42.9 Glucose Level 102 mg/dL (70-99) Calcium Level 8.0 mg/dL (8.5-10.1) Phosphorus Level 3.4 mg/dL (2.6-4.7) Magnesium Level 1.7 mg/dL (1.8-2.4) Brief Hospital Course Ms. Devlin is a 83 old occasion female who was admitted because of UTI, some electrolyte abnormalities and some failure to thrive symptoms. She does have history of hypothyroidism on Synthroid. Comanage with ID. Escherichia coli UTI on urine culture sensitive to most. Being discharged on by mouth Vantin. Course remarkable for a 7 day stay because of failure to thrive symptoms, poor by mouth , no gusto in life. Palliative got involved. Family undecided about CODE STATUS and plan of care. Hence she remained full code and aggressive medical treatment. To go home with home health. Family and patient is refusing SNU though recommended by physical therapy Home meds reconciled includes trial of Celexa-depressive demeanor, family request for trial of antidepressants, by mouth Vantin on chart Consults performed infectious disease, palliative Procedures performed none Time spent discharging. 30 minutes greater than 50% discharge education counseling medication list etc. discussed with ID, social work and secret service agent Information Condition at Discharge: Improved, Stable Disposition/Orders: D/C to Home w/ HH Scheduled Amlodipine Besylate (Amlodipine Besylate) 5 Mg Tablet, 10 MG PO DAILY for 30 Days, #60 Prescribed by: ROBIN MUNOZ on 02/08/18 1047 Citalopram Hydrobromide (Celexa) 10 Mg Tablet, 10 MG PO DAILY for 30 Days, #30 Prescribed by: ROBIN MUNOZ on 02/08/18 1047 Levothyroxine Sodium (Levothyroxine Sodium) 100 Mcg Tablet, 1 TAB PO DAILY, #90 Ref 3 (Reported) Entered as Reported by: CINTHIA STEELE on 10/26/1726 Last Action: Continued on 02/01/181423 by JOSE COVARRUBIAS MD Lisinopril (Lisinopril) 40 Mg Tablet, 1 TAB PO DAILY, #30 Ref 5 (Reported) Entered as Reported by: CINTHIA STEELE on 10/26/1726 Last Action: HELD on 02/01/181423 by JOSE COVARRUBIAS MD Lovastatin (Lovastatin) 40 Mg Tablet, 40 MG PO HS, (Reported) Entered as Reported by: CINTHIA STEELE on 10/26/1726 Last Action: Converted on 02/01/181423 by JOSE COVARRUBIAS MD Omeprazole (Omeprazole) 40 Mg Capsule.dr, 1 CAP PO DAILY, #30 Ref 3 (Reported) Entered as Reported by: CINTHIA STEELE on 10/26/1726 Last Action: Converted on 02/01/181423 by JOSE COVARRUBIAS MD Prednisone (Prednisone) 20 Mg Tablet, 10 MG PO DAILY, (Reported) Entered as Reported by: CINTHIA STEELE on 10/26/1726 Last Action: Continued on 02/01/181423 by JOSE COVARRUBIAS MD Scheduled PRN Tramadol Hcl (Tramadol Hcl) 50 Mg Tablet, 50 MG PO PRN Q6-8HRS PRN for PAIN, ( Reported) Entered as Reported by: CINTHIA STEELE on 10/26/1726 ROBIN MUNOZ MD Feb 08, 2018 10:51
[2018-02-08 10:54] VITALS: BP 140/74
--- NOTE | 2018-02-08 11:08 | PDOC ---
Renal-Progress Notes Subjective Notes Notes NONE History of Present Illness Hx of present illness STABLE Vitals Vitals Vital Signs Date Time Temp Pulse Resp B/P (MAP) Pulse Ox O2 Delivery O2 Flow Rate FiO2 02/08/18 10:54 98.9 53 24 140/74 (96) 98 Room Air 98.9 Weight Weight [ ] I.O. Intake and Output Intake and Output 02/08/18 07:00 Intake Total 0 ml Balance 0 ml Intake Oral 0 ml # Voids 3 Labs Labs Laboratory Tests Test 02/08/18 03:45 Sodium Level 132 mmol/L (136-145) Potassium Level 4.1 mmol/L (3.5-5.1) Chloride Level 101 mmol/L (98-107) Carbon Dioxide Level 19 mmol/L (21-32) Anion Gap 12 (6-14) Blood Urea Nitrogen 5 mg/dL (7-20) Creatinine 1.2 mg/dL (0.6-1.0) Estimated GFR (Cockcroft-Gault) 42.9 Glucose Level 102 mg/dL (70-99) Calcium Level 8.0 mg/dL (8.5-10.1) Phosphorus Level 3.4 mg/dL (2.6-4.7) Magnesium Level 1.7 mg/dL (1.8-2.4) Micro Micro Microbiology 02/01/18 Blood Culture - Final, Complete NO GROWTH AFTER 5 DAYS 02/01/18 Urine Culture - Final, Complete 02/01/18 Urine Culture Result 1 (BERNABE) - Final, Complete 02/01/18 Antimicrobic Susceptibility - Final, Complete Review of Systems Constitutional: yes: no symptom reported Ears/Nose/Throat: Yes: no symptom reported Eyes: Yes: no symptom reported Cardiovascular: Yes no symptom reported Gastrointestional: Yes: no symptom reported Genitourinary: Yes: no symptom reported Musculoskeletal: Yes: no symptom reported Skin: Yes no symptom reported Psychiatric/Neurological: Yes: no symptom reported Endocrine: Yes: no symptom reported Hematologic/Lymphatic: Yes: no symptom reported Physical Exam General Appearance: no apparent distress Respiratory: bilateral CTA Heart: S1S2, RRR Abdomen: soft, bowel sounds present Genitourinary: bladder flat Extremities: pulses present, atrophy Neurology: alert Assessment Assessment IMP JESSICA-RESOLVED CKD STAGE 3 WITH CR IN THE 1.6-2.0 RANGE HYPERCALCEMIA-RESOLVED DEHYDRATION LOW MG-BETTER LOW PO4-CORRECTED PLAN REPLACE MAG REPLACE MG AND PO4 LABS IN AM WILL FOLLOW MELECIO VENTURA MD Feb 08, 2018 11:08
[2018-02-08] MEDS ORDERED: MAGNESIUM SULFATE 2GM 50 ML IV ONE (12:00)
[2018-02-09] MEDS ORDERED: amLODIPine BESYLATE 5 MG TABLET PO SCH (09:00)
== END 2018-02-08 15:21 | disposition home health service (06) | DRG 871 ==
LOC: ER 07:33 → 5 SOUTH 09:45
PROVIDERS: ADMIT Internal Medicine; ATTEND Internal Medicine
DX: A41.9 Sepsis, unspecified organism (principal); N17.0 Acute kidney failure with tubular necrosis; E83.52 Hypercalcemia; E86.0 Dehydration; E83.42 Hypomagnesemia; E83.39 Other disorders of phosphorus metabolism; D69.6 Thrombocytopenia, unspecified; K21.9 Gastro-esophageal reflux disease without esophagitis; E78.00 Pure hypercholesterolemia, unspecified; E03.9 Hypothyroidism, unspecified; E78.5 Hyperlipidemia, unspecified; M19.90 Unspecified osteoarthritis, unspecified site; I12.9 Hypertensive chronic kidney disease with stage 1 through stage 4 chronic kidney disease, or unspecified chronic kidney disease; K59.00 Constipation, unspecified; Z51.5 Encounter for palliative care; B96.20 Unspecified Escherichia coli [E. coli] as the cause of diseases classified elsewhere; R62.7 Adult failure to thrive; E87.6 Hypokalemia; N18.3 Chronic kidney disease, stage 3 (moderate); Z87.440 Personal history of urinary (tract) infections; Z82.49 Family history of ischemic heart disease and other diseases of the circulatory system
CPT/HCPCS: 36415; 70450; 71045; 74176; 80048; 80053; 81001; 82962; 83605; 83735; 84100; 84443; 84484; 85007; 85025; 85610; 87040; 87086; 87186; 93005; G0480; J0690; J2405; J2543; J3370; J3475; J3490; J7030; J7040; J7512; 97116; 97530; 97535

== ENCOUNTER 2018-02-14 13:06 | Inpatient (IN) | payer MEDICARE ==
[~2018-02-14] VITALS: Ht 170.2 cm; Wt 55.1 kg
[~2018-02-14 13:06] MED LIST changes: +AMLO5TAB7 PO; +CITA10TA8 PO
[2018-02-14] MEDS ORDERED: DEXTROSE 50% 25 GM / 50ML DISP.SYRIN. IV ONE ×4 (13:45→19:00)
[2018-02-14 13:53] LABS: BASO % 1 % (0-3); EOS % 1 % (0-3); HEMATOCRIT 35.8 % (36.0-47.0); HEMOGLOBIN 11.7 g/dL (12.0-15.5); LYMPH # 1.4 x10^3/uL (1.0-4.8); LYMPH % 23 % (24-48); MEAN CORPUSCULAR HEMOGLOBIN 28 pg (25-35); MEAN CORPUSCULAR HGB CONC 33 g/dL (31-37); MEAN CORPUSCULAR VOLUME 87 fL (79-100); MONO # 0.5 x10^3/uL (0.0-1.1); MONO % 8 % (0-9); NEUT # 4.1 x10^3uL (1.8-7.7); NEUT % 68 % (31-73); PLATELET COUNT 221 x10^3/uL (140-400); RED BLOOD COUNT 4.13 x10^6/uL (3.50-5.40); RED CELL DISTRIBUTION WIDTH 17.1 % (11.5-14.5)
--- NOTE | 2018-02-14 14:08 | RAD ---
PORTABLE CHEST 1V History: WEAKNESS AND FAILURE TO THRIVE Comparison: February 01, 2018 Findings: Single view of the chest is submitted. There is no infiltrate, pneumothorax, or effusion. The pericardial cardiac silhouette is within normal limits in size. There is atherosclerotic calcification near aortic arch, somewhat tortuous thoracic aorta. Impression: 1. There is no radiographic evidence of acute cardiopulmonary disease. Electronically signed by: Arian Haney MD (02/14/2018 2:05 PM) [id number]
[2018-02-14 14:24] LABS: BILIRUBIN,URINE MODERATE (NEG); CLARITY,URINE CLOUDY; COLOR,URINE YELLOW; NITRITE,URINE NEGATIVE (NEG); PROTEIN,URINE 100 mg/dL (NEG-TRACE); UROBILINOGEN,URINE 0.2 mg/dL (0.2 mg/dL)
--- NOTE | 2018-02-14 14:36 | PHYS DOC ---
Past Medical History Past Medical History: GERD, High Cholesterol, Hypertension, Hypothyroid Past Surgical History: No Surgical History Alcohol Use: None Drug Use: None Adult General Chief Complaint Chief Complaint: WEAKNESS/GENERALIZED HPI HPI Patient is a 83 year old female who brought in from her home by EMS because of not eating for the last 2 days. Patient lives at home with her daughter and home health nurse reported that she was more confused than her usual and called 911. Patient had history of recent hospitalization about 2 weeks ago because of UTI. Patient is confused and unable to give history. Review of Systems Review of Systems Unable to obtain because of confusion Current Medications Current Medications Current Medications Medications (Trade) Dose Ordered Sig/Juliocesar Start Time Stop Time Status Last Admin Dose Admin Ceftriaxone Sodium 1 gm/ Dextrose 50 ml @ 100 mls/hr Q24H 02/14/18 15:30 UNV Ceftriaxone Sodium (Rocephin) 1 gm Q24H 02/15/18 15:00 Dextrose (Dextrose 50%-Water Syringe) 25 gm 1X ONCE 02/14/18 14:00 02/14/18 14:01 DC Allergies Allergies Allergies Coded Allergies Type Severity Reaction Last Updated Verified No Known Drug Allergies 11/02/17 No Physical Exam Physical Exam Constitutional: Mild distress, non-toxic appearance. [] HENT: Normocephalic, atraumatic, oropharynx dry, no oral exudates, nose normal. [] Eyes: PERRLA, EOMI, conjunctiva normal, no discharge. [] Neck: Normal range of motion, no tenderness, supple, no stridor. [] Cardiovascular:Heart rate regular rhythm, no murmur [] Lungs & Thorax: Bilateral breath sounds clear to auscultation [] Abdomen: Bowel sounds normal, soft, no tenderness, no masses, no pulsatile masses. [] Skin: Warm, dry, no erythema, no rash. [] Back: No tenderness, no CVA tenderness. [] Extremities: No tenderness, no cyanosis, no clubbing, ROM intact, no edema. [] Neurologic: Alert and oriented X 1, normal motor function, normal sensory function, no focal deficits noted. [] Psychologic: Affect flat Current Patient Data Vital Signs Vital Signs Date Time Temp Pulse Resp B/P (MAP) Pulse Ox O2 Delivery O2 Flow Rate FiO2 02/14/18 15:00 66 18 95 02/14/18 13:06 98.7 184/90 (121) Room Air 98.7 Lab Values Laboratory Tests Test 02/14/18 13:23 02/14/18 13:37 02/14/18 14:14 02/14/18 14:20 Glucose (Fingerstick) 50 mg/dL (70-99) L White Blood Count 6.0 x10^3/uL (4.0-11.0) Red Blood Count 4.13 x10^6/uL (3.50-5.40) Hemoglobin 11.7 g/dL (12.0-15.5) L Hematocrit 35.8 % (36.0-47.0) L Mean Corpuscular Volume 87 fL (79-100) Mean Corpuscular Hemoglobin 28 pg (25-35) Mean Corpuscular Hemoglobin Concent 33 g/dL (31-37) Red Cell Distribution Width 17.1 % (11.5-14.5) H Platelet Count 221 x10^3/uL (140-400) Neutrophils (%) (Auto) 68 % (31-73) Lymphocytes (%) (Auto) 23 % (24-48) L Monocytes (%) (Auto) 8 % (0-9) Eosinophils (%) (Auto) 1 % (0-3) Basophils (%) (Auto) 1 % (0-3) Neutrophils # (Auto) 4.1 x10^3uL (1.8-7.7) Lymphocytes # (Auto) 1.4 x10^3/uL (1.0-4.8) Monocytes # (Auto) 0.5 x10^3/uL (0.0-1.1) Eosinophils # (Auto) 0.0 x10^3/uL (0.0-0.7) Basophils # (Auto) 0.0 x10^3/uL (0.0-0.2) Lactic Acid Level 1.5 mmol/L (0.4-2.0) Urine Collection Type U cath Urine Color Yellow Urine Clarity Cloudy Urine pH 6.0 Urine Specific [place] 1.015 Urine Protein 100 mg/dL (NEG-TRACE) Urine Glucose (UA) Negative mg/dL (NEG) Urine Ketones (Stick) 40 mg/dL (NEG) Urine Blood Large (NEG) Urine Nitrite Negative (NEG) Urine Bilirubin Moderate (NEG) Urine Urobilinogen Dipstick 0.2 mg/dL (0.2 mg/dL) Urine Leukocyte Esterase Large (NEG) Urine RBC 11-20 /HPF (0-2) Urine WBC >40 /HPF (0-4) Urine Squamous Epithelial Cells Mod /LPF Urine Bacteria Moderate /HPF (0-FEW) Urine Hyaline Casts Few /HPF Urine Mucus Slight /LPF Sodium Level 135 mmol/L (136-145) L Potassium Level 3.2 mmol/L (3.5-5.1) L Chloride Level 98 mmol/L (98-107) Carbon Dioxide Level 20 mmol/L (21-32) L Anion Gap 17 (6-14) H Blood Urea Nitrogen 13 mg/dL (7-20) Creatinine 1.4 mg/dL (0.6-1.0) H Estimated GFR (Cockcroft-Gault) 35.9 BUN/Creatinine Ratio 9 (6-20) Glucose Level 234 mg/dL (70-99) H Calcium Level 10.5 mg/dL (8.5-10.1) H Magnesium Level 1.5 mg/dL (1.8-2.4) L Total Bilirubin 0.5 mg/dL (0.2-1.0) Aspartate Amino Transferase (AST) 13 U/L (15-37) L Alanine Aminotransferase (ALT) 15 U/L (14-59) Alkaline Phosphatase 65 U/L (46-116) Creatine Kinase 9 U/L (26-192) L Troponin I Quantitative < 0.017 ng/mL (0.000-0.055) KM-Ilr-F-Type Natriuretic Peptide 1893 pg/mL (0-449) H Total Protein 6.2 g/dL (6.4-8.2) L Albumin 2.5 g/dL (3.4-5.0) L Albumin/Globulin Ratio 0.7 (1.0-1.7) L Test 02/14/18 14:53 Glucose (Fingerstick) 120 mg/dL (70-99) H Laboratory Tests 02/14/18 13:37 Laboratory Tests 02/14/18 14:20 EKG EKG She was interpreted by me. EKG at 1415 showed normal sinus rhythm at rate of 66 , abnormal left axis deviation, left anterior fascicular block, poor R-wave progress in anteroseptal leads, no acute ST and T-wave abnormalities. Radiology/Procedures Radiology/Procedures [facility] [address] [place] [address] IMAGING REPORT Signed PATIENT: CÉSAR MERA ACCOUNT: [id number] : 1935 LOCATION: ER AGE: 83 SEX: F EXAM STATUS: PRE ER ORD. PHYSICIAN: FEDERICO BACON MD REASON: generalized weakness. WITH CT@13:30 PROCEDURE: PORTABLE CHEST 1V PORTABLE CHEST 1V History: WEAKNESS AND FAILURE TO THRIVE Comparison: February 01, 2018 Findings: Single view of the chest is submitted. There is no infiltrate, pneumothorax, or effusion. The pericardial cardiac silhouette is within normal limits in size. There is atherosclerotic calcification near aortic arch, somewhat tortuous thoracic aorta. Impression: 1. There is no radiographic evidence of acute cardiopulmonary disease. Electronically signed by: Devaughn Haney MD (02/14/2018 2:05 PM) [id number] DICTATED and SIGNED BY: DEVAUGHN HANEY MD DATE: 02/14/18 3100 Course & Med Decision Making Course & Med Decision Making Pertinent Labs and Imaging studies reviewed. (See chart for details) Evaluation of patient in ER showed 82-year-old female patient brought in from home because of confusion and not eating for 2 days. Patient had blood sugar of 57 by EMS and 50 in ER and treated with 1 amp of D50. At the same time lab reported blood sugar of 234 and repeat Accu-Chek was 120. Patient had UTI without elevation of lactic acid or leukocytosis. Plan to admit patient to hospitalist for treatment with IV fluid and antibiotic controlling blood sugar. Dr. Sheridan accepted admission at 1422. Dragon Disclaimer Dragon Disclaimer This electronic medical record was generated, in whole or in part, using a voice recognition dictation system. Departure Departure Impression: Primary Impression: Hypoglycemia Additional Impressions: Generalized weakness Urinary tract infection Renal insufficiency Hypokalemia Hypomagnesemia Anemia Failure to thrive in adult Disposition: 09 ADMITTED INPATIENT (at 1423) Admitting Physician: Deyvi Randle Condition: IMPROVED Referrals: IMTIAZ LIEBERMAN MD (PCP) Problem Qualifiers FEDERICO BACON MD Feb 14, 2018 14:36
[2018-02-14 14:39] LABS: CALCIUM 10.5 mg/dL (8.5-10.1); CREATININE 1.4 mg/dL (0.6-1.0); GFR 35.9; POTASSIUM 3.2 mmol/L (3.5-5.1)
[2018-02-14 14:45] LABS: ALBUMIN 2.5 g/dL (3.4-5.0); ALBUMIN/GLOBULIN RATIO 0.7 (1.0-1.7); MAGNESIUM 1.5 mg/dL (1.8-2.4); TOTAL BILIRUBIN 0.5 mg/dL (0.2-1.0); TOTAL PROTEIN 6.2 g/dL (6.4-8.2)
[2018-02-14 15:06] LABS: BACTERIA,URINE MODERATE /HPF (0-FEW); HYALINE CASTS, URINE FEW /HPF; SQUAMOUS EPITHELIAL CELL,UR MOD /LPF; WBC,URINE >40 /HPF (0-4)
--- NOTE | 2018-02-14 15:22 | EKG ---
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
[2018-02-14 16:00] VITALS: BP 141/73
[2018-02-14] MEDS ORDERED: traMADol 50 MG TABLET PO PRN (18:45)
[2018-02-14 19:00] VITALS: BP 141/61
[2018-02-14] MEDS: IV DEXTROSE 5% - 0.9 % NACL 1,000 ML IV SCH (19:19)
[2018-02-14] MEDS: ATORVASTATIN CALCIUM 10 MG TABLET. PO SCH (21:00)
--- NOTE | 2018-02-14 22:31 | PDOC1 ---
History and Physical Date of Admission Date of Admission DATE: 02/14/18 TIME: 22:30 Identification/Chief Complaint Chief Complaint CC SEEN IN ER 83 year old female who brought in from her home by EMS because of not eating for the last 2 days. lives at home with her daughter and home health nurse reported that she was more confused than her usual and called 911. history of recent hospitalization about 2 weeks ago WITH UTI. Past Medical History Past Medical History Past Medical History Cardiovascular: HTN, Hyperlipidemia Pulmonary: No pertinent hx Renal/: Other Endocrine: Hypothyroidism Past Surgical History Past Surgical History: No pertinent history Family History Family History: Hypertension Social History Smoke: No ALCOHOL: none Drugs: None Cardiovascular: HTN, Hyperlipidemia Pulmonary: No pertinent hx Renal/: Other Endocrine: Hypothyroidism Past Surgical History Past Surgical History: No pertinent history Family History Family History: Hypertension Social History Smoke: No ALCOHOL: none Drugs: None Current Problem List Problem List Problems Medical Problems: (1) Anemia Status: Acute (2) Failure to thrive in adult Status: Acute (3) Hypokalemia Status: Acute (4) Hypomagnesemia Status: Acute (5) Renal insufficiency Status: Acute (6) Urinary tract infection Status: Acute Current Medications Current Medications Current Medications Dextrose (Dextrose 50%-Water Syringe) 25 gm 1X ONCE IV Last administered on at 13:41; Start 02/14/18 at 13:45; Stop 02/14/18 at 13:46; Status DC Dextrose (Dextrose 50%-Water Syringe) 25 gm 1X ONCE IV ; Start 02/14/18 at 14: 00; Stop 02/14/18 at 14:01; Status DC Ceftriaxone Sodium 1 gm/ Dextrose 50 ml @ 100 mls/hr Q24H IV ; Start 02/14/18 at 15:30; Status UNV Ceftriaxone Sodium 50 ml @ 100 mls/hr 1X ONCE IV ; Start 02/14/18 at 15:30; Stop 02/14/18 at 15:59; Status DC Ceftriaxone Sodium (Rocephin) 1 gm Q24H IVP ; Start 02/15/18 at 15:00 Dextrose (Dextrose 50%-Water Syringe) 25 gm STK-MED ONCE IV ; Start 02/14/18 at 18:18; Stop 02/14/18 at 18:19; Status DC Amlodipine Besylate (Norvasc) 10 mg DAILY PO ; Start 02/15/18 at 09:00 Citalopram Hydrobromide (CeleXA) 10 mg DAILY PO ; Start 02/15/18 at 09:00 Levothyroxine Sodium (Synthroid) 100 mcg DAILY07 PO ; Start 02/15/18 at 07:00 Lisinopril (Prinivil) 40 mg DAILY PO ; Start 02/15/18 at 09:00 Prednisone (Prednisone) 10 mg DAILY PO ; Start 02/15/18 at 09:00 Tramadol HCl (Ultram) 50 mg PRN Q8HRS PRN PO PAIN; Start 02/14/18 at 18:45 Atorvastatin Calcium (Lipitor) 10 mg QHS PO ; Start 02/14/18 at 21:00 Pantoprazole Sodium (Protonix) 40 mg DAILYAC PO ; Start 02/15/18 at 07:30 Ondansetron HCl (Zofran) 4 mg PRN Q6HRS PRN IV NAUSEA/VOMITING; Start 02/14/18 at 19:00 Dextrose/Sodium Chloride 1,000 ml @ 80 mls/hr [id number] IV Last administered on 02/14/18at 19:19; Start 02/14/18 at 19:30 Dextrose (Dextrose 50%-Water Syringe) 25 gm 1X ONCE IV Last administered on at 19:18; Start 02/14/18 at 19:00; Stop 02/14/18 at 19:01; Status DC Active Scripts Active Celexa (Citalopram Hydrobromide) 10 Mg Tablet 10 Mg PO DAILY 30 Days Amlodipine Besylate 5 Mg Tablet 10 Mg PO DAILY 30 Days Reported Omeprazole 40 Mg Capsule.dr 1 Cap PO DAILY Prednisone 20 Mg Tablet 10 Mg PO DAILY Lisinopril 40 Mg Tablet 1 Tab PO DAILY Levothyroxine Sodium 100 Mcg Tablet 1 Tab PO DAILY Lovastatin 40 Mg Tablet 40 Mg PO HS Tramadol Hcl 50 Mg Tablet 50 Mg PO PRN Q6-8HRS PRN Allergies Allergies: Coded Allergies: No Known Drug Allergies (Unverified , 11/02/17) ROS Review of System 14 PT ROS OTHERWISE NEG General: YES: Fatigue, Malaise PSYCHOLOGICAL ROS: YES: Concentration difficultie, Depression, Disorientation, Memory difficulties Eyes: No Blurry vision, No Decreased vision, No Double vision, No Dry eyes, No Excessive tearing, No Eye Pain, No Itchy Eyes, No Loss of vision, No Photophobia , No Scotomata, No Uses contacts, No Uses glasses, No Other HEENT: No: Heacaches, Visual Changes, Hearing change, Nasal congestion, Nasal discharge, Oral lesions, Sinus pain, Sore Throat, Epistaxis, Sneezing, Snoring, Tinnitus, Vertigo, Vocal changes, Other Respiratory: No: Cough, Hemoptysis, Orthopnea, Pleuritic Pain, Shortness of breath, SOB with excertion, Sputum Changes, Stridor, Tachypnea, Wheezing, Other Cardiovascular: No Chest Pain, No Palpitations, No Orthopnea, No Paroxysmal Noc. Dyspnea, No Edema, No Lt Headedness, No Other Gastrointestinal: No Nausea, No Vomiting, No Abdominal Pain, No Diarrhea, No Constipation, No Melena, No Hematochezia, No Other Genitourinary: YES Dysuria Musculoskeletal: Yes Joint Stiffness Neurological: Yes Confusion Skin: No Dry Skin, No Eczema, No Hair Changes, No Lumps, No Mole Changes, No Mottling, No Nail Changes, No Pruritus, No Rash, No Skin Lesion Changes, No Other, No Acne Physical Exam General: Cooperative, moderate distress HEENT: Atraumatic, EOMI Lungs: Normal air movement Heart: S1S2 Breasts: Not examined Rectal Exam: not examined Extremities: No clubbing, No cyanosis Neuro: Sensation intact, Cranial nerves 3-12 NL Vitals Vitals Vital Signs Date Time Temp Pulse Resp B/P (MAP) Pulse Ox O2 Delivery O2 Flow Rate FiO2 02/14/18 20:00 Room Air 02/14/18 19:00 98.4 78 18 141/61 (87) 94 98.4 Labs Labs Laboratory Tests Test 02/14/18 13:23 02/14/18 13:37 02/14/18 14:14 02/14/18 14:20 Glucose (Fingerstick) 50 mg/dL (70-99) White Blood Count 6.0 x10^3/uL (4.0-11.0) Red Blood Count 4.13 x10^6/uL (3.50-5.40) Hemoglobin 11.7 g/dL (12.0-15.5) Hematocrit 35.8 % (36.0-47.0) Mean Corpuscular Volume 87 fL (79-100) Mean Corpuscular Hemoglobin 28 pg (25-35) Mean Corpuscular Hemoglobin Concent 33 g/dL (31-37) Red Cell Distribution Width 17.1 % (11.5-14.5) Platelet Count 221 x10^3/uL (140-400) Neutrophils (%) (Auto) 68 % (31-73) Lymphocytes (%) (Auto) 23 % (24-48) Monocytes (%) (Auto) 8 % (0-9) Eosinophils (%) (Auto) 1 % (0-3) Basophils (%) (Auto) 1 % (0-3) Neutrophils # (Auto) 4.1 x10^3uL (1.8-7.7) Lymphocytes # (Auto) 1.4 x10^3/uL (1.0-4.8) Monocytes # (Auto) 0.5 x10^3/uL (0.0-1.1) Eosinophils # (Auto) 0.0 x10^3/uL (0.0-0.7) Basophils # (Auto) 0.0 x10^3/uL (0.0-0.2) Lactic Acid Level 1.5 mmol/L (0.4-2.0) Urine Collection Type U cath Urine Color Yellow Urine Clarity Cloudy Urine pH 6.0 Urine Specific [place] 1.015 Urine Protein 100 mg/dL (NEG-TRACE) Urine Glucose (UA) Negative mg/dL (NEG) Urine Ketones (Stick) 40 mg/dL (NEG) Urine Blood Large (NEG) Urine Nitrite Negative (NEG) Urine Bilirubin Moderate (NEG) Urine Urobilinogen Dipstick 0.2 mg/dL (0.2 mg/dL) Urine Leukocyte Esterase Large (NEG) Urine RBC 11-20 /HPF (0-2) Urine WBC >40 /HPF (0-4) Urine Squamous Epithelial Cells Mod /LPF Urine Bacteria Moderate /HPF (0-FEW) Urine Hyaline Casts Few /HPF Urine Mucus Slight /LPF Sodium Level 135 mmol/L (136-145) Potassium Level 3.2 mmol/L (3.5-5.1) Chloride Level 98 mmol/L (98-107) Carbon Dioxide Level 20 mmol/L (21-32) Anion Gap 17 (6-14) Blood Urea Nitrogen 13 mg/dL (7-20) Creatinine 1.4 mg/dL (0.6-1.0) Estimated GFR (Cockcroft-Gault) 35.9 BUN/Creatinine Ratio 9 (6-20) Glucose Level 234 mg/dL (70-99) Calcium Level 10.5 mg/dL (8.5-10.1) Magnesium Level 1.5 mg/dL (1.8-2.4) Total Bilirubin 0.5 mg/dL (0.2-1.0) Aspartate Amino Transf (AST/SGOT) 13 U/L (15-37) Alanine Aminotransferase (ALT/SGPT) 15 U/L (14-59) Alkaline Phosphatase 65 U/L (46-116) Creatine Kinase 9 U/L (26-192) Troponin I Quantitative < 0.017 ng/mL (0.000-0.055) BP-Tnx-O-Type Natriuretic Peptide 1893 pg/mL (0-449) Total Protein 6.2 g/dL (6.4-8.2) Albumin 2.5 g/dL (3.4-5.0) Albumin/Globulin Ratio 0.7 (1.0-1.7) Test 02/14/18 14:53 02/14/18 18:09 02/14/18 18:41 02/14/18 20:18 Glucose (Fingerstick) 120 mg/dL (70-99) 67 mg/dL (70-99) 187 mg/dL (70-99) 141 mg/dL (70-99) Laboratory Tests Test 02/14/18 13:23 02/14/18 13:37 02/14/18 14:14 02/14/18 14:20 Glucose (Fingerstick) 50 mg/dL (70-99) White Blood Count 6.0 x10^3/uL (4.0-11.0) Red Blood Count 4.13 x10^6/uL (3.50-5.40) Hemoglobin 11.7 g/dL (12.0-15.5) Hematocrit 35.8 % (36.0-47.0) Mean Corpuscular Volume 87 fL (79-100) Mean Corpuscular Hemoglobin 28 pg (25-35) Mean Corpuscular Hemoglobin Concent 33 g/dL (31-37) Red Cell Distribution Width 17.1 % (11.5-14.5) Platelet Count 221 x10^3/uL (140-400) Neutrophils (%) (Auto) 68 % (31-73) Lymphocytes (%) (Auto) 23 % (24-48) Monocytes (%) (Auto) 8 % (0-9) Eosinophils (%) (Auto) 1 % (0-3) Basophils (%) (Auto) 1 % (0-3) Neutrophils # (Auto) 4.1 x10^3uL (1.8-7.7) Lymphocytes # (Auto) 1.4 x10^3/uL (1.0-4.8) Monocytes # (Auto) 0.5 x10^3/uL (0.0-1.1) Eosinophils # (Auto) 0.0 x10^3/uL (0.0-0.7) Basophils # (Auto) 0.0 x10^3/uL (0.0-0.2) Lactic Acid Level 1.5 mmol/L (0.4-2.0) Urine Collection Type U cath Urine Color Yellow Urine Clarity Cloudy Urine pH 6.0 Urine Specific [place] 1.015 Urine Protein 100 mg/dL (NEG-TRACE) Urine Glucose (UA) Negative mg/dL (NEG) Urine Ketones (Stick) 40 mg/dL (NEG) Urine Blood Large (NEG) Urine Nitrite Negative (NEG) Urine Bilirubin Moderate (NEG) Urine Urobilinogen Dipstick 0.2 mg/dL (0.2 mg/dL) Urine Leukocyte Esterase Large (NEG) Urine RBC 11-20 /HPF (0-2) Urine WBC >40 /HPF (0-4) Urine Squamous Epithelial Cells Mod /LPF Urine Bacteria Moderate /HPF (0-FEW) Urine Hyaline Casts Few /HPF Urine Mucus Slight /LPF Sodium Level 135 mmol/L (136-145) Potassium Level 3.2 mmol/L (3.5-5.1) Chloride Level 98 mmol/L (98-107) Carbon Dioxide Level 20 mmol/L (21-32) Anion Gap 17 (6-14) Blood Urea Nitrogen 13 mg/dL (7-20) Creatinine 1.4 mg/dL (0.6-1.0) Estimated GFR (Cockcroft-Gault) 35.9 BUN/Creatinine Ratio 9 (6-20) Glucose Level 234 mg/dL (70-99) Calcium Level 10.5 mg/dL (8.5-10.1) Magnesium Level 1.5 mg/dL (1.8-2.4) Total Bilirubin 0.5 mg/dL (0.2-1.0) Aspartate Amino Transf (AST/SGOT) 13 U/L (15-37) Alanine Aminotransferase (ALT/SGPT) 15 U/L (14-59) Alkaline Phosphatase 65 U/L (46-116) Creatine Kinase 9 U/L (26-192) Troponin I Quantitative < 0.017 ng/mL (0.000-0.055) OA-Obm-H-Type Natriuretic Peptide 1893 pg/mL (0-449) Total Protein 6.2 g/dL (6.4-8.2) Albumin 2.5 g/dL (3.4-5.0) Albumin/Globulin Ratio 0.7 (1.0-1.7) Test 02/14/18 14:53 02/14/18 18:09 02/14/18 18:41 02/14/18 20:18 Glucose (Fingerstick) 120 mg/dL (70-99) 67 mg/dL (70-99) 187 mg/dL (70-99) 141 mg/dL (70-99) VTE Prophylaxis Ordered VTE Prophylaxis Devices: No VTE Pharmacological Prophylaxi: Yes Assessment/Plan Assessment/Plan Admitting Diagnosis impression======= HYPOKALEMIA MALNUTRITION, MOD hypotension, volume depleted e coli UTI sepsis, recent JESSICA, vasomotor, ATN htn, controlled hld gerd hypothyroidism h/o left hydro - s/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
[2018-02-14 22:57] VITALS: BP 150/77
[2018-02-15 02:47] VITALS: BP 134/60
[2018-02-15 07:00] VITALS: BP 149/77
[2018-02-15] MEDS: IV DEXTROSE 5% - 0.9 % NACL 1,000 ML IV SCH ×2 (08:00→20:11)
--- NOTE | 2018-02-15 09:14 | PDOC ---
PROGRESS NOTES Chief Complaint Chief Complaint hypokalemia, hypomag, MALNUTRITION, MOD hypotension, volume depleted e coli UTI sepsis, recent JESSICA, vasomotor, ATN htn, controlled hld gerd hypothyroidism h/o left hydro - s/p stent left renal pelvis and removal generalized weakness failure to thrive History of Present Illness History of Present Illness iv fluid support pt and ot and snu cont abx potasssium, and mag SQ LOVENOX DVT PROPHYLAXIS Vitals Vitals Vital Signs Date Time Temp Pulse Resp B/P (MAP) Pulse Ox O2 Delivery O2 Flow Rate FiO2 02/15/18 07:00 97.7 75 16 149/77 (101) 96 Room Air 97.7 Physical Exam General: Alert, Cooperative, No acute distress, Other (not oriented) Heart: Regular rate, No murmurs Lungs: Clear Abdomen: Normal bowel sounds Extremities: No clubbing, No cyanosis Skin: No rashes Labs LABS Laboratory Tests Test 02/14/18 13:23 02/14/18 13:37 02/14/18 14:14 02/14/18 14:20 Glucose (Fingerstick) 50 mg/dL (70-99) White Blood Count 6.0 x10^3/uL (4.0-11.0) Red Blood Count 4.13 x10^6/uL (3.50-5.40) Hemoglobin 11.7 g/dL (12.0-15.5) Hematocrit 35.8 % (36.0-47.0) Mean Corpuscular Volume 87 fL (79-100) Mean Corpuscular Hemoglobin 28 pg (25-35) Mean Corpuscular Hemoglobin Concent 33 g/dL (31-37) Red Cell Distribution Width 17.1 % (11.5-14.5) Platelet Count 221 x10^3/uL (140-400) Neutrophils (%) (Auto) 68 % (31-73) Lymphocytes (%) (Auto) 23 % (24-48) Monocytes (%) (Auto) 8 % (0-9) Eosinophils (%) (Auto) 1 % (0-3) Basophils (%) (Auto) 1 % (0-3) Neutrophils # (Auto) 4.1 x10^3uL (1.8-7.7) Lymphocytes # (Auto) 1.4 x10^3/uL (1.0-4.8) Monocytes # (Auto) 0.5 x10^3/uL (0.0-1.1) Eosinophils # (Auto) 0.0 x10^3/uL (0.0-0.7) Basophils # (Auto) 0.0 x10^3/uL (0.0-0.2) Lactic Acid Level 1.5 mmol/L (0.4-2.0) Urine Collection Type U cath Urine Color Yellow Urine Clarity Cloudy Urine pH 6.0 Urine Specific [place] 1.015 Urine Protein 100 mg/dL (NEG-TRACE) Urine Glucose (UA) Negative mg/dL (NEG) Urine Ketones (Stick) 40 mg/dL (NEG) Urine Blood Large (NEG) Urine Nitrite Negative (NEG) Urine Bilirubin Moderate (NEG) Urine Urobilinogen Dipstick 0.2 mg/dL (0.2 mg/dL) Urine Leukocyte Esterase Large (NEG) Urine RBC 11-20 /HPF (0-2) Urine WBC >40 /HPF (0-4) Urine Squamous Epithelial Cells Mod /LPF Urine Bacteria Moderate /HPF (0-FEW) Urine Hyaline Casts Few /HPF Urine Mucus Slight /LPF Sodium Level 135 mmol/L (136-145) Potassium Level 3.2 mmol/L (3.5-5.1) Chloride Level 98 mmol/L (98-107) Carbon Dioxide Level 20 mmol/L (21-32) Anion Gap 17 (6-14) Blood Urea Nitrogen 13 mg/dL (7-20) Creatinine 1.4 mg/dL (0.6-1.0) Estimated GFR (Cockcroft-Gault) 35.9 BUN/Creatinine Ratio 9 (6-20) Glucose Level 234 mg/dL (70-99) Calcium Level 10.5 mg/dL (8.5-10.1) Magnesium Level 1.5 mg/dL (1.8-2.4) Total Bilirubin 0.5 mg/dL (0.2-1.0) Aspartate Amino Transf (AST/SGOT) 13 U/L (15-37) Alanine Aminotransferase (ALT/SGPT) 15 U/L (14-59) Alkaline Phosphatase 65 U/L (46-116) Creatine Kinase 9 U/L (26-192) Troponin I Quantitative < 0.017 ng/mL (0.000-0.055) VO-Ngu-S-Type Natriuretic Peptide 1893 pg/mL (0-449) Total Protein 6.2 g/dL (6.4-8.2) Albumin 2.5 g/dL (3.4-5.0) Albumin/Globulin Ratio 0.7 (1.0-1.7) Test 02/14/18 14:53 02/14/18 18:09 02/14/18 18:41 02/14/18 20:18 Glucose (Fingerstick) 120 mg/dL (70-99) 67 mg/dL (70-99) 187 mg/dL (70-99) 141 mg/dL (70-99) Test 02/15/18 07:18 Glucose (Fingerstick) 153 mg/dL (70-99) Assessment and Plan Assessmemt and Plan Problems Medical Problems: (1) Anemia Status: Acute (2) Failure to thrive in adult Status: Acute (3) Hypokalemia Status: Acute (4) Hypomagnesemia Status: Acute (5) Renal insufficiency Status: Acute (6) Urinary tract infection Status: Acute Comment Review of Relevant I have reviewed the following items harry (where applicable) has been applied. Labs Laboratory Tests Test 02/14/18 13:23 02/14/18 13:37 02/14/18 14:14 02/14/18 14:20 Glucose (Fingerstick) 50 mg/dL (70-99) White Blood Count 6.0 x10^3/uL (4.0-11.0) Red Blood Count 4.13 x10^6/uL (3.50-5.40) Hemoglobin 11.7 g/dL (12.0-15.5) Hematocrit 35.8 % (36.0-47.0) Mean Corpuscular Volume 87 fL (79-100) Mean Corpuscular Hemoglobin 28 pg (25-35) Mean Corpuscular Hemoglobin Concent 33 g/dL (31-37) Red Cell Distribution Width 17.1 % (11.5-14.5) Platelet Count 221 x10^3/uL (140-400) Neutrophils (%) (Auto) 68 % (31-73) Lymphocytes (%) (Auto) 23 % (24-48) Monocytes (%) (Auto) 8 % (0-9) Eosinophils (%) (Auto) 1 % (0-3) Basophils (%) (Auto) 1 % (0-3) Neutrophils # (Auto) 4.1 x10^3uL (1.8-7.7) Lymphocytes # (Auto) 1.4 x10^3/uL (1.0-4.8) Monocytes # (Auto) 0.5 x10^3/uL (0.0-1.1) Eosinophils # (Auto) 0.0 x10^3/uL (0.0-0.7) Basophils # (Auto) 0.0 x10^3/uL (0.0-0.2) Lactic Acid Level 1.5 mmol/L (0.4-2.0) Urine Collection Type U cath Urine Color Yellow Urine Clarity Cloudy Urine pH 6.0 Urine Specific [place] 1.015 Urine Protein 100 mg/dL (NEG-TRACE) Urine Glucose (UA) Negative mg/dL (NEG) Urine Ketones (Stick) 40 mg/dL (NEG) Urine Blood Large (NEG) Urine Nitrite Negative (NEG) Urine Bilirubin Moderate (NEG) Urine Urobilinogen Dipstick 0.2 mg/dL (0.2 mg/dL) Urine Leukocyte Esterase Large (NEG) Urine RBC 11-20 /HPF (0-2) Urine WBC >40 /HPF (0-4) Urine Squamous Epithelial Cells Mod /LPF Urine Bacteria Moderate /HPF (0-FEW) Urine Hyaline Casts Few /HPF Urine Mucus Slight /LPF Sodium Level 135 mmol/L (136-145) Potassium Level 3.2 mmol/L (3.5-5.1) Chloride Level 98 mmol/L (98-107) Carbon Dioxide Level 20 mmol/L (21-32) Anion Gap 17 (6-14) Blood Urea Nitrogen 13 mg/dL (7-20) Creatinine 1.4 mg/dL (0.6-1.0) Estimated GFR (Cockcroft-Gault) 35.9 BUN/Creatinine Ratio 9 (6-20) Glucose Level 234 mg/dL (70-99) Calcium Level 10.5 mg/dL (8.5-10.1) Magnesium Level 1.5 mg/dL (1.8-2.4) Total Bilirubin 0.5 mg/dL (0.2-1.0) Aspartate Amino Transf (AST/SGOT) 13 U/L (15-37) Alanine Aminotransferase (ALT/SGPT) 15 U/L (14-59) Alkaline Phosphatase 65 U/L (46-116) Creatine Kinase 9 U/L (26-192) Troponin I Quantitative < 0.017 ng/mL (0.000-0.055) DQ-Sot-F-Type Natriuretic Peptide 1893 pg/mL (0-449) Total Protein 6.2 g/dL (6.4-8.2) Albumin 2.5 g/dL (3.4-5.0) Albumin/Globulin Ratio 0.7 (1.0-1.7) Test 02/14/18 14:53 02/14/18 18:09 02/14/18 18:41 02/14/18 20:18 Glucose (Fingerstick) 120 mg/dL (70-99) 67 mg/dL (70-99) 187 mg/dL (70-99) 141 mg/dL (70-99) Test 02/15/18 07:18 Glucose (Fingerstick) 153 mg/dL (70-99) Laboratory Tests Test 02/14/18 13:23 02/14/18 13:37 02/14/18 14:14 02/14/18 14:20 Glucose (Fingerstick) 50 mg/dL (70-99) White Blood Count 6.0 x10^3/uL (4.0-11.0) Red Blood Count 4.13 x10^6/uL (3.50-5.40) Hemoglobin 11.7 g/dL (12.0-15.5) Hematocrit 35.8 % (36.0-47.0) Mean Corpuscular Volume 87 fL (79-100) Mean Corpuscular Hemoglobin 28 pg (25-35) Mean Corpuscular Hemoglobin Concent 33 g/dL (31-37) Red Cell Distribution Width 17.1 % (11.5-14.5) Platelet Count 221 x10^3/uL (140-400) Neutrophils (%) (Auto) 68 % (31-73) Lymphocytes (%) (Auto) 23 % (24-48) Monocytes (%) (Auto) 8 % (0-9) Eosinophils (%) (Auto) 1 % (0-3) Basophils (%) (Auto) 1 % (0-3) Neutrophils # (Auto) 4.1 x10^3uL (1.8-7.7) Lymphocytes # (Auto) 1.4 x10^3/uL (1.0-4.8) Monocytes # (Auto) 0.5 x10^3/uL (0.0-1.1) Eosinophils # (Auto) 0.0 x10^3/uL (0.0-0.7) Basophils # (Auto) 0.0 x10^3/uL (0.0-0.2) Lactic Acid Level 1.5 mmol/L (0.4-2.0) Urine Collection Type U cath Urine Color Yellow Urine Clarity Cloudy Urine pH 6.0 Urine Specific [place] 1.015 Urine Protein 100 mg/dL (NEG-TRACE) Urine Glucose (UA) Negative mg/dL (NEG) Urine Ketones (Stick) 40 mg/dL (NEG) Urine Blood Large (NEG) Urine Nitrite Negative (NEG) Urine Bilirubin Moderate (NEG) Urine Urobilinogen Dipstick 0.2 mg/dL (0.2 mg/dL) Urine Leukocyte Esterase Large (NEG) Urine RBC 11-20 /HPF (0-2) Urine WBC >40 /HPF (0-4) Urine Squamous Epithelial Cells Mod /LPF Urine Bacteria Moderate /HPF (0-FEW) Urine Hyaline Casts Few /HPF Urine Mucus Slight /LPF Sodium Level 135 mmol/L (136-145) Potassium Level 3.2 mmol/L (3.5-5.1) Chloride Level 98 mmol/L (98-107) Carbon Dioxide Level 20 mmol/L (21-32) Anion Gap 17 (6-14) Blood Urea Nitrogen 13 mg/dL (7-20) Creatinine 1.4 mg/dL (0.6-1.0) Estimated GFR (Cockcroft-Gault) 35.9 BUN/Creatinine Ratio 9 (6-20) Glucose Level 234 mg/dL (70-99) Calcium Level 10.5 mg/dL (8.5-10.1) Magnesium Level 1.5 mg/dL (1.8-2.4) Total Bilirubin 0.5 mg/dL (0.2-1.0) Aspartate Amino Transf (AST/SGOT) 13 U/L (15-37) Alanine Aminotransferase (ALT/SGPT) 15 U/L (14-59) Alkaline Phosphatase 65 U/L (46-116) Creatine Kinase 9 U/L (26-192) Troponin I Quantitative < 0.017 ng/mL (0.000-0.055) YS-Afp-G-Type Natriuretic Peptide 1893 pg/mL (0-449) Total Protein 6.2 g/dL (6.4-8.2) Albumin 2.5 g/dL (3.4-5.0) Albumin/Globulin Ratio 0.7 (1.0-1.7) Test 02/14/18 14:53 02/14/18 18:09 02/14/18 18:41 02/14/18 20:18 Glucose (Fingerstick) 120 mg/dL (70-99) 67 mg/dL (70-99) 187 mg/dL (70-99) 141 mg/dL (70-99) Test 02/15/18 07:18 Glucose (Fingerstick) 153 mg/dL (70-99) Medications Current Medications Dextrose (Dextrose 50%-Water Syringe) 25 gm 1X ONCE IV Last administered on at 13:41; Start 02/14/18 at 13:45; Stop 02/14/18 at 13:46; Status DC Dextrose (Dextrose 50%-Water Syringe) 25 gm 1X ONCE IV ; Start 02/14/18 at 14: 00; Stop 02/14/18 at 14:01; Status DC Ceftriaxone Sodium 1 gm/ Dextrose 50 ml @ 100 mls/hr Q24H IV ; Start 02/14/18 at 15:30; Status UNV Ceftriaxone Sodium 50 ml @ 100 mls/hr 1X ONCE IV ; Start 02/14/18 at 15:30; Stop 02/14/18 at 15:59; Status DC Ceftriaxone Sodium (Rocephin) 1 gm Q24H IVP ; Start 02/15/18 at 15:00 Dextrose (Dextrose 50%-Water Syringe) 25 gm STK-MED ONCE IV ; Start 02/14/18 at 18:18; Stop 02/14/18 at 18:19; Status DC Amlodipine Besylate (Norvasc) 10 mg DAILY PO ; Start 02/15/18 at 09:00 Citalopram Hydrobromide (CeleXA) 10 mg DAILY PO ; Start 02/15/18 at 09:00 Levothyroxine Sodium (Synthroid) 100 mcg DAILY07 PO ; Start 02/15/18 at 07:00 Lisinopril (Prinivil) 40 mg DAILY PO ; Start 02/15/18 at 09:00 Prednisone (Prednisone) 10 mg DAILY PO ; Start 02/15/18 at 09:00 Tramadol HCl (Ultram) 50 mg PRN Q8HRS PRN PO PAIN; Start 02/14/18 at 18:45 Atorvastatin Calcium (Lipitor) 10 mg QHS PO ; Start 02/14/18 at 21:00 Pantoprazole Sodium (Protonix) 40 mg DAILYAC PO ; Start 02/15/18 at 07:30 Ondansetron HCl (Zofran) 4 mg PRN Q6HRS PRN IV NAUSEA/VOMITING; Start 02/14/18 at 19:00 Dextrose/Sodium Chloride 1,000 ml @ 80 mls/hr [id number] IV Last administered on 02/14/18at 19:19; Start 02/14/18 at 19:30 Dextrose (Dextrose 50%-Water Syringe) 25 gm 1X ONCE IV Last administered on at 19:18; Start 02/14/18 at 19:00; Stop 02/14/18 at 19:01; Status DC Potassium Chloride (Klor-Con) 40 meq 1X ONCE PO ; Start 02/15/18 at 09:15; Stop 02/15/18 at 09:16 Magnesium Sulfate 50 ml @ 25 mls/hr 1X ONCE IV ; Start 02/15/18 at 09:15; Stop 02/15/18 at 11:14 Active Scripts Active Celexa (Citalopram Hydrobromide) 10 Mg Tablet 10 Mg PO DAILY 30 Days Amlodipine Besylate 5 Mg Tablet 10 Mg PO DAILY 30 Days Reported Omeprazole 40 Mg Capsule.dr 1 Cap PO DAILY Prednisone 20 Mg Tablet 10 Mg PO DAILY Lisinopril 40 Mg Tablet 1 Tab PO DAILY Levothyroxine Sodium 100 Mcg Tablet 1 Tab PO DAILY Lovastatin 40 Mg Tablet 40 Mg PO HS Tramadol Hcl 50 Mg Tablet 50 Mg PO PRN Q6-8HRS PRN Vitals/I & O Vital Sign - Last 24 Hours 02/14/18 02/14/18 02/14/18 02/14/18 13:06 14:00 15:00 16:00 Temp 98.7 98.1 98.7 98.1 Pulse 66 60 66 117 Resp 20 18 18 20 B/P (MAP) 184/90 (121) 141/73 (95) Pulse Ox 96 95 95 97 O2 Delivery Room Air Room Air 02/14/18 02/14/18 02/14/18 02/14/18 16:50 19:00 20:00 22:57 Temp 98.4 98.8 98.4 98.8 Pulse 78 77 Resp 18 18 B/P (MAP) 141/61 (87) 150/77 (101) Pulse Ox 94 96 O2 Delivery Room Air Room Air Room Air Room Air 02/15/18 02/15/18 02:47 07:00 Temp 99.2 97.7 99.2 97.7 Pulse 75 75 Resp 18 16 B/P (MAP) 134/60 (84) 149/77 (101) Pulse Ox 94 96 O2 Delivery Room Air Room Air HUMBERTO ANDERSON MD Feb 15, 2018 09:14
[2018-02-15] MEDS ORDERED: MAGNESIUM SULFATE 2GM 50 ML IV ONE (09:15)
[2018-02-15] MEDS ORDERED: POTASSIUM CHLORIDE 20 MEQ TABLET.ER. PO ONE ×3 (09:15→17:00)
[2018-02-15] MEDS: predniSONE 10 MG TABLET PO SCH (10:20)
[2018-02-15] MEDS: PANTOPRAZOLE 40 MG TABLET.DR. PO SCH (10:20)
[2018-02-15] MEDS: amLODIPine BESYLATE 10 MG TABLET PO SCH (10:20)
[2018-02-15] MEDS: CITALOPRAM 10 MG TABLET. PO SCH (10:20)
[2018-02-15] MEDS: LEVOTHYROXINE 100 MCG TABLET PO SCH (10:21)
[2018-02-15] MEDS: LISINOPRIL 20 MG TABLET PO SCH (10:22)
[2018-02-15 10:50] LABS: BASO % 0 % (0-3); EOS % 1 % (0-3); HEMATOCRIT 29.4 % (36.0-47.0); HEMOGLOBIN 10.1 g/dL (12.0-15.5); LYMPH % 17 % (24-48); MEAN CORPUSCULAR HEMOGLOBIN 29 pg (25-35); MEAN CORPUSCULAR HGB CONC 34 g/dL (31-37); MEAN CORPUSCULAR VOLUME 86 fL (79-100); MONO # 0.7 x10^3/uL (0.0-1.1); MONO % 12 % (0-9); NEUT # 3.9 x10^3uL (1.8-7.7); NEUT % 70 % (31-73); PLATELET COUNT 170 x10^3/uL (140-400); RED BLOOD COUNT 3.42 x10^6/uL (3.50-5.40); RED CELL DISTRIBUTION WIDTH 16.7 % (11.5-14.5); WHITE BLOOD COUNT 5.6 x10^3/uL (4.0-11.0)
[2018-02-15 11:00] VITALS: BP 159/81
[2018-02-15 11:15] LABS: CALCIUM 9.9 mg/dL (8.5-10.1); CREATININE 1.4 mg/dL (0.6-1.0); GFR 35.9
[2018-02-15 11:18] LABS: POTASSIUM 2.9 mmol/L (3.5-5.1)
[2018-02-15] MEDS: cefTRIAXone IV Push 1 GM VIAL. IVP SCH (13:54)
[2018-02-15 15:00] VITALS: BP 144/72
[2018-02-15 19:00] VITALS: BP 160/87
[2018-02-15] MEDS: ONDANSETRON PF 4 MG/2 ML VIAL. IV PRN (20:11)
[2018-02-15] MEDS: LACTOBACILLUS RHAMNOSUS GG 1 CAPSULE. PO SCH (20:53)
[2018-02-15] MEDS: ATORVASTATIN CALCIUM 10 MG TABLET. PO SCH (20:56)
[2018-02-15 23:00] VITALS: BP 155/81
[2018-02-16 03:00] VITALS: BP 157/73
[2018-02-16] MEDS: LEVOTHYROXINE 100 MCG TABLET PO SCH (06:06)
[2018-02-16 07:00] VITALS: BP 135/76
[2018-02-16] MEDS ORDERED: POTASSIUM CHLORIDE 20 MEQ TABLET.ER. PO SCH (08:00)
[2018-02-16] MEDS: CITALOPRAM 10 MG TABLET. PO SCH (08:13)
[2018-02-16] MEDS: LACTOBACILLUS RHAMNOSUS GG 1 CAPSULE. PO SCH ×2 (08:13→21:22)
[2018-02-16] MEDS: LISINOPRIL 20 MG TABLET PO SCH (08:14)
[2018-02-16] MEDS: amLODIPine BESYLATE 10 MG TABLET PO SCH (08:15)
[2018-02-16] MEDS: predniSONE 10 MG TABLET PO SCH (08:15)
[2018-02-16] MEDS: PANTOPRAZOLE 40 MG TABLET.DR. PO SCH (08:15)
[2018-02-16] MEDS: IV DEXTROSE 5% - 0.9 % NACL 1,000 ML IV SCH ×2 (08:19→21:23)
[2018-02-16 11:00] VITALS: BP 155/71
--- NOTE | 2018-02-16 11:00 | PDOC ---
PROGRESS NOTES Chief Complaint Chief Complaint IMPRESSION hypokalemia, hypomag, ON REPLACEMENT MALNUTRITION, MOD hypotension, volume depleted e coli UTI sepsis, recent JESSICA, vasomotor, ATN htn, controlled hld gerd hypothyroidism h/o left hydro - s/p stent left renal pelvis and removal generalized weakness failure to thrive History of Present Illness History of Present Illness iv fluid support pt and ot and snu PLACEMENT PENDING cont abx potasssium, and mag SQ LOVENOX DVT PROPHYLAXIS Vitals Vitals Vital Signs Date Time Temp Pulse Resp B/P (MAP) Pulse Ox O2 Delivery O2 Flow Rate FiO2 02/16/18 08:15 67 135/76 02/16/18 08:00 Room Air 02/16/18 07:00 98.2 17 96 98.2 Physical Exam General: Alert, Cooperative, No acute distress, Other (not oriented) Heart: Regular rate, Normal S1, Normal S2, No murmurs Lungs: Clear Abdomen: Normal bowel sounds, No tenderness, No hepatosplenomegaly Extremities: No clubbing, No cyanosis, Normal pulses Skin: No rashes Labs LABS Laboratory Tests Test 02/15/18 16:48 02/15/18 20:32 02/16/18 08:00 Glucose (Fingerstick) 171 mg/dL (70-99) 142 mg/dL (70-99) 116 mg/dL (70-99) Assessment and Plan Assessmemt and Plan Problems Medical Problems: (1) Anemia Status: Acute (2) Failure to thrive in adult Status: Acute (3) Hypokalemia Status: Acute (4) Hypomagnesemia Status: Acute (5) Renal insufficiency Status: Acute (6) Urinary tract infection Status: Acute Comment Review of Relevant I have reviewed the following items harry (where applicable) has been applied. Labs Laboratory Tests Test 02/14/18 13:23 02/14/18 13:37 02/14/18 14:14 02/14/18 14:20 Glucose (Fingerstick) 50 mg/dL (70-99) White Blood Count 6.0 x10^3/uL (4.0-11.0) Red Blood Count 4.13 x10^6/uL (3.50-5.40) Hemoglobin 11.7 g/dL (12.0-15.5) Hematocrit 35.8 % (36.0-47.0) Mean Corpuscular Volume 87 fL (79-100) Mean Corpuscular Hemoglobin 28 pg (25-35) Mean Corpuscular Hemoglobin Concent 33 g/dL (31-37) Red Cell Distribution Width 17.1 % (11.5-14.5) Platelet Count 221 x10^3/uL (140-400) Neutrophils (%) (Auto) 68 % (31-73) Lymphocytes (%) (Auto) 23 % (24-48) Monocytes (%) (Auto) 8 % (0-9) Eosinophils (%) (Auto) 1 % (0-3) Basophils (%) (Auto) 1 % (0-3) Neutrophils # (Auto) 4.1 x10^3uL (1.8-7.7) Lymphocytes # (Auto) 1.4 x10^3/uL (1.0-4.8) Monocytes # (Auto) 0.5 x10^3/uL (0.0-1.1) Eosinophils # (Auto) 0.0 x10^3/uL (0.0-0.7) Basophils # (Auto) 0.0 x10^3/uL (0.0-0.2) Lactic Acid Level 1.5 mmol/L (0.4-2.0) Urine Collection Type U cath Urine Color Yellow Urine Clarity Cloudy Urine pH 6.0 Urine Specific [place] 1.015 Urine Protein 100 mg/dL (NEG-TRACE) Urine Glucose (UA) Negative mg/dL (NEG) Urine Ketones (Stick) 40 mg/dL (NEG) Urine Blood Large (NEG) Urine Nitrite Negative (NEG) Urine Bilirubin Moderate (NEG) Urine Urobilinogen Dipstick 0.2 mg/dL (0.2 mg/dL) Urine Leukocyte Esterase Large (NEG) Urine RBC 11-20 /HPF (0-2) Urine WBC >40 /HPF (0-4) Urine Squamous Epithelial Cells Mod /LPF Urine Bacteria Moderate /HPF (0-FEW) Urine Hyaline Casts Few /HPF Urine Mucus Slight /LPF Sodium Level 135 mmol/L (136-145) Potassium Level 3.2 mmol/L (3.5-5.1) Chloride Level 98 mmol/L (98-107) Carbon Dioxide Level 20 mmol/L (21-32) Anion Gap 17 (6-14) Blood Urea Nitrogen 13 mg/dL (7-20) Creatinine 1.4 mg/dL (0.6-1.0) Estimated GFR (Cockcroft-Gault) 35.9 BUN/Creatinine Ratio 9 (6-20) Glucose Level 234 mg/dL (70-99) Calcium Level 10.5 mg/dL (8.5-10.1) Magnesium Level 1.5 mg/dL (1.8-2.4) Total Bilirubin 0.5 mg/dL (0.2-1.0) Aspartate Amino Transf (AST/SGOT) 13 U/L (15-37) Alanine Aminotransferase (ALT/SGPT) 15 U/L (14-59) Alkaline Phosphatase 65 U/L (46-116) Creatine Kinase 9 U/L (26-192) Troponin I Quantitative < 0.017 ng/mL (0.000-0.055) ZY-Aoy-W-Type Natriuretic Peptide 1893 pg/mL (0-449) Total Protein 6.2 g/dL (6.4-8.2) Albumin 2.5 g/dL (3.4-5.0) Albumin/Globulin Ratio 0.7 (1.0-1.7) Test 02/14/18 14:53 02/14/18 18:09 02/14/18 18:41 02/14/18 20:18 Glucose (Fingerstick) 120 mg/dL (70-99) 67 mg/dL (70-99) 187 mg/dL (70-99) 141 mg/dL (70-99) Test 02/15/18 07:18 02/15/18 10:01 02/15/18 10:40 02/15/18 16:48 Glucose (Fingerstick) 153 mg/dL (70-99) 154 mg/dL (70-99) 171 mg/dL (70-99) White Blood Count 5.6 x10^3/uL (4.0-11.0) Red Blood Count 3.42 x10^6/uL (3.50-5.40) Hemoglobin 10.1 g/dL (12.0-15.5) Hematocrit 29.4 % (36.0-47.0) Mean Corpuscular Volume 86 fL (79-100) Mean Corpuscular Hemoglobin 29 pg (25-35) Mean Corpuscular Hemoglobin Concent 34 g/dL (31-37) Red Cell Distribution Width 16.7 % (11.5-14.5) Platelet Count 170 x10^3/uL (140-400) Neutrophils (%) (Auto) 70 % (31-73) Lymphocytes (%) (Auto) 17 % (24-48) Monocytes (%) (Auto) 12 % (0-9) Eosinophils (%) (Auto) 1 % (0-3) Basophils (%) (Auto) 0 % (0-3) Neutrophils # (Auto) 3.9 x10^3uL (1.8-7.7) Lymphocytes # (Auto) 1.0 x10^3/uL (1.0-4.8) Monocytes # (Auto) 0.7 x10^3/uL (0.0-1.1) Eosinophils # (Auto) 0.0 x10^3/uL (0.0-0.7) Basophils # (Auto) 0.0 x10^3/uL (0.0-0.2) Sodium Level 142 mmol/L (136-145) Potassium Level 2.9 mmol/L (3.5-5.1) Chloride Level 107 mmol/L (98-107) Carbon Dioxide Level 24 mmol/L (21-32) Anion Gap 11 (6-14) Blood Urea Nitrogen 13 mg/dL (7-20) Creatinine 1.4 mg/dL (0.6-1.0) Estimated GFR (Cockcroft-Gault) 35.9 Glucose Level 163 mg/dL (70-99) Calcium Level 9.9 mg/dL (8.5-10.1) Ionized Calcium 1.36 mmol/L (1.13-1.32) Test 02/15/18 20:32 02/16/18 08:00 Glucose (Fingerstick) 142 mg/dL (70-99) 116 mg/dL (70-99) Laboratory Tests Test 02/15/18 16:48 02/15/18 20:32 02/16/18 08:00 Glucose (Fingerstick) 171 mg/dL (70-99) 142 mg/dL (70-99) 116 mg/dL (70-99) Microbiology 02/14/18 Blood Culture - Preliminary, Resulted NO GROWTH AFTER 1 DAY Medications Current Medications Dextrose (Dextrose 50%-Water Syringe) 25 gm 1X ONCE IV Last administered on at 13:41; Start 02/14/18 at 13:45; Stop 02/14/18 at 13:46; Status DC Dextrose (Dextrose 50%-Water Syringe) 25 gm 1X ONCE IV ; Start 02/14/18 at 14: 00; Stop 02/14/18 at 14:01; Status DC Ceftriaxone Sodium 1 gm/ Dextrose 50 ml @ 100 mls/hr Q24H IV ; Start 02/14/18 at 15:30; Status UNV Ceftriaxone Sodium 50 ml @ 100 mls/hr 1X ONCE IV ; Start 02/14/18 at 15:30; Stop 02/14/18 at 15:59; Status DC Ceftriaxone Sodium (Rocephin) 1 gm Q24H IVP Last administered on 02/15/18at 13: 54; Start 02/15/18 at 15:00 Dextrose (Dextrose 50%-Water Syringe) 25 gm STK-MED ONCE IV ; Start 02/14/18 at 18:18; Stop 02/14/18 at 18:19; Status DC Amlodipine Besylate (Norvasc) 10 mg DAILY PO Last administered on 02/16/18at 08: 15; Start 02/15/18 at 09:00 Citalopram Hydrobromide (CeleXA) 10 mg DAILY PO Last administered on 02/16/18at 08:13; Start 02/15/18 at 09:00 Levothyroxine Sodium (Synthroid) 100 mcg DAILY07 PO Last administered on at 06:06; Start 02/15/18 at 07:00 Lisinopril (Prinivil) 40 mg DAILY PO Last administered on 02/16/18at 08:14; Start 02/15/18 at 09:00 Prednisone (Prednisone) 10 mg DAILY PO Last administered on 02/16/18at 08:15; Start 02/15/18 at 09:00 Tramadol HCl (Ultram) 50 mg PRN Q8HRS PRN PO PAIN; Start 02/14/18 at 18:45 Atorvastatin Calcium (Lipitor) 10 mg QHS PO Last administered on 02/15/18at 20: 56; Start 02/14/18 at 21:00 Pantoprazole Sodium (Protonix) 40 mg DAILYAC PO Last administered on 02/16/18at 08:15; Start 02/15/18 at 07:30 Ondansetron HCl (Zofran) 4 mg PRN Q6HRS PRN IV NAUSEA/VOMITING Last administered on 02/15/18at 20:11; Start 02/14/18 at 19:00 Dextrose/Sodium Chloride 1,000 ml @ 80 mls/hr [id number] IV Last administered on 02/16/18at 08:19; Start 02/14/18 at 19:30 Dextrose (Dextrose 50%-Water Syringe) 25 gm 1X ONCE IV Last administered on at 19:18; Start 02/14/18 at 19:00; Stop 02/14/18 at 19:01; Status DC Potassium Chloride (Klor-Con) 40 meq 1X ONCE PO Last administered on at 10:18; Start 02/15/18 at 09:15; Stop 02/15/18 at 09:16; Status DC Magnesium Sulfate 50 ml @ 25 mls/hr 1X ONCE IV Last administered on 02/15/18at 10:19; Start 02/15/18 at 09:15; Stop 02/15/18 at 11:14; Status DC Potassium Chloride (Klor-Con) 20 meq [id number] PO Last administered on at 08:12; Start 02/16/18 at 08:00; Stop 02/16/18 at 08:44; Status DC Potassium Chloride (Klor-Con) 40 meq 1X ONCE PO Last administered on at 12:26; Start 02/15/18 at 11:45; Stop 02/15/18 at 11:46; Status DC Potassium Chloride (Klor-Con) 40 meq 1X ONCE PO Last administered on at 17:30; Start 02/15/18 at 17:00; Stop 02/15/18 at 17:01; Status DC Lactobacillus Rhamnosus (Culturelle) 1 cap BID PO Last administered on at 08:13; Start 02/15/18 at 21:00 Potassium Chloride (KCl Oral Soln) 20 meq BIDWMEALS PO ; Start 02/16/18 at 17:00 Active Scripts Active Celexa (Citalopram Hydrobromide) 10 Mg Tablet 10 Mg PO DAILY 30 Days Amlodipine Besylate 5 Mg Tablet 10 Mg PO DAILY 30 Days Reported Omeprazole 40 Mg Capsule.dr 1 Cap PO DAILY Prednisone 20 Mg Tablet 10 Mg PO DAILY Lisinopril 40 Mg Tablet 1 Tab PO DAILY Levothyroxine Sodium 100 Mcg Tablet 1 Tab PO DAILY Lovastatin 40 Mg Tablet 40 Mg PO HS Tramadol Hcl 50 Mg Tablet 50 Mg PO PRN Q6-8HRS PRN Vitals/I & O Vital Sign - Last 24 Hours 02/15/18 02/15/18 02/15/18 02/15/18 11:00 15:00 19:00 23:00 Temp 98.4 98.0 97.7 98.0 98.4 98.0 97.7 98.0 Pulse 93 70 81 72 Resp 16 16 18 18 B/P (MAP) 159/81 (107) 144/72 (96) 160/87 (111) 155/81 (105) Pulse Ox 95 94 95 95 O2 Delivery Room Air Room Air Room Air Room Air 02/16/18 02/16/18 02/16/18 02/16/18 03:00 07:00 08:00 08:14 Temp 98.9 98.2 98.9 98.2 Pulse 63 67 67 Resp 16 17 B/P (MAP) 157/73 (101) 135/76 (95) 135/76 Pulse Ox 94 96 O2 Delivery Room Air Room Air Room Air 02/16/18 08:15 Pulse 67 B/P (MAP) 135/76 Intake and Output 02/15/18 02/15/18 02/16/18 15:00 23:00 07:00 Intake Total 1000 ml 50 ml Balance 1000 ml 50 ml ANDREWS MARLOW MD Feb 16, 2018 11:00
[2018-02-16 15:00] VITALS: BP 140/68
[2018-02-16] MEDS: cefTRIAXone IV Push 1 GM VIAL. IVP SCH (15:09)
[2018-02-16] MEDS: POTASSIUM CHLORIDE 20 MEQ/15 ML ORAL LIQUID. PO SCH (16:40)
[2018-02-16 19:00] VITALS: BP 156/88
[2018-02-16] MEDS ORDERED: CEFPODOXIME PROXETIL 100 MG TABLET. PO SCH (21:00)
[2018-02-16] MEDS: CEFPODOXIME PROXETIL 100 MG TABLET. PO SCH (21:22)
[2018-02-16] MEDS: ATORVASTATIN CALCIUM 10 MG TABLET. PO SCH (21:22)
[2018-02-16 23:00] VITALS: BP 151/72
[2018-02-17 03:00] VITALS: BP 141/63
[2018-02-17 05:00] LABS: BASO % 1 % (0-3); EOS % 0 % (0-3); HEMATOCRIT 27.3 % (36.0-47.0); HEMOGLOBIN 9.3 g/dL (12.0-15.5); LYMPH # 1.2 x10^3/uL (1.0-4.8); LYMPH % 22 % (24-48); MEAN CORPUSCULAR HEMOGLOBIN 29 pg (25-35); MEAN CORPUSCULAR HGB CONC 34 g/dL (31-37); MEAN CORPUSCULAR VOLUME 86 fL (79-100); MONO # 0.5 x10^3/uL (0.0-1.1); MONO % 9 % (0-9); NEUT % 69 % (31-73); PLATELET COUNT 141 x10^3/uL (140-400); RED BLOOD COUNT 3.19 x10^6/uL (3.50-5.40); RED CELL DISTRIBUTION WIDTH 17.2 % (11.5-14.5); WHITE BLOOD COUNT 5.8 x10^3/uL (4.0-11.0)
[2018-02-17 05:55] LABS: CALCIUM 9.8 mg/dL (8.5-10.1); CREATININE 1.3 mg/dL (0.6-1.0); GFR 39.1; POTASSIUM 4.1 mmol/L (3.5-5.1)
[2018-02-17 07:00] VITALS: BP 151/72
[2018-02-17] MEDS: predniSONE 10 MG TABLET PO SCH (09:22)
[2018-02-17] MEDS: CITALOPRAM 10 MG TABLET. PO SCH (09:23)
[2018-02-17] MEDS: LACTOBACILLUS RHAMNOSUS GG 1 CAPSULE. PO SCH ×2 (09:23→22:03)
[2018-02-17] MEDS: PANTOPRAZOLE 40 MG TABLET.DR. PO SCH (09:23)
[2018-02-17] MEDS: amLODIPine BESYLATE 10 MG TABLET PO SCH (09:23)
[2018-02-17] MEDS: LISINOPRIL 20 MG TABLET PO SCH (09:23)
[2018-02-17] MEDS: CEFPODOXIME PROXETIL 100 MG TABLET. PO SCH ×2 (09:24→22:04)
[2018-02-17] MEDS: LEVOTHYROXINE 100 MCG TABLET PO SCH (09:24)
[2018-02-17] MEDS: POTASSIUM CHLORIDE 20 MEQ/15 ML ORAL LIQUID. PO SCH ×2 (09:26→16:07)
[2018-02-17] MEDS ORDERED: ACETAMINOPHEN 500 MG TABLET PO PRN (09:30)
[2018-02-17 11:00] VITALS: BP 151/73
--- NOTE | 2018-02-17 11:01 | PDOC ---
PROGRESS NOTES Chief Complaint Chief Complaint IMPRESSION hypokalemia, hypomag, ON REPLACEMENT MALNUTRITION, MOD hypotension, volume depleted e coli UTI sepsis, recent JESSICA, vasomotor, ATN htn, controlled hld gerd hypothyroidism h/o left hydro - s/p stent left renal pelvis and removal generalized weakness failure to thrive History of Present Illness History of Present Illness SHe is a readmission after being discharged less than a week ago to home with possibly home health- for mostly FTT sxs She refuses PT OT, poor by mouth intake Dextrose IVF running She might have even refused labs or maybe care? Plan: Continue IVF to augment by mouth intake Nutrition consulted We'll trial Marinol or Megace but have to discuss with family-no family at bedside Patient asleep I did not awaken Consult palliative regarding goals of care, Not eating etc Discussed with RN FUll code on chart Vitals Vitals Vital Signs Date Time Temp Pulse Resp B/P (MAP) Pulse Ox O2 Delivery O2 Flow Rate FiO2 02/17/18 09:23 68 151/72 02/17/18 08:00 Room Air 02/17/18 07:00 98.1 16 95 98.1 Physical Exam General: Alert, Cooperative, No acute distress, Other (not oriented) Heart: Regular rate, Normal S1, Normal S2, No murmurs Lungs: Clear Abdomen: Normal bowel sounds, No tenderness, No hepatosplenomegaly Extremities: No clubbing, No cyanosis, Normal pulses Skin: No rashes Labs LABS Laboratory Tests Test 02/16/18 11:44 02/16/18 16:25 02/16/18 21:17 02/17/18 04:23 Glucose (Fingerstick) 126 mg/dL (70-99) 136 mg/dL (70-99) 130 mg/dL (70-99) White Blood Count 5.8 x10^3/uL (4.0-11.0) Red Blood Count 3.19 x10^6/uL (3.50-5.40) Hemoglobin 9.3 g/dL (12.0-15.5) Hematocrit 27.3 % (36.0-47.0) Mean Corpuscular Volume 86 fL (79-100) Mean Corpuscular Hemoglobin 29 pg (25-35) Mean Corpuscular Hemoglobin Concent 34 g/dL (31-37) Red Cell Distribution Width 17.2 % (11.5-14.5) Platelet Count 141 x10^3/uL (140-400) Neutrophils (%) (Auto) 69 % (31-73) Lymphocytes (%) (Auto) 22 % (24-48) Monocytes (%) (Auto) 9 % (0-9) Eosinophils (%) (Auto) 0 % (0-3) Basophils (%) (Auto) 1 % (0-3) Neutrophils # (Auto) 4.0 x10^3uL (1.8-7.7) Lymphocytes # (Auto) 1.2 x10^3/uL (1.0-4.8) Monocytes # (Auto) 0.5 x10^3/uL (0.0-1.1) Eosinophils # (Auto) 0.0 x10^3/uL (0.0-0.7) Basophils # (Auto) 0.0 x10^3/uL (0.0-0.2) Sodium Level 140 mmol/L (136-145) Potassium Level 4.1 mmol/L (3.5-5.1) Chloride Level 108 mmol/L (98-107) Carbon Dioxide Level 22 mmol/L (21-32) Anion Gap 10 (6-14) Blood Urea Nitrogen 9 mg/dL (7-20) Creatinine 1.3 mg/dL (0.6-1.0) Estimated GFR (Cockcroft-Gault) 39.1 Glucose Level 131 mg/dL (70-99) Calcium Level 9.8 mg/dL (8.5-10.1) Test 02/17/18 07:36 Glucose (Fingerstick) 116 mg/dL (70-99) Review of Systems Review of Systems asLEEP I did not awaken Assessment and Plan Assessmemt and Plan Problems Medical Problems: (1) Anemia Status: Acute (2) Failure to thrive in adult Status: Acute (3) Hypokalemia Status: Acute (4) Hypomagnesemia Status: Acute (5) Renal insufficiency Status: Acute (6) Urinary tract infection Status: Acute Comment Review of Relevant I have reviewed the following items harry (where applicable) has been applied. Labs Laboratory Tests Test 02/15/18 16:48 02/15/18 20:32 02/16/18 08:00 02/16/18 11:44 Glucose (Fingerstick) 171 mg/dL (70-99) 142 mg/dL (70-99) 116 mg/dL (70-99) 126 mg/dL (70-99) Test 02/16/18 16:25 02/16/18 21:17 02/17/18 04:23 02/17/18 07:36 Glucose (Fingerstick) 136 mg/dL (70-99) 130 mg/dL (70-99) 116 mg/dL (70-99) White Blood Count 5.8 x10^3/uL (4.0-11.0) Red Blood Count 3.19 x10^6/uL (3.50-5.40) Hemoglobin 9.3 g/dL (12.0-15.5) Hematocrit 27.3 % (36.0-47.0) Mean Corpuscular Volume 86 fL (79-100) Mean Corpuscular Hemoglobin 29 pg (25-35) Mean Corpuscular Hemoglobin Concent 34 g/dL (31-37) Red Cell Distribution Width 17.2 % (11.5-14.5) Platelet Count 141 x10^3/uL (140-400) Neutrophils (%) (Auto) 69 % (31-73) Lymphocytes (%) (Auto) 22 % (24-48) Monocytes (%) (Auto) 9 % (0-9) Eosinophils (%) (Auto) 0 % (0-3) Basophils (%) (Auto) 1 % (0-3) Neutrophils # (Auto) 4.0 x10^3uL (1.8-7.7) Lymphocytes # (Auto) 1.2 x10^3/uL (1.0-4.8) Monocytes # (Auto) 0.5 x10^3/uL (0.0-1.1) Eosinophils # (Auto) 0.0 x10^3/uL (0.0-0.7) Basophils # (Auto) 0.0 x10^3/uL (0.0-0.2) Sodium Level 140 mmol/L (136-145) Potassium Level 4.1 mmol/L (3.5-5.1) Chloride Level 108 mmol/L (98-107) Carbon Dioxide Level 22 mmol/L (21-32) Anion Gap 10 (6-14) Blood Urea Nitrogen 9 mg/dL (7-20) Creatinine 1.3 mg/dL (0.6-1.0) Estimated GFR (Cockcroft-Gault) 39.1 Glucose Level 131 mg/dL (70-99) Calcium Level 9.8 mg/dL (8.5-10.1) Laboratory Tests Test 02/16/18 11:44 02/16/18 16:25 02/16/18 21:17 02/17/18 04:23 Glucose (Fingerstick) 126 mg/dL (70-99) 136 mg/dL (70-99) 130 mg/dL (70-99) White Blood Count 5.8 x10^3/uL (4.0-11.0) Red Blood Count 3.19 x10^6/uL (3.50-5.40) Hemoglobin 9.3 g/dL (12.0-15.5) Hematocrit 27.3 % (36.0-47.0) Mean Corpuscular Volume 86 fL (79-100) Mean Corpuscular Hemoglobin 29 pg (25-35) Mean Corpuscular Hemoglobin Concent 34 g/dL (31-37) Red Cell Distribution Width 17.2 % (11.5-14.5) Platelet Count 141 x10^3/uL (140-400) Neutrophils (%) (Auto) 69 % (31-73) Lymphocytes (%) (Auto) 22 % (24-48) Monocytes (%) (Auto) 9 % (0-9) Eosinophils (%) (Auto) 0 % (0-3) Basophils (%) (Auto) 1 % (0-3) Neutrophils # (Auto) 4.0 x10^3uL (1.8-7.7) Lymphocytes # (Auto) 1.2 x10^3/uL (1.0-4.8) Monocytes # (Auto) 0.5 x10^3/uL (0.0-1.1) Eosinophils # (Auto) 0.0 x10^3/uL (0.0-0.7) Basophils # (Auto) 0.0 x10^3/uL (0.0-0.2) Sodium Level 140 mmol/L (136-145) Potassium Level 4.1 mmol/L (3.5-5.1) Chloride Level 108 mmol/L (98-107) Carbon Dioxide Level 22 mmol/L (21-32) Anion Gap 10 (6-14) Blood Urea Nitrogen 9 mg/dL (7-20) Creatinine 1.3 mg/dL (0.6-1.0) Estimated GFR (Cockcroft-Gault) 39.1 Glucose Level 131 mg/dL (70-99) Calcium Level 9.8 mg/dL (8.5-10.1) Test 02/17/18 07:36 Glucose (Fingerstick) 116 mg/dL (70-99) Microbiology 02/14/18 Blood Culture - Preliminary, Resulted NO GROWTH AFTER 2 DAYS 02/14/18 Urine Culture - Final, Complete 02/14/18 Urine Culture Result 1 (BERNABE) - Final, Complete Medications Current Medications Dextrose (Dextrose 50%-Water Syringe) 25 gm 1X ONCE IV Last administered on at 13:41; Start 02/14/18 at 13:45; Stop 02/14/18 at 13:46; Status DC Dextrose (Dextrose 50%-Water Syringe) 25 gm 1X ONCE IV ; Start 02/14/18 at 14: 00; Stop 02/14/18 at 14:01; Status DC Ceftriaxone Sodium 1 gm/ Dextrose 50 ml @ 100 mls/hr Q24H IV ; Start 02/14/18 at 15:30; Status UNV Ceftriaxone Sodium 50 ml @ 100 mls/hr 1X ONCE IV ; Start 02/14/18 at 15:30; Stop 02/14/18 at 15:59; Status DC Ceftriaxone Sodium (Rocephin) 1 gm Q24H IVP Last administered on 02/16/18at 15: 09; Start 02/15/18 at 15:00; Stop 02/16/18 at 18:00; Status DC Dextrose (Dextrose 50%-Water Syringe) 25 gm STK-MED ONCE IV ; Start 02/14/18 at 18:18; Stop 02/14/18 at 18:19; Status DC Amlodipine Besylate (Norvasc) 10 mg DAILY PO Last administered on 02/17/18at 09: 23; Start 02/15/18 at 09:00 Citalopram Hydrobromide (CeleXA) 10 mg DAILY PO Last administered on 02/17/18at 09:23; Start 02/15/18 at 09:00 Levothyroxine Sodium (Synthroid) 100 mcg DAILY07 PO Last administered on 09:24; Start 02/15/18 at 07:00 Lisinopril (Prinivil) 40 mg DAILY PO Last administered on 02/17/18 09:23; Start 02/15/18 at 09:00 Prednisone (Prednisone) 10 mg DAILY PO Last administered on 02/17/18 09:22; Start 02/15/18 at 09:00 Tramadol HCl (Ultram) 50 mg PRN Q8HRS PRN PO MODERATE-SEVERE PAIN; Start at 18:45 Atorvastatin Calcium (Lipitor) 10 mg QHS PO Last administered on 02/16/18 21: 22; Start 02/14/18 at 21:00 Pantoprazole Sodium (Protonix) 40 mg DAILYAC PO Last administered on 02/17/18 09:23; Start 02/15/18 at 07:30 Ondansetron HCl (Zofran) 4 mg PRN Q6HRS PRN IV NAUSEA/VOMITING Last administered on 02/15/18at 20:11; Start 02/14/18 at 19:00 Dextrose/Sodium Chloride 1,000 ml @ 80 mls/hr [id number] IV Last administered on 02/16/18 21:23; Start 02/14/18 at 19:30 Dextrose (Dextrose 50%-Water Syringe) 25 gm 1X ONCE IV Last administered on 19:18; Start 02/14/18 at 19:00; Stop 02/14/18 at 19:01; Status DC Potassium Chloride (Klor-Con) 40 meq 1X ONCE PO Last administered on at 10:18; Start 02/15/18 at 09:15; Stop 02/15/18 at 09:16; Status DC Magnesium Sulfate 50 ml @ 25 mls/hr 1X ONCE IV Last administered on 02/15/18at 10:19; Start 02/15/18 at 09:15; Stop 02/15/18 at 11:14; Status DC Potassium Chloride (Klor-Con) 20 meq DAILYWBKFT PO Last administered on at 08:12; Start 02/16/18 at 08:00; Stop 02/16/18 at 08:44; Status DC Potassium Chloride (Klor-Con) 40 meq 1X ONCE PO Last administered on at 12:26; Start 02/15/18 at 11:45; Stop 02/15/18 at 11:46; Status DC Potassium Chloride (Klor-Con) 40 meq 1X ONCE PO Last administered on at 17:30; Start 02/15/18 at 17:00; Stop 02/15/18 at 17:01; Status DC Lactobacillus Rhamnosus (Culturelle) 1 cap BID PO Last administered on at 09:23; Start 02/15/18 at 21:00 Potassium Chloride (KCl Oral Soln) 20 meq BIDWMEALS PO Last administered on at 09:26; Start 02/16/18 at 17:00 Cefpodoxime Proxetil (Vantin) 200 mg Q24H PO ; Start 02/16/18 at 21:00; Stop at 21:00; Status DC Cefpodoxime Proxetil (Vantin) 100 mg Q12H PO Last administered on 02/17/18at 09: 24; Start 02/16/18 at 21:00 Acetaminophen (Tylenol) 500 mg PRN Q6HRS PRN PO MILD PAIN / TEMP; Start at 09:30 Active Scripts Active Celexa (Citalopram Hydrobromide) 10 Mg Tablet 10 Mg PO DAILY 30 Days Amlodipine Besylate 5 Mg Tablet 10 Mg PO DAILY 30 Days Reported Omeprazole 40 Mg Capsule.dr 1 Cap PO DAILY Prednisone 20 Mg Tablet 10 Mg PO DAILY Lisinopril 40 Mg Tablet 1 Tab PO DAILY Levothyroxine Sodium 100 Mcg Tablet 1 Tab PO DAILY Lovastatin 40 Mg Tablet 40 Mg PO HS Tramadol Hcl 50 Mg Tablet 50 Mg PO PRN Q6-8HRS PRN Vitals/I & O Vital Sign - Last 24 Hours 02/16/18 02/16/18 02/16/18 02/16/18 11:00 15:00 19:00 23:00 Temp 97.4 98.8 98.6 98.1 97.4 98.8 98.6 98.1 Pulse 60 67 65 73 Resp 16 17 17 18 B/P (MAP) 155/71 (99) 140/68 (92) 156/88 (110) 151/72 (98) Pulse Ox 94 95 96 97 O2 Delivery Room Air Room Air Room Air Room Air 02/17/18 02/17/18 02/17/18 02/17/18 03:00 07:00 08:00 09:23 Temp 97.6 98.1 97.6 98.1 Pulse 70 68 68 Resp 18 16 B/P (MAP) 141/63 (89) 151/72 (98) 151/72 Pulse Ox 96 95 O2 Delivery Room Air Room Air Room Air 02/17/18 09:23 Pulse 68 B/P (MAP) 151/72 Intake and Output 02/16/18 02/16/18 02/17/18 15:00 23:00 07:00 Intake Total 1100 ml Output Total 200 ml Balance 1100 ml -200 ml Nutrition Consultation Dietary Evaluation: Recommendations by RD: Increase Calorie Intake, Protein supplementation, PPN/ TPN Comments: ensure tid consider PPN for short term nutrition Expected Outcomes/Goals: to meet > 50% est nutr needs via po intake Malnutrition Findings: Food and Nutrition Intake (Sev: <50% est energy req 5days Body Fat Depletion (Non Severe: Mild Depletion Weight Status: Appropriate ROBIN MUNOZ MD Feb 17, 2018 11:01
[2018-02-17] MEDS: AMINO AC 3%/ELECTROLYTE/GLYCER 1,000 ML IV SCH (12:02)
[2018-02-17 15:00] VITALS: BP 160/80
--- NOTE | 2018-02-17 16:32 | PDOC2 ---
PALLIATIVE CARE Palliative Care Note Palliative Care Consult requested by Dr. Gonzalez to address goals of care and code status. Medical assessment per record hypokalemia, hypomag, ON REPLACEMENT MALNUTRITION, MOD hypotension, volume depleted e coli UTI sepsis, recent JESSICA, vasomotor, ATN htn, controlled hld gerd hypothyroidism h/o left hydro - s/p stent left renal pelvis and removal generalized weakness failure to thrive Patient alert. Following commands. No distress Oriented to person, place. Discussed Code status and her wishes if she become seriously ill. "Never thought about what I wanted if really sick" Patient requests DNR/DNI. Understands without this attempt she likely would . She would prefer to be at peace and allowed to with dignity Attempted to reach daughter Annamarie to discuss her mother's wishes and arrange family Meeting. Left message to return call Confirm with patient for consistency on her wishes about code status. Confirm with daughter ---Annamarie --DPOA. Will await family return call. ANAMARIA JAMES Feb 17, 2018 16:32
[2018-02-17 19:00] VITALS: BP 147/71
[2018-02-17] MEDS: ONDANSETRON PF 4 MG/2 ML VIAL. IV PRN (21:19)
[2018-02-17] MEDS: ATORVASTATIN CALCIUM 10 MG TABLET. PO SCH (22:04)
[2018-02-17 23:00] VITALS: BP 159/79
[2018-02-18] MEDS: AMINO AC 3%/ELECTROLYTE/GLYCER 1,000 ML IV SCH ×2 (00:42→13:13)
[2018-02-18 03:00] VITALS: BP 172/84
[2018-02-18 04:59] LABS: BASO % 1 % (0-3); EOS % 0 % (0-3); HEMATOCRIT 27.3 % (36.0-47.0); HEMOGLOBIN 9.2 g/dL (12.0-15.5); LYMPH # 1.7 x10^3/uL (1.0-4.8); LYMPH % 26 % (24-48); MEAN CORPUSCULAR HEMOGLOBIN 29 pg (25-35); MEAN CORPUSCULAR HGB CONC 34 g/dL (31-37); MEAN CORPUSCULAR VOLUME 86 fL (79-100); MONO # 0.6 x10^3/uL (0.0-1.1); MONO % 10 % (0-9); NEUT # 4.2 x10^3uL (1.8-7.7); NEUT % 64 % (31-73); PLATELET COUNT 133 x10^3/uL (140-400); RED CELL DISTRIBUTION WIDTH 16.7 % (11.5-14.5); WHITE BLOOD COUNT 6.7 x10^3/uL (4.0-11.0)
[2018-02-18 05:23] LABS: CALCIUM 9.4 mg/dL (8.5-10.1); POTASSIUM 4.7 mmol/L (3.5-5.1)
[2018-02-18] MEDS: LEVOTHYROXINE 100 MCG TABLET PO SCH (06:25)
[2018-02-18 07:00] VITALS: BP 175/80
[2018-02-18] MEDS: ONDANSETRON PF 4 MG/2 ML VIAL. IV PRN (09:27)
[2018-02-18] MEDS: CEFPODOXIME PROXETIL 100 MG TABLET. PO SCH ×2 (10:14→22:09)
[2018-02-18] MEDS: PANTOPRAZOLE 40 MG TABLET.DR. PO SCH (10:14)
[2018-02-18] MEDS: POTASSIUM CHLORIDE 20 MEQ/15 ML ORAL LIQUID. PO SCH ×2 (10:14→16:39)
[2018-02-18] MEDS: LISINOPRIL 20 MG TABLET PO SCH (10:15)
[2018-02-18] MEDS: amLODIPine BESYLATE 10 MG TABLET PO SCH (10:15)
[2018-02-18] MEDS: predniSONE 10 MG TABLET PO SCH (10:15)
[2018-02-18] MEDS: LACTOBACILLUS RHAMNOSUS GG 1 CAPSULE. PO SCH ×2 (10:15→22:09)
[2018-02-18] MEDS: CITALOPRAM 10 MG TABLET. PO SCH (10:15)
[2018-02-18 11:00] VITALS: BP 160/80
[2018-02-18] MEDS ORDERED: BISACODYL 10 MG SUPP.RECT. PR ONE (13:30)
--- NOTE | 2018-02-18 14:48 | PDOC2 ---
CONSULT Date of Consult Date of Consult DATE: 02/18/18 TIME: 14:40 Reason for Consult Reason for Consult: nausea, poor PO intake, some vomiting, constipation History of Present Illness Reason for Visit: This is an 83 yo female with recent kidney stone with obstruction/hydronephrosis - had nephrostomy drainage and stent- appeared to be recovering from this but has persistent nausea and poor PO intake over at least several weeks- she is confused and a poor historian so most information is obtained from chart. NO overt bleeding, hematemesis, rectal bleedings reported. Lasat CT from 02/01/2018 shows improved hydronephrosis but no clear GI or biliary abnormalities that might cause symptoms. Past Medical History Cardiovascular: HTN, Hyperlipidemia Pulmonary: No pertinent hx Renal/: Other Endocrine: Hypothyroidism Past Surgical History Past Surgical History: Other (nephrostomy and stent ), No pertinent history Family History Family History: Hypertension Social History No ALCOHOL: none Drugs: None Current Problem List Problem List Problems Medical Problems: (1) Anemia Status: Acute (2) Failure to thrive in adult Status: Acute (3) Hypokalemia Status: Acute (4) Hypomagnesemia Status: Acute (5) Renal insufficiency Status: Acute (6) Urinary tract infection Status: Acute Current Medications Current Medications Current Medications Dextrose (Dextrose 50%-Water Syringe) 25 gm 1X ONCE IV Last administered on at 13:41; Start 02/14/18 at 13:45; Stop 02/14/18 at 13:46; Status DC Dextrose (Dextrose 50%-Water Syringe) 25 gm 1X ONCE IV ; Start 02/14/18 at 14: 00; Stop 02/14/18 at 14:01; Status DC Ceftriaxone Sodium 1 gm/ Dextrose 50 ml @ 100 mls/hr Q24H IV ; Start 02/14/18 at 15:30; Status UNV Ceftriaxone Sodium 50 ml @ 100 mls/hr 1X ONCE IV ; Start 02/14/18 at 15:30; Stop 02/14/18 at 15:59; Status DC Ceftriaxone Sodium (Rocephin) 1 gm Q24H IVP Last administered on 02/16/18at 15: 09; Start 02/15/18 at 15:00; Stop 02/16/18 at 18:00; Status DC Dextrose (Dextrose 50%-Water Syringe) 25 gm STK-MED ONCE IV ; Start 02/14/18 at 18:18; Stop 02/14/18 at 18:19; Status DC Amlodipine Besylate (Norvasc) 10 mg DAILY PO Last administered on 02/18/18at 10: 15; Start 02/15/18 at 09:00 Citalopram Hydrobromide (CeleXA) 10 mg DAILY PO Last administered on 02/18/18at 10:15; Start 02/15/18 at 09:00 Levothyroxine Sodium (Synthroid) 100 mcg DAILY07 PO Last administered on at 06:25; Start 02/15/18 at 07:00 Lisinopril (Prinivil) 40 mg DAILY PO Last administered on 02/18/18at 10:15; Start 02/15/18 at 09:00 Prednisone (Prednisone) 10 mg DAILY PO Last administered on 02/18/18at 10:15; Start 02/15/18 at 09:00 Tramadol HCl (Ultram) 50 mg PRN Q8HRS PRN PO MODERATE-SEVERE PAIN; Start at 18:45 Atorvastatin Calcium (Lipitor) 10 mg QHS PO Last administered on 02/17/18at 22: 04; Start 02/14/18 at 21:00 Pantoprazole Sodium (Protonix) 40 mg DAILYAC PO Last administered on 02/18/18at 10:14; Start 02/15/18 at 07:30; Stop 02/18/18 at 13:26; Status DC Ondansetron HCl (Zofran) 4 mg PRN Q6HRS PRN IV NAUSEA/VOMITING Last administered on 02/18/18at 09:27; Start 02/14/18 at 19:00 Dextrose/Sodium Chloride 1,000 ml @ 80 mls/hr [id number] IV Last administered on 02/16/18at 21:23; Start 02/14/18 at 19:30; Stop 02/17/18 at 11:49; Status DC Dextrose (Dextrose 50%-Water Syringe) 25 gm 1X ONCE IV Last administered on at 19:18; Start 02/14/18 at 19:00; Stop 02/14/18 at 19:01; Status DC Potassium Chloride (Klor-Con) 40 meq 1X ONCE PO Last administered on at 10:18; Start 02/15/18 at 09:15; Stop 02/15/18 at 09:16; Status DC Magnesium Sulfate 50 ml @ 25 mls/hr 1X ONCE IV Last administered on 02/15/18at 10:19; Start 02/15/18 at 09:15; Stop 02/15/18 at 11:14; Status DC Potassium Chloride (Klor-Con) 20 meq DAILYWBKFT PO Last administered on at 08:12; Start 02/16/18 at 08:00; Stop 02/16/18 at 08:44; Status DC Potassium Chloride (Klor-Con) 40 meq 1X ONCE PO Last administered on at 12:26; Start 02/15/18 at 11:45; Stop 02/15/18 at 11:46; Status DC Potassium Chloride (Klor-Con) 40 meq 1X ONCE PO Last administered on at 17:30; Start 02/15/18 at 17:00; Stop 02/15/18 at 17:01; Status DC Lactobacillus Rhamnosus (Culturelle) 1 cap BID PO Last administered on at 10:15; Start 02/15/18 at 21:00 Potassium Chloride (KCl Oral Soln) 20 meq BIDWMEALS PO Last administered on at 10:14; Start 02/16/18 at 17:00 Cefpodoxime Proxetil (Vantin) 200 mg Q24H PO ; Start 02/16/18 at 21:00; Stop at 21:00; Status DC Cefpodoxime Proxetil (Vantin) 100 mg Q12H PO Last administered on 02/18/18at 10: 14; Start 02/16/18 at 21:00 Acetaminophen (Tylenol) 500 mg PRN Q6HRS PRN PO MILD PAIN / TEMP; Start at 09:30 Amino Acids/ Glycerin/ Electrolytes 1,000 ml @ 80 mls/hr [id number] IV Last administered on 02/18/18at 13:13; Start 02/17/18 at 12:00 Pantoprazole Sodium (PROTONIX VIAL for IV PUSH) 40 mg DAILYAC IVP ; Start at 07:30 Bisacodyl (Dulcolax Supp) 10 mg 1X ONCE VT Last administered on 02/18/18at 13: 52; Start 02/18/18 at 13:30; Stop 02/18/18 at 13:31; Status DC Active Scripts Active Celexa (Citalopram Hydrobromide) 10 Mg Tablet 10 Mg PO DAILY 30 Days Amlodipine Besylate 5 Mg Tablet 10 Mg PO DAILY 30 Days Reported Omeprazole 40 Mg Capsule.dr 1 Cap PO DAILY Prednisone 20 Mg Tablet 10 Mg PO DAILY Lisinopril 40 Mg Tablet 1 Tab PO DAILY Levothyroxine Sodium 100 Mcg Tablet 1 Tab PO DAILY Lovastatin 40 Mg Tablet 40 Mg PO HS Tramadol Hcl 50 Mg Tablet 50 Mg PO PRN Q6-8HRS PRN Allergies Allergies: Coded Allergies: No Known Drug Allergies (Unverified , 11/02/17) Physical Exam General: Alert, Other (but confused) HEENT: PERRLA Lungs: Clear to auscultation Heart: Regular rate, Normal S1, Normal S2 Abdomen: Normal bowel sounds, Soft, No tenderness, No hepatosplenomegaly, No masses Extremities: No clubbing, No cyanosis Psych/Mental Status: Other (confused) MUSCULOSKELETAL: No joint tenderness Vitals VITALS Vital Signs Date Time Temp Pulse Resp B/P (MAP) Pulse Ox O2 Delivery O2 Flow Rate FiO2 02/18/18 11:00 98.3 74 16 160/80 (106) 95 Room Air 98.3 Labs Labs Laboratory Tests Test 02/16/18 16:25 02/16/18 21:17 02/17/18 04:23 02/17/18 07:36 Glucose (Fingerstick) 136 mg/dL (70-99) 130 mg/dL (70-99) 116 mg/dL (70-99) White Blood Count 5.8 x10^3/uL (4.0-11.0) Red Blood Count 3.19 x10^6/uL (3.50-5.40) Hemoglobin 9.3 g/dL (12.0-15.5) Hematocrit 27.3 % (36.0-47.0) Mean Corpuscular Volume 86 fL (79-100) Mean Corpuscular Hemoglobin 29 pg (25-35) Mean Corpuscular Hemoglobin Concent 34 g/dL (31-37) Red Cell Distribution Width 17.2 % (11.5-14.5) Platelet Count 141 x10^3/uL (140-400) Neutrophils (%) (Auto) 69 % (31-73) Lymphocytes (%) (Auto) 22 % (24-48) Monocytes (%) (Auto) 9 % (0-9) Eosinophils (%) (Auto) 0 % (0-3) Basophils (%) (Auto) 1 % (0-3) Neutrophils # (Auto) 4.0 x10^3uL (1.8-7.7) Lymphocytes # (Auto) 1.2 x10^3/uL (1.0-4.8) Monocytes # (Auto) 0.5 x10^3/uL (0.0-1.1) Eosinophils # (Auto) 0.0 x10^3/uL (0.0-0.7) Basophils # (Auto) 0.0 x10^3/uL (0.0-0.2) Sodium Level 140 mmol/L (136-145) Potassium Level 4.1 mmol/L (3.5-5.1) Chloride Level 108 mmol/L (98-107) Carbon Dioxide Level 22 mmol/L (21-32) Anion Gap 10 (6-14) Blood Urea Nitrogen 9 mg/dL (7-20) Creatinine 1.3 mg/dL (0.6-1.0) Estimated GFR (Cockcroft-Gault) 39.1 Glucose Level 131 mg/dL (70-99) Calcium Level 9.8 mg/dL (8.5-10.1) Test 02/17/18 11:15 02/17/18 16:41 02/17/18 21:43 02/18/18 03:40 Glucose (Fingerstick) 165 mg/dL (70-99) 140 mg/dL (70-99) 117 mg/dL (70-99) White Blood Count 6.7 x10^3/uL (4.0-11.0) Red Blood Count 3.20 x10^6/uL (3.50-5.40) Hemoglobin 9.2 g/dL (12.0-15.5) Hematocrit 27.3 % (36.0-47.0) Mean Corpuscular Volume 86 fL (79-100) Mean Corpuscular Hemoglobin 29 pg (25-35) Mean Corpuscular Hemoglobin Concent 34 g/dL (31-37) Red Cell Distribution Width 16.7 % (11.5-14.5) Platelet Count 133 x10^3/uL (140-400) Neutrophils (%) (Auto) 64 % (31-73) Lymphocytes (%) (Auto) 26 % (24-48) Monocytes (%) (Auto) 10 % (0-9) Eosinophils (%) (Auto) 0 % (0-3) Basophils (%) (Auto) 1 % (0-3) Neutrophils # (Auto) 4.2 x10^3uL (1.8-7.7) Lymphocytes # (Auto) 1.7 x10^3/uL (1.0-4.8) Monocytes # (Auto) 0.6 x10^3/uL (0.0-1.1) Eosinophils # (Auto) 0.0 x10^3/uL (0.0-0.7) Basophils # (Auto) 0.0 x10^3/uL (0.0-0.2) Sodium Level 134 mmol/L (136-145) Potassium Level 4.7 mmol/L (3.5-5.1) Chloride Level 103 mmol/L (98-107) Carbon Dioxide Level 25 mmol/L (21-32) Anion Gap 6 (6-14) Blood Urea Nitrogen 15 mg/dL (7-20) Creatinine 1.0 mg/dL (0.6-1.0) Estimated GFR (Cockcroft-Gault) 53.0 Glucose Level 108 mg/dL (70-99) Calcium Level 9.4 mg/dL (8.5-10.1) Test 02/18/18 07:24 02/18/18 11:37 Glucose (Fingerstick) 119 mg/dL (70-99) 123 mg/dL (70-99) Laboratory Tests Test 02/17/18 16:41 02/17/18 21:43 02/18/18 03:40 02/18/18 07:24 Glucose (Fingerstick) 140 mg/dL (70-99) 117 mg/dL (70-99) 119 mg/dL (70-99) White Blood Count 6.7 x10^3/uL (4.0-11.0) Red Blood Count 3.20 x10^6/uL (3.50-5.40) Hemoglobin 9.2 g/dL (12.0-15.5) Hematocrit 27.3 % (36.0-47.0) Mean Corpuscular Volume 86 fL (79-100) Mean Corpuscular Hemoglobin 29 pg (25-35) Mean Corpuscular Hemoglobin Concent 34 g/dL (31-37) Red Cell Distribution Width 16.7 % (11.5-14.5) Platelet Count 133 x10^3/uL (140-400) Neutrophils (%) (Auto) 64 % (31-73) Lymphocytes (%) (Auto) 26 % (24-48) Monocytes (%) (Auto) 10 % (0-9) Eosinophils (%) (Auto) 0 % (0-3) Basophils (%) (Auto) 1 % (0-3) Neutrophils # (Auto) 4.2 x10^3uL (1.8-7.7) Lymphocytes # (Auto) 1.7 x10^3/uL (1.0-4.8) Monocytes # (Auto) 0.6 x10^3/uL (0.0-1.1) Eosinophils # (Auto) 0.0 x10^3/uL (0.0-0.7) Basophils # (Auto) 0.0 x10^3/uL (0.0-0.2) Sodium Level 134 mmol/L (136-145) Potassium Level 4.7 mmol/L (3.5-5.1) Chloride Level 103 mmol/L (98-107) Carbon Dioxide Level 25 mmol/L (21-32) Anion Gap 6 (6-14) Blood Urea Nitrogen 15 mg/dL (7-20) Creatinine 1.0 mg/dL (0.6-1.0) Estimated GFR (Cockcroft-Gault) 53.0 Glucose Level 108 mg/dL (70-99) Calcium Level 9.4 mg/dL (8.5-10.1) Test 02/18/18 11:37 Glucose (Fingerstick) 123 mg/dL (70-99) Assessment/Plan Assessment/Plan Nausea and vomiting with poor PO intake- appears disproportionate to recent renal issues alone as cause, although those events may be contributing- gastritis, PUD, atypical biliary , constipation - all could be contributing as well Constipation- seems new but unclear- in part from poor PO intake and medications PLan- Dulcolax suppository IV PPI Zofran consider abd US, EGD ( if family willing) GABY BARRETT MD Feb 18, 2018 14:48
--- NOTE | 2018-02-18 14:50 | RAD ---
EXAM: Supine AP view of the abdomen DATE: 02/18/2018 2:09 PM INDICATION: Low abdominal pain COMPARISON: No Prior FINDINGS: No abnormal small or large bowel dilatation. Moderate colonic stool content. No abnormal soft tissue mass effect. No suspicious calcifications are seen. Evaluation for free intraperitoneal gas is limited on this supine exam. Atherosclerotic vascular calcifications of aorta are seen. IMPRESSION: 1. No evidence for bowel obstruction. Electronically signed by: Devin Denise MD (02/18/2018 2:47 PM) [facility]
[2018-02-18 15:00] VITALS: BP 144/67
--- NOTE | 2018-02-18 18:31 | PDOC ---
PROGRESS NOTES Chief Complaint Chief Complaint dementia, weakness, acquired hypokalemia, hypomag, moderate malnutrition hypotension, JESSICA, vasomotor, e coli UTI htn, controlled hld gerd hypothyroidism h/o left hydro - s/p stent left renal pelvis and removal History of Present Illness History of Present Illness poor PO intake refusing PT and ot palliative care following Dextrose IVF Full code Vitals Vitals Vital Signs Date Time Temp Pulse Resp B/P (MAP) Pulse Ox O2 Delivery O2 Flow Rate FiO2 02/18/18 15:00 98.2 62 16 144/67 (92) 98 Room Air 98.2 Physical Exam General: Alert, Other (but confused) Heart: Regular rate, Normal S1, Normal S2 Lungs: Clear Abdomen: Normal bowel sounds, Soft, No tenderness, No hepatosplenomegaly, No masses Extremities: No clubbing, No cyanosis Skin: No rashes Labs LABS Laboratory Tests Test 02/17/18 21:43 02/18/18 03:40 02/18/18 07:24 02/18/18 11:37 Glucose (Fingerstick) 117 mg/dL (70-99) 119 mg/dL (70-99) 123 mg/dL (70-99) White Blood Count 6.7 x10^3/uL (4.0-11.0) Red Blood Count 3.20 x10^6/uL (3.50-5.40) Hemoglobin 9.2 g/dL (12.0-15.5) Hematocrit 27.3 % (36.0-47.0) Mean Corpuscular Volume 86 fL (79-100) Mean Corpuscular Hemoglobin 29 pg (25-35) Mean Corpuscular Hemoglobin Concent 34 g/dL (31-37) Red Cell Distribution Width 16.7 % (11.5-14.5) Platelet Count 133 x10^3/uL (140-400) Neutrophils (%) (Auto) 64 % (31-73) Lymphocytes (%) (Auto) 26 % (24-48) Monocytes (%) (Auto) 10 % (0-9) Eosinophils (%) (Auto) 0 % (0-3) Basophils (%) (Auto) 1 % (0-3) Neutrophils # (Auto) 4.2 x10^3uL (1.8-7.7) Lymphocytes # (Auto) 1.7 x10^3/uL (1.0-4.8) Monocytes # (Auto) 0.6 x10^3/uL (0.0-1.1) Eosinophils # (Auto) 0.0 x10^3/uL (0.0-0.7) Basophils # (Auto) 0.0 x10^3/uL (0.0-0.2) Sodium Level 134 mmol/L (136-145) Potassium Level 4.7 mmol/L (3.5-5.1) Chloride Level 103 mmol/L (98-107) Carbon Dioxide Level 25 mmol/L (21-32) Anion Gap 6 (6-14) Blood Urea Nitrogen 15 mg/dL (7-20) Creatinine 1.0 mg/dL (0.6-1.0) Estimated GFR (Cockcroft-Gault) 53.0 Glucose Level 108 mg/dL (70-99) Calcium Level 9.4 mg/dL (8.5-10.1) Test 02/18/18 16:42 Glucose (Fingerstick) 133 mg/dL (70-99) Assessment and Plan Assessmemt and Plan Problems Medical Problems: (1) Anemia Status: Acute (2) Failure to thrive in adult Status: Acute (3) Hypokalemia Status: Acute (4) Hypomagnesemia Status: Acute (5) Renal insufficiency Status: Acute (6) Urinary tract infection Status: Acute Comment Review of Relevant I have reviewed the following items harry (where applicable) has been applied. Labs Laboratory Tests Test 02/16/18 21:17 02/17/18 04:23 02/17/18 07:36 02/17/18 11:15 Glucose (Fingerstick) 130 mg/dL (70-99) 116 mg/dL (70-99) 165 mg/dL (70-99) White Blood Count 5.8 x10^3/uL (4.0-11.0) Red Blood Count 3.19 x10^6/uL (3.50-5.40) Hemoglobin 9.3 g/dL (12.0-15.5) Hematocrit 27.3 % (36.0-47.0) Mean Corpuscular Volume 86 fL (79-100) Mean Corpuscular Hemoglobin 29 pg (25-35) Mean Corpuscular Hemoglobin Concent 34 g/dL (31-37) Red Cell Distribution Width 17.2 % (11.5-14.5) Platelet Count 141 x10^3/uL (140-400) Neutrophils (%) (Auto) 69 % (31-73) Lymphocytes (%) (Auto) 22 % (24-48) Monocytes (%) (Auto) 9 % (0-9) Eosinophils (%) (Auto) 0 % (0-3) Basophils (%) (Auto) 1 % (0-3) Neutrophils # (Auto) 4.0 x10^3uL (1.8-7.7) Lymphocytes # (Auto) 1.2 x10^3/uL (1.0-4.8) Monocytes # (Auto) 0.5 x10^3/uL (0.0-1.1) Eosinophils # (Auto) 0.0 x10^3/uL (0.0-0.7) Basophils # (Auto) 0.0 x10^3/uL (0.0-0.2) Sodium Level 140 mmol/L (136-145) Potassium Level 4.1 mmol/L (3.5-5.1) Chloride Level 108 mmol/L (98-107) Carbon Dioxide Level 22 mmol/L (21-32) Anion Gap 10 (6-14) Blood Urea Nitrogen 9 mg/dL (7-20) Creatinine 1.3 mg/dL (0.6-1.0) Estimated GFR (Cockcroft-Gault) 39.1 Glucose Level 131 mg/dL (70-99) Calcium Level 9.8 mg/dL (8.5-10.1) Test 02/17/18 16:41 02/17/18 21:43 02/18/18 03:40 02/18/18 07:24 Glucose (Fingerstick) 140 mg/dL (70-99) 117 mg/dL (70-99) 119 mg/dL (70-99) White Blood Count 6.7 x10^3/uL (4.0-11.0) Red Blood Count 3.20 x10^6/uL (3.50-5.40) Hemoglobin 9.2 g/dL (12.0-15.5) Hematocrit 27.3 % (36.0-47.0) Mean Corpuscular Volume 86 fL (79-100) Mean Corpuscular Hemoglobin 29 pg (25-35) Mean Corpuscular Hemoglobin Concent 34 g/dL (31-37) Red Cell Distribution Width 16.7 % (11.5-14.5) Platelet Count 133 x10^3/uL (140-400) Neutrophils (%) (Auto) 64 % (31-73) Lymphocytes (%) (Auto) 26 % (24-48) Monocytes (%) (Auto) 10 % (0-9) Eosinophils (%) (Auto) 0 % (0-3) Basophils (%) (Auto) 1 % (0-3) Neutrophils # (Auto) 4.2 x10^3uL (1.8-7.7) Lymphocytes # (Auto) 1.7 x10^3/uL (1.0-4.8) Monocytes # (Auto) 0.6 x10^3/uL (0.0-1.1) Eosinophils # (Auto) 0.0 x10^3/uL (0.0-0.7) Basophils # (Auto) 0.0 x10^3/uL (0.0-0.2) Sodium Level 134 mmol/L (136-145) Potassium Level 4.7 mmol/L (3.5-5.1) Chloride Level 103 mmol/L (98-107) Carbon Dioxide Level 25 mmol/L (21-32) Anion Gap 6 (6-14) Blood Urea Nitrogen 15 mg/dL (7-20) Creatinine 1.0 mg/dL (0.6-1.0) Estimated GFR (Cockcroft-Gault) 53.0 Glucose Level 108 mg/dL (70-99) Calcium Level 9.4 mg/dL (8.5-10.1) Test 02/18/18 11:37 02/18/18 16:42 Glucose (Fingerstick) 123 mg/dL (70-99) 133 mg/dL (70-99) Laboratory Tests Test 02/17/18 21:43 02/18/18 03:40 02/18/18 07:24 02/18/18 11:37 Glucose (Fingerstick) 117 mg/dL (70-99) 119 mg/dL (70-99) 123 mg/dL (70-99) White Blood Count 6.7 x10^3/uL (4.0-11.0) Red Blood Count 3.20 x10^6/uL (3.50-5.40) Hemoglobin 9.2 g/dL (12.0-15.5) Hematocrit 27.3 % (36.0-47.0) Mean Corpuscular Volume 86 fL (79-100) Mean Corpuscular Hemoglobin 29 pg (25-35) Mean Corpuscular Hemoglobin Concent 34 g/dL (31-37) Red Cell Distribution Width 16.7 % (11.5-14.5) Platelet Count 133 x10^3/uL (140-400) Neutrophils (%) (Auto) 64 % (31-73) Lymphocytes (%) (Auto) 26 % (24-48) Monocytes (%) (Auto) 10 % (0-9) Eosinophils (%) (Auto) 0 % (0-3) Basophils (%) (Auto) 1 % (0-3) Neutrophils # (Auto) 4.2 x10^3uL (1.8-7.7) Lymphocytes # (Auto) 1.7 x10^3/uL (1.0-4.8) Monocytes # (Auto) 0.6 x10^3/uL (0.0-1.1) Eosinophils # (Auto) 0.0 x10^3/uL (0.0-0.7) Basophils # (Auto) 0.0 x10^3/uL (0.0-0.2) Sodium Level 134 mmol/L (136-145) Potassium Level 4.7 mmol/L (3.5-5.1) Chloride Level 103 mmol/L (98-107) Carbon Dioxide Level 25 mmol/L (21-32) Anion Gap 6 (6-14) Blood Urea Nitrogen 15 mg/dL (7-20) Creatinine 1.0 mg/dL (0.6-1.0) Estimated GFR (Cockcroft-Gault) 53.0 Glucose Level 108 mg/dL (70-99) Calcium Level 9.4 mg/dL (8.5-10.1) Test 02/18/18 16:42 Glucose (Fingerstick) 133 mg/dL (70-99) Microbiology 02/14/18 Blood Culture - Preliminary, Resulted NO GROWTH AFTER 4 DAYS 02/14/18 Urine Culture - Final, Complete 02/14/18 Urine Culture Result 1 (BERNABE) - Final, Complete Medications Current Medications Dextrose (Dextrose 50%-Water Syringe) 25 gm 1X ONCE IV Last administered on at 13:41; Start 02/14/18 at 13:45; Stop 02/14/18 at 13:46; Status DC Dextrose (Dextrose 50%-Water Syringe) 25 gm 1X ONCE IV ; Start 02/14/18 at 14: 00; Stop 02/14/18 at 14:01; Status DC Ceftriaxone Sodium 1 gm/ Dextrose 50 ml @ 100 mls/hr Q24H IV ; Start 02/14/18 at 15:30; Status UNV Ceftriaxone Sodium 50 ml @ 100 mls/hr 1X ONCE IV ; Start 02/14/18 at 15:30; Stop 02/14/18 at 15:59; Status DC Ceftriaxone Sodium (Rocephin) 1 gm Q24H IVP Last administered on 02/16/18at 15: 09; Start 02/15/18 at 15:00; Stop 02/16/18 at 18:00; Status DC Dextrose (Dextrose 50%-Water Syringe) 25 gm STK-MED ONCE IV ; Start 02/14/18 at 18:18; Stop 02/14/18 at 18:19; Status DC Amlodipine Besylate (Norvasc) 10 mg DAILY PO Last administered on 02/18/18at 10: 15; Start 02/15/18 at 09:00 Citalopram Hydrobromide (CeleXA) 10 mg DAILY PO Last administered on 02/18/18at 10:15; Start 02/15/18 at 09:00 Levothyroxine Sodium (Synthroid) 100 mcg DAILY07 PO Last administered on at 06:25; Start 02/15/18 at 07:00 Lisinopril (Prinivil) 40 mg DAILY PO Last administered on 02/18/18at 10:15; Start 02/15/18 at 09:00 Prednisone (Prednisone) 10 mg DAILY PO Last administered on 02/18/18at 10:15; Start 02/15/18 at 09:00 Tramadol HCl (Ultram) 50 mg PRN Q8HRS PRN PO MODERATE-SEVERE PAIN; Start at 18:45 Atorvastatin Calcium (Lipitor) 10 mg QHS PO Last administered on 02/17/18at 22: 04; Start 02/14/18 at 21:00 Pantoprazole Sodium (Protonix) 40 mg DAILYAC PO Last administered on 02/18/18at 10:14; Start 02/15/18 at 07:30; Stop 02/18/18 at 13:26; Status DC Ondansetron HCl (Zofran) 4 mg PRN Q6HRS PRN IV NAUSEA/VOMITING Last administered on 02/18/18at 09:27; Start 02/14/18 at 19:00 Dextrose/Sodium Chloride 1,000 ml @ 80 mls/hr [id number] IV Last administered on 02/16/18at 21:23; Start 02/14/18 at 19:30; Stop 02/17/18 at 11:49; Status DC Dextrose (Dextrose 50%-Water Syringe) 25 gm 1X ONCE IV Last administered on at 19:18; Start 02/14/18 at 19:00; Stop 02/14/18 at 19:01; Status DC Potassium Chloride (Klor-Con) 40 meq 1X ONCE PO Last administered on at 10:18; Start 02/15/18 at 09:15; Stop 02/15/18 at 09:16; Status DC Magnesium Sulfate 50 ml @ 25 mls/hr 1X ONCE IV Last administered on 02/15/18at 10:19; Start 02/15/18 at 09:15; Stop 02/15/18 at 11:14; Status DC Potassium Chloride (Klor-Con) 20 meq [id number] PO Last administered on at 08:12; Start 02/16/18 at 08:00; Stop 02/16/18 at 08:44; Status DC Potassium Chloride (Klor-Con) 40 meq 1X ONCE PO Last administered on at 12:26; Start 02/15/18 at 11:45; Stop 02/15/18 at 11:46; Status DC Potassium Chloride (Klor-Con) 40 meq 1X ONCE PO Last administered on at 17:30; Start 02/15/18 at 17:00; Stop 02/15/18 at 17:01; Status DC Lactobacillus Rhamnosus (Culturelle) 1 cap BID PO Last administered on at 10:15; Start 02/15/18 at 21:00 Potassium Chloride (KCl Oral Soln) 20 meq BIDWMEALS PO Last administered on at 16:39; Start 02/16/18 at 17:00 Cefpodoxime Proxetil (Vantin) 200 mg Q24H PO ; Start 02/16/18 at 21:00; Stop at 21:00; Status DC Cefpodoxime Proxetil (Vantin) 100 mg Q12H PO Last administered on 02/18/18at 10: 14; Start 02/16/18 at 21:00 Acetaminophen (Tylenol) 500 mg PRN Q6HRS PRN PO MILD PAIN / TEMP; Start at 09:30 Amino Acids/ Glycerin/ Electrolytes 1,000 ml @ 80 mls/hr [id number] IV Last administered on 02/18/18at 13:13; Start 02/17/18 at 12:00 Pantoprazole Sodium (PROTONIX VIAL for IV PUSH) 40 mg DAILYAC IVP ; Start at 07:30 Bisacodyl (Dulcolax Supp) 10 mg 1X ONCE KS Last administered on 02/18/18at 13: 52; Start 02/18/18 at 13:30; Stop 02/18/18 at 13:31; Status DC Active Scripts Active Celexa (Citalopram Hydrobromide) 10 Mg Tablet 10 Mg PO DAILY 30 Days Amlodipine Besylate 5 Mg Tablet 10 Mg PO DAILY 30 Days Reported Omeprazole 40 Mg Capsule.dr 1 Cap PO DAILY Prednisone 20 Mg Tablet 10 Mg PO DAILY Lisinopril 40 Mg Tablet 1 Tab PO DAILY Levothyroxine Sodium 100 Mcg Tablet 1 Tab PO DAILY Lovastatin 40 Mg Tablet 40 Mg PO HS Tramadol Hcl 50 Mg Tablet 50 Mg PO PRN Q6-8HRS PRN Vitals/I & O Vital Sign - Last 24 Hours 02/17/18 02/17/18 02/17/18 02/18/18 19:00 20:00 23:00 03:00 Temp 98.1 98.8 98.8 98.1 98.8 98.8 Pulse 67 69 79 Resp 18 18 18 B/P (MAP) 147/71 (96) 159/79 (105) 172/84 (113) Pulse Ox 98 96 95 O2 Delivery Room Air Room Air Room Air Room Air 02/18/18 02/18/18 02/18/18 02/18/18 07:00 08:00 10:15 10:15 Temp 98.7 98.7 Pulse 76 76 76 Resp 16 B/P (MAP) 175/80 (111) 175/80 175/80 Pulse Ox 94 O2 Delivery Room Air Room Air 02/18/18 02/18/18 11:00 15:00 Temp 98.3 98.2 98.3 98.2 Pulse 74 62 Resp 16 16 B/P (MAP) 160/80 (106) 144/67 (92) Pulse Ox 95 98 O2 Delivery Room Air Room Air Intake and Output 02/17/18 02/17/18 02/18/18 15:00 23:00 07:00 Intake Total 120 ml 200 ml Balance 120 ml 200 ml Nutrition Consultation Dietary Evaluation: Recommendations by RD: Increase Calorie Intake, Protein supplementation, PPN/ TPN Comments: ensure tid consider PPN for short term nutrition Expected Outcomes/Goals: to meet > 50% est nutr needs via po intake Malnutrition Findings: Food and Nutrition Intake (Sev: <50% est energy req 5days Body Fat Depletion (Non Severe: Mild Depletion Weight Status: Appropriate HUMBERTO ANDERSON MD Feb 18, 2018 18:31
[2018-02-18 19:59] VITALS: BP 160/73
[2018-02-18] MEDS: ATORVASTATIN CALCIUM 10 MG TABLET. PO SCH (22:09)
[2018-02-18 23:59] VITALS: BP 143/82
[2018-02-19 02:31] VITALS: BP 162/87
[2018-02-19] MEDS: AMINO AC 3%/ELECTROLYTE/GLYCER 1,000 ML IV SCH ×2 (04:37→18:37)
[2018-02-19 05:01] LABS: BASO % 1 % (0-3); EOS # 0.1 x10^3/uL (0.0-0.7); EOS % 1 % (0-3); HEMATOCRIT 26.4 % (36.0-47.0); HEMOGLOBIN 9.2 g/dL (12.0-15.5); LYMPH # 1.8 x10^3/uL (1.0-4.8); LYMPH % 33 % (24-48); MEAN CORPUSCULAR HEMOGLOBIN 29 pg (25-35); MEAN CORPUSCULAR HGB CONC 35 g/dL (31-37); MEAN CORPUSCULAR VOLUME 83 fL (79-100); MONO # 0.6 x10^3/uL (0.0-1.1); MONO % 10 % (0-9); NEUT # 3.1 x10^3uL (1.8-7.7); NEUT % 56 % (31-73); PLATELET COUNT 117 x10^3/uL (140-400); RED BLOOD COUNT 3.16 x10^6/uL (3.50-5.40); RED CELL DISTRIBUTION WIDTH 16.5 % (11.5-14.5); WHITE BLOOD COUNT 5.6 x10^3/uL (4.0-11.0)
[2018-02-19 05:49] LABS: ALBUMIN 2.2 g/dL (3.4-5.0); ALBUMIN/GLOBULIN RATIO 0.6 (1.0-1.7); CALCIUM 9.3 mg/dL (8.5-10.1); POTASSIUM 4.3 mmol/L (3.5-5.1); TOTAL BILIRUBIN 0.4 mg/dL (0.2-1.0); TOTAL PROTEIN 5.6 g/dL (6.4-8.2)
[2018-02-19] MEDS: LEVOTHYROXINE 100 MCG TABLET PO SCH (06:04)
[2018-02-19] MEDS ORDERED: DEXTROSE 50% 25 GM / 50ML DISP.SYRIN. IV PRN (06:15)
[2018-02-19 07:00] VITALS: BP 144/87
--- NOTE | 2018-02-19 07:57 | RAD ---
Ultrasound of the abdomen complete. HISTORY: Abdominal pain, nausea Ultrasound was used to evaluate the abdomen. Pancreas appeared unremarkable although portions of the tail of the pancreas were obscured. Liver is normal in size and appearance without a focal lesion. Right kidney is 11.4 cm in length. There is mild dilatation the right renal collecting system and renal pelvis. Common duct was upper normal measuring 6 mm. There is atherosclerotic change in the aorta without an aneurysm. Vena cava was unremarkable. No gallstones are noted. There is mild thickening of the gallbladder wall. Spleen is within normal limits in size. Left kidney is 11 cm in length without hydronephrosis. There is a dilated renal pelvis of the left kidney without hydronephrosis. There is cortical thinning of the left kidney. There is lobulation of the superior bladder unchanged from the appearance on the CT study. IMPRESSION: 1. Mild thickening of the wall of the gallbladder without gallstones. 2. Mild right hydronephrosis. 3. Mild distention of the bladder. 4. Cortical thinning of the left kidney with prominent extrarenal pelvis left kidney. Electronically signed by: Walker Shaffer MD (02/19/2018 7:53 AM) [facility]
[2018-02-19] MEDS ORDERED: INSULIN LISPRO 300 UNITS/3 ML INSULN.PEN. SQ SCH (08:00)
[2018-02-19] MEDS: POTASSIUM CHLORIDE 20 MEQ/15 ML ORAL LIQUID. PO SCH ×2 (08:37→16:15)
[2018-02-19] MEDS: ONDANSETRON PF 4 MG/2 ML VIAL. IV PRN ×2 (08:39→16:15)
[2018-02-19] MEDS: LISINOPRIL 20 MG TABLET PO SCH (08:41)
[2018-02-19] MEDS: CITALOPRAM 10 MG TABLET. PO SCH (08:41)
[2018-02-19] MEDS: amLODIPine BESYLATE 10 MG TABLET PO SCH (08:42)
[2018-02-19] MEDS: predniSONE 10 MG TABLET PO SCH (08:42)
[2018-02-19] MEDS: LACTOBACILLUS RHAMNOSUS GG 1 CAPSULE. PO SCH ×2 (08:42→22:15)
[2018-02-19] MEDS: CEFPODOXIME PROXETIL 100 MG TABLET. PO SCH ×2 (08:42→22:15)
[2018-02-19] MEDS: PANTOPRAZOLE IV PUSH 40 MG VIAL. IVP SCH (08:42)
[2018-02-19 11:00] VITALS: BP 149/75
--- NOTE | 2018-02-19 12:01 | PDOC ---
GI PROGRESS NOTES Date Date/Time DATE: 02/19/18 TIME: 11:58 Subjective Subjective awake- in room visiting with family- still with flat affect- some limited PO intake Objective Vitals Vital Signs Date Time Temp Pulse Resp B/P (MAP) Pulse Ox O2 Delivery O2 Flow Rate FiO2 02/19/18 11:00 98.1 64 18 149/75 (99) 93 Room Air 98.1 02/19/18 08:42 69 144/87 02/19/18 08:41 69 144/87 02/19/18 08:00 Room Air 02/19/18 07:00 99.0 69 18 144/87 (106) 94 Room Air 99.0 02/19/18 02:31 98.6 67 18 162/87 (112) 94 Room Air 98.6 02/18/18 23:59 98.2 69 18 143/82 (102) 95 Room Air 98.2 02/18/18 19:59 Room Air 02/18/18 19:59 98.1 69 18 160/73 (102) 96 Room Air 98.1 02/18/18 15:00 98.2 62 16 144/67 (92) 98 Room Air 98.2 Labs Labs Laboratory Tests Test 02/18/18 16:42 02/18/18 20:46 02/19/18 04:45 Glucose (Fingerstick) 133 mg/dL (70-99) 108 mg/dL (70-99) White Blood Count 5.6 x10^3/uL (4.0-11.0) Red Blood Count 3.16 x10^6/uL (3.50-5.40) Hemoglobin 9.2 g/dL (12.0-15.5) Hematocrit 26.4 % (36.0-47.0) Mean Corpuscular Volume 83 fL (79-100) Mean Corpuscular Hemoglobin 29 pg (25-35) Mean Corpuscular Hemoglobin Concent 35 g/dL (31-37) Red Cell Distribution Width 16.5 % (11.5-14.5) Platelet Count 117 x10^3/uL (140-400) Neutrophils (%) (Auto) 56 % (31-73) Lymphocytes (%) (Auto) 33 % (24-48) Monocytes (%) (Auto) 10 % (0-9) Eosinophils (%) (Auto) 1 % (0-3) Basophils (%) (Auto) 1 % (0-3) Neutrophils # (Auto) 3.1 x10^3uL (1.8-7.7) Lymphocytes # (Auto) 1.8 x10^3/uL (1.0-4.8) Monocytes # (Auto) 0.6 x10^3/uL (0.0-1.1) Eosinophils # (Auto) 0.1 x10^3/uL (0.0-0.7) Basophils # (Auto) 0.0 x10^3/uL (0.0-0.2) Sodium Level 129 mmol/L (136-145) Potassium Level 4.3 mmol/L (3.5-5.1) Chloride Level 97 mmol/L (98-107) Carbon Dioxide Level 25 mmol/L (21-32) Anion Gap 7 (6-14) Blood Urea Nitrogen 20 mg/dL (7-20) Creatinine 1.0 mg/dL (0.6-1.0) Estimated GFR (Cockcroft-Gault) 53.0 BUN/Creatinine Ratio 20 (6-20) Glucose Level 102 mg/dL (70-99) Calcium Level 9.3 mg/dL (8.5-10.1) Total Bilirubin 0.4 mg/dL (0.2-1.0) Aspartate Amino Transf (AST/SGOT) 19 U/L (15-37) Alanine Aminotransferase (ALT/SGPT) 20 U/L (14-59) Alkaline Phosphatase 74 U/L (46-116) Total Protein 5.6 g/dL (6.4-8.2) Albumin 2.2 g/dL (3.4-5.0) Albumin/Globulin Ratio 0.6 (1.0-1.7) Lipase 130 U/L (73-393) Physical Exam Physical Exam awake chest- clear Abd - soft NON tender Assessment Assessment anorexia- no obvious source except for dementia and possible undiagnosed ulcer or gastritis- US of liver and gallbladder negative and LFTS and lipase also negative Plan- PPI supplements and dietitian assistance if increased nausea, pain etc, then consider EGD GABY BARRETT MD Feb 19, 2018 12:01
--- NOTE | 2018-02-19 13:20 | PDOC ---
PROGRESS NOTES Chief Complaint Chief Complaint dementia, weakness, acquired hypokalemia, hypomag, moderate malnutrition hypotension, JESSICA, vasomotor, e coli UTI htn, controlled hld gerd hypothyroidism h/o left hydro - s/p stent left renal pelvis and removal History of Present Illness History of Present Illness poor PO intake refusing PT and ot palliative care following need placement, Vitals Vitals Vital Signs Date Time Temp Pulse Resp B/P (MAP) Pulse Ox O2 Delivery O2 Flow Rate FiO2 02/19/18 11:00 98.1 64 18 149/75 (99) 93 Room Air 98.1 Physical Exam General: Alert, Other (but confused) Heart: Regular rate, Normal S1, Normal S2 Lungs: Clear Abdomen: Normal bowel sounds, Soft, No tenderness, No hepatosplenomegaly, No masses Extremities: No clubbing, No cyanosis Skin: No rashes Labs LABS Laboratory Tests Test 02/18/18 16:42 02/18/18 20:46 02/19/18 04:45 Glucose (Fingerstick) 133 mg/dL (70-99) 108 mg/dL (70-99) White Blood Count 5.6 x10^3/uL (4.0-11.0) Red Blood Count 3.16 x10^6/uL (3.50-5.40) Hemoglobin 9.2 g/dL (12.0-15.5) Hematocrit 26.4 % (36.0-47.0) Mean Corpuscular Volume 83 fL (79-100) Mean Corpuscular Hemoglobin 29 pg (25-35) Mean Corpuscular Hemoglobin Concent 35 g/dL (31-37) Red Cell Distribution Width 16.5 % (11.5-14.5) Platelet Count 117 x10^3/uL (140-400) Neutrophils (%) (Auto) 56 % (31-73) Lymphocytes (%) (Auto) 33 % (24-48) Monocytes (%) (Auto) 10 % (0-9) Eosinophils (%) (Auto) 1 % (0-3) Basophils (%) (Auto) 1 % (0-3) Neutrophils # (Auto) 3.1 x10^3uL (1.8-7.7) Lymphocytes # (Auto) 1.8 x10^3/uL (1.0-4.8) Monocytes # (Auto) 0.6 x10^3/uL (0.0-1.1) Eosinophils # (Auto) 0.1 x10^3/uL (0.0-0.7) Basophils # (Auto) 0.0 x10^3/uL (0.0-0.2) Sodium Level 129 mmol/L (136-145) Potassium Level 4.3 mmol/L (3.5-5.1) Chloride Level 97 mmol/L (98-107) Carbon Dioxide Level 25 mmol/L (21-32) Anion Gap 7 (6-14) Blood Urea Nitrogen 20 mg/dL (7-20) Creatinine 1.0 mg/dL (0.6-1.0) Estimated GFR (Cockcroft-Gault) 53.0 BUN/Creatinine Ratio 20 (6-20) Glucose Level 102 mg/dL (70-99) Calcium Level 9.3 mg/dL (8.5-10.1) Total Bilirubin 0.4 mg/dL (0.2-1.0) Aspartate Amino Transf (AST/SGOT) 19 U/L (15-37) Alanine Aminotransferase (ALT/SGPT) 20 U/L (14-59) Alkaline Phosphatase 74 U/L (46-116) Total Protein 5.6 g/dL (6.4-8.2) Albumin 2.2 g/dL (3.4-5.0) Albumin/Globulin Ratio 0.6 (1.0-1.7) Lipase 130 U/L (73-393) Assessment and Plan Assessmemt and Plan Problems Medical Problems: (1) Anemia Status: Acute (2) Failure to thrive in adult Status: Acute (3) Hypokalemia Status: Acute (4) Hypomagnesemia Status: Acute (5) Renal insufficiency Status: Acute (6) Urinary tract infection Status: Acute Comment Review of Relevant I have reviewed the following items harry (where applicable) has been applied. Labs Laboratory Tests Test 02/17/18 16:41 02/17/18 21:43 02/18/18 03:40 02/18/18 07:24 Glucose (Fingerstick) 140 mg/dL (70-99) 117 mg/dL (70-99) 119 mg/dL (70-99) White Blood Count 6.7 x10^3/uL (4.0-11.0) Red Blood Count 3.20 x10^6/uL (3.50-5.40) Hemoglobin 9.2 g/dL (12.0-15.5) Hematocrit 27.3 % (36.0-47.0) Mean Corpuscular Volume 86 fL (79-100) Mean Corpuscular Hemoglobin 29 pg (25-35) Mean Corpuscular Hemoglobin Concent 34 g/dL (31-37) Red Cell Distribution Width 16.7 % (11.5-14.5) Platelet Count 133 x10^3/uL (140-400) Neutrophils (%) (Auto) 64 % (31-73) Lymphocytes (%) (Auto) 26 % (24-48) Monocytes (%) (Auto) 10 % (0-9) Eosinophils (%) (Auto) 0 % (0-3) Basophils (%) (Auto) 1 % (0-3) Neutrophils # (Auto) 4.2 x10^3uL (1.8-7.7) Lymphocytes # (Auto) 1.7 x10^3/uL (1.0-4.8) Monocytes # (Auto) 0.6 x10^3/uL (0.0-1.1) Eosinophils # (Auto) 0.0 x10^3/uL (0.0-0.7) Basophils # (Auto) 0.0 x10^3/uL (0.0-0.2) Sodium Level 134 mmol/L (136-145) Potassium Level 4.7 mmol/L (3.5-5.1) Chloride Level 103 mmol/L (98-107) Carbon Dioxide Level 25 mmol/L (21-32) Anion Gap 6 (6-14) Blood Urea Nitrogen 15 mg/dL (7-20) Creatinine 1.0 mg/dL (0.6-1.0) Estimated GFR (Cockcroft-Gault) 53.0 Glucose Level 108 mg/dL (70-99) Calcium Level 9.4 mg/dL (8.5-10.1) Test 02/18/18 11:37 02/18/18 16:42 02/18/18 20:46 02/19/18 04:45 Glucose (Fingerstick) 123 mg/dL (70-99) 133 mg/dL (70-99) 108 mg/dL (70-99) White Blood Count 5.6 x10^3/uL (4.0-11.0) Red Blood Count 3.16 x10^6/uL (3.50-5.40) Hemoglobin 9.2 g/dL (12.0-15.5) Hematocrit 26.4 % (36.0-47.0) Mean Corpuscular Volume 83 fL (79-100) Mean Corpuscular Hemoglobin 29 pg (25-35) Mean Corpuscular Hemoglobin Concent 35 g/dL (31-37) Red Cell Distribution Width 16.5 % (11.5-14.5) Platelet Count 117 x10^3/uL (140-400) Neutrophils (%) (Auto) 56 % (31-73) Lymphocytes (%) (Auto) 33 % (24-48) Monocytes (%) (Auto) 10 % (0-9) Eosinophils (%) (Auto) 1 % (0-3) Basophils (%) (Auto) 1 % (0-3) Neutrophils # (Auto) 3.1 x10^3uL (1.8-7.7) Lymphocytes # (Auto) 1.8 x10^3/uL (1.0-4.8) Monocytes # (Auto) 0.6 x10^3/uL (0.0-1.1) Eosinophils # (Auto) 0.1 x10^3/uL (0.0-0.7) Basophils # (Auto) 0.0 x10^3/uL (0.0-0.2) Sodium Level 129 mmol/L (136-145) Potassium Level 4.3 mmol/L (3.5-5.1) Chloride Level 97 mmol/L (98-107) Carbon Dioxide Level 25 mmol/L (21-32) Anion Gap 7 (6-14) Blood Urea Nitrogen 20 mg/dL (7-20) Creatinine 1.0 mg/dL (0.6-1.0) Estimated GFR (Cockcroft-Gault) 53.0 BUN/Creatinine Ratio 20 (6-20) Glucose Level 102 mg/dL (70-99) Calcium Level 9.3 mg/dL (8.5-10.1) Total Bilirubin 0.4 mg/dL (0.2-1.0) Aspartate Amino Transf (AST/SGOT) 19 U/L (15-37) Alanine Aminotransferase (ALT/SGPT) 20 U/L (14-59) Alkaline Phosphatase 74 U/L (46-116) Total Protein 5.6 g/dL (6.4-8.2) Albumin 2.2 g/dL (3.4-5.0) Albumin/Globulin Ratio 0.6 (1.0-1.7) Lipase 130 U/L (73-393) Laboratory Tests Test 02/18/18 16:42 02/18/18 20:46 02/19/18 04:45 Glucose (Fingerstick) 133 mg/dL (70-99) 108 mg/dL (70-99) White Blood Count 5.6 x10^3/uL (4.0-11.0) Red Blood Count 3.16 x10^6/uL (3.50-5.40) Hemoglobin 9.2 g/dL (12.0-15.5) Hematocrit 26.4 % (36.0-47.0) Mean Corpuscular Volume 83 fL (79-100) Mean Corpuscular Hemoglobin 29 pg (25-35) Mean Corpuscular Hemoglobin Concent 35 g/dL (31-37) Red Cell Distribution Width 16.5 % (11.5-14.5) Platelet Count 117 x10^3/uL (140-400) Neutrophils (%) (Auto) 56 % (31-73) Lymphocytes (%) (Auto) 33 % (24-48) Monocytes (%) (Auto) 10 % (0-9) Eosinophils (%) (Auto) 1 % (0-3) Basophils (%) (Auto) 1 % (0-3) Neutrophils # (Auto) 3.1 x10^3uL (1.8-7.7) Lymphocytes # (Auto) 1.8 x10^3/uL (1.0-4.8) Monocytes # (Auto) 0.6 x10^3/uL (0.0-1.1) Eosinophils # (Auto) 0.1 x10^3/uL (0.0-0.7) Basophils # (Auto) 0.0 x10^3/uL (0.0-0.2) Sodium Level 129 mmol/L (136-145) Potassium Level 4.3 mmol/L (3.5-5.1) Chloride Level 97 mmol/L (98-107) Carbon Dioxide Level 25 mmol/L (21-32) Anion Gap 7 (6-14) Blood Urea Nitrogen 20 mg/dL (7-20) Creatinine 1.0 mg/dL (0.6-1.0) Estimated GFR (Cockcroft-Gault) 53.0 BUN/Creatinine Ratio 20 (6-20) Glucose Level 102 mg/dL (70-99) Calcium Level 9.3 mg/dL (8.5-10.1) Total Bilirubin 0.4 mg/dL (0.2-1.0) Aspartate Amino Transf (AST/SGOT) 19 U/L (15-37) Alanine Aminotransferase (ALT/SGPT) 20 U/L (14-59) Alkaline Phosphatase 74 U/L (46-116) Total Protein 5.6 g/dL (6.4-8.2) Albumin 2.2 g/dL (3.4-5.0) Albumin/Globulin Ratio 0.6 (1.0-1.7) Lipase 130 U/L (73-393) Microbiology 02/14/18 Blood Culture - Preliminary, Resulted NO GROWTH AFTER 4 DAYS 02/14/18 Urine Culture - Final, Complete 02/14/18 Urine Culture Result 1 (BERNABE) - Final, Complete Medications Current Medications Dextrose (Dextrose 50%-Water Syringe) 25 gm 1X ONCE IV Last administered on at 13:41; Start 02/14/18 at 13:45; Stop 02/14/18 at 13:46; Status DC Dextrose (Dextrose 50%-Water Syringe) 25 gm 1X ONCE IV ; Start 02/14/18 at 14: 00; Stop 02/14/18 at 14:01; Status DC Ceftriaxone Sodium 1 gm/ Dextrose 50 ml @ 100 mls/hr Q24H IV ; Start 02/14/18 at 15:30; Status UNV Ceftriaxone Sodium 50 ml @ 100 mls/hr 1X ONCE IV ; Start 02/14/18 at 15:30; Stop 02/14/18 at 15:59; Status DC Ceftriaxone Sodium (Rocephin) 1 gm Q24H IVP Last administered on 02/16/18at 15: 09; Start 02/15/18 at 15:00; Stop 02/16/18 at 18:00; Status DC Dextrose (Dextrose 50%-Water Syringe) 25 gm STK-MED ONCE IV ; Start 02/14/18 at 18:18; Stop 02/14/18 at 18:19; Status DC Amlodipine Besylate (Norvasc) 10 mg DAILY PO Last administered on 02/19/18at 08: 42; Start 02/15/18 at 09:00 Citalopram Hydrobromide (CeleXA) 10 mg DAILY PO Last administered on 02/19/18at 08:41; Start 02/15/18 at 09:00 Levothyroxine Sodium (Synthroid) 100 mcg DAILY07 PO Last administered on 06:04; Start 02/15/18 at 07:00 Lisinopril (Prinivil) 40 mg DAILY PO Last administered on 02/19/18 08:41; Start 02/15/18 at 09:00 Prednisone (Prednisone) 10 mg DAILY PO Last administered on 02/19/18at 08:42; Start 02/15/18 at 09:00 Tramadol HCl (Ultram) 50 mg PRN Q8HRS PRN PO MODERATE-SEVERE PAIN; Start at 18:45 Atorvastatin Calcium (Lipitor) 10 mg QHS PO Last administered on 02/18/18at 22: 09; Start 02/14/18 at 21:00 Pantoprazole Sodium (Protonix) 40 mg DAILYAC PO Last administered on 02/18/18at 10:14; Start 02/15/18 at 07:30; Stop 02/18/18 at 13:26; Status DC Ondansetron HCl (Zofran) 4 mg PRN Q6HRS PRN IV NAUSEA/VOMITING Last administered on 02/19/18at 08:39; Start 02/14/18 at 19:00 Dextrose/Sodium Chloride 1,000 ml @ 80 mls/hr [id number] IV Last administered on 02/16/18at 21:23; Start 02/14/18 at 19:30; Stop 02/17/18 at 11:49; Status DC Dextrose (Dextrose 50%-Water Syringe) 25 gm 1X ONCE IV Last administered on at 19:18; Start 02/14/18 at 19:00; Stop 02/14/18 at 19:01; Status DC Potassium Chloride (Klor-Con) 40 meq 1X ONCE PO Last administered on at 10:18; Start 02/15/18 at 09:15; Stop 02/15/18 at 09:16; Status DC Magnesium Sulfate 50 ml @ 25 mls/hr 1X ONCE IV Last administered on 02/15/18at 10:19; Start 02/15/18 at 09:15; Stop 02/15/18 at 11:14; Status DC Potassium Chloride (Klor-Con) 20 meq [id number] PO Last administered on at 08:12; Start 02/16/18 at 08:00; Stop 02/16/18 at 08:44; Status DC Potassium Chloride (Klor-Con) 40 meq 1X ONCE PO Last administered on at 12:26; Start 02/15/18 at 11:45; Stop 02/15/18 at 11:46; Status DC Potassium Chloride (Klor-Con) 40 meq 1X ONCE PO Last administered on at 17:30; Start 02/15/18 at 17:00; Stop 02/15/18 at 17:01; Status DC Lactobacillus Rhamnosus (Culturelle) 1 cap BID PO Last administered on at 08:42; Start 02/15/18 at 21:00 Potassium Chloride (KCl Oral Soln) 20 meq BIDWMEALS PO Last administered on at 08:37; Start 02/16/18 at 17:00 Cefpodoxime Proxetil (Vantin) 200 mg Q24H PO ; Start 02/16/18 at 21:00; Stop at 21:00; Status DC Cefpodoxime Proxetil (Vantin) 100 mg Q12H PO Last administered on 02/19/18at 08: 42; Start 02/16/18 at 21:00 Acetaminophen (Tylenol) 500 mg PRN Q6HRS PRN PO MILD PAIN / TEMP; Start at 09:30 Amino Acids/ Glycerin/ Electrolytes 1,000 ml @ 80 mls/hr [id number] IV Last administered on 02/19/18at 04:37; Start 02/17/18 at 12:00 Pantoprazole Sodium (PROTONIX VIAL for IV PUSH) 40 mg DAILYAC IVP Last administered on 02/19/18at 08:42; Start 02/19/18 at 07:30 Bisacodyl (Dulcolax Supp) 10 mg 1X ONCE [place] Last administered on 02/18/18at 13: 52; Start 02/18/18 at 13:30; Stop 02/18/18 at 13:31; Status DC Insulin Human Lispro (HumaLOG) 0-5 UNITS TIDWMEALS SQ ; Start 02/19/18 at 08:00 ; Stop 02/19/18 at 08:00; Status DC Dextrose (Dextrose 50%-Water Syringe) 12.5 gm PRN Q15MIN PRN IV SEE COMMENTS; Start 02/19/18 at 06:15; Stop 02/19/18 at 06:17; Status DC Active Scripts Active Celexa (Citalopram Hydrobromide) 10 Mg Tablet 10 Mg PO DAILY 30 Days Amlodipine Besylate 5 Mg Tablet 10 Mg PO DAILY 30 Days Reported Omeprazole 40 Mg Capsule.dr 1 Cap PO DAILY Prednisone 20 Mg Tablet 10 Mg PO DAILY Lisinopril 40 Mg Tablet 1 Tab PO DAILY Levothyroxine Sodium 100 Mcg Tablet 1 Tab PO DAILY Lovastatin 40 Mg Tablet 40 Mg PO HS Tramadol Hcl 50 Mg Tablet 50 Mg PO PRN Q6-8HRS PRN Vitals/I & O Vital Sign - Last 24 Hours 02/18/18 02/18/18 02/18/18 02/18/18 15:00 19:59 19:59 23:59 Temp 98.2 98.1 98.2 98.2 98.1 98.2 Pulse 62 69 69 Resp 16 18 18 B/P (MAP) 144/67 (92) 160/73 (102) 143/82 (102) Pulse Ox 98 96 95 O2 Delivery Room Air Room Air Room Air Room Air 02/19/18 02/19/18 02/19/18 02/19/18 02:31 07:00 08:00 08:41 Temp 98.6 99.0 98.6 99.0 Pulse 67 69 69 Resp 18 18 B/P (MAP) 162/87 (112) 144/87 (106) 144/87 Pulse Ox 94 94 O2 Delivery Room Air Room Air Room Air 02/19/18 02/19/18 08:42 11:00 Temp 98.1 98.1 Pulse 69 64 Resp 18 B/P (MAP) 144/87 149/75 (99) Pulse Ox 93 O2 Delivery Room Air Intake and Output 02/18/18 02/18/18 02/19/18 15:00 23:00 07:00 Intake Total 120 ml 120 ml Balance 120 ml 120 ml Nutrition Consultation Dietary Evaluation: Recommendations by RD: Increase Calorie Intake, Protein supplementation, PPN/ TPN Comments: ensure tid consider PPN for short term nutrition Expected Outcomes/Goals: to meet > 50% est nutr needs via po intake Malnutrition Findings: Food and Nutrition Intake (Sev: <50% est energy req 5days Body Fat Depletion (Non Severe: Mild Depletion Weight Status: Appropriate HUMBERTO ANDERSON MD Feb 19, 2018 13:20
[2018-02-19 14:57] VITALS: BP 157/72
[2018-02-19 19:49] VITALS: BP 171/87
[2018-02-19] MEDS: ATORVASTATIN CALCIUM 10 MG TABLET. PO SCH (22:15)
[2018-02-19 23:12] VITALS: BP 178/96
[2018-02-20 03:07] VITALS: BP 160/78
[2018-02-20] MEDS: LEVOTHYROXINE 100 MCG TABLET PO SCH (06:11)
[2018-02-20] MEDS: AMINO AC 3%/ELECTROLYTE/GLYCER 1,000 ML IV SCH ×2 (06:11→21:18)
[2018-02-20 07:00] VITALS: BP 181/88
[2018-02-20] MEDS: predniSONE 10 MG TABLET PO SCH (08:52)
[2018-02-20] MEDS: CITALOPRAM 10 MG TABLET. PO SCH (08:52)
[2018-02-20] MEDS: CEFPODOXIME PROXETIL 100 MG TABLET. PO SCH ×2 (08:52→21:18)
[2018-02-20] MEDS: LISINOPRIL 20 MG TABLET PO SCH (08:53)
[2018-02-20] MEDS: amLODIPine BESYLATE 10 MG TABLET PO SCH (08:54)
[2018-02-20] MEDS: POTASSIUM CHLORIDE 20 MEQ/15 ML ORAL LIQUID. PO SCH ×2 (08:56→18:17)
[2018-02-20] MEDS: PANTOPRAZOLE IV PUSH 40 MG VIAL. IVP SCH (08:57)
--- NOTE | 2018-02-20 10:04 | PDOC ---
Subjective: Subjective: Asked how she was feeling - "I don't know." Knows she's in a hospital, says the year is 1979. Objective: Objective: Reviewed w/ RN - didn't eat breakfast, took pills with pudding. Reviewed chart - palliative care involved, seems awaiting discussion w/ family. Vital Signs: Vital Signs Date Time Temp Pulse Resp B/P (MAP) Pulse Ox O2 Delivery O2 Flow Rate FiO2 02/20/18 08:54 76 181/88 02/20/18 07:00 98.6 16 98 Room Air 98.6 Labs: URINE CULTURE Final Final report URINE CULTURE RES 1 Final No growth BLOOD CULTURE Final NO GROWTH AFTER 5 DAYS Imaging: Abd US IMPRESSION: 1. Mild thickening of the wall of the gallbladder without gallstones. 2. Mild right hydronephrosis. 3. Mild distention of the bladder. 4. Cortical thinning of the left kidney with prominent extrarenal pelvis left kidney. KUB IMPRESSION: 1. No evidence for bowel obstruction. PE: GEN: NAD LUNGS: CTAB HEART: RRR ABD: BS+, soft, non-tender NEURO/PSYCH: flat, confused A/P: Anorexia Dementia -- On PPN. D/w RN re: Ensure, Boost, etc. Takes pills w/ pudding so will change PPI to PO. Await palliative discussion w/ family - would they want to pursue EGD? DASHAWN WHITING Feb 20, 2018 10:04
--- NOTE | 2018-02-20 10:51 | PDOC2 ---
PALLIATIVE CARE Palliative Care Note Palliative Care Spoke with patient. She again confirmed that she would not want resuscitation. States she has been on medication for depression. Does not remember how long she has been taking this medication. Continues to feel depressed. Not hungry. Does not want to keep coming back to the hospital. Would accept Hospice at home. Spoke with Annamarie she is agreement with DNR/DNI and Hospice Evaluation. Spoke with Nava FERNANDEZ who will update Dr. Gonzalez. ANAMARIA JAMES Feb 20, 2018 10:51
[2018-02-20] MEDS ORDERED: CEFP100T PO (10:54)
[2018-02-20] MEDS ORDERED: CITA10TA8 PO (10:54)
--- NOTE | 2018-02-20 11:01 | PDOC3 ---
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 generalized weakness failure to thrive Final Diagnosis Problems Medical Problems: (1) Anemia Status: Acute (2) Failure to thrive in adult Status: Acute (3) Hypokalemia Status: Acute (4) Hypomagnesemia Status: Acute (5) Renal insufficiency Status: Acute (6) Urinary tract infection Status: Acute Brief Hospital Course Allergies Allergies Coded Allergies Type Severity Reaction Last Updated Verified No Known Drug Allergies 11/02/17 No Vital Signs Vital Signs Date Time Temp Pulse Resp B/P (MAP) Pulse Ox O2 Delivery O2 Flow Rate FiO2 02/20/18 08:54 76 181/88 02/20/18 07:55 Room Air 02/20/18 07:00 98.6 16 98 98.6 Lab Results Laboratory Tests Test 02/18/18 11:37 02/18/18 16:42 02/18/18 20:46 02/19/18 04:45 Glucose (Fingerstick) 123 mg/dL (70-99) 133 mg/dL (70-99) 108 mg/dL (70-99) White Blood Count 5.6 x10^3/uL (4.0-11.0) Red Blood Count 3.16 x10^6/uL (3.50-5.40) Hemoglobin 9.2 g/dL (12.0-15.5) Hematocrit 26.4 % (36.0-47.0) Mean Corpuscular Volume 83 fL (79-100) Mean Corpuscular Hemoglobin 29 pg (25-35) Mean Corpuscular Hemoglobin Concent 35 g/dL (31-37) Red Cell Distribution Width 16.5 % (11.5-14.5) Platelet Count 117 x10^3/uL (140-400) Neutrophils (%) (Auto) 56 % (31-73) Lymphocytes (%) (Auto) 33 % (24-48) Monocytes (%) (Auto) 10 % (0-9) Eosinophils (%) (Auto) 1 % (0-3) Basophils (%) (Auto) 1 % (0-3) Neutrophils # (Auto) 3.1 x10^3uL (1.8-7.7) Lymphocytes # (Auto) 1.8 x10^3/uL (1.0-4.8) Monocytes # (Auto) 0.6 x10^3/uL (0.0-1.1) Eosinophils # (Auto) 0.1 x10^3/uL (0.0-0.7) Basophils # (Auto) 0.0 x10^3/uL (0.0-0.2) Sodium Level 129 mmol/L (136-145) Potassium Level 4.3 mmol/L (3.5-5.1) Chloride Level 97 mmol/L (98-107) Carbon Dioxide Level 25 mmol/L (21-32) Anion Gap 7 (6-14) Blood Urea Nitrogen 20 mg/dL (7-20) Creatinine 1.0 mg/dL (0.6-1.0) Estimated GFR (Cockcroft-Gault) 53.0 BUN/Creatinine Ratio 20 (6-20) Glucose Level 102 mg/dL (70-99) Calcium Level 9.3 mg/dL (8.5-10.1) Total Bilirubin 0.4 mg/dL (0.2-1.0) Aspartate Amino Transf (AST/SGOT) 19 U/L (15-37) Alanine Aminotransferase (ALT/SGPT) 20 U/L (14-59) Alkaline Phosphatase 74 U/L (46-116) Total Protein 5.6 g/dL (6.4-8.2) Albumin 2.2 g/dL (3.4-5.0) Albumin/Globulin Ratio 0.6 (1.0-1.7) Lipase 130 U/L (73-393) Brief Hospital Course Ms. Devlin is a 83 old white female who came from home, basically admitted with initial thoughts of UTI and some critical electrolyte abnormalities namely low potassium because of poor by mouth intake. Her course remarkable for us for refusing to participate with PT OT, refusing pills. She is very depressed. I did start her on some Celexa 10 mg 1 tablet once a day, mood effects will take effect in 6-8 weeks time. Did need to involve palliative because of her behavior throughout her stay. She wanted to be a DNR. Palliative meet waiting with daughter Pam. Most likely will just go home with home hospice. Outside DNR signed. Celexa Rx on chart No UTI and urine culture hence no need for by mouth antibiotics Time spent discharging coordination etc. 31 minutes Discharge Information Condition at Discharge: Stable Disposition/Orders: D/C to Home w/ HH Scheduled Amlodipine Besylate (Amlodipine Besylate) 5 Mg Tablet, 10 MG PO DAILY for 30 Days, #60 Prescribed by: ROBIN MUNOZ on 02/08/18 1047 Last Action: Continued on 02/14/181835 by ANDREWS MARLOW MD Citalopram Hydrobromide (Celexa) 10 Mg Tablet, 10 MG PO DAILY for 30 Days, #30 Prescribed by: ROBIN MUNOZ on 02/20/18 1054 Levothyroxine Sodium (Levothyroxine Sodium) 100 Mcg Tablet, 1 TAB PO DAILY, #90 Ref 3 (Reported) Entered as Reported by: CINTHIA STEELE on 10/26/1726 Last Action: Continued on 02/14/181835 by ANDREWS MARLOW MD Lisinopril (Lisinopril) 40 Mg Tablet, 1 TAB PO DAILY, #30 Ref 5 (Reported) Entered as Reported by: CINTHIA STEELE on 10/26/1726 Last Action: Continued on 02/14/181835 by ANDREWS MARLOW MD Lovastatin (Lovastatin) 40 Mg Tablet, 40 MG PO HS, (Reported) Entered as Reported by: CINTHIA STEELE on 10/26/1726 Last Action: Converted on 02/14/181835 by ANDREWS MARLOW MD Omeprazole (Omeprazole) 40 Mg Capsule.dr, 1 CAP PO DAILY, #30 Ref 3 (Reported) Entered as Reported by: CINTHIA STEELE on 10/26/1726 Last Action: Converted on 02/14/181835 by ANDREWS MARLOW MD Prednisone (Prednisone) 20 Mg Tablet, 10 MG PO DAILY, (Reported) Entered as Reported by: CINTHIA STEELE on 10/26/1726 Last Action: Continued on 02/14/181835 by ANDREWS MARLOW MD Scheduled PRN Tramadol Hcl (Tramadol Hcl) 50 Mg Tablet, 50 MG PO PRN Q6-8HRS PRN for PAIN, ( Reported) Entered as Reported by: CINTHIA STEELE on 10/26/177 Last Action: Continued on 02/14/18 1836 by MD TAMMY HOOVER CHERRIE Y MD Feb 20, 2018 11:01
[2018-02-20 11:07] VITALS: BP 137/62
[2018-02-20] MEDS: LACTOBACILLUS RHAMNOSUS GG 1 CAPSULE. PO SCH ×2 (12:55→21:18)
[2018-02-20 15:00] VITALS: BP 172/82
[2018-02-20 19:00] VITALS: BP 151/74
[2018-02-20] MEDS: ATORVASTATIN CALCIUM 10 MG TABLET. PO SCH (21:18)
[2018-02-20 22:40] VITALS: BP 146/81
[2018-02-21 02:36] VITALS: BP 145/67
[2018-02-21] MEDS: AMINO AC 3%/ELECTROLYTE/GLYCER 1,000 ML IV SCH (03:30)
[2018-02-21 07:00] VITALS: BP 156/71
[2018-02-21] MEDS ORDERED: PANTOPRAZOLE 40 MG TABLET.DR. PO SCH (07:30)
[2018-02-21] MEDS: POTASSIUM CHLORIDE 20 MEQ/15 ML ORAL LIQUID. PO SCH (09:05)
[2018-02-21] MEDS: predniSONE 10 MG TABLET PO SCH (09:05)
[2018-02-21] MEDS: LACTOBACILLUS RHAMNOSUS GG 1 CAPSULE. PO SCH (09:05)
[2018-02-21] MEDS: CITALOPRAM 10 MG TABLET. PO SCH (09:06)
[2018-02-21] MEDS: LEVOTHYROXINE 100 MCG TABLET PO SCH (09:06)
[2018-02-21] MEDS: amLODIPine BESYLATE 10 MG TABLET PO SCH (09:06)
[2018-02-21] MEDS: CEFPODOXIME PROXETIL 100 MG TABLET. PO SCH (09:06)
[2018-02-21] MEDS: LISINOPRIL 20 MG TABLET PO SCH (09:07)
[2018-02-21 11:00] VITALS: BP 137/59
--- NOTE | 2018-02-21 12:02 | PDOC ---
PROGRESS NOTES Chief Complaint Chief Complaint dementia, weakness, acquired hypokalemia, hypomag, moderate malnutrition hypotension, JESSICA, vasomotor, e coli UTI htn, controlled hld gerd hypothyroidism h/o left hydro - s/p stent left renal pelvis and removal History of Present Illness History of Present Illness still waiting for hospice company NO change, poor PO intake refusing PT and ot palliative care following PLAN: celexa on chart Roxanol, ativan prn>? ok to dc to hospice when arranged Vitals Vitals Vital Signs Date Time Temp Pulse Resp B/P (MAP) Pulse Ox O2 Delivery O2 Flow Rate FiO2 02/21/18 11:00 97.9 68 16 137/59 (85) 96 Room Air 97.9 Physical Exam General: Alert, Other (but confused) Heart: Regular rate, Normal S1, Normal S2 Lungs: Clear Abdomen: Normal bowel sounds, Soft, No tenderness, No hepatosplenomegaly, No masses Extremities: No clubbing, No cyanosis Skin: No rashes Review of Systems Review of Systems Asleep, I did not awaken Assessment and Plan Assessmemt and Plan Problems Medical Problems: (1) Anemia Status: Acute (2) Failure to thrive in adult Status: Acute (3) Hypokalemia Status: Acute (4) Hypomagnesemia Status: Acute (5) Renal insufficiency Status: Acute (6) Urinary tract infection Status: Acute Comment Review of Relevant I have reviewed the following items harry (where applicable) has been applied. Labs Microbiology 02/14/18 Blood Culture - Final, Complete NO GROWTH AFTER 5 DAYS 02/14/18 Urine Culture - Final, Complete 02/14/18 Urine Culture Result 1 (BERNABE) - Final, Complete Medications Current Medications Dextrose (Dextrose 50%-Water Syringe) 25 gm 1X ONCE IV Last administered on at 13:41; Start 02/14/18 at 13:45; Stop 02/14/18 at 13:46; Status DC Dextrose (Dextrose 50%-Water Syringe) 25 gm 1X ONCE IV ; Start 02/14/18 at 14: 00; Stop 02/14/18 at 14:01; Status DC Ceftriaxone Sodium 1 gm/ Dextrose 50 ml @ 100 mls/hr Q24H IV ; Start 02/14/18 at 15:30; Status UNV Ceftriaxone Sodium 50 ml @ 100 mls/hr 1X ONCE IV ; Start 02/14/18 at 15:30; Stop 02/14/18 at 15:59; Status DC Ceftriaxone Sodium (Rocephin) 1 gm Q24H IVP Last administered on 02/16/18at 15: 09; Start 02/15/18 at 15:00; Stop 02/16/18 at 18:00; Status DC Dextrose (Dextrose 50%-Water Syringe) 25 gm STK-MED ONCE IV ; Start 02/14/18 at 18:18; Stop 02/14/18 at 18:19; Status DC Amlodipine Besylate (Norvasc) 10 mg DAILY PO Last administered on 02/21/18 09: 06; Start 02/15/18 at 09:00 Citalopram Hydrobromide (CeleXA) 10 mg DAILY PO Last administered on 02/21/18at 09:06; Start 02/15/18 at 09:00 Levothyroxine Sodium (Synthroid) 100 mcg DAILY07 PO Last administered on at 09:06; Start 02/15/18 at 07:00 Lisinopril (Prinivil) 40 mg DAILY PO Last administered on 02/21/18at 09:07; Start 02/15/18 at 09:00 Prednisone (Prednisone) 10 mg DAILY PO Last administered on 02/21/18at 09:05; Start 02/15/18 at 09:00 Tramadol HCl (Ultram) 50 mg PRN Q8HRS PRN PO MODERATE-SEVERE PAIN; Start at 18:45 Atorvastatin Calcium (Lipitor) 10 mg QHS PO Last administered on 02/20/18at 21: 18; Start 02/14/18 at 21:00 Pantoprazole Sodium (Protonix) 40 mg DAILYAC PO Last administered on 02/18/18at 10:14; Start 02/15/18 at 07:30; Stop 02/18/18 at 13:26; Status DC Ondansetron HCl (Zofran) 4 mg PRN Q6HRS PRN IV NAUSEA/VOMITING Last administered on 02/19/18at 16:15; Start 02/14/18 at 19:00 Dextrose/Sodium Chloride 1,000 ml @ 80 mls/hr [id number] IV Last administered on 02/16/18at 21:23; Start 02/14/18 at 19:30; Stop 02/17/18 at 11:49; Status DC Dextrose (Dextrose 50%-Water Syringe) 25 gm 1X ONCE IV Last administered on at 19:18; Start 02/14/18 at 19:00; Stop 02/14/18 at 19:01; Status DC Potassium Chloride (Klor-Con) 40 meq 1X ONCE PO Last administered on at 10:18; Start 02/15/18 at 09:15; Stop 02/15/18 at 09:16; Status DC Magnesium Sulfate 50 ml @ 25 mls/hr 1X ONCE IV Last administered on 02/15/18at 10:19; Start 02/15/18 at 09:15; Stop 02/15/18 at 11:14; Status DC Potassium Chloride (Klor-Con) 20 meq [id number] PO Last administered on at 08:12; Start 02/16/18 at 08:00; Stop 02/16/18 at 08:44; Status DC Potassium Chloride (Klor-Con) 40 meq 1X ONCE PO Last administered on at 12:26; Start 02/15/18 at 11:45; Stop 02/15/18 at 11:46; Status DC Potassium Chloride (Klor-Con) 40 meq 1X ONCE PO Last administered on at 17:30; Start 02/15/18 at 17:00; Stop 02/15/18 at 17:01; Status DC Lactobacillus Rhamnosus (Culturelle) 1 cap BID PO Last administered on at 09:05; Start 02/15/18 at 21:00 Potassium Chloride (KCl Oral Soln) 20 meq BIDWMEALS PO Last administered on at 09:05; Start 02/16/18 at 17:00 Cefpodoxime Proxetil (Vantin) 200 mg Q24H PO ; Start 02/16/18 at 21:00; Stop at 21:00; Status DC Cefpodoxime Proxetil (Vantin) 100 mg Q12H PO Last administered on 02/21/18at 09: 06; Start 02/16/18 at 21:00 Acetaminophen (Tylenol) 500 mg PRN Q6HRS PRN PO MILD PAIN / TEMP; Start at 09:30 Amino Acids/ Glycerin/ Electrolytes 1,000 ml @ 80 mls/hr [id number] IV Last administered on 02/21/18at 03:30; Start 02/17/18 at 12:00 Pantoprazole Sodium (PROTONIX VIAL for IV PUSH) 40 mg DAILYAC IVP Last administered on 02/20/18at 08:57; Start 02/19/18 at 07:30; Stop 02/20/18 at 10:05 ; Status DC Bisacodyl (Dulcolax Supp) 10 mg 1X ONCE DC Last administered on 02/18/18at 13: 52; Start 02/18/18 at 13:30; Stop 02/18/18 at 13:31; Status DC Insulin Human Lispro (HumaLOG) 0-5 UNITS TIDWMEALS SQ ; Start 02/19/18 at 08:00 ; Stop 02/19/18 at 08:00; Status DC Dextrose (Dextrose 50%-Water Syringe) 12.5 gm PRN Q15MIN PRN IV SEE COMMENTS; Start 02/19/18 at 06:15; Stop 02/19/18 at 06:17; Status DC Pantoprazole Sodium (Protonix) 40 mg DAILYAC PO Last administered on 02/21/18at 09:05; Start 02/21/18 at 07:30 Active Scripts Active Celexa (Citalopram Hydrobromide) 10 Mg Tablet 10 Mg PO DAILY 30 Days Amlodipine Besylate 5 Mg Tablet 10 Mg PO DAILY 30 Days Reported Omeprazole 40 Mg Capsule.dr 1 Cap PO DAILY Prednisone 20 Mg Tablet 10 Mg PO DAILY Lisinopril 40 Mg Tablet 1 Tab PO DAILY Levothyroxine Sodium 100 Mcg Tablet 1 Tab PO DAILY Lovastatin 40 Mg Tablet 40 Mg PO HS Tramadol Hcl 50 Mg Tablet 50 Mg PO PRN Q6-8HRS PRN Vitals/I & O Vital Sign - Last 24 Hours 02/20/18 02/20/18 02/20/18 02/20/18 15:00 19:00 20:00 22:40 Temp 98.5 98.8 97.6 98.5 98.8 97.6 Pulse 67 65 72 Resp 16 17 17 B/P (MAP) 172/82 (112) 151/74 (99) 146/81 (102) Pulse Ox 93 97 94 O2 Delivery Room Air Room Air Room Air Room Air 9/25/18 9/25/18 9/25/18 9/25/18 02:36 07:00 09:06 09:07 Temp 97.9 98.4 97.9 98.4 Pulse 68 70 70 70 Resp 17 16 B/P (MAP) 145/67 (93) 156/71 (99) 156/71 156/71 Pulse Ox 95 95 O2 Delivery Room Air Room Air 02/21/18 11:00 Temp 97.9 97.9 Pulse 68 Resp 16 B/P (MAP) 137/59 (85) Pulse Ox 96 O2 Delivery Room Air Intake and Output 02/20/18 02/20/18 02/21/18 15:00 23:00 07:00 Output Total 500 ml Balance -500 ml Nutrition Consultation Dietary Evaluation: Recommendations by RD: Increase Calorie Intake, Protein supplementation, PPN/ TPN Comments: ensure tid consider PPN for short term nutrition Expected Outcomes/Goals: to meet > 50% est nutr needs via po intake Malnutrition Findings: Food and Nutrition Intake (Sev: <50% est energy req 5days Body Fat Depletion (Non Severe: Mild Depletion Weight Status: Appropriate ROBIN MUNOZ MD Feb 21, 2018 12:01
--- NOTE | 2018-02-21 12:21 | PDOC ---
Subjective: Subjective: "I don't know." Objective: Objective: Per RN - bites of food with pills, otherwise not eating. Probable DC today - not sure if rehab or to home, family undecided on Hospice. Reviewed PC note. Vital Signs: Vital Signs Date Time Temp Pulse Resp B/P (MAP) Pulse Ox O2 Delivery O2 Flow Rate FiO2 02/21/18 11:00 97.9 68 16 137/59 (85) 96 Room Air 97.9 PE: GEN: NAD LUNGS: CTAB HEART: RRR ABD: NABS, S/ND/NT NEURO/PSYCH: confused A/P: Anorexia, dementia -- DC plans in process. DASHAWN WHITING Feb 21, 2018 12:21
== END 2018-02-21 15:23 | disposition hospice, home (50) | DRG 682 ==
LOC: ER 13:06 → 5 SOUTH 14:50
PROVIDERS: ADMIT Family Medicine; ATTEND Family Medicine
DX: N17.0 Acute kidney failure with tubular necrosis (principal); G93.41 Metabolic encephalopathy; E44.0 Moderate protein-calorie malnutrition; Z68.1 Body mass index [BMI] 19.9 or less, adult; N39.0 Urinary tract infection, site not specified; E87.6 Hypokalemia; E83.42 Hypomagnesemia; I10 Essential (primary) hypertension; E78.5 Hyperlipidemia, unspecified; K21.9 Gastro-esophageal reflux disease without esophagitis; E03.9 Hypothyroidism, unspecified; R62.7 Adult failure to thrive; I95.9 Hypotension, unspecified; F32.9 Major depressive disorder, single episode, unspecified; D64.9 Anemia, unspecified; Z66 Do not resuscitate; F03.90 Unspecified dementia, unspecified severity, without behavioral disturbance, psychotic disturbance, mood disturbance, and anxiety; E86.9 Volume depletion, unspecified; E78.00 Pure hypercholesterolemia, unspecified; E16.2 Hypoglycemia, unspecified; K59.00 Constipation, unspecified; R13.12 Dysphagia, oropharyngeal phase; Z51.5 Encounter for palliative care; Z53.20 Procedure and treatment not carried out because of patient's decision for unspecified reasons; Z82.49 Family history of ischemic heart disease and other diseases of the circulatory system; Z87.442 Personal history of urinary calculi; Z87.440 Personal history of urinary (tract) infections; B96.20 Unspecified Escherichia coli [E. coli] as the cause of diseases classified elsewhere
CPT/HCPCS: 36415; 71045; 74018; 76700; 80048; 80053; 81001; 82310; 82550; 82962; 83605; 83690; 83735; 83880; 84484; 85025; 87040; 87086; 93005; 96374; C9113; J0696; J2405; J3475; J7042; J7512; 92610; 99285-25